=== PATIENT | female | born 1955 | race Caucasian/White ===

== ENCOUNTER 2019-10-02 06:00 | Outpatient (RCR) | payer MEDICARE, SELFPAY | END 2019-11-01 00:01 | LOC: WST 06:00 | PROVIDERS: Family Provider Registered Nurse; Visit Provider Internal Medicine Hematology & Oncology | DX: R13.13 Dysphagia, pharyngeal phase (principal) | CPT/HCPCS: 92526 ==

== ENCOUNTER 2019-10-17 06:00 | Outpatient (RCR) | payer MEDICARE, SELFPAY | END 2019-11-01 00:01 | LOC: ONCMED 06:00 | PROVIDERS: Family Provider Registered Nurse; PCP Registered Nurse; Visit Provider Internal Medicine Hematology & Oncology | DX: C13.9 Malignant neoplasm of hypopharynx, unspecified (principal); C77.0 Secondary and unspecified malignant neoplasm of lymph nodes of head, face and neck; F17.210 Nicotine dependence, cigarettes, uncomplicated; F10.20 Alcohol dependence, uncomplicated; G89.3 Neoplasm related pain (acute) (chronic); Z85.828 Personal history of other malignant neoplasm of skin; Z92.21 Personal history of antineoplastic chemotherapy; Z92.3 Personal history of irradiation | CPT/HCPCS: 36591; 85025; 99213; J1642 ==

== ENCOUNTER 2019-11-02 06:00 | Outpatient (RCR) | payer MEDICARE, SELFPAY | END 2019-12-02 23:59 | disposition home or self-care (01) | LOC: WST 06:00 | PROVIDERS: Family Provider Registered Nurse; PCP Registered Nurse; Visit Provider Internal Medicine Hematology & Oncology | DX: R13.13 Dysphagia, pharyngeal phase (principal) | CPT/HCPCS: 92526 ==

== ENCOUNTER → 2019-11-09 12:17 | Outpatient (BNVA) | payer MEDICARE, SELFPAY | PROVIDERS: Family Provider Registered Nurse; PCP Registered Nurse; Visit Provider Anesthesiology | DX: M54.5 Low back pain (principal); M25.552 Pain in left hip; G89.29 Other chronic pain; C13.9 Malignant neoplasm of hypopharynx, unspecified; F17.210 Nicotine dependence, cigarettes, uncomplicated; Z79.891 Long term (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 analgesic | CPT/HCPCS: 99204 ==

== ENCOUNTER 2019-11-17 10:41 | Outpatient (CLI) | payer MEDICARE, SELFPAY | END 2019-11-17 10:42 | disposition home or self-care (01) | LOC: ONCMED 10:46 | PROVIDERS: Family Provider Registered Nurse; PCP Registered Nurse; Visit Provider Internal Medicine Hematology & Oncology | DX: Z45.2 Encounter for adjustment and management of vascular access device (principal) | CPT/HCPCS: 96523 ==

== ENCOUNTER 2019-12-03 06:00 | Outpatient (RCR) | payer MEDICARE, SELFPAY | END 2019-12-31 23:59 | disposition home or self-care (01) | LOC: WST 06:00 | PROVIDERS: Family Provider Registered Nurse; PCP Registered Nurse; Visit Provider Internal Medicine Hematology & Oncology | DX: R13.13 Dysphagia, pharyngeal phase (principal) | CPT/HCPCS: 92526 ==

== ENCOUNTER → 2019-12-08 12:49 | Outpatient (BNVA) | payer MEDICARE, SELFPAY | PROVIDERS: Family Provider Registered Nurse; PCP Registered Nurse; Visit Provider Anesthesiology | DX: G89.29 Other chronic pain (principal); R07.0 Pain in throat; R07.89 Other chest pain; F17.210 Nicotine dependence, cigarettes, uncomplicated; Z79.891 Long term (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 analgesic | CPT/HCPCS: 99214 ==

== ENCOUNTER → 2019-12-16 12:45 | Outpatient (BNVA) | payer MEDICARE, SELFPAY | PROVIDERS: Family Provider Registered Nurse; PCP Registered Nurse; Visit Provider Registered Nurse | DX: J01.41 Acute recurrent pansinusitis (principal); R05 Cough | CPT/HCPCS: 87804 ==

== ENCOUNTER 2019-12-19 10:50 | Outpatient (CLI) | payer MEDICARE, SELFPAY | END 2019-12-19 10:51 | disposition home or self-care (01) | LOC: ONCMED 10:52 | PROVIDERS: Family Provider Registered Nurse; PCP Registered Nurse; Visit Provider Internal Medicine Hematology & Oncology | DX: Z45.2 Encounter for adjustment and management of vascular access device (principal) | CPT/HCPCS: 96523 ==

== ENCOUNTER 2020-01-04 21:21 | Inpatient (IN) | payer MEDICARE, SELFPAY ==
[2020-01-04 21:34] VITALS: BP 140/66; PULSE 88; RESP 17; O2SAT 95
[2020-01-04 21:43] VITALS: BMI 13.6
[2020-01-04 22:00] VITALS: BP 116/59; PULSE 78; RESP 19; O2SAT 98
[2020-01-04 22:25] VITALS: BP 116/59; PULSE 78; RESP 19; TEMP 37.4; O2SAT 98
[2020-01-04 23:00] VITALS: BP 119/61; PULSE 84; RESP 20; O2SAT 93
--- NOTE | 2020-01-04 23:55 | P.HP_ITS ---
Providers/Chief Complaint Admitting Physician: Thomas Wilson MD Primary Care Provider: JIMMIE Chavez Chief Complaint: Flu A pos, hypotension History of Present Illness Claudia Perez is a 64 year old female who has history of carcinoma of hypopharynx finished all her chemotherapy sessions, was transferred to our facility for chief concern of hypotension with influenza A positive. Patient is stating that her symptoms started 4 to 5 days ago when she was exposed to children who had flulike symptoms, she started having myalgias, aches, subjective fevers, she felt really tired, she started having nonproductive cough which has recently converted to productive cough, she is bringing very sputum, she feels very tired and dehydrated, she is feeding herself through PEG tube, she only fed once today. At the other facility diagnostic work-up showed White count 2.5 Hemoglobin 14.1 Platelets 82 Lymphocyte absolute 0.22 Neutrophil absolute 1.9 Influenza A antigen positive BNP 563 Sodium 137 Potassium 3.9 Chloride 98 CO2 26 Calcium 9.4 BUN 31 Creatinine 0.7 AST 36 ALT 28 Troponin baseline 9 Chest x-ray did not show any acute remarkable findings it showed left-sided port infusion catheter with tip in SVC. Lactic acid 0.8 2 blood cultures were obtained EKG showed sinus rhythm without ischemic changes She was afebrile, systolic blood pressure was 108, she was hypoxic to 89 to 90% on room air and did well on 2 L nasal cannula, subsequently her blood pressure started going down, systolic blood pressure was 90 at that time decision was made to transfer to our ICU. She has received Tamiflu, DuoNeb treatment Evaluation on arrival to our ICU Systolic blood pressure 113, normal saline fluid running at the bedside, patient feels very dehydrated, not complaining of any chest pain, shortness of breath, nausea, vomiting, diarrhea, dysuria, she was not in any respiratory distress Review of Systems Const: Reports: fever, chills, body aches, fatigue and malaise Eyes: Denies: change in vision ENMT: Denies: throat pain Card: Denies: chest pain or palpitations Resp: Reports: shortness of breath and productive cough GI: Denies: abdominal pain, nausea or vomiting : Denies: flank pain or difficulty urinating Musc: Reports: muscle cramps Skin/Breast: Denies: rash Neuro: Denies: headache Psych: Denies: anxiety Endo: Reports: excessive urination Apolinar/Lymph: Denies: easy bruising All/Imm: Denies: hives Medications/Allergies Allergies Allergy/AdvReac Type Severity Reaction Status Date / Time No Known Allergies Allergy Verified 12/26/19 11:00 PFSH Acute PFSH: Medical History (Updated 01/05/20 @ 00:32 by Zeinab Fuentes MD) Carcinoma of hypopharynx COPD (chronic obstructive pulmonary disease) Hyperlipidemia Hyperthyroidism Hypothyroidism Port-A-Cath in place (~05/2019) Surgical History (Updated 01/05/20 @ 00:32 by Zeinab Fuentes MD) History of tonsillectomy History of tonsillectomy and adenoidectomy S/P percutaneous endoscopic gastrostomy (PEG) tube placement Status post open reduction and internal fixation (ORIF) of fracture left humerus Family History Mother CAD (coronary artery disease) Sister CAD (coronary artery disease) Stroke Denies family history of Anesthesia complication Bleeding disorder Social History Smoking and tobacco status: current every day smoker cigarettes Packs smoked per day: 1 Quit status (tobacco): has tried quititng Number of times tried to quit tobacco: 3 Second hand smoke exposure: Yes Smoking risk assessment/counseling performed?: Yes Alcohol intake: never Adopted: No Caregiver/support person: Yes Lives independently: No (disabled ) Household members: family Housing: House Marital status: Single Number of children: 3 Number of grandchildren: 7 Highest education level completed: High School Graduate service: No Current occupational status: disabled Current occupational exposures/hazards: No Pets and animals: Yes History of recent travel: No Sexually active: No Current gender identity: Female Micaela/Oriental Orthodox: Adventism Special micaela needs: No Agree to transfusion: No Financial difficulty paying for basics: Decline to Answer Vitals/I&O/Wt Last Vital Signs Temp 99.3 F 01/04/20 22:25 Pulse 78 01/04/20 22:25 Resp 19 H 01/04/20 22:25 BP 116/59 01/04/20 22:25 Pulse Ox 98 01/04/20 22:25 Weight last 48 hrs Weight 38.51 kg Physical Exam Narrative: EXAM NARRATIVE: Frail elderly female, dehydrated appearance Saturating well on 2 L nasal cannula Systolic blood pressure 113 No active restaurant distress, on lung auscultation no adventitious sounds were appreciated, good bilateral adequate breath sounds Abdomen soft, nontender, PEG tube site nonsensitive, no active drainage, Alert oriented x3 GCS 15 nonfocal exam S1, S2, no active signs of JVD or heart failure She looks dehydrated with decreased skin turgor, sunken eyes Malnourished appearance Appropriate mood and affect A&P Assessment and plan (1) Influenza: Status: Acute Code(s): J11.1 - Influenza due to unidentified influenza virus with other respiratory manifestations Additional A&P Information Constitutional symptoms secondary to influenza A Closely monitor for development of post viral pneumonia considering history of cancer and immunocompromise state, currently she is leukopenic with thrombocytopenia No need of antibiotics, continue Tamiflu DuoNeb treatments for as needed usage Droplet precautions Hypotension: Currently doing well with full resuscitation, Closely monitor for repeat of sepsis and septic shock COPD: No acute exacerbation Anxiety/depression: Continue BuSpar 5 mg tablet Hypothyroidism: Continue levothyroxine 75 mcg Cancer of hypopharynx: She is currently smoking half a pack a day, last chemo radiotherapy session was in June 2019, as per the patient PET scan did not show any recurrence of cancer, Patient is motivated to quit smoking Malnourishment: PEG tube was placed to help her gain weight Patient is full code DVT prophylaxis would avoid Lovenox because of thrombocytopenia, will use SCDs for now Attestations Medical Necessity Statement*: Currently needs ICU for hypotension and influenza A positive status with underlying cancer Time Spent in Patient Care: 35 Critical Care Time: Critical Care Time (min): 35 Coding Level of Care Code Acute Production Tester for Karley Rogers Diagnoses Influenza J11.1
[2020-01-05] VITALS (26 sets, daily range): BP systolic 81–127; BP diastolic 38–64; PULSE 63–91; RESP 13–26; TEMP 36.8–38.2; O2SAT 89–100
[2020-01-05] MEDS: LORazepam 1 mg Tablet 0.5 MG PO (00:52)
[2020-01-05] MEDS: sodium chloride 0.9% 1,000 ML 30 ML IV ×2 (00:53→16:04)
[2020-01-05] MEDS: HYDROcodone-APAP 7.5-325 mg/15 mL UDC PO ×3 (02:05→21:37)
[2020-01-05 04:21] LABS: Hematocrit 34.7 % (37.0-47.0); Hemoglobin 11.6 g/dL (11.5-15.3); Lymphocytes # 0.3 10^3/uL (0.8-4.8); Lymphocytes % 10.6 %; Mean Corpuscular HGB Conc 33.4 g/dL (30.0-36.0); Mean Corpuscular Hemoglobin 33.3 pg (28.0-34.0); Mean Corpuscular Volume 99.7 fL (81-99); Mean Platelet Volume 11.2 fL (7.4-10.4); Monocytes # 0.3 10^3/uL (0.2-0.9); Monocytes % 13.1 %; Neutrophils # 1.9 10^3/uL (1.8-7.7); Neutrophils % 75.9 %; Nucleated Red Blood Cells % 0 %; Platelet Count 74 10^3/cmm (130-400); Red Blood Count 3.48 10^6/uL (4.1-5.3); White Blood Count 2.5 10^3/uL (4.0-10.0)
[2020-01-05 04:45] LABS: Anion Gap 13.1 (5-19); Blood Urea Nitrogen 19 mg/dL (8-23); Calcium 9.2 mg/dL (8.5-10.5); Carbon Dioxide 25 mmol/L (22-29); Chloride 103 mmol/L (98-107); Glucose 103 mg/dL (65-115); Osmolality Calculated 281 mOsm/kg (285-295); Potassium 4.1 mmol/L (3.5-5.1); Sodium 137 mmol/L (136-145)
[2020-01-05] MEDS: acetaminophen 325 mg Tablet 650 MG PO ×2 (05:45→19:25)
--- NOTE | 2020-01-05 07:50 | CT_ITS ---
WS: [id number] CT CHEST WITHOUT INTRAVENOUS CONTRAST HISTORY: Secondary bacterial pneumonia. TECHNIQUE: Contiguous 5 mm axial imaging performed on the thorax. Coronal and sagittal reformats are submitted. All CT scans at [facility] use at least one of these dose optimization techniq ues: automated exposure control; mA and/or kV adjustment per patient size (includes targeted exams wh ere dose is matched to clinical indication); or iterative reconstruction. CONTRAST: Visipaque 320; 95 mL IV. DLP: 326.03 mGy.cm COMPARISON: None available. Lungs and central airway: Lungs are hyperinflated with changes of emphysema. Partial atelectasis resu lting in thickening along the fissures. There is partial atelectasis at the lingula and the RIGHT mid dle lobe. Mild bilateral lower lobe bronchial wall thickening, greater on the LEFT. There is mild bro nchiectasis. Partial atelectasis at the LEFT lung base. Pleura: Normal. No pleural effusion. Heart and pericardium: Normal size heart. Mild pericardial thickening anteriorly. Mediastinum and dianna: No mediastinum or hilar adenopathy. Vessels: Mild atherosclerosis aorta. Patient has a Port-A-Cath entering the LEFT subclavian vein with tip in the distal SVC. Pulmonary artery size is normal. Chest wall and lower neck: No soft tissue masses. Upper abdomen: There is a PEG tube present. Osseous structures: Increase in thoracic kyphosis. No osteoblastic or osteolytic bone disease. CT/CT chest wo con [id number] IMPRESSION: 1. Severe emphysema. 2. No pneumonia. 3. Pleural thickening secondary to atelectasis along the fissures adjacent to the RIGHT middle and lingula. 4. Bilateral lower lobe bronchial wall thickening and mild atelectasis.
[2020-01-05 09:42] LABS: Procalcitonin 0.08 ng/mL (0-0.5)
[2020-01-05 09:52] LABS: C Reactive Protein 33.8 mg/L (0.0-4.9)
[2020-01-05] MEDS: oseltamivir phosphate 75 mg Capsule PO ×2 (10:05→18:05)
[2020-01-05] MEDS: BuSPIRONE 5 mg Tablet PO (10:13)
[2020-01-05 11:03] LABS: LAB Peripheral Smear Sent for Review
[2020-01-05] MEDS: piperacillin-tazobactam 3.375 GM in sodium chloride 0.9% (plus) 50 ML IV ×2 (13:32→21:37)
[2020-01-05] MEDS: vancomycin 500 MG in sodium chloride 0.9% (plus) 100 ML 200 MG IV (16:46)
--- NOTE | 2020-01-05 17:19 | P.PN_ITS ---
Subjective Subjective: Interval history: Patient states that the rest of her family has been sick, her grandchildren have tested positive for influenza A, however she did not get prophylactically treated, she is feeling a little bit better, no chest pain, but continues to have a cough, no shortness of breath, unfortunately continues to smoke with history of cancer Vitals/I&O/Wt Last Vital Signs Temp 99.8 F H 01/05/20 10:00 Pulse 70 01/05/20 11:00 Resp 21 H 01/05/20 11:00 BP 82/43 01/05/20 11:00 Pulse Ox 97 01/05/20 11:00 01/05/20 01/05/20 01/05/20 06:59 14:59 22:59 Intake Total 220 / 220 455.5 / 675.5 Output Total 75 / 75 0 / 0 Balance -75 / -75 220 / 220 455.5 / 675.5 Weight last 48 hrs Weight 38.51 kg Physical Exam Narrative: EXAM NARRATIVE: G-tube in place, with slight skin breakdown Const: COMMON NORMALS: no apparent distress and oriented x3 HENMT: COMMON NORMALS: normocephalic HEAD & SCALP: normocephalic Neck/C-Spine: COMMON NORMALS: no JVD Resp: COMMON NORMALS: normal respiratory effort, no retractions, no use of accessory muscles and clear to auscultation bilaterally AUSCULTATION: clear to auscultation bilaterally Cardio: COMMON NORMALS: no JVD, regular rate, regular rhythm, S1 normal heart sound and S2 normal heart sound RATE: regular rate RHYTHM: regular rhythm HEART SOUNDS: S1 normal and S2 normal GI: COMMON NORMALS: normal to inspection, nondistended, normoactive bowel sounds, soft to palpation, non-tender, no hepatosplenomegaly, no masses and no bruits PALPATION: Yes soft and Yes no hepatosplenomegaly Extremity: COMMON NORMALS: normal capillary refill, no clubbing, cyanosis or edema, no calf tenderness and no pedal edema Neuro: COMMON NORMALS: oriented x3 Psych: COMMON NORMALS: mental status grossly normal Data : 01/05/20 03:45 01/05/20 03:45 Micro: Microbiology 01/05/20 11:45 Bacterial Antigens - Final Urine,Voided 01/05/20 11:45 Legionella Urinary Antigen - Final Urine Catheterized 01/05/20 10:43 Blood Culture - Preliminary Blood SPECIMEN COLLECTED 01/05/20 10:31 Blood Culture - Preliminary Blood SPECIMEN COLLECTED A&P Assessment and plan (1) Influenza: Status: Acute Code(s): J11.1 - Influenza due to unidentified influenza virus with other respiratory manifestations Additional A&P Information Constitutional symptoms secondary to influenza A As patient continues to have fevers and hypotensive episodes responding well to fluid boluses, will start on broad-spectrum antibiotics vancomycin and Zosyn, as she has a history of immunocompromise state given her cancer of hypopharynx status post chemoradiation CT chest continue Tamiflu DuoNeb treatments for as needed usage Droplet precautions Hypotension: Currently doing well with full resuscitation, SV delta 15, responding well to fluids, I believe the patient's blood pressure likely is on the lower end, given her BMI of 13 Closely monitor for repeat of sepsis and septic shock COPD: No acute exacerbation Anxiety/depression: Continue BuSpar 5 mg tablet Hypothyroidism: Continue levothyroxine 75 mcg Cancer of hypopharynx: She is currently smoking half a pack a day, last chemo radiotherapy session was in June 2019, as per the patient PET scan did not show any recurrence of cancer, Patient is motivated to quit smoking Malnourishment: PEG tube was placed to help her gain weight, will start Jevity here, consult dietary Patient is full code DVT prophylaxis would avoid Lovenox because of thrombocytopenia, will use SCDs for now Attestations Medical Necessity Statement*: Requires hospitalization due to influenza A Coding Level of Care Code Acute Supervisor Fur Floor Worker for Karley Rogers Diagnoses Influenza J11.1
[2020-01-05 21:50] LABS: Glucose Point of Care 93 mg/dL (70-110)
[2020-01-06] VITALS (22 sets, daily range): BP systolic 84–108; BP diastolic 42–57; PULSE 64–78; RESP 12–34; TEMP 36.7–37.8; O2SAT 92–99
[2020-01-06] MEDS: LORazepam 1 mg Tablet 0.5 MG PO (00:34)
[2020-01-06] MEDS: sodium chloride 0.9% 1,000 ML 100 ML IV ×2 (02:29→22:04)
[2020-01-06 05:10] LABS: Eosinophils % 0.5 %; Hematocrit 36.1 % (37.0-47.0); Hemoglobin 12.2 g/dL (11.5-15.3); Lymphocytes # 0.4 10^3/uL (0.8-4.8); Lymphocytes % 20.9 %; Mean Corpuscular HGB Conc 33.8 g/dL (30.0-36.0); Mean Corpuscular Hemoglobin 35.4 pg (28.0-34.0); Mean Corpuscular Volume 104.6 fL (81-99); Mean Platelet Volume 11.1 fL (7.4-10.4); Monocytes # 0.3 10^3/uL (0.2-0.9); Monocytes % 12.1 %; Neutrophils # 1.4 10^3/uL (1.8-7.7); Neutrophils % 66.5 %; Nucleated Red Blood Cells % 0 %; Platelet Count 68 10^3/cmm (130-400); Red Blood Count 3.45 10^6/uL (4.1-5.3); Red Cell Distribution Width 13.1 % (12.1-15.1); White Blood Count 2.1 10^3/uL (4.0-10.0)
[2020-01-06] MEDS: piperacillin-tazobactam 3.375 GM in sodium chloride 0.9% (plus) 50 ML IV ×3 (05:18→21:35)
[2020-01-06 05:26] LABS: Alanine Aminotransferase 19 U/L (0-33); Albumin Level 3.1 g/dL (3.5-5.2); Alkaline Phosphatase 40 IU/L (35-105); Anion Gap 12.1 (5-19); Aspartate Amino Transferase 34 U/L (0-32); Blood Urea Nitrogen 13 mg/dL (8-23); Calcium 8.7 mg/dL (8.5-10.5); Carbon Dioxide 24 mmol/L (22-29); Chloride 105 mmol/L (98-107); Globulin 2.4 g/dL (1.3-4.6); Glucose 100 mg/dL (65-115); Magnesium 1.8 mg/dL (1.7-2.3); Phosphorus 3.1 mg/dL (2.5-4.5); Potassium 4.1 mmol/L (3.5-5.1); Sodium 137 mmol/L (136-145); Total Bilirubin 0.2 mg/dL (0.15-1.2); Total Protein 5.5 g/dL (6.6-8.7)
[2020-01-06 05:39] LABS: Procalcitonin 0.06 ng/mL (0-0.5)
[2020-01-06] MEDS: HYDROcodone-APAP 7.5-325 mg/15 mL UDC PO ×2 (06:00→21:34)
[2020-01-06] MEDS: acetaminophen 325 mg Tablet 650 MG PO ×2 (06:12→15:02)
--- NOTE | 2020-01-06 07:00 | XR_ITS ---
WS: [id number] XR chest 1V portable [id number] REASON FOR EXAM: sob FINDINGS: A Mediport is seen extending from the left side. There is marked hyperaeration both lung myers and the markings appear to be increased suggesting inf lammatory changes. The heart is small A small hiatal hernia paraesophageal was evident. XR/XR chest 1V portable [id number] IMPRESSION: Chronic obstructive pulmonary disease with bronchitis changes. A Mediport in good position extends from the left. A paraesophageal hiatal hernia.
[2020-01-06] MEDS: BuSPIRONE 5 mg Tablet PO (09:50)
[2020-01-06] MEDS: vancomycin 500 MG in sodium chloride 0.9% (plus) 100 ML 200 MG IV (09:50)
[2020-01-06] MEDS: levothyroxine 150 mcg Tablet 75 MCG PO (09:50)
[2020-01-06] MEDS: oseltamivir phosphate 75 mg Capsule PO ×2 (09:51→18:40)
--- NOTE | 2020-01-06 10:13 | PC.NUTR ---
NUTR TF RECOMMENDATIONS: Pulmocare with goal rate of 40 ml/hr providing 1440 kcal (76%), 60 g PRO (158%), and 754 ml fluid (40%)(%NEEDS). Suggest starting TF at 20 ml/hr on continuous feed and increase by 10 ml Q6H as tolerated until goal rate is met. Suggest H2O flushes of 150 ml Q4H to approach fluid needs or per physician. Bolus feedin cans DAILY total with 1 cup H2O flush 3 times daily.
--- NOTE | 2020-01-06 15:32 | P.PN_ITS ---
Subjective Subjective: Interval history: Patient has been febrile at 6 AM, but states that she is feeling much better, no shortness of breath, no wheezing, has a mild cough, her oxygen requirements have increased to 5 L, but overall states that she is doing much better, no lightheaded, no dizziness, no nausea, no vomiting, is tolerating tube feeds well has no complaints Vitals/I&O/Wt Last Vital Signs Temp 98.3 F 01/06/20 08:00 Pulse 64 01/06/20 12:00 Resp 15 01/06/20 12:00 BP 89/48 01/06/20 12:00 Pulse Ox 97 01/06/20 12:00 01/06/20 01/06/20 01/06/20 06:59 14:59 22:59 Intake Total 362.5 / 1188.0 50 / 50 Output Total 125 / 225 200 / 200 Balance 237.5 / 963.0 -150 / -150 Weight last 48 hrs Weight 38.51 kg Physical Exam Const: COMMON NORMALS: no apparent distress and oriented x3 HENMT: COMMON NORMALS: normocephalic HEAD & SCALP: normocephalic Neck/C-Spine: COMMON NORMALS: no JVD Resp: COMMON NORMALS: normal respiratory effort, no retractions, no use of accessory muscles and clear to auscultation bilaterally AUSCULTATION: clear to auscultation bilaterally Cardio: COMMON NORMALS: no JVD, regular rate, regular rhythm, S1 normal heart sound and S2 normal heart sound RATE: regular rate RHYTHM: regular rhythm HEART SOUNDS: S1 normal and S2 normal GI: COMMON NORMALS: normal to inspection, nondistended, normoactive bowel sounds, soft to palpation, non-tender, no hepatosplenomegaly, no masses and no bruits PALPATION: Yes soft and Yes no hepatosplenomegaly Extremity: COMMON NORMALS: normal capillary refill, no clubbing, cyanosis or edema, no calf tenderness and no pedal edema Neuro: COMMON NORMALS: oriented x3 Psych: COMMON NORMALS: mental status grossly normal Data : 01/06/20 04:20 01/06/20 04:20 Micro: Microbiology 01/05/20 10:43 Blood Culture - Preliminary Blood NEGATIVE TO DATE 01/05/20 10:31 Blood Culture - Preliminary Blood NEGATIVE TO DATE 01/05/20 11:45 Bacterial Antigens - Final Urine,Voided 01/05/20 11:45 Legionella Urinary Antigen - Final Urine Catheterized A&P Assessment and plan (1) Influenza: Status: Acute Code(s): J11.1 - Influenza due to unidentified influenza virus with other respiratory manifestations Additional A&P Information Constitutional symptoms secondary to influenza A As patient continues to have fevers and hypotensive episodes responding well to fluid boluses, will start on broad-spectrum antibiotics vancomycin and Zosyn, as she has a history of immunocompromise state given her cancer of hypopharynx status post chemoradiation CT chest has been unremarkable continue Tamiflu DuoNeb treatments for as needed usage Droplet precautions patient is okay with elective intubation if required Hypotension: Currently doing well with full resuscitation, SV delta 15, responding well to fluids, I believe the patient's blood pressure likely is on the lower end, given her BMI of 13 Closely monitor for repeat of sepsis and septic shock, fluid bolus of LR 500 as needed COPD: No acute exacerbation Anxiety/depression: Continue BuSpar 5 mg tablet Hypothyroidism: Continue levothyroxine 75 mcg Cancer of hypopharynx: She is currently smoking half a pack a day, last chemo radiotherapy session was in June 2019, as per the patient PET scan did not show any recurrence of cancer, Patient is motivated to quit smoking Malnourishment: PEG tube was placed to help her gain weight, will start Jevity here, consult dietary Patient is full code DVT prophylaxis would avoid Lovenox because of thrombocytopenia, will use SCDs for now Attestations Medical Necessity Statement*: Patient requires additional hospitalization due to influenza A, and sepsis Coding Level of Care Code Acute [employer] Developer for Karley Rogers Diagnoses Influenza J11.1
[2020-01-07] VITALS (18 sets, daily range): BP systolic 89–128; BP diastolic 43–71; PULSE 60–74; RESP 13–22; TEMP 36.6–37.2; O2SAT 92–98
[2020-01-07 01:47] LABS: Vancomycin Trough 4.6 ug/mL (10-15)
[2020-01-07] MEDS: acetaminophen 325 mg Tablet 650 MG PO (01:49)
--- NOTE | 2020-01-07 02:25 | PC.PHAR ---
Vancomycin trough level is 4.6. Vancomycin dosage is increased from 500mg IVPB every 18 hours to 1000mg IVPB every 24 hours with another trough level to be obtained before the fourth 1gm dose.
[2020-01-07] MEDS: vancomycin 1,000 MG in sodium chloride 0.9% 250 ML 250 MG IV (02:46)
[2020-01-07] MEDS: HYDROmorphone 1 mg/mL INJ 1 mL IVP (03:37)
[2020-01-07 04:00] LABS: Eosinophils % 1.9 %; Hematocrit 31.8 % (37.0-47.0); Hemoglobin 10.6 g/dL (11.5-15.3); Lymphocytes # 0.4 10^3/uL (0.8-4.8); Lymphocytes % 27.2 %; Mean Corpuscular HGB Conc 33.3 g/dL (30.0-36.0); Mean Corpuscular Volume 99.1 fL (81-99); Monocytes # 0.2 10^3/uL (0.2-0.9); Monocytes % 14.6 %; Neutrophils # 0.9 10^3/uL (1.8-7.7); Neutrophils % 56.3 %; Nucleated Red Blood Cells % 0 %; Platelet Count 59 10^3/cmm (130-400); Red Blood Count 3.21 10^6/uL (4.1-5.3); White Blood Count 1.6 10^3/uL (4.0-10.0)
[2020-01-07 04:16] LABS: Alanine Aminotransferase 15 U/L (0-33); Albumin Level 2.6 g/dL (3.5-5.2); Alkaline Phosphatase 36 IU/L (35-105); Anion Gap 11.7 (5-19); Aspartate Amino Transferase 26 U/L (0-32); Blood Urea Nitrogen 9 mg/dL (8-23); Calcium 8.4 mg/dL (8.5-10.5); Carbon Dioxide 24 mmol/L (22-29); Chloride 103 mmol/L (98-107); Globulin 2.3 g/dL (1.3-4.6); Glomerular Filtration Rate 123.4 mL/min (90-130); Glucose 95 mg/dL (65-115); Magnesium 1.7 mg/dL (1.7-2.3); Potassium 3.7 mmol/L (3.5-5.1); Sodium 135 mmol/L (136-145); Total Bilirubin 0.2 mg/dL (0.15-1.2); Total Protein 4.9 g/dL (6.6-8.7)
[2020-01-07 04:30] LABS: Procalcitonin 0.05 ng/mL (0-0.5)
[2020-01-07] MEDS: piperacillin-tazobactam 3.375 GM in sodium chloride 0.9% (plus) 50 ML IV (05:59)
--- NOTE | 2020-01-07 08:20 | CTR_ITS ---
PROCEDURE INFORMATION: Exam: CT Angiography Chest With Contrast Exam date and time: 01/07/2020 8:25 AM Age: 64 years old Clinical indication: Shortness of breath; Prior surgery; Surgery date: 1-6 months; Surgery type: Port; Additional info: R/O pe TECHNIQUE: Imaging protocol: Computed tomographic angiography of the chest with intravenous contrast. 3D rendering: MIP and/or 3D reconstructed images were created by the technologist. Total DLP: 387.34 mGy-cm Radiation optimization: All CT scans at this facility use at least one of these dose optimization techniques: automated exposure control; mA and/or kV adjustment per patient size (includes targeted exams where dose is matched to clinical indication); or iterative reconstruction. Contrast material: OMNI 350; Contrast volume: 75 ml; Contrast route: RT AC; COMPARISON: CT chest wo con [id number] 01/05/2020 12:57 PM FINDINGS: Pulmonary arteries: No pulmonary embolus or aortic dissection. Aorta: Unremarkable. No aortic aneurysm. No aortic dissection. Lungs: Stable severe centrilobular emphysema. Interval appearance of mild right upper lobe pneumonia since the previous exam. Partial re-expansion of the previously collapsed right middle lobe. Interval atelectasis and airspace disease in the medial aspect left lower lobe, posterior aspect right lower lobe and inferior segment lingula consistent with pneumonia and or atelectasis. Pleural space: Right apical pleural and/or parenchymal scarring. Heart: Severe calcified coronary artery disease. Stable mild pericardial fluid and/or thickening. Stomach and bowel: Probable stable PEG tube. Lymph nodes: Unremarkable. No enlarged lymph nodes. Bones/joints: Unremarkable. No acute fracture. Soft tissues: Unremarkable. CT/CT angio chest PE protcl [id number] IMPRESSION: 1. Stable severe centrilobular emphysema. 2. Interval appearance of mild right upper lobe pneumonia since the previous exam. 3. Partial re-expansion of the previously collapsed right middle lobe. 4. Interval atelectasis and airspace disease in the medial aspect left lower lobe, posterior aspect right lower lobe and inferior segment lingula consistent with pneumonia and or atelectasis. 5. No pulmonary embolus or aortic dissection. Radiation Dose CTDIVOL = (mGy): DLP = 387.34 (mGy-cm)
[2020-01-07] MEDS: iohexol 350 mg/mL 100 mL Btl IV (08:55)
[2020-01-07] MEDS: levothyroxine 150 mcg Tablet 75 MCG PO (09:23)
[2020-01-07] MEDS: BuSPIRONE 5 mg Tablet PO (09:24)
[2020-01-07] MEDS: oseltamivir phosphate 75 mg Capsule PO ×2 (09:24→18:09)
--- NOTE | 2020-01-07 16:11 | PM.PN ---
Subjective Subjective: Interval history: Patient states that she is doing well this morning, no fevers, no chills, no nausea, no vomiting, was able to ambulate to the bathroom without significant assistance or symptomatology, is still on 5 L oxygen Vitals/I&O/Wt Last Vital Signs Temp 99 F 01/07/20 10:00 Pulse 66 01/07/20 14:00 Resp 17 01/07/20 14:00 BP 110/53 01/07/20 14:00 Pulse Ox 96 01/07/20 14:00 01/07/20 01/07/20 01/07/20 06:59 14:59 22:59 Intake Total 50 / 1950 348 / 348 Output Total 200 / 900 600 / 600 200 / 800 Balance -150 / 1050 -600 / -600 148 / -452 Physical Exam Const: COMMON NORMALS: no apparent distress and oriented x3 HENMT: COMMON NORMALS: normocephalic HEAD & SCALP: normocephalic Neck/C-Spine: COMMON NORMALS: no JVD Resp: COMMON NORMALS: normal respiratory effort, no retractions, no use of accessory muscles and clear to auscultation bilaterally AUSCULTATION: clear to auscultation bilaterally Cardio: COMMON NORMALS: no JVD, regular rate, regular rhythm, S1 normal heart sound and S2 normal heart sound RATE: regular rate RHYTHM: regular rhythm HEART SOUNDS: S1 normal and S2 normal GI: COMMON NORMALS: normal to inspection, nondistended, normoactive bowel sounds, soft to palpation, non-tender, no hepatosplenomegaly, no masses and no bruits PALPATION: Yes soft and Yes no hepatosplenomegaly Extremity: COMMON NORMALS: normal capillary refill, no clubbing, cyanosis or edema, no calf tenderness and no pedal edema Neuro: COMMON NORMALS: oriented x3 Psych: COMMON NORMALS: mental status grossly normal Data : 01/07/20 03:18 01/07/20 03:18 Micro: Microbiology 01/05/20 10:43 Blood Culture - Preliminary Blood NEGATIVE TO DATE 01/05/20 10:31 Blood Culture - Preliminary Blood NEGATIVE TO DATE A&P Assessment and plan (1) Influenza: Status: Acute Code(s): J11.1 - Influenza due to unidentified influenza virus with other respiratory manifestations Additional A&P Information Respiratory failure secondary to influenza A and right upper, middle, lower lobe pneumonia Initial CT of the chest on admission did not show any significant radiologic evidence of pneumonia, but she was given broad-spectrum antibiotics vancomycin and Zosyn for over 48 hours, however she continued to have a high oxygen requirements, remained afebrile, Patient continued to have high flow oxygen requirements, and as she has not been on Lovenox due to concerns of thrombocytopenia, CT angiogram of the chest was ordered to rule out pulmonary embolism, no pulmonary embolism, however CT angiogram of the chest did show interval appearance of mild right upper lobe pneumonia since the previous exam.Partial re-expansion of the previously collapsed right middle lobe. Interval atelectasis and airspace disease in the medial aspect left lower lobe, posterior aspect right lower lobe and inferior segment lingula consistent with pneumonia and or atelectasis. As all cultures have been unremarkable, will de-escalate antibiotics to Levaquin Continue Tamiflu, will consider prolonged treatment given patient's immunocompromised state DuoNeb treatments for as needed usage Droplet precautions Patient will likely require 2 to 3 L oxygen on discharge, requires oxygen walk on discharge patient is okay with elective intubation if required Likely discharge in the next 24 hours Given collapse of the right middle lobe, but reexpansion, will require a follow-up with Dr. Chao as outpatient for repeat imaging and consideration of bronchoscopy to rule out underlying malignancy Patient is trending towards absolute neutropenia, consider prolonged prophylactic treatment with Levaquin and Tamiflu Hypotension: Currently doing well with full resuscitation, SV delta 15, responding well to fluids, I believe the patient's blood pressure likely is on the lower end, given her BMI of 13 Closely monitor for repeat of sepsis and septic shock, fluid bolus of LR 500 as needed COPD: No acute exacerbation, no steroids required Anxiety/depression: Continue BuSpar 5 mg tablet Hypothyroidism: Continue levothyroxine 75 mcg Cancer of hypopharynx: She is currently smoking half a pack a day, last chemo radiotherapy session was in June 2019, as per the patient PET scan did not show any recurrence of cancer, Patient is motivated to quit smoking Malnourishment: PEG tube was placed to help her gain weight, getting continuous tube feeds to [facility] here, consult dietary, has a BMI of 13. On discharge nutrition recommends bolus feedings, 4 cans daily total with 1 cup of water flush 3 times daily Patient is full code DVT prophylaxis would avoid Lovenox because of thrombocytopenia, will use SCDs for now Attestations Medical Necessity Statement*: Patient requires continued hospitalization due to respiratory failure secondary to influenza A and right-sided pneumonia Coding Level of Care Code Acute Supervisor [employer] for Karley Rogers Diagnoses Influenza J11.1
--- NOTE | 2020-01-07 16:36 | DCPLANNER ---
Pg 2 of IM updated and reviewed with pt. No questions, copy provided.
[2020-01-07] MEDS: levofloxacin-dextrose 5 % 750 MG/150 ML PREMIX 150 MG IV (18:08)
[2020-01-07] MEDS: HYDROcodone-APAP 7.5-325 mg/15 mL UDC PO (18:35)
--- NOTE | 2020-01-07 19:15 | PC.NURSE ---
Received report from off going shift. RN reports that patient has not received any tube feeding since arriving to our floor because her tube is clogged and she has been unable to free the clog. RN states that she tired to push the patient's pain medication in patient's PEG tube about 1830 and it did not flush instead it blew back out all over the RN and the patient. Patient did not get her pain medication.
--- NOTE | 2020-01-07 19:50 | PC.NURSE ---
Attempted to flush patient's PEG tube at this time with sterile water and pulsating motion without any success. Patient's PEG tube does not really want to take any fluids. Patient's PEG tube will not allow any aspiration either. Placed approximately 10 mls of Coke soda in patient's tube at this time. Will wait and see if it will help any.
--- NOTE | 2020-01-07 20:00 | PC.NURSE ---
Continuing to use try and flush patient's PEG tube. Pulsating motion again used to try and push the Coke up the tube. The is about and 1 inch area of hardened feeding in the center of the tube. Patient is upset and states, I think it is because I have been getting continuous feeding instead of my boluses. I am not going to take anymore of that tonight if we get it flushed.
--- NOTE | 2020-01-07 21:30 | PC.NURSE ---
Finally able to get patient's PEG tube to flush using about 100 mls total of sterile water and 10 mls of Coke soda. Patient is refusing to start her tube feeding back up tonight.
--- NOTE | 2020-01-07 21:45 | PC.NURSE ---
Cyrus HICKS attempted to give patient her pain medication in her PEG tube at 183. The medication could not be flushed as the tube was clogged. Cyrus HICKS and the patient both state that she did not receive the medication. After I was able to get the PEG tube unclogged I gave the patient a dose of Hydrocodone-APAP 7.5/325mg at 2154. Cyrus did not waste her dosage in the [place] so it looks like I did not give my dosage but it was given at 2154.
[2020-01-07] MEDS: LORazepam 0.5 mg Tablet PO (21:55)
[2020-01-08] VITALS (7 sets, daily range): BP systolic 115–137; BP diastolic 61–74; PULSE 61–78; RESP 16–18; TEMP 36.8–37.1; O2SAT 87–96
[2020-01-08 06:16] LABS: Eosinophils % 1.2 %; Hematocrit 34.8 % (37.0-47.0); Hemoglobin 11.8 g/dL (11.5-15.3); Lymphocytes # 0.4 10^3/uL (0.8-4.8); Lymphocytes % 23.7 %; Mean Corpuscular HGB Conc 33.9 g/dL (30.0-36.0); Mean Corpuscular Hemoglobin 33.4 pg (28.0-34.0); Mean Corpuscular Volume 98.6 fL (81-99); Mean Platelet Volume 10.8 fL (7.4-10.4); Monocytes # 0.3 10^3/uL (0.2-0.9); Monocytes % 15.6 %; Neutrophils % 59.5 %; Nucleated Red Blood Cells % 0 %; Platelet Count 57 10^3/cmm (130-400); Red Blood Count 3.53 10^6/uL (4.1-5.3); Red Cell Distribution Width 12.6 % (12.1-15.1); White Blood Count 1.7 10^3/uL (4.0-10.0)
[2020-01-08 06:40] LABS: Alanine Aminotransferase 14 U/L (0-33); Albumin Level 2.9 g/dL (3.5-5.2); Alkaline Phosphatase 37 IU/L (35-105); Anion Gap 12.5 (5-19); Aspartate Amino Transferase 25 U/L (0-32); Blood Urea Nitrogen 7 mg/dL (8-23); Carbon Dioxide 24 mmol/L (22-29); Chloride 100 mmol/L (98-107); Globulin 2.6 g/dL (1.3-4.6); Glomerular Filtration Rate 159.7 mL/min (90-130); Glucose 86 mg/dL (65-115); Magnesium 1.6 mg/dL (1.7-2.3); Phosphorus 3.1 mg/dL (2.5-4.5); Potassium 3.5 mmol/L (3.5-5.1); Sodium 133 mmol/L (136-145); Total Bilirubin 0.3 mg/dL (0.15-1.2); Total Protein 5.5 g/dL (6.6-8.7)
[2020-01-08 06:55] LABS: Procalcitonin 0.06 ng/mL (0-0.5)
[2020-01-08] MEDS: HYDROcodone-APAP 7.5-325 mg/15 mL UDC PO (09:23)
[2020-01-08] MEDS: levothyroxine 150 mcg Tablet 75 MCG PO (09:24)
[2020-01-08] MEDS: oseltamivir phosphate 75 mg Capsule PO ×2 (09:24→17:13)
[2020-01-08] MEDS: BuSPIRONE 5 mg Tablet PO (09:25)
[2020-01-08] MEDS: acetaminophen 650 mg/20.3 mL UDC PO (13:31)
--- NOTE | 2020-01-08 14:04 | PM.DCS ---
Discharge Providers Date of Admission: 01/04/20 23:54 Date of Discharge: January 08, 2020 Attending Provider at Admission: Thomas Wilson MD Attending Provider at Discharge: Sunil Zaidi MD Primary Care Provider: JIMMIE Chavez Diagnoses at Discharge Discharge Diagnosis (1) Influenza: Status: Acute Problem details: Finish up course of Tamiflu at home. Secondary to immunocompromise state will give 7 more days Reason for Visit Reason for Visit: Reason For Visit: Flu A pos, hypotension Hospital Course Hospital Course: Claudia is a 64-year-old white female who presented to the hospital for low blood pressure and flulike symptoms. She was found to have influenza A, and concern for pneumonia existed as well. She was placed in the hospital on Tamiflu, and secondary to her immunocompromise state antibiotics were eventually added. She required oxygen. Throughout her hospital course she had gradual improvement and she requested to go home on January 07. At that time she was able to ambulate around the room, and was requiring only 2 L of oxygen. Home oxygen evaluation will be done prior to discharge. A repeat chest x-ray will be arranged in 2 weeks for follow-up of pneumonia. If abnormalities still exist consider referral to pulmonary. Physical Exam Narrative: EXAM NARRATIVE: General exam is no apparent distress Cardiovascular regular rate and rhythm without murmur Lungs clear but with diminished breath sounds bilaterally Abdomen is soft with positive bowel sounds Extremities no cyanosis clubbing or edema Discharge Data Data Completed and Pending: Completed Studies During Hospitalization Category Date Time Status CT angio chest PE protcl [id number] Stat Cat Scan 01/07/20 08:[address] chest wo con 7 1250 Stat Cat Scan 01/05/20 07:50 Completed XR chest 1V tori ble [id number] Routine Exams 01/06/20 07:00 Completed Pending at discharge Category Date Time Status Blood Culture Sta t Lab 01/05/20 10:43 Results Respiratory Viral Panel PCR Stat Lab 01/05/20 12:00 Received Sputum Culture an d Gram Stain Stat Lab 01/05/20 09:24 Uncollected Vancomycin Trough Timed Lab 01/10/20 01:30 Ordered Labs from last 24 hours 01/08/20 01/08/20 01/08/20 04:54 04:54 04:54 WBC 1.7 L RBC 3.53 L Hgb 11.8 Hct 34.8 L MCV 98.6 MCH 33.4 MCHC 33.9 RDW 12.6 Plt Count 57 L MPV 10.8 H Neut % (Auto) 59.5 Lymph % (Auto) 23.7 [place] % (Auto) 15.6 Eos % (Auto) 1.2 Baso % (Auto) 0.0 Neut # (Auto) 1.0 L Lymph # (Auto) 0.4 L [place] # (Auto) 0.3 Eos # (Auto) 0.0 Baso # (Auto) 0.0 Nucleated RBC % (a uto) 0 Nucleated RBCs # 0.0 Sodium 133 L Potassium 3.5 Chloride 100 Carbon Dioxide 24 Anion Gap 12.5 BUN 7 L Creatinine 0.4 L GFR Calculation 159.7 H Glucose 86 Calcium 9.0 Phosphorus 3.1 Magnesium 1.6 L Total Bilirubin 0.3 AST 25 ALT 14 Alkaline Phosphata se 37 Total Protein 5.5 L Albumin 2.9 L Globulin 2.6 Procalcitonin 0.06 Vitals: Last Vital Signs Temp 98.7 F 01/08/20 11:43 Pulse 61 01/08/20 11:43 Resp 18 01/08/20 11:43 BP 115/61 01/08/20 11:43 Pulse Ox 96 01/08/20 11:43 Discharge Plan Discharge Patient Disposition: Home, Self-Care Condition: Stable Prescriptions: New levofloxacin [Levaquin] 750 mg tablet 750 mg PO DAILY 7 Days Qty: 7 RF: 0 Continued ondansetron HCl [Zofran] 4 mg tablet 4 mg PO Q8H PRN (Reason: Nausea) RF: 0 hydrocodone-acetaminophen 7.5-325 mg/15 mL solution 15 ml PO BID PRN (Reason: pain) 30 Days Qty: 900 RF: 0 levothyroxine 75 mcg capsule 75 mcg PO DAILY Qty: 90 RF: 0 mexiletine 250 mg capsule 250 mg PO BID Qty: 60 RF: 0 buspirone 5 mg tablet 5 mg PO BID Qty: 60 RF: 0 lorazepam 0.5 mg PO BEDTIME RF: 0 oseltamivir [Tamiflu] 75 mg capsule 75 mg PO BID 5 Days Qty: 10 RF: 0 Discharge Orders: Discharge Order (Routine); Ordered 01/08/20 Ordered By: Sunil Zaidi Referrals: Prosper Cox FNP [Primary Care Provider] - 4-7 days (CBC on follow-up Recommend repeat chest x-ray PA and lateral in 2 weeks. If no resolution of pneumonia consider referral to pulmonary.) Discharge Diet: Usual diet Discharge Activity: Resume usual activity Activity Restrictions/Additional Instructions: Home oxygen evaluation prior to discharge. Take all medicine as prescribed Keep regular follow-up with oncology You may use your albuterol at home 4 times a day until you feel that you are doing well, then as needed Make sure she has 5 days of Tamiflu available for use at home as listed on her home medicine reconciliation. 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
[2020-01-08] MEDS: levofloxacin-dextrose 5 % 750 MG/150 ML PREMIX 150 MG IV (15:32)
--- NOTE | 2020-01-08 17:50 | PC.NURSE ---
DC to home. discharge instructions given to pt and daughter, IV dc'd cath intact bleeding controlled with 2x2 and coban.to main entrance via wheelchair to personal vehicle, with zero difficulties.
[2020-01-09 01:31] LABS: Adenovirus Not Detected (Not Detected); Human Metapneumovirus Not Detected (Not Detected); Human Parainflu Virus 1 Not Detected (Not Detected); Human Parainflu Virus 2 Not Detected (Not Detected); Human Parainflu Virus 3 Not Detected (Not Detected); Human Rsv A Not Detected (Not Detected); Influenza A Detected (Not Detected); Influenza B Not Detected (Not Detected); Rhinovirus/Enterovirus Not Detected (Not Detected)
== END 2020-01-08 17:50 | disposition home or self-care (01) | DRG 194 ==
LOC: ICU 01-05 09:41 → MEDSURG 01-07 15:20
PROVIDERS: Internal Medicine; Admitting Provider Family Medicine; Family Provider Registered Nurse; PCP Registered Nurse; Visit Provider Internal Medicine
DX: J10.00 Influenza due to other identified influenza virus with unspecified type of pneumonia (principal); E46 Unspecified protein-calorie malnutrition; Z68.1 Body mass index [BMI] 19.9 or less, adult; F17.210 Nicotine dependence, cigarettes, uncomplicated; I95.9 Hypotension, unspecified; F41.9 Anxiety disorder, unspecified; F32.9 Major depressive disorder, single episode, unspecified; E03.9 Hypothyroidism, unspecified; J44.9 Chronic obstructive pulmonary disease, unspecified; Z85.818 Personal history of malignant neoplasm of other sites of lip, oral cavity, and pharynx; Z79.890 Hormone replacement therapy; Z79.82 Long term (current) use of aspirin; Z79.51 Long term (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 of inhaled steroids
CPT/HCPCS: 12345; 36415; 36416; 71045; 71250; 71275; 80048; 80053; 80202; 82962; 83735; 84100; 84145; 85025; 86140; 86403; 87040; 87449; 96375; G0378; G0379; J1170; J1956; J2543; J3370; J7030; J7050; Q9967

== ENCOUNTER 2020-01-23 09:42 | Outpatient (CLI) | payer MEDICARE, SELFPAY ==
[2020-01-20 14:17] LABS: Basophils % 0.6 %; Eosinophils % 0.6 %; Hematocrit 42.7 % (37.0-47.0); Hemoglobin 14.3 g/dL (11.5-15.3); Lymphocytes # 0.7 10^3/uL (0.8-4.8); Lymphocytes % 14.8 %; Mean Corpuscular HGB Conc 33.5 g/dL (30.0-36.0); Mean Corpuscular Hemoglobin 34.6 pg (28.0-34.0); Mean Corpuscular Volume 103.4 fL (81-99); Mean Platelet Volume 10.6 fL (7.4-10.4); Monocytes # 0.7 10^3/uL (0.2-0.9); Monocytes % 13.6 %; Neutrophils # 3.5 10^3/uL (1.8-7.7); Neutrophils % 70.2 %; Nucleated Red Blood Cells % 0 %; Platelet Count 207 10^3/cmm (130-400); Red Blood Count 4.13 10^6/uL (4.1-5.3); Red Cell Distribution Width 13.1 % (12.1-15.1)
[2020-01-20 14:30] LABS: Alanine Aminotransferase 8 U/L (0-33); Alkaline Phosphatase 54 IU/L (35-105); Anion Gap 12.2 (5-19); Aspartate Amino Transferase 19 U/L (0-32); Blood Urea Nitrogen 25 mg/dL (8-23); Calcium 9.9 mg/dL (8.5-10.5); Carbon Dioxide 35 mmol/L (22-29); Chloride 97 mmol/L (98-107); Globulin 2.9 g/dL (1.3-4.6); Glucose 73 mg/dL (65-115); Osmolality Calculated 285 mOsm/kg (285-295); Potassium 4.2 mmol/L (3.5-5.1); Sodium 140 mmol/L (136-145); Total Bilirubin 0.4 mg/dL (0.15-1.2); Total Protein 6.9 g/dL (6.6-8.7)
--- NOTE | 2020-01-24 16:45 | ONC FU_ITS ---
Dr. Luna follow up note Patient: Claudia Perez Unit #: [id number]: [id number] Dicatated By: Sara Luna M.D.Date of Visit:Jan 23, 2020 Onc Med Follow-up/Prog Note History of Present Illness: Ms. Perez is a 64-year-old female with history of progressive painful swallowing and left earache for the last several months. She has a 88-[id number] history of smoking. In October 2018, she presented to her PCP with a sore throat, left ear pain and noted a mass in her left submandibular area. She was referred to ENT (Dr. Cornejo and [place], [place]) and underwent a flexible laryngoscopy and it revealed a large mass involving the base of the tongue, the vallecula and left half of epiglottis.and probable T3 lesion of the hypopharynx on left side. No biopsy was taken from this hypopharyngeal mass but FNA of left submandibular lymph node was done on 02/16/2019,(mistakenly labeled as left thyroid nodule, as per discussion with pathologist Dr. Yo Guerrero ) which showed metastatic squamous cell carcinoma. CT PET scan done on 04/23/2019 showed 4.1 x 2.2 cm left hypopharyngeal mass with SUV 14.1; left IIa nodes measuring 1.2 cm with SUV of 4.2 and left level IV node measuring 1.4 cm with SUV of 9.1 consistent with ipsilateral metastatic disease. No evidence of distant metastases. Ms. Perez uses dentures with long-standing e.g. 50+ years history of smoking, still smoking about half a pack a day. She is a current every day drinker 6 drinks/for day 7 days per week. Medical History: Emphysema; hypothyroidism Surgical History: repair of left arm fracture and tonsillectomy Mrs. Perez was offered definitive concurrent chemoradiation. Her chemotherapy plan consist of cisplatin days 1, 22 and 43. She began her first treatment of cisplatin on 05/09/2019. complaining of left ear pain, requiring more pain medicine. But no fever or chills, also complaining of sore throat and painful swallowing, Magic mouthwash is not helping her much. Patient was scheduled for day 43 chemotherapy last week but because of poor performance status and chemoradiation related side effects it was not given and she completed combined chemoradiation on 06/29/2019 complaining of persistent ear pain or discomfort for that she was seen by Dr Adame and modified barium swallow was done for dysphagia on 09/02/2019 which showed increase in the laryngeal penetration with a greater number of swallows, now being treated by speech therapy. follow-up CT scan ordered by Dr. Adame , Done on 09/15/2019 showed no definite recurrent mass within the larynx. There is a 4 mm area of increase signal in the posterior left larynx at the level of hyoid bone , as per patient, in November 2019, she underwent biopsy of this shadow and it came back negative. Came for follow-up, denies any specific complaints, no fever or chills, no nausea or vomiting, no left ear pain, no sore throat, no dysphagia, her swallowing is improving with speech therapy patient said she quit smoking 3 weeks ago. Overall feeling well with no evidence of disease as confirmed by ENT recently. Medications: Ativan 1 Tablet (of 0.5 mg) Oral daily PRN, Flonase 1 (50 mcg/act) Suspension Nasal daily PRN, HYDROcodone-Acetaminophen 15 mL (of 7.5-325 mg/15mL) Solution Oral q 6 hours PRN, Levo-T 1 Tablet (of 75 mcg) Oral daily, Mexiletine HCl 1 Capsule (of 250 mg) Oral daily, Ondansetron HCl 1 - 2 Tablet (of 4 mg) Oral t.i.d. PRN, Prochlorperazine Maleate 1 Tablet (of 10 mg) Oral q 4 hours PRN Allergies: No Known Allergies. Review of Systems: Constitutional - Her energy level is fair. Appetite is fair and weight is stable. No fever, chills, hot flashes, or night sweats, ENMT - No sinus congestion/drainage. No mouth sores. Pt reports continued hoarseness and sore throat. Positive for difficulty swallowing, Hematologic/Lymphatic - No abnormal bruising or bleeding, Respiratory - Positive for shortness of breath. Pt is on portable oxygen. Positive for cough. No pleuritic pain or hemoptysis, Cardiovascular - No angina pain. No palpitations, Gastrointestinal - No nausea, no vomiting. No heartburn or acid reflux. She has some constipation, but states it is resolved with stool softeners. No blood in the stool or black stools, Genitourinary (F) - No dysuria or hematuria. No urinary frequency. No urgency or incontinence, Musculoskeletal - No joint or bone pain, Neurologic - No headache or dizziness. No numbness/paresthesias or other focal neurologic symptoms, Psychiatric - No anxiety or depression. No insomnia. Vital Signs: Performed on Jan 23, 2020 10:15 Height - 66.00 in Weight - 84.0 lbs (HIGH) BSA - 1.38 sq.m BMI - 13.56 (LOW) Temperature - 97.4 F (LOW) Pulse - 59 /min (LOW) Respiration - 22 /min BP - 114/65 mm(hg) O2 Sat - 97 % Pain - 0 Performance Status: 0 - Fully active, able to carry on all predisease activities without restrictions. (ECOG) Physical Examination: ENMT - No oral exudates, ulcers, masses, thrush or mucositis. Oropharynx clear. Tongue normal, Respiratory - Lungs are clear to auscultation without rhonchi or wheezing, Cardiovascular - Regular rate and rhythm of heart, Abdomen - Non-tender, non-distended, Good bowel sounds. No guarding or rebound tenderness. No pulsatile masses, Extremities - no edema. Lab/Imaging: Test performed on Oct 17, 2019 09:38 WBC 4.2 10 3/uL RBC 4.26 10 6/uL HGB 14.8 g/dL HCT 42.7 % MCV 100.2 fl MCH 34.7 pg MCHC 34.7 g/dl RDW 12.5 % Platelet Count 138 10 3/cmm MPV 10.6 fl Neutrophils 2.8 10 3/uL Lymphocytes 0.9 10 3/uL Monocytes 0.4 10 3/uL Eosinophils 0.1 10 3/uL Basophils 0.0 10 3/uL Neutrophil % 67.1 % Lymphocyte % 21.4 % Monocyte % 9.1 % Eosinophil % 1.7 % Basophils % 0.5 % CBC Slide Review SLIDE REVIEW PERFORM SLIDE REVIEW AGREES WITH AUTOMATED RESULTS Test performed on Aug 01, 2019 09:55 Sodium 138 mmol/L Potassium 4.4 mmol/L Chloride 98 mmol/L CO2 26 mmol/L Anion Gap 18.4 BUN 27 mg/dL Creatinine 0.8 mg/dL Cr Clearance (Est) 40.1200 mL/min eGFR 71.8 mL/min Glucose 93 mg/dl Calcium 9.5 mg/dL Protein, Total 6.6 g/dL Albumin 4.9 g/dL Globulin 1.7 gm/dL Bilirubin, Total 0.3 mg/dL ALT (SGPT) 11 U/L AST (SGOT) 15 U/L Alkaline Phosphatase 47 U/L Impression: 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 status post FNA left submandibular node done on 02/16/2019 Flex laryngoscopy done on 02/16/2019 showed in the supraglottic region, a large mass that was involving base of tongue, the vallecula, and left half of epiglottis, probably a T3 lesion of left hypopharynx Odynophagia, left ear pain, due to above CT PET scan done on April 23 showed 4.1 x 3.2 cm left hypopharyngeal mass with SUV of 14.1 and left IIa nodes measuring 1.2 cm with SUV of 4.2 and left level IV node measuring 1.4 cm with SUV of 9.1 consistent with ipsilateral metastatic disease, no distant metastases cT3, N1 Mx c Stage III 50+ years history of smoking, still active, smokes about 1/2 to 1 pack a day. Current drinker 6 drinks/day 7 days/week. Basal cell carcinoma, nodular type involving left lateral shoulder status post curettage and electrodesiccation done on 02/02/2019, final pathology report showed deep and lateral margins were involved. Clinically, patient is doing well with persistent left ear/neck pain due to left hypopharyngeal squamous cell carcinoma. Combined chemoradiation therapy with high-dose cisplatin was recommended All the side effect possible benefits associated with high-dose chemotherapy with cisplatin 100 mg/m??? day 1, day 22 and day 43 and chemotherapy staff. Neulasta was ordered to prevent chemotherapy-induced neutropenia. She began Her first cycle on 05/09/2019. She has tolerated it relatively well overall. Plan: Discussed with patient regarding her labs white blood count 5 hemoglobin 14.3 crit 42.7 platelets 207,000 CMP within normal limits Clinically, patient doing well with no signs symptoms suggestive of recurrence of disease, patient is following Dr. Adame, ENT and radiation oncology on a regular basis, in that case we will see her on as-needed basis in the meantime she will continue with monthly port maintenance. Signed By: Sara Luna M.D. <<Signature on File>>
== END 2020-01-23 09:43 | disposition home or self-care (01) ==
LOC: ONCMED 09:42
PROVIDERS: Family Provider Registered Nurse; PCP Registered Nurse; Visit Provider Internal Medicine Hematology & Oncology
DX: C13.9 Malignant neoplasm of hypopharynx, unspecified (principal); C77.0 Secondary and unspecified malignant neoplasm of lymph nodes of head, face and neck; C79.89 Secondary malignant neoplasm of other specified sites
CPT/HCPCS: 36415; 80053; 85025; 96523; G0463

== ENCOUNTER → 2020-01-31 09:41 | Outpatient (BNVA) | payer MEDICARE, SELFPAY | PROVIDERS: Family Provider Registered Nurse; PCP Registered Nurse; Visit Provider Anesthesiology | DX: Z76.89 Persons encountering health services in other specified circumstances (principal) ==

== ENCOUNTER 2020-02-24 11:11 | Outpatient (CLI) | payer MEDICARE, SELFPAY | END 2020-02-24 11:12 | disposition home or self-care (01) | LOC: ONCMED 11:12 | PROVIDERS: Family Provider Registered Nurse; PCP Registered Nurse; Visit Provider Internal Medicine Hematology & Oncology | DX: Z45.2 Encounter for adjustment and management of vascular access device (principal); C13.9 Malignant neoplasm of hypopharynx, unspecified; C77.0 Secondary and unspecified malignant neoplasm of lymph nodes of head, face and neck; C79.89 Secondary malignant neoplasm of other specified sites; C44.619 Basal cell carcinoma of skin of left upper limb, including shoulder; R13.13 Dysphagia, pharyngeal phase | CPT/HCPCS: 96523 ==

== ENCOUNTER 2020-04-04 14:01 | Outpatient (CLI) | payer MEDICARE, SELFPAY | END 2020-04-04 14:02 | disposition home or self-care (01) | PROVIDERS: PCP Registered Nurse; Visit Provider Internal Medicine Hematology & Oncology | DX: Z45.2 Encounter for adjustment and management of vascular access device (principal); C13.9 Malignant neoplasm of hypopharynx, unspecified | CPT/HCPCS: 96523 ==

== ENCOUNTER → 2020-04-19 13:48 | Outpatient (BNVA) | payer MEDICARE, SELFPAY | PROVIDERS: PCP Registered Nurse; Visit Provider Anesthesiology | DX: G89.29 Other chronic pain (principal); R07.0 Pain in throat; C15.4 Malignant neoplasm of middle third of esophagus; C13.9 Malignant neoplasm of hypopharynx, unspecified; F17.210 Nicotine dependence, cigarettes, uncomplicated; Z79.891 Long term (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 analgesic; Z71.6 Tobacco abuse counseling | CPT/HCPCS: 99214 ==

== ENCOUNTER 2020-05-03 15:00 | Outpatient (CLI) | payer MEDICARE, SELFPAY | END 2020-05-03 15:01 | disposition home or self-care (01) | LOC: ONCMED 15:03 | PROVIDERS: PCP Registered Nurse; Visit Provider Internal Medicine Hematology & Oncology | DX: Z45.2 Encounter for adjustment and management of vascular access device (principal); C13.9 Malignant neoplasm of hypopharynx, unspecified; C77.0 Secondary and unspecified malignant neoplasm of lymph nodes of head, face and neck; C44.619 Basal cell carcinoma of skin of left upper limb, including shoulder; J43.8 Other emphysema; E03.9 Hypothyroidism, unspecified | CPT/HCPCS: 96523 ==

== ENCOUNTER 2020-05-18 06:00 | Outpatient (RCR) | payer MEDICARE, SELFPAY | END 2020-06-01 23:59 | disposition home or self-care (01) | LOC: WST 06:00 | PROVIDERS: PCP Registered Nurse; Referring Provider Internal Medicine Hematology & Oncology; Visit Provider Internal Medicine Hematology & Oncology | DX: R13.10 Dysphagia, unspecified (principal) | CPT/HCPCS: 92526; 92610 ==

== ENCOUNTER 2020-06-02 06:00 | Outpatient (RCR) | payer MEDICARE, SELFPAY | END 2020-07-02 23:59 | disposition home or self-care (01) | LOC: WST 06:00 | PROVIDERS: PCP Registered Nurse; Referring Provider Internal Medicine Hematology & Oncology; Visit Provider Internal Medicine Hematology & Oncology | DX: R13.13 Dysphagia, pharyngeal phase (principal) | CPT/HCPCS: 92526 ==

== ENCOUNTER 2020-06-04 14:40 | Outpatient (CLI) | payer MEDICARE, SELFPAY | END 2020-06-04 14:41 | disposition home or self-care (01) | LOC: ONCMED 14:43 | PROVIDERS: PCP Registered Nurse; Visit Provider Internal Medicine Hematology & Oncology | DX: Z45.2 Encounter for adjustment and management of vascular access device (principal) | CPT/HCPCS: 96523 ==

== ENCOUNTER → 2020-06-19 10:26 | Outpatient (BNVA) | payer MEDICARE, SELFPAY | PROVIDERS: PCP Registered Nurse; Visit Provider Registered Nurse | DX: E03.9 Hypothyroidism, unspecified (principal) | CPT/HCPCS: 84443 ==

== ENCOUNTER → 2020-06-20 09:45 | Outpatient (BNVA) | payer MEDICARE, SELFPAY | PROVIDERS: PCP Registered Nurse; Visit Provider Anesthesiology | DX: G89.29 Other chronic pain (principal); R07.0 Pain in throat; C15.4 Malignant neoplasm of middle third of esophagus; C13.9 Malignant neoplasm of hypopharynx, unspecified; F17.210 Nicotine dependence, cigarettes, uncomplicated; Z79.891 Long term (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 analgesic | CPT/HCPCS: 99213; 99214 ==

== ENCOUNTER 2020-07-03 06:00 | Outpatient (RCR) | payer MEDICARE, SELFPAY | END 2020-08-01 23:59 | disposition home or self-care (01) | LOC: WST 06:00 | PROVIDERS: PCP Registered Nurse; Referring Provider Internal Medicine Hematology & Oncology; Visit Provider Internal Medicine Hematology & Oncology | DX: R13.13 Dysphagia, pharyngeal phase (principal) | CPT/HCPCS: 92507; 92526 ==

== ENCOUNTER → 2020-07-05 11:04 | Outpatient (BNVA) | payer MEDICARE, SELFPAY | PROVIDERS: PCP Registered Nurse; Visit Provider Registered Nurse | DX: E03.9 Hypothyroidism, unspecified (principal); F41.9 Anxiety disorder, unspecified | CPT/HCPCS: 84443 ==

== ENCOUNTER 2020-07-12 10:53 | Outpatient (CLI) | payer MEDICARE, SELFPAY | END 2020-07-12 10:54 | disposition home or self-care (01) | LOC: ONCMED 10:55 | PROVIDERS: PCP Registered Nurse; Visit Provider Internal Medicine Hematology & Oncology | DX: Z45.2 Encounter for adjustment and management of vascular access device (principal) | CPT/HCPCS: 96523 ==

== ENCOUNTER 2020-08-02 06:00 | Outpatient (RCR) | payer MEDICARE, SELFPAY | END 2020-09-01 23:59 | disposition home or self-care (01) | LOC: WST 06:00 | PROVIDERS: PCP Registered Nurse; Referring Provider Internal Medicine Hematology & Oncology; Visit Provider Registered Nurse | DX: R13.13 Dysphagia, pharyngeal phase (principal); C14.8 Malignant neoplasm of overlapping sites of lip, oral cavity and pharynx | CPT/HCPCS: 92526 ==

== ENCOUNTER 2020-08-17 05:55 | Outpatient (CLI) | payer MEDICARE, SELFPAY | END 2020-08-17 05:56 | disposition home or self-care (01) | LOC: ONCMED 05:55 | PROVIDERS: PCP Registered Nurse; Visit Provider Internal Medicine Hematology & Oncology | DX: G89.29 Other chronic pain (principal); C15.4 Malignant neoplasm of middle third of esophagus; M54.5 Low back pain; F17.210 Nicotine dependence, cigarettes, uncomplicated; Z79.891 Long term (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 analgesic | CPT/HCPCS: 96523; 99214 ==

== ENCOUNTER → 2020-08-27 13:53 | Outpatient (BNVA) | payer MEDICARE, SELFPAY | PROVIDERS: PCP Registered Nurse; Visit Provider Registered Nurse | DX: F41.9 Anxiety disorder, unspecified (principal); J02.9 Acute pharyngitis, unspecified; Z23 Encounter for immunization | CPT/HCPCS: 87880 ==

== ENCOUNTER 2020-09-02 06:00 | Outpatient (RCR) | payer MEDICARE, SELFPAY | END 2020-10-01 23:59 | disposition home or self-care (01) | LOC: WST 06:00 | PROVIDERS: PCP Registered Nurse; Referring Provider Internal Medicine Hematology & Oncology; Visit Provider Registered Nurse | DX: R13.13 Dysphagia, pharyngeal phase (principal) | CPT/HCPCS: 92526 ==

== ENCOUNTER 2020-09-03 11:26 | Outpatient (CLI) | payer MEDICARE, SELFPAY ==
--- NOTE | 2020-09-03 11:32 | FL_ITS ---
WS: [id number] MODIFIED BARIUM SWALLOW TECHNIQUE: Modified barium swallow with speech therapy using multiple consistencies. FLUOROSCOPY TIME: 1.6 minutes. CLINICAL INFORMATION: Other dysphagia COMPARISON: None. FINDINGS: Multiple consistencies utilized. Normal oropharyngeal phase. Small amount of penetration with thin li quids. No flaquita aspiration. FL/FL barium swallow modifd [id number] IMPRESSION: Small amount of penetration with thin liquids. No flaquita aspiration.
== END 2020-09-03 11:27 | disposition home or self-care (01) ==
LOC: RAD 11:30
PROVIDERS: PCP Registered Nurse; Visit Provider Registered Nurse
DX: R13.10 Dysphagia, unspecified (principal)
CPT/HCPCS: 74230; 92611

== ENCOUNTER 2020-09-05 10:10 | Day surgery (SDC) | payer MEDICARE, SELFPAY ==
[2020-09-05 10:21] VITALS: BP 131/72; PULSE 71; RESP 18; TEMP 36.7; O2SAT 95
[2020-09-05 11:05] VITALS: BP 127/61; PULSE 65; RESP 18; TEMP 36.4; O2SAT 96
--- NOTE | 2020-09-05 12:23 | PM.ACPR ---
Procedure/Consent Time out: Time Out Performed: Yes Consent: Consent for Procedure: Consent obtained from patient Procedure Narrative: Preoperative diagnosis: Poorly functioning gastrostomy tube Postoperative diagnosis: Same Procedure: Exchange of 20 [place] gastrostomy tube to 20 [place] 3.5 cm long Jose Maria button Anesthesia: None Surgeon: Philippe Description of the procedure. After consent was obtained the existing gastrostomy tube was removed intact by applying traction. A 3.5 cm long 20 [place] Jose Maria button was introduced and balloon inflated with 7 cc of saline without difficulty. Drain sponges placed. Patient tolerated procedure well Acute Procedures Epistaxis Control: Time out performed: Yes
== END 2020-09-05 11:07 ==
LOC: OPS 10:15
PROVIDERS: PCP Registered Nurse; Visit Provider Surgery
DX: Z01.818 Encounter for other preprocedural examination (principal)
CPT/HCPCS: 12345; 43760; 43762

== ENCOUNTER 2020-09-17 06:21 | Outpatient (CLI) | payer MEDICARE, SELFPAY | END 2020-09-17 06:22 | disposition home or self-care (01) | LOC: ONCMED 06:21 | PROVIDERS: PCP Registered Nurse; Visit Provider Internal Medicine Hematology & Oncology | DX: Z45.2 Encounter for adjustment and management of vascular access device (principal) | CPT/HCPCS: 96523 ==

== ENCOUNTER 2020-10-11 06:18 | Outpatient (CLI) | payer MEDICARE, SELFPAY | END 2020-10-11 06:19 | disposition home or self-care (01) | LOC: ONCMED 06:19 | PROVIDERS: PCP Registered Nurse; Visit Provider Internal Medicine Hematology & Oncology | DX: Z45.2 Encounter for adjustment and management of vascular access device (principal) | CPT/HCPCS: 96523 ==

== ENCOUNTER → 2020-10-17 09:21 | Outpatient (BNVA) | payer MEDICARE, SELFPAY | PROVIDERS: PCP Registered Nurse; Visit Provider Anesthesiology | DX: G89.29 Other chronic pain (principal); C15.4 Malignant neoplasm of middle third of esophagus; C13.9 Malignant neoplasm of hypopharynx, unspecified; F17.210 Nicotine dependence, cigarettes, uncomplicated; Z79.891 Long term (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 analgesic | CPT/HCPCS: 99213; 99214 ==

== ENCOUNTER 2020-11-27 10:48 | Outpatient (CLI) | payer MEDICARE, SELFPAY | END 2020-11-27 10:49 | disposition home or self-care (01) | LOC: ONCMED 10:51 | PROVIDERS: PCP Registered Nurse; Visit Provider Internal Medicine Hematology & Oncology | DX: Z45.2 Encounter for adjustment and management of vascular access device (principal) | CPT/HCPCS: 96523 ==

== ENCOUNTER → 2020-12-14 09:57 | Outpatient (BNVA) | payer MEDICARE, SELFPAY | PROVIDERS: PCP Registered Nurse; Visit Provider Anesthesiology | DX: G89.29 Other chronic pain (principal); C15.4 Malignant neoplasm of middle third of esophagus; F17.210 Nicotine dependence, cigarettes, uncomplicated; Z79.891 Long term (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 analgesic | CPT/HCPCS: 99213 ==

== ENCOUNTER 2021-01-04 08:49 | Outpatient (CLI) | payer MEDICARE, SELFPAY ==
--- NOTE | 2021-01-04 09:30 | US_ITS ---
WS: [id number] ULTRASOUND SOFT TISSUES LEFT neck HISTORY: R59.0 - Localized enlarged lymph nodes COMPARISON: None available. TECHNIQUE: 2-D and color Doppler imaging is submitted. Palpable area along the LEFT neck corresponds to a prominent vein. There is no adenopathy. The soft t issues and muscles along the LEFT neck are otherwise negative. US/US soft tissue head neck [id number] IMPRESSION: Palpable nodule in the LEFT neck corresponds to a prominent superficial vein.
== END 2021-01-04 08:50 | disposition home or self-care (01) ==
PROVIDERS: PCP Registered Nurse; Visit Provider Registered Nurse
DX: R59.0 Localized enlarged lymph nodes (principal)
CPT/HCPCS: 76536

== ENCOUNTER 2021-01-04 08:56 | Outpatient (CLI) | payer MEDICARE, SELFPAY ==
--- NOTE | 2021-01-04 10:15 | USCV_ITS ---
Claudia Perez Age: 65 Gender: F : 1955 Exam Date: 01/04/2021 09:20 Ordering Phys: Zeinab Mcdonald MD ([email or web address]) Technologist: Sebastian Malave Exam Location: [facility] – [place] Indication: SUPRAVENTRICULAR TACHYCARDIA BP: 118 / 62 HR: 73 Rhythm: Sinus Technical Quality: FAIR MEASUREMENTS (Male / Female) Normal Values 2D ECHO LV Diastolic Diameter PLAX 3.3 cm 4.2 - 5.9 / 3.9 - 5.3 cm LV Systolic Diameter PLAX 2.1 cm IVS Diastolic Thickness 0.7 cm 0.6 - 1.0 / 0.6 - 0.9 cm IVS Systolic Thickness 1.0 cm LVPW Diastolic Thickness 1.0 cm 0.6 - 1.0 / 0.6 - 0.9 cm LVPW Systolic Thickness 0.9 cm LVOT Diameter 2.0 cm LV Ejection Fraction 2D Teich 67.8 % LV Ejection Fraction MOD 2C 80.6 % LV Ejection Fraction 2C AL 80.3 % LA Diameter 3.8 cm LA Width 2.7 cm LA Height 3.1 cm RA Width 1.8 cm RA Height 3.4 cm Aorta at Sinotubular Diameter 1.9 cm M-MODE Aortic Annulus Diameter 2.6 cm LA Ao Ratio MM 1.5 DOPPLER AV Peak Velocity 124.0 cm/s LVOT Peak Velocity 104.0 cm/s AV Area Cont Eq vti 2.7 cm squared AV Area Cont Eq pk 2.7 cm squared MV Area PHT 5.0 cm squared Mitral E to A Ratio 0.9 MV E' Velocity 37.5 cm/s Mitral E to MV E' Ratio 6.3 Mitral E to LV E' Lateral Ratio 5.9 Mitral E to LV E' Septal Ratio 6.8 TR Peak Velocity 258.8 cm/s TR Peak Gradient 26.8 mmHg TV Peak E Velocity 89.0 cm/s Right Atrial Pressure 3.0 mmHg Pulmonary Artery Systolic Pressu 29.8 mmHg PV Peak Velocity 108.0 cm/s FINDINGS Left Ventricle Normal left ventricular cavity size. Normal left ventricular systolic function. No regional wall motion abnormalities. Left ventricular ejection fraction is estimated at 67 %. Grade I/IV diastolic dysfunction (abnormal relaxation filling pattern), normal to mildly elevated filling pressures. Right Ventricle The right ventricle is normal in size and function. Right Atrium The right atrium is normal in size. Left Atrium The left atrium is normal in size. Mitral Valve Structurally normal mitral valve without significant stenosis or prolapse. There is no mitral regurgitation. Aortic Valve Structurally normal aortic valve without significant sclerosis or stenosis. There is no aortic regurgitation. Tricuspid Valve Structurally normal tricuspid valve without significant stenosis or regurgitation. Pulmonary artery systolic pressure is normal. Pulmonic Valve Structurally normal pulmonic valve without significant stenosis. There is no pulmonic regurgitation. Pericardium Normal pericardium without effusion. Aorta Normal ascending aorta dimension. CONCLUSIONS 1-Normal left ventricular cavity size. Normal left ventricular systolic function. No regional wall motion abnormalities. Left ventricular ejection fraction is estimated at 67 %. Grade I/IV diastolic dysfunction (abnormal relaxation filling pattern), normal to mildly elevated filling pressures. 2-There is no pericardial effusion. 3-No significant valve abnormalities. 4-Pulmonary artery systolic pressure is within normal limits. 5-Right atrial pressure is around 5 mm of mercury. 6-There are no prior echocardiogram studies to compare. Zeinab Mcdonald MD (Electronically Signed) Final Date: 09 January 2021 17:52 S
== END 2021-01-04 08:57 | disposition home or self-care (01) ==
LOC: RAD 08:59
PROVIDERS: PCP Registered Nurse; Visit Provider Internal Medicine Cardiovascular Disease
DX: I47.1 Supraventricular tachycardia (principal)
CPT/HCPCS: 93306

== ENCOUNTER 2021-01-04 09:50 | Outpatient (CLI) | payer MEDICARE, SELFPAY | END 2021-01-04 09:51 | disposition home or self-care (01) | PROVIDERS: PCP Registered Nurse; Visit Provider Internal Medicine Hematology & Oncology | DX: Z45.2 Encounter for adjustment and management of vascular access device (principal) | CPT/HCPCS: 96523 ==

== ENCOUNTER 2021-02-06 10:55 | Outpatient (CLI) | payer MEDICARE, SELFPAY | END 2021-02-06 10:56 | disposition home or self-care (01) | LOC: ONCMED 10:59 | PROVIDERS: PCP Registered Nurse; Visit Provider Internal Medicine Hematology & Oncology | DX: Z45.2 Encounter for adjustment and management of vascular access device (principal) | CPT/HCPCS: 96523 ==

== ENCOUNTER 2021-02-06 11:45 | Outpatient (CLI) | payer MEDICARE, SELFPAY ==
--- NOTE | 2021-02-06 11:51 | CT_ITS ---
WS: [id number] LDCT LUNG CANCER SCREENING TECHNIQUE: Noncontrast CT of the chest with coronal and sagittal reformatted images. CLINICAL INFORMATION: NICOTINE DEPENDENCE, CIGARETTES COMPARISON: CTA January 07, 2020 DLP: 60.92 mGy.cm DIvol: 1.[address] scans at [facility] use at least one of these dose optimization techniques: automat ed exposure control; mA and/or kV adjustment per patient size (includes targeted exams where dose is matched to clinical indication); or iterative reconstruction. FINDINGS: Advanced chronic emphysematous changes. No acute pulmonary infiltrates. No focal pneumonia or pleural fluid. Subsegmental atelectasis in the lung bases. No suspicious pulmonary parenchymal opacities. No mediastinal or hilar lymphadenopathy. Adrenal glands are normal. Mild thoracic kyphosis. Chronic ant erior wedging in the upper thoracic spine. CT/CT lung screening [id number] IMPRESSION: LUNG-RADS: 2-Benign Appearance or Behavior FOLLOW UP: 12 Month: Continue annual screening with LDCT
== END 2021-02-06 11:46 ==
LOC: CT 11:49
PROVIDERS: PCP Registered Nurse; Visit Provider Internal Medicine Pulmonary Disease
DX: G89.29 Other chronic pain (principal); C15.4 Malignant neoplasm of middle third of esophagus; R07.89 Other chest pain; F17.210 Nicotine dependence, cigarettes, uncomplicated; Z79.891 Long term (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 analgesic; Z71.6 Tobacco abuse counseling
CPT/HCPCS: 71271; 99213; 99214

== ENCOUNTER 2021-03-15 10:14 | Outpatient (CLI) | payer MEDICARE, SELFPAY ==
--- NOTE | 2021-03-15 10:26 | FL_ITS ---
WS: [id number] Barium swallow and esophagram, 03/15/2021 Clinical Data: MALIGNANT NEOPLASM OF HYPOPHARYNX, UNSPECIFIED Comparison: None. Fluoroscopy time: 0.8 minutes. Findings: The patient swallowed the thin barium, and it flowed through the hypopharynx without hesitation. The hypopharynx was markedly narrow compared to normal width. No specific site of narrowing was seen but it was diffuse throughout the hypopharynx. No penetration or aspiration occurred. The barium entered the esophagus and there was poor motility throughout. No hiatal hernia, stricture, polyp, mass, erosi on or ulcer was noted. No reflux was present. FL/FL barium swallow [id number] Impression: 1. Narrow hypopharynx from recent therapy without aspiration or penetration. 2. Poor esophageal motility without hiatal hernia or reflux.
== END 2021-03-15 10:15 | disposition home or self-care (01) ==
LOC: RADWPI 10:19
PROVIDERS: PCP Registered Nurse; Visit Provider Specialist
DX: C13.9 Malignant neoplasm of hypopharynx, unspecified (principal)
CPT/HCPCS: 74220

== ENCOUNTER 2021-03-28 13:10 | Outpatient (CLI) | payer MEDICARE, SELFPAY | END 2021-03-28 13:11 | disposition home or self-care (01) | LOC: ONCMED 13:14 | PROVIDERS: PCP Registered Nurse; Visit Provider Internal Medicine Hematology & Oncology | DX: Z45.2 Encounter for adjustment and management of vascular access device (principal) | CPT/HCPCS: 96523 ==

== ENCOUNTER → 2021-04-03 10:44 | Outpatient (BNVA) | payer MEDICARE, SELFPAY | PROVIDERS: PCP Registered Nurse; Visit Provider Nurse Practitioner | DX: C15.4 Malignant neoplasm of middle third of esophagus (principal); M54.2 Cervicalgia; R07.89 Other chest pain; F17.210 Nicotine dependence, cigarettes, uncomplicated; Z79.891 Long term (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 analgesic; Z71.6 Tobacco abuse counseling | CPT/HCPCS: 99214 ==

== ENCOUNTER 2021-04-19 06:00 | Outpatient (RCR) | payer MEDICARE, SELFPAY | END 2021-05-01 23:59 | disposition home or self-care (01) | LOC: SST 06:00 | PROVIDERS: PCP Registered Nurse; Referring Provider Specialist; Visit Provider Specialist | DX: R13.10 Dysphagia, unspecified (principal) | CPT/HCPCS: 92610 ==

== ENCOUNTER 2021-05-02 10:23 | Outpatient (CLI) | payer MEDICARE, SELFPAY | END 2021-05-02 10:24 | disposition home or self-care (01) | PROVIDERS: PCP Registered Nurse; Visit Provider Internal Medicine Hematology & Oncology | DX: Z45.2 Encounter for adjustment and management of vascular access device (principal) | CPT/HCPCS: 96523 ==

== ENCOUNTER → 2021-05-28 11:31 | Outpatient (BNVA) | payer MEDICARE, SELFPAY | PROVIDERS: PCP Registered Nurse; Visit Provider Registered Nurse | DX: E03.9 Hypothyroidism, unspecified (principal) | CPT/HCPCS: 84443 ==

== ENCOUNTER → 2021-05-29 14:21 | Outpatient (BNVA) | payer MEDICARE, SELFPAY | PROVIDERS: PCP Registered Nurse; Visit Provider Anesthesiology | DX: G89.29 Other chronic pain (principal); C13.9 Malignant neoplasm of hypopharynx, unspecified; C15.4 Malignant neoplasm of middle third of esophagus; F17.210 Nicotine dependence, cigarettes, uncomplicated; Z79.891 Long term (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 analgesic | CPT/HCPCS: 99213 ==

== ENCOUNTER 2021-06-21 10:43 | Outpatient (CLI) | payer MEDICARE, SELFPAY | END 2021-06-21 10:44 | disposition home or self-care (01) | LOC: ONCMED 10:46 | PROVIDERS: PCP Registered Nurse; Visit Provider Nurse Practitioner | DX: Z45.2 Encounter for adjustment and management of vascular access device (principal) | CPT/HCPCS: 96523 ==

== ENCOUNTER → 2021-07-18 10:14 | Outpatient (BNVA) | payer MEDICARE, SELFPAY | PROVIDERS: PCP Registered Nurse; Visit Provider Registered Nurse | DX: E03.9 Hypothyroidism, unspecified (principal); F41.9 Anxiety disorder, unspecified; J41.0 Simple chronic bronchitis | CPT/HCPCS: 84443 ==

== ENCOUNTER → 2021-07-26 08:47 | Outpatient (BNVA) | payer MEDICARE, SELFPAY | PROVIDERS: PCP Registered Nurse; Visit Provider Anesthesiology | DX: G89.29 Other chronic pain (principal); C13.9 Malignant neoplasm of hypopharynx, unspecified; M54.2 Cervicalgia; F17.210 Nicotine dependence, cigarettes, uncomplicated; Z79.891 Long term (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 analgesic | CPT/HCPCS: 99213 ==

== ENCOUNTER 2021-07-26 09:42 | Outpatient (CLI) | payer MEDICARE, SELFPAY | END 2021-07-26 09:43 | disposition home or self-care (01) | LOC: ONCMED 09:46 | PROVIDERS: PCP Registered Nurse; Visit Provider Internal Medicine Hematology & Oncology | DX: Z45.2 Encounter for adjustment and management of vascular access device (principal) | CPT/HCPCS: 96523 ==

== ENCOUNTER 2021-07-29 14:15 | Emergency (ER) | payer MEDICARE, SELFPAY ==
[2021-07-29 15:20] VITALS: BP 114/74; PULSE 79; RESP 18; TEMP 36.3; O2SAT 96; BMI 17.7
--- NOTE | 2021-07-29 17:04 | W.ED.GENADLT ---
HPI - General Adult General: Chief complaint: General Medical Stated complaint: Jose Maria Button Post Op Complications Time Seen by Provider: 07/29/21 17:03 History of Present Illness: HPI narrative: Patient comes in for concerns of dislodgment of G-tube. On exam patient appears well. Patient appears no acute distress. Respirations are even lungs are clear to auscultation. Patient has had a Jose Maria button for several years now due to carcinoma of the hypopharynx. Patient appears chronically ill but nontoxic at this time. Review of Systems General: Reports: 10 or more systems reviewed and unremarkable except in HPI and below GI: Reports: other (G-tube displacement) [facility] ED PFSH: Medical History Carcinoma of hypopharynx COPD (chronic obstructive pulmonary disease) Encounter for long-term opiate analgesic use Hyperlipidemia Hyperthyroidism Hypothyroidism Opioid contract exists Port-A-Cath in place (~05/2019) SVT (supraventricular tachycardia) Surgical History History of tonsillectomy History of tonsillectomy and adenoidectomy S/P percutaneous endoscopic gastrostomy (PEG) tube placement Status post open reduction and internal fixation (ORIF) of fracture left humerus Family History Mother CAD (coronary artery disease) Sister CAD (coronary artery disease) Stroke Denies family history of Anesthesia complication Bleeding disorder Social History (Updated 07/26/21 @ 09:11 by Lana Manuel LPN) Smoking and tobacco status: current every day smoker cigarettes Packs smoked per day: 0.5 Years cigarettes smoked: 50 [ Other cigarette details: [id number] ] Quit status (tobacco): considering quitting Smoking risk assessment/counseling performed?: Yes Alcohol intake: never Adopted: No Caregiver/support person: Yes Lives independently: No (disabled ) Household members: family Housing: House Marital status: Single Number of children: 3 Number of grandchildren: 7 Highest education level completed: High School Graduate service: No Current occupational status: disabled Current occupational exposures/hazards: No Pets and animals: Yes History of recent travel: No Sexually active: No Current gender identity: Female Micaela/Cheondoism: Restorationism Special micaela needs: No Agree to transfusion: No Financial difficulty paying for basics: Decline to Answer Physical Exam Const: COMMON NORMALS: no acute distress and patient oriented x3 GENERAL APPEARANCE: cooperative HENMT: COMMON NORMALS: normocephalic and Normal external nose present HEAD & SCALP: normal to inspection and normocephalic NOSE: Normal external nose present MOUTH: Normal oral and palatal mucosa present Eye: GENERAL EYE: appearance normal, both eyes and all related structures Neck/C-Spine: COMMON NORMALS: full ROM Lymph: LYMPHATIC: no lymphadenopathy noted Chest: COMMONS NORMALS: normal inspection of the chest Resp: COMMON NORMALS: normal respiratory effort EFFORT & INSPECTION: Yes able to speak in complete sentences Cardio: COMMON NORMALS: regular rate and regular rhythm RATE: regular rate RHYTHM: regular rhythm GI: COMMON NORMALS: Soft to palpation and non-tender AUSCULTATION: Yes normoactive bowel sounds PALPATION: Yes Soft to palpation OTHER: G-tube site is intact. There is some mild erythema to the skin tissue. No signs of induration or infection. Back/Pelvis: COMMON NORMALS: thoracic and lumbar spine normal to inspection Extremity: COMMON NORMALS: normal to inspection Neuro: COMMON NORMALS: patient oriented x3 and moves all extremities Psych: COMMON NORMALS: mental status grossly normal and cooperative Skin: COMMON NORMALS: no rashes or lesions noted GENERAL SKIN EXAM: no rashes or lesions noted Procedures Feeding Tube Replacement Type of Tube: gastrostomy Insertion Site Prior to Procedure: clean, erythematous and GI fluid leaking Tube Used for Reinsertion: patient's own Balloon size (mL): 10 Verification of Placement: auscultation and KUB Tube Secured by: tape/dressing Patient Tolerated Procedure: well Additional Comments: Jose Maria tube was replaced, patient tolerated well, site had some mild erythema from leaking gastric content, no complications otherwise was noted. Course Vital Signs: Vital signs: Vital Signs Temperature 97.4 F L 07/29/21 15:20 Pulse Rate 79 07/29/21 15:20 Respiratory Rate 18 07/29/21 15:20 Blood Pressure 114/74 07/29/21 15:20 Pulse Oximetry 96 07/29/21 15:20 MDM - General Adult MDM Narrative: Medical decision making narrative: Patient comes in for evaluation of displacement of Jose Maria tube. On exam abdomen soft nontender. There is no sign of induration or significant inflammation around the site. Patient does have some leakage into the fold with gastric content causing some erythema. Tube was reinserted after inspection of bulb. Patient tolerated procedure well. Tube placement was confirmed with auscultation, aspiration, and imaging. Patient knows to follow-up with primary care or specialist as needed. Discharge Plan Discharge Patient Disposition: Home Clinical Impression: Gastrostomy tube dysfunction Condition: Stable Prescriptions: No Action hydrocodone-acetaminophen 7.5-325 mg/15 mL solution 15 ml PO QID PRN (Reason: pain) 30 Days Qty: 1800 RF: 0 hydrocodone-acetaminophen 7.5-325 mg/15 mL solution 15 ml PO QID PRN (Reason: pain) 30 Days Qty: 1800 RF: 0 clonazepam 0.5 mg tablet,disintegrating 0.5 mg PO DAILY Qty: 30 RF: 2 buspirone 10 mg tablet See Rx Instructions .ROUTE .COMPLEX Qty: 60 RF: 0 cyclobenzaprine 5 mg tablet See Rx Instructions .ROUTE .COMPLEX Qty: 45 RF: 1 loratadine [Children's Claritin] 5 mg/5 mL solution 10 mg PO DAILY PRN (Reason: allergy symptoms) 30 Days Qty: 300 RF: 0 (DME) bolus feed extension set with cath tip Secur-Clau straight connector and clamp See Rx Instructions .Route .MEDSUPPLY Qty: 12 RF: 3 (DME) 6mL leur slip syringe See Rx Instructions .Route .MEDSUPPLY Qty: 12 RF: 3 mexiletine 250 mg capsule 250 mg PO .twice a day Qty: 180 RF: 3 ondansetron 4 mg tablet,disintegrating See Rx Instructions .ROUTE .COMPLEX Qty: 60 RF: 0 Anoro Ellipta 62.5-25 mcg/actuation blister with device 1 inh inhalation DAILY Qty: 60 RF: 3 albuterol sulfate 90 mcg/actuation HFA aerosol inhaler See Rx Instructions .ROUTE .COMPLEX Qty: 25.5 RF: 3 sucralfate 100 mg/mL suspension See Rx Instructions .ROUTE .COMPLEX Qty: 420 RF: 0 levothyroxine 75 mcg capsule 75 mcg PO DAILY Qty: 90 RF: 0 Discharge Orders: Discharge ED (Routine); Ordered 07/29/21 Ordered By: Nando Gannon Referrals: Prosper Cox FNP [Primary Care Provider] - Discharge Diet: Usual diet Discharge Activity: Increase activity as tolerated Patient Instructions: Opioid Safety Activity Restrictions/Additional Instructions: Continue with routine care. Follow-up with surgeon as needed. Return to ER for new concerns. Monitor for fever. Coding Level of Care Code ED Fire Equipment Repairer Inspector for Karley Fwcarlton Exam Comprehensive
--- NOTE | 2021-07-29 17:27 | XRR_ITS ---
PROCEDURE INFORMATION: Exam: XR Abdomen Exam date and time: 07/29/2021 5:27 PM Age: 66 years old Clinical indication: Device placement; Gi device; Other: G tube placement; Prior surgery; Patient HX: Tube came out, PT reinserted, checking placement; Additional info: G-tube placement TECHNIQUE: Imaging protocol: XR of the abdomen. Views: Frontal supine view of the abdomen. 1 View. Total images: 1 COMPARISON: CT lung screening [id number] 02/06/2021 12:13 PM FINDINGS: Tubes, catheters and devices: A gastrostomy tube is not radiographically visible. Gastrointestinal tract: Nonobstructive bowel pattern. No visible adynamic or reactive ileus. Heavy fecal residue consistent with constipation. Bones/joints: Mild scoliosis. XR/XR abdomen 1V* [id number] IMPRESSION: A gastrostomy tube is not radiographically visible.
[2021-07-29 18:21] VITALS: PULSE 78; RESP 16; O2SAT 95
== END 2021-07-29 18:23 | disposition home or self-care (01) ==
PROVIDERS: Emergency Provider Nurse Practitioner Family; PCP Registered Nurse
DX: K94.20 Gastrostomy complication, unspecified (principal); J44.9 Chronic obstructive pulmonary disease, unspecified; E78.5 Hyperlipidemia, unspecified; F17.210 Nicotine dependence, cigarettes, uncomplicated
CPT/HCPCS: 43762; 74018; 99282

== ENCOUNTER → 2021-08-09 11:54 | Outpatient (BNVA) | payer MEDICARE, SELFPAY | PROVIDERS: PCP Registered Nurse; Visit Provider Nurse Practitioner Family | DX: Z20.822 Contact with and (suspected) exposure to COVID-19 (principal) | CPT/HCPCS: 87635 ==

== ENCOUNTER → 2021-09-25 09:36 | Outpatient (BNVA) | payer MEDICARE, SELFPAY | PROVIDERS: PCP Registered Nurse; Visit Provider Anesthesiology | DX: G89.29 Other chronic pain (principal); C13.9 Malignant neoplasm of hypopharynx, unspecified; M54.2 Cervicalgia; F17.210 Nicotine dependence, cigarettes, uncomplicated; Z79.891 Long term (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 analgesic | CPT/HCPCS: 99213 ==

== ENCOUNTER 2021-09-25 10:25 | Outpatient (CLI) | payer MEDICARE, SELFPAY | END 2021-09-25 10:26 | disposition home or self-care (01) | LOC: ONCMED 10:28 | PROVIDERS: PCP Registered Nurse; Visit Provider Internal Medicine Hematology & Oncology | DX: Z45.2 Encounter for adjustment and management of vascular access device (principal) | CPT/HCPCS: 96523 ==

== ENCOUNTER 2021-10-21 13:28 | Outpatient (CLI) | payer MEDICARE, SELFPAY ==
--- NOTE | 2021-10-21 13:45 | MR_ITS ---
WS: [id number] MRI CERVICAL SPINE NONCONTRAST TECHNIQUE: Sagittal T1, T2 and STIR imaging. Axial T2, gradient, and fiesta imaging. CLINICAL INFORMATION: M54.2 - Cervicalgia COMPARISON: None. FINDINGS: Mild cervical curve. No high-grade central canal stenosis. Cord signal is normal. Degenerative endpla te changes C3-4. C2-C3: Normal C3-C4: Mild disc osteophyte complex with endplate ridging. Mild facet arthropathy. Mild left and no s ignificant right foraminal narrowing. Mild facet arthropathy. C4-C5: Minimal disc bulging. Moderate facet arthropathy. Spinal canal and foramen are patent. C5-C6: Disc osteophyte complex with endplate ridging. Slight effacement of ventral thecal sac. Modera te facet arthropathy. Mild left foraminal narrowing. C6-C7: Shallow right pericentral protrusion with slight effacement of ventral thecal sac. Spinal jarocho l and foramen are patent. C7-T1: Normal. Edema in the right articulating C2-3 facets with a small amount of peripheral articular edema compati ble with synovitis. MR/MR cervical spin wo con* [id number] IMPRESSION: 1. Mild cervical curve. No high-grade central canal narrowing. Cord signal is normal. 2. Small right shallow pericentral protrusion C6-C7 with slight contact of the cervical cord. 3. Moderate facet arthropathy C2-3 and C3-C4. Small amount of edema in the art iculating right C2-3 facets consistent with synovitis. 4. Mild left C3-4 and left C6-7 bony foraminal narrowing.
== END 2021-10-21 13:29 | disposition home or self-care (01) ==
LOC: RADSHAW 13:32
PROVIDERS: PCP Registered Nurse; Visit Provider Registered Nurse
DX: R20.0 Anesthesia of skin (principal); R20.2 Paresthesia of skin; M47.812 Spondylosis without myelopathy or radiculopathy, cervical region; M50.223 Other cervical disc displacement at C6-C7 level
CPT/HCPCS: 72141

== ENCOUNTER → 2021-10-22 10:20 | Outpatient (BNVA) | payer MEDICARE, SELFPAY | PROVIDERS: PCP Registered Nurse; Visit Provider Registered Nurse | DX: E03.9 Hypothyroidism, unspecified (principal) | CPT/HCPCS: 84443 ==

== ENCOUNTER → 2021-11-21 08:44 | Outpatient (BNVA) | payer MEDICARE, SELFPAY | PROVIDERS: PCP Registered Nurse; Referring Provider Registered Nurse; Visit Provider Orthopaedic Surgery | DX: G89.29 Other chronic pain (principal); C13.9 Malignant neoplasm of hypopharynx, unspecified; F17.200 Nicotine dependence, unspecified, uncomplicated; Z79.891 Long term (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 analgesic | CPT/HCPCS: 72050; 99214 ==

== ENCOUNTER 2021-11-21 10:35 | Outpatient (CLI) | payer MEDICARE, SELFPAY | END 2021-11-21 10:36 | disposition home or self-care (01) | PROVIDERS: PCP Registered Nurse; Visit Provider Internal Medicine Hematology & Oncology | DX: Z45.2 Encounter for adjustment and management of vascular access device (principal); G89.29 Other chronic pain; C13.9 Malignant neoplasm of hypopharynx, unspecified; F17.200 Nicotine dependence, unspecified, uncomplicated; Z79.891 Long term (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 analgesic | CPT/HCPCS: 72050; 96523; 99214 ==

== ENCOUNTER 2021-12-17 06:00 | Outpatient (RCR) | payer MEDICARE, SELFPAY | END 2021-12-30 23:59 | disposition home or self-care (01) | LOC: SPT 06:00 | PROVIDERS: PCP Registered Nurse; Referring Provider Orthopaedic Surgery; Visit Provider Orthopaedic Surgery | DX: M54.2 Cervicalgia (principal) | CPT/HCPCS: 97161 ==

== ENCOUNTER 2022-01-08 09:44 | Day surgery (SDC) | payer MEDICARE, SELFPAY ==
[2021-12-27 14:35] VITALS: BMI 15.7
[2022-01-08 09:57] VITALS: BP 135/98; PULSE 73; RESP 18; TEMP 36.1; O2SAT 95
--- NOTE | 2022-01-08 12:04 | PM.ACPR ---
Procedure/Consent Time out: Time Out Performed: Yes Consent: Consent for Procedure: Consent obtained from patient Procedure Narrative: Preoperative diagnosis: Nonfunctioning Jose Maria button Postop diagnosis: Same Procedure: Exchange of 20 [place] 3.5 cm Jose Maria button Surgeon: Philippe Anesthesia: Local Description of the procedure: The patient's Jose Maria button was broken and could no longer be used. The balloon on the Jose Maria button was deflated and removed without difficulty and a 20 [place] 3.5 cm Jose Maria button was introduced and balloon inflated with 3 cc of saline. Sterile dressings were applied. Patient tolerated the procedure well. Acute Procedures Epistaxis Control: Time out performed: Yes
== END 2022-01-08 10:38 | disposition home or self-care (01) ==
LOC: GILAB 09:45
PROVIDERS: PCP Registered Nurse; Visit Provider Surgery
PROC: 0DP64UZ Removal of Feeding Device from Stomach, Percutaneous Endoscopic Approach (ICD-10-PCS; CPT 43762; principal; 2022-01-08 11:30)
DX: C13.9 Malignant neoplasm of hypopharynx, unspecified (principal); K94.23 Gastrostomy malfunction
CPT/HCPCS: 43762

== ENCOUNTER 2022-01-08 10:56 | Outpatient (CLI) | payer MEDICARE, SELFPAY | END 2022-01-08 10:57 | disposition home or self-care (01) | PROVIDERS: PCP Registered Nurse; Visit Provider Internal Medicine Hematology & Oncology | DX: Z45.2 Encounter for adjustment and management of vascular access device (principal) | CPT/HCPCS: 96523 ==

== ENCOUNTER 2022-02-27 16:34 | Outpatient (CLI) | payer MEDICARE, SELFPAY | END 2022-02-27 16:35 | disposition home or self-care (01) | LOC: ONCMED 16:37 | PROVIDERS: PCP Registered Nurse; Visit Provider Internal Medicine Hematology & Oncology | DX: Z45.2 Encounter for adjustment and management of vascular access device (principal) | CPT/HCPCS: 96523 ==

== ENCOUNTER 2022-04-21 10:37 | Oncology outpatient (recurring) (ONCR) | payer MEDICARE, SELFPAY ==
[2022-04-21 11:04] VITALS: BP 121/66; PULSE 69; RESP 18; TEMP 36.2; O2SAT 93
== END 2022-05-01 23:59 | disposition home or self-care (01) ==
LOC: ONCMED 10:38
PROVIDERS: PCP Registered Nurse; Visit Provider Internal Medicine Hematology & Oncology
DX: Z45.2 Encounter for adjustment and management of vascular access device (principal)
CPT/HCPCS: 96523

== ENCOUNTER 2022-07-28 11:22 | Emergency (ER) | payer MEDICARE, MEDICAID, SELFPAY ==
[2022-07-28 11:28] VITALS: BP 126/71; PULSE 65; RESP 18; TEMP 36.7; O2SAT 96; BMI 16.0
--- NOTE | 2022-07-28 13:14 | XR_ITS ---
WS: [id number] Exam: XR abdomen 1V* [id number] Date/Time of Exam: 07/28/2022 2:34 PM Reason For Exam: PEG TUBE CLOGGED, Comparison 07/29/2021. Preliminary recreation program specialist film of the abdomen shows a large amount retained stool in the colon. A PEG tube is in place. Injection of radiographic contrast through the PEG tube shows obstruction in the distal 12 mm of the tube. No contrast extended into the stomach. XR/XR abdomen 1V* [id number] IMPRESSION: 1. Complete obstruction of the distal 12 mm of the PEG tube. No contrast could be instilled into the stomach. 2. Constipation. No acute abdominal process noted otherwise.
--- NOTE | 2022-07-28 14:43 | ED_ITS ---
HPI - General Adult General: Chief complaint: General Medical Stated complaint: Stomach port clogged Time Seen by Provider: 07/28/22 14:31 Source: patient Mode of arrival: ambulatory History of Present Illness: 67-year-old female presents to the emergency room for dysfunction of her PEG tube. She has a PEG tube in place for extended period of time she estimates well over a year she not able to get anything to infuse through it at this point. She not had any other problems and otherwise recently been ill. No vomiting no diarrhea no blood from around the tube no irritation at the stoma of the tube Onset (ago): hour(s) Relieving factors: none Exacerbating factors: none Associated symptoms: Reports headache(s); Deny chest pain, cough, dyspnea, fevers/chills, malaise, nausea, rash, short of breath, vomiting or weakness Treatments prior to arrival: none Review of Systems Const: Denies: fever(s), chills, fatigue or malaise ENMT: Denies: throat pain, ear or mastoid pain, nasal discharge or nasal congestion Card: Denies: chest pain Resp: Denies: dyspnea, productive cough or non-productive cough GI: Denies: abdominal pain, nausea or vomiting : Denies: flank pain, difficulty voiding, dysuria, urinary frequency or urinary urgency Skin/Breast: Denies: rash or pruritus Neuro: Reports: headache(s) PFS ED PFSH: Medical History Carcinoma of hypopharynx COPD (chronic obstructive pulmonary disease) Encounter for long-term opiate analgesic use Hyperlipidemia Hyperthyroidism Hypothyroidism Opioid contract exists Port-A-Cath in place (~05/2019) SVT (supraventricular tachycardia) Surgical History History of tonsillectomy History of tonsillectomy and adenoidectomy S/P percutaneous endoscopic gastrostomy (PEG) tube placement Status post open reduction and internal fixation (ORIF) of fracture left humerus Family History Mother CAD (coronary artery disease) Sister CAD (coronary artery disease) Stroke Denies family history of Anesthesia complication Bleeding disorder Social History (Reviewed 07/28/22 @ 14:46 by ARETHA Sage Smoking and tobacco status: current every day smoker cigarettes Packs smoked per day: 0.5 Years cigarettes smoked: 50 [ Other cigarette details: [id number]] Quit status (tobacco): considering quitting Smoking risk assessment/counseling performed?: Yes Alcohol intake: never Adopted: No Caregiver/support person: Yes Lives independently: No (disabled ) Household members: family Housing: House Marital status: Single Number of children: 3 Number of grandchildren: 7 Highest education level completed: High School Graduate service: No Current occupational status: disabled Current occupational exposures/hazards: No Pets and animals: Yes History of recent travel: No Sexually active: No Current gender identity: Female Micaela/Jehovah'S Witness: Restorationist Special micaela needs: No Agree to transfusion: No Financial difficulty paying for basics: Decline to Answer Physical Exam Const: COMMON NORMALS: no acute distress GENERAL APPEARANCE: cooperative and comfortable ORIENTATION/CONSCIOUSNESS: Yes awake, Yes oriented to person, Yes oriented to place and Yes oriented to time HENMT: COMMON NORMALS: normocephalic and atraumatic HEAD & SCALP: normocephalic and atraumatic Resp: COMMON NORMALS: normal respiratory effort, No retractions, No use of accessory muscles and clear to auscultation bilaterally AUSCULTATION: clear to auscultation bilaterally Cardio: COMMON NORMALS: regular rate, regular rhythm and No murmurs present (Cardio) RATE: regular rate RHYTHM: regular rhythm GI: COMMON NORMALS: Soft to palpation and No hepatosplenomegaly present AUSCULTATION: Yes normoactive bowel sounds PALPATION: Yes Soft to palpation, No Tenderness to palpation present (GI), No Guarding due to palpation present (GI) and Yes No hepatosplenomegaly present Extremity: COMMON NORMALS: normal to inspection, capillary refill normal, no clubbing, cyanosis or edema, no calf tenderness and no pedal edema Neuro: SENSORIUM/ORIENTATION: Yes oriented to person, Yes oriented to place and Yes oriented to time Skin: COMMON NORMALS: no rashes or lesions noted GENERAL SKIN EXAM: no rashes or lesions noted Procedures Feeding Tube Replacement Type of Tube: gastrostomy Insertion Site Prior to Procedure: clean Tube Used for Reinsertion: other Verification of Placement: auscultation and gastrografin injection Tube Secured by: attachment device Patient Tolerated Procedure: well Additional Comments: PEG tube present on arrival removed without difficulty new tube inserted bulb inflated is secure. Gastrografin injected KUB done confirms placement Course Vital Signs: Vital signs: Vital Signs Temperature 98.0 F 07/28/22 11:28 Pulse Rate 74 07/28/22 16:42 Respiratory Rate 18 07/28/22 11:28 Blood Pressure 141/74 07/28/22 16:42 Pulse Oximetry 98 07/28/22 16:42 Oxygen Delivery Me thod 07/28/22 11:28 MDM - General Adult Medical Decision Making PEG tube replaced difficulty and confirmed by injection and Gastrografin. Patient tolerated well no complications discharged home routine cares Medical Records I reviewed the patient's medical records. Lab Data I reviewed the patient's lab results. Radiology Impressions Abdomen X-Ray 07/28/22 16:03 IMPRESSION: 1. A new PEG tube has been placed in the stomach. Contrast injection through the tube confirms that the PEG tube is in the satisfactory position in the body the stomach. Contrast spills freely into the stomach. No extravasation. Discharge Plan Discharge Patient Disposition: Home Clinical Impression: Malfunction of percutaneous endoscopic gastrostomy (PEG) tube Condition: Stable Prescriptions: No Action (DME) bolus feed extension set with cath tip Secur-Clau straight connector and clamp See Rx Instructions .Route .MEDSUPPLY Qty: 12 3RF Rx Instructions: As directed (DME) 6mL leur slip syringe See Rx Instructions .Route .MEDSUPPLY Qty: 12 3RF Rx Instructions: As directed Mucinex 1,200 mg tablet extended release 12hr 1,200 mg PO Q12H MDD 2 tabs 30 Days Qty: 60 0RF amoxicillin 400 mg/5 mL suspension for reconstitution 1,000 mg PO BID clonazepam 0.5 mg tablet,disintegrating 0.5 mg PO DAILY Qty: 30 2RF hydrocodone-acetaminophen 7.5-325 mg/15 mL solution 15 ml PO QID PRN (Reason: pain) 30 Days Qty: 1800 0RF Rx Instructions: subsequent Rx by this provider 900ml followed by 450ml if still requesting. levothyroxine 75 mcg tablet 75 mcg PO DAILY Qty: 90 3RF mexiletine 250 mg capsule 250 mg PO BID Qty: 60 0RF Rx Instructions: Must have follow-up for further refills ondansetron 4 mg tablet,disintegrating 4 mg PO QID PRN (Reason: Nausea) Qty: 60 0RF Rx Instructions: DISSOLVE 1 TABLET ON THE TONGUE EVERY 8 HOURS NEEDED FOR NAUSEA OR VOMITING trazodone 100 mg tablet See Rx Instructions .ROUTE .COMPLEX Qty: 90 1RF Dose Instruction: TAKE 1/2 TO 1 TABLET BY MOUTH DAILY Rx Instructions: TAKE 1/2 TO 1 TABLET BY MOUTH DAILY Anoro Ellipta 62.5-25 mcg/actuation blister with device 1 inh inhalation DAILY Qty: 60 0RF escitalopram oxalate 10 mg tablet See Rx Instructions .ROUTE .COMPLEX Qty: 90 0RF Dose Instruction: TAKE 1 TABLET(10 MG) BY MOUTH DAILY Rx Instructions: TAKE 1 TABLET(10 MG) BY MOUTH DAILY albuterol sulfate 90 mcg/actuation HFA aerosol inhaler 1 inh inhalation QID PRN (Reason: Shortness Of Breath) Rx Instructions: INHALE 1 PUFF BY MOUTH FOUR TIMES DAILY NEEDED FOR SHORTNESS OF BREATH OR WHEEZING Discharge Orders: Discharge ED (Routine); Ordered 07/28/22 Ordered By: Dre Villegas Referrals: Prosper Cox FNP [Primary Care Provider] - Patient Instructions: Opioid Safety, Pain Management Activity Restrictions/Additional Instructions: Continue same medicines and feeding regimens. Coding Level of Care Code ED Ruby On Rails Engineer for Chg Fwd Exam Detailed
[2022-07-28] MEDS: diatrizoate meglumine 120 mL Sol PO (15:07)
[2022-07-28 15:15] VITALS: BP 142/62
--- NOTE | 2022-07-28 16:03 | XR_ITS ---
WS: [id number] Exam: XR abdomen 1V* [id number] Date/Time of Exam: 07/28/2022 4:04 PM Reason For Exam: PEG TUBE PLACEMENT VERIFICATION W/ GASTRO Injection of radiographic contrast into a new PEG tube shows the tube in satisfactory position in the body the stomach. There was no extravasation of contrast outside the confines of the GI tract. Again noted is constipation. XR/XR abdomen 1V* [id number] IMPRESSION: 1. A new PEG tube has been placed in the stomach. Contrast injection through th e tube confirms that the PEG tube is in the satisfactory position in the body t he stomach. Contrast spills freely into the stomach. No extravasation.
[2022-07-28] MEDS: diatrizoate meglumine 30 mL Sol PO (16:06)
[2022-07-28 16:29] VITALS: BP 145/78
[2022-07-28 16:42] VITALS: BP 141/74; PULSE 74; O2SAT 98
--- NOTE | 2022-07-28 16:44 | PC.NURSE ---
PEG tube was used house sup was to charge for it
== END 2022-07-28 16:45 | disposition home or self-care (01) ==
PROVIDERS: Emergency Provider Family Medicine; PCP Registered Nurse
DX: K94.23 Gastrostomy malfunction (principal); E78.5 Hyperlipidemia, unspecified; E03.9 Hypothyroidism, unspecified; J44.9 Chronic obstructive pulmonary disease, unspecified; F17.210 Nicotine dependence, cigarettes, uncomplicated
CPT/HCPCS: 43762; 74018; 99284; Q9963

== ENCOUNTER → 2022-10-09 10:21 | Outpatient (BNVA) | payer MEDICARE, MEDICAID, SELFPAY | PROVIDERS: PCP Registered Nurse; Visit Provider Registered Nurse | DX: E05.90 Thyrotoxicosis, unspecified without thyrotoxic crisis or storm (principal); R63.6 Underweight; Z23 Encounter for immunization | CPT/HCPCS: 84443; 85025 ==

== ENCOUNTER 2022-10-16 11:29 | Oncology outpatient (recurring) (ONCR) | payer MEDICARE, MEDICAID, SELFPAY | END 2022-11-01 23:59 | disposition home or self-care (01) | PROVIDERS: PCP Registered Nurse; Visit Provider Internal Medicine Hematology & Oncology | DX: Z45.2 Encounter for adjustment and management of vascular access device (principal); Z95.828 Presence of other vascular implants and grafts | CPT/HCPCS: 96523 ==

== ENCOUNTER 2022-12-18 11:26 | Oncology outpatient (recurring) (ONCR) | payer MEDICARE, MEDICAID, SELFPAY | END 2022-12-30 23:59 | disposition home or self-care (01) | LOC: ONCMED 11:26 | PROVIDERS: PCP Registered Nurse; Visit Provider Internal Medicine Hematology & Oncology | DX: Z45.2 Encounter for adjustment and management of vascular access device (principal); Z95.828 Presence of other vascular implants and grafts | CPT/HCPCS: 96523 ==

== ENCOUNTER → 2022-12-19 09:03 | Outpatient (BNVA) | payer MEDICARE, MEDICAID, SELFPAY | PROVIDERS: PCP Registered Nurse; Visit Provider Internal Medicine Cardiovascular Disease | DX: I47.1 Supraventricular tachycardia (principal); F17.210 Nicotine dependence, cigarettes, uncomplicated; C13.9 Malignant neoplasm of hypopharynx, unspecified | CPT/HCPCS: 93005; 99213; Q3014 ==

== ENCOUNTER → 2023-03-09 10:00 | Outpatient (BNVA) | payer MEDICARE, MEDICAID, SELFPAY | PROVIDERS: PCP Registered Nurse; Visit Provider Registered Nurse | DX: Z00.00 Encounter for general adult medical examination without abnormal findings (principal); E78.5 Hyperlipidemia, unspecified; E03.9 Hypothyroidism, unspecified; E55.9 Vitamin D deficiency, unspecified; I10 Essential (primary) hypertension; M81.0 Age-related osteoporosis without current pathological fracture; F17.210 Nicotine dependence, cigarettes, uncomplicated; Z68.1 Body mass index [BMI] 19.9 or less, adult; Z12.31 Encounter for screening mammogram for malignant neoplasm of breast | CPT/HCPCS: 80053; 80061; 82306; 84443; 85025 ==

== ENCOUNTER 2023-03-23 13:11 | Oncology outpatient (recurring) (ONCR) | payer MEDICARE, MEDICAID, SELFPAY ==
[2023-03-23 13:38] VITALS: BP 137/62; PULSE 77; RESP 18; TEMP 36.5; O2SAT 96
== END 2023-04-01 23:59 | disposition home or self-care (01) ==
PROVIDERS: PCP Registered Nurse; Visit Provider Internal Medicine Hematology & Oncology
DX: Z45.2 Encounter for adjustment and management of vascular access device (principal)
CPT/HCPCS: 96523; J1642

== ENCOUNTER 2023-05-21 10:03 | Outpatient (CLI) | payer MEDICARE, MEDICAID, SELFPAY ==
--- NOTE | 2023-05-21 10:11 | CT_ITS ---
WS: [id number] LDCT LUNG CANCER SCREENING HISTORY: NICOTINE Dependence, cigarettes TECHNIQUE: Axial imaging performed from the apices to 1 cm below the costophrenic angles. Coronal and sagittal reformats are submitted with axial MIP series. All CT scans at [facility] use at least one of these dose optimization techniques: automated exposure control; mA and/or kV adjustment per patient size (includes targeted exams where dose is matched to clinical indication); or iterativ e reconstruction. DLP: 52.27 mGy.cm DIvol: Mean CTDIvol: 0.70 (mGy) COMPARISON: 02/06/2021 Diagnostic quality: Satisfactory Lungs: Mild chronic emphysema. There are a few small pleural tags in the upper lung myers. No mass o r pulmonary nodule. No endobronchial lesions. Heart: Normal size heart with no pericardial effusion.. Other findings: Atherosclerosis aorta. LEFT subclavian Mediport. No adenopathy. Small hiatal hernia. Increase in thoracic kyphosis. CT/CT lung screening [id number] IMPRESSION: LUNG-RADS: 2-Benign Appearance or Behavior FOLLOW UP: 12 Month: Continue annual screening with LDCT OTHER FINDINGS (S MODIFIER): None.
--- NOTE | 2023-05-21 10:11 | XR_ITS ---
WS: [id number] SCREENING DEXA SCAN [employer] CLINICAL INFORMATION: AGE RELATED OSTEOPOROSIS COMPARISON: None. FINDINGS: The L1-L4 bone mineral density measures 0.742 g/cm2. This corresponds to a T score score of -3.7 and Z score of -1.3. Left femoral neck bone mineral density measures 0.561 g/cm2. This corresponds to a T score of -3.5 an d Z score of -1.6. Right femoral neck bone mineral density measures 0.578 g/cm2. This corresponds to a T score -3.4of an d Z score of -1.5. Mean femoral neck bone mineral density measures 0.570 g/cm2. This corresponds to a T score of -3.5 an d Z score of -1.5. XR/XR DEXA axial skeleton* [id number] IMPRESSION: Osteoporosis lumbar spine. Osteoporosis femoral necks. Patient's FRAX calculated 10 year probability for major osteoporotic fracture i s 36.5 % and osteoporotic hip fracture is 23.4%.
--- NOTE | 2023-05-21 11:00 | MM_ITS ---
WS: [id number] SCREENING DIGITAL BREAST TOMOSYNTHESIS MAMMOGRAM WITH CAD HISTORY: Z12.31 - Encounter for screening mammogram for malignant ... COMPARISON: 08/23/2009 Bilateral CC and MLO with tomosynthesis and synthetic mammography submitted. Computer aided detection analyzed. Breast composition: The breasts are heterogeneously dense, which may obscure small masses. Focal asym metry is new since 2008 in the lateral LEFT breast near 3:00. The remaining breasts are stable. No ad ditional mass or nodule. MM/[place] [id number] IMPRESSION: BI-RADS: 0-Incomplete: Need additional imaging evaluation FOLLOW UP: Need Additional Imaging LEFT breast: Spot compression views (CC and MLO). True ML. Ultrasound to follow if abnormality persists.
== END 2023-05-21 10:04 | disposition home or self-care (01) ==
PROVIDERS: PCP Registered Nurse; Visit Provider Registered Nurse
DX: Z12.31 Encounter for screening mammogram for malignant neoplasm of breast (principal); Z12.2 Encounter for screening for malignant neoplasm of respiratory organs; Z13.820 Encounter for screening for osteoporosis; F17.210 Nicotine dependence, cigarettes, uncomplicated; M81.0 Age-related osteoporosis without current pathological fracture
CPT/HCPCS: 71271; 77063; 77067; 77080

== ENCOUNTER 2023-06-16 12:12 | Oncology outpatient (recurring) (ONCR) | payer MEDICARE, MEDICAID, SELFPAY ==
--- OUTSIDE RECORDS SUMMARY | 2023-06-16 12:15 | XMS_ITS | Patient Health Record ---
Author Name Unknown Organization [facility] Address [address] [place], [place] [id number] Care Team Providers Care Residence Life Director Name Role Phone Prosper Harris Primary Care Provider Gavino Gordon MD, Maurice Unavailable [phone] India Wlaker Unavailable [phone] ALLERGIES No Known Allergies RESULTS Component Value Reference Range Notes Urine tox screen / MS if ind icated Reviewed date:12/22/2022 02:04:27 PM Interpretation: Performing Lab: Notes/Report: Urine tox screen / MS if ind icated Reviewed date:08/05/2022 02:42:05 PM Interpretation: Performing Lab: Notes/Report: benzodiazepines amphetamines REASON FOR REFERRAL No Information MEDICATIONS Medication SIG (Take, Route, Frequency, Duration) Notes Start Date End Date Status Narcan 4 mg/0.1 mL as directed intranasally once 10/16/2022 Active traZODone 100 mg 1 tab(s) orally once a day Active escitalopram 10 mg 1 tab(s) orally once a day for 30 day(s) Active levothyroxine 75 mcg (0.075 mg) 1 tab(s) orally once a day for 30 day(s) Active acetaminophen-hydrocodo ne 325 mg-7.5 mg/15 mL 15 ml per tube Q4H prn pain (max 60 ml per day; hold within 4H of planned sleep) for 30 day(s) Do not fill prior to 07/16/23. ICD-10: G89.29 06/16/2023 Active acetaminophen-hydrocodo ne 325 mg-7.5 mg/15 mL 15 ml per tube Q4H prn pain (max 60 ml per day; hold within 4H of planned sleep) for 30 day(s) Do not fill prior to 08/15/23. ICD-10: G89.29 06/16/2023 Active acetaminophen-hydrocodo ne 325 mg-7.5 mg/15 mL 15 ml per tube Q4H prn pain (max 60 ml per day; hold within 4H of planned sleep) for 30 day(s) Approval given for fill on 06/16/23. ICD-10: G89.29 06/16/2023 Active clonazePAM 0.5 mg 1 tab(s) orally once a day Active cyclobenzaprine 10 mg 1 tab(s) orally 3 times a day Active Anoro Ellipta 62.5 mcg-25 mcg/inh 1 puff(s) inhaled once a day for 30 day(s) Active cetirizine 1 mg/mL 2.5 mL orally once a day Active SOCIAL HISTORY Tobacco Use: Social History Observation Description Date Details (start date - stop date) Current Smoker NA - NA Sex Assigned At : Social History Observation Description Sex Assigned At Unknown alcohol Question Answer Notes Did you have a drink containing alcohol in the p ast year? No Points 0 Interpretation Negative Tobacco use: Question Answer Notes : current smoker Are you interested in quitting? Not ready to juan t How many cigarettes a day do you smoke? 6-10 How often do you smoke cigarettes? every day How soon after you wake up do you smoke your fir st cigarette? within 5 min When did you start smoking? 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 (973616735) Problem Other sleep disorders (G47.8) Active confirmed Sleep disorder (84559088) Problem Other chronic pain (G89.29) Active confirmed Chronic pain (62795707) Problem Spondylolisthe sis, cervical region (M43.12) Active confirmed Acquired spondylolisthesis (230075240) Problem Cervical disc disorder with radiculopathy, unspecified cervical region (M50.10) Active confirmed Cervical radiculopathy (04160913) Problem Cervicalgia (M54.2) Active confirmed Cervicalgia (87061933) Problem Pain in throat (R07.0) Active confirmed Pain in throat (694555923) Problem Other exterminator (current) drug therapy (Z79.899) Active confirmed Long-term curre nt use of drug therapy (553914230) Encounters Encounter Location Date Provider Diagnosis [facility], [facility] [address] [place] [id number] 08/04/2022 India Mora Cervicalgia M54.2 ; Cervical disc disorder with radiculopathy, unspecified cervical region M50.10 ; Spondylolisthesis, cervical region M43.12 and Other exterminator (current) drug therapy Z79.899 [facility], [address] [id number] 09/18/2022 Maurice Gordon Cervicalgia M54.2 ; Cervical disc disorder with radiculopathy, unspecified cervical region M50.10 ; Spondylolisthesis, cervical region M43.12 ; Other sleep disorders G47.8 and prison (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 analgesic Z79.891 [facility], [address] [id number] 10/16/2022 Maurice Gordon Cervicalgia M54.2 ; Cervical disc disorder with radiculopathy, unspecified cervical region M50.10 ; Spondylolisthesis, cervical region M43.12 ; Other sleep disorders G47.8 and 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 Z79.891 [facility], [address] [id number] 12/18/2022 Maurice Gordon Cervicalgia M54.2 ; Cervical disc disorder with radiculopathy, unspecified cervical region M50.10 ; Spondylolisthesis, cervical region M43.12 ; Other sleep disorders G47.8 and 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 Z79.891 [facility], [address] [id number] 01/06/2023 Maurice Gordon [facility], [address] [id number] 03/12/2023 Maurice Gordon Cervicalgia M54.2 ; Cervical disc disorder with radiculopathy, unspecified cervical region M50.10 ; Spondylolisthesis, cervical region M43.12 ; Other sleep disorders G47.8 and prison (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 analgesic Z79.891 [facility], [facility] [address] [place], [place] [id number] 04/06/2023 Maurice Gordon [facility], [facility] [address] [place], [place] [id number] 05/25/2023 Maurice Gordon [facility], [facility] [address] [place], [place] [id number] 06/16/2023 India Mora Cervicalgia M54.2 ; Other chronic pain G89.29 and 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 Gordon 09/18/2022 Cervical disc disorder with radiculopathy, unspecified cervical region (ICD-10 - M50.10) C7-T1 DAVID in 2008 with history of efficacy appreciated that has since waned 09/18/2022 Cervicalgia (ICD-10 - M54.2) Do not anticipate offering patient any fluoroscope - guided minimally invasive interventional spine treatment for cervical spine via this facility (a prior scope of practice change by this provider). Would be happy to refer patient to an interventional spine treatment provider of patient's choice as needed / desired by patient. Oral opioid medication use with history of benefit. Plan to continue medication management. Patient desires to resume muscle relaxant (Flexeril), however, patient has stated that the pharmacy / insurer will not allow this due to laws (likely insurer regulation in regards to concomitant opioid / benzodiazepine / relaxant medications). Have recommended cognitive behavioral therapy with possible mindfulness and meditation training. Patient stated that she will discuss this with her psychiatrist. Recommended patient discussion with psychiatrist regarding taper off of clonazepam, as well, and possible replacement with non-benzodiazepine Rx or psychotherapy 10/16/2022 Cervical disc disorder with radiculopathy, unspecified cervical region (ICD-10 - M50.10) C7-T1 DAVID in 2008 with history of efficacy appreciated that has since waned 10/16/2022 Cervicalgia (ICD-10 - M54.2) Do not anticipate offering patient any additional fluoroscope - guided minimally invasive interventional spine treatment for cervical spine via this facility (prior scope of practice change by this provider). Would be happy to refer patient to an interventional spine treatment provider of patient's choice as needed / desired by patient. Patient has reported desire to resume muscle relaxant (Flexeril), however, patient has stated that the pharmacy / insurer will not allow this due to laws (likely insurer regulation in regards to concomitant opioid / benzodiazepine / relaxant medications). Have recommended cognitive behavioral therapy with possible mindfulness and meditation training. Patient stated that she will discuss this with her psychiatrist. Recommended patient discussion with psychiatrist regarding taper off of clonazepam, as well, and possible replacement with non-benzodiazepine Rx or psychotherapy. Oral opioid medication use with history of benefit. Plan to continue medication management 12/18/2022 Cervical disc disorder with radiculopathy, unspecified cervical region (ICD-10 - M50.10) C7-T1 DAVID in 2008 with history of efficacy appreciated that has since waned 12/18/2022 Cervicalgia (ICD-10 - M54.2) Chronic axial cervical spine pain. Cancer diagnosis and sequela have been appreciated. Prior conservative treatment by patient as noted, below. Prior minimally invasive interventional spine treatment as noted, below (history of good benefit following remote RONALD). Do not anticipate offering patient any additional fluoroscope - guided minimally invasive interventional spine treatment for cervical spine via this facility / provider (prior scope of practice change by this provider). Would be happy to refer patient to an interventional spine treatment provider of patient's choice as needed / desired by patient. Patient deferred on additional interventional treatment. Patient has reported desire to resume muscle relaxant (Flexeril), however, patient has stated that the pharmacy / insurer will not allow this due to laws (likely insurer regulation in regards to concomitant opioid / benzodiazepine / relaxant medications). Have recommended cognitive behavioral therapy with possible mindfulness and meditation training. Patient stated that she will discuss this with her psychiatrist. Recommended patient discussion with psychiatrist regarding taper off of clonazepam, as well, and possible replacement with non-benzodiazepine Rx or psychotherapy (concomitant opioid and benzodiazepine use). Oral opioid medication use with history of benefit. Plan to continue medication management 03/12/2023 Cervical disc disorder with radiculopathy, unspecified cervical region (ICD-10 - M50.10) C7-T1 DAVID in 2008 with history of efficacy appreciated that has since waned 03/12/2023 Cervicalgia (ICD-10 - M54.2) Chronic axial cervical spine pain. Cancer diagnosis and sequela have been appreciated. Prior conservative treatment by patient as noted, below. Prior minimally invasive interventional spine treatment as noted, below (history of good benefit following remote RONALD). Do not anticipate offering patient any additional fluoroscope - guided minimally invasive interventional spine treatment for cervical spine via this facility / provider (prior scope of practice change by this provider). Would be happy to refer patient to an interventional spine treatment provider of patient's choice as needed / desired by patient. Patient deferred on additional interventional treatment. Patient has reported desire to resume muscle relaxant (Flexeril), however, patient has stated that the pharmacy / insurer will not allow this due to laws (likely insurer regulation in regards to concomitant opioid / benzodiazepine / relaxant medications). Have recommended cognitive behavioral therapy with possible mindfulness and meditation training. Patient stated that she will discuss this with her psychiatrist. Recommended patient discussion with psychiatrist regarding taper off of clonazepam, as well, and possible replacement with non-benzodiazepine Rx or psychotherapy (concomitant opioid and benzodiazepine use). Oral opioid medication use with history of benefit. 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 Plan to continue oral opioid medication management 06/16/2023 Cervicalgia (ICD-10 - M54.2) Chronic axial cervical spine pain 06/16/2023 prison (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 analgesic (ICD-10 - Z79.891) Plan urine toxicology screen today to monitor compliance regarding use of prescribed hydrocodone and for the presence of any unprescribed or illicit drugs 12/18/2022 Spondylolisthesis, cervical region (ICD-10 - M43.12) 3 mm C3-C4 retrolisthesis noted on 11/21/21 x-ray report with no spinal instability during flexion or extension confirmed 10/16/2022 Spondylolisthesis, cervical region (ICD-10 - M43.12) 3 mm C3-C4 retrolisthesis noted on 11/21/21 x-ray report with no spinal instability during flexion or extension confirmed 09/18/2022 Spondylolisthesis, cervical region (ICD-10 - M43.12) 3 mm C3-C4 retrolisthesis noted on 11/21/21 x-ray report with no spinal instability during flexion or extension confirmed 08/04/2022 Spondylolisthesis, cervical region (ICD-10 - M43.12) 3 mm C3-C4 retrolisthesis noted on 11/21/21 x-ray report with no spinal instability during flexion or extension confirmed 03/12/2023 Spondylolisthesis, cervical region (ICD-10 - M43.12) 3 mm C3-C4 retrolisthesis noted on 11/21/21 x-ray report with no spinal instability during flexion or extension confirmed 09/18/2022 Other sleep disorders (ICD-10 - G47.8) Patient has described her sleep as poor with complaints of frequent awakenings, non-refreshing sleep, snoring, restlessness during sleep, morning headaches, and difficulty in sleeping. Patient has not had a sleep study. Have recommended a sleep study. Offer of an order for such a study was declined / deferred by patient: patient has verbalized understanding to notify this facility if the study is desired. Plan to restrict opioid usage in relation to sleep: patient has verbalized understanding to hold short-acting opioids within four hours of planned sleep. Patient has been counseled on the risks of sleep apnea (if present), with or without opioid and / or other sedative usage, and the patient verbalized understanding and acceptance of the increased risk (sleep apnea, respiratory depression, ) with opioid and / or sedative substance usage. Patient has been counseled that synergistic risk occurs with concomitant opioid (such as hydrocodone) and sedative (such as clonazepam) usage (see CDC recommendations, below). Patient has been counseled to hold opioid and / or sedative substances prior to planned sleep or dangerous activities and patient verbalized understanding that noncompliance would be at patient's increased risk 08/04/2022 Other penitentiary (current) drug therapy (ICD-10 - Z79.899) Patient was given a copy of the Treatment Agreement, signed by patient on 08/04/22. Urine Tox screen today; random screens per protocol. Opioid Risk Tool score 2 - low risk 10/16/2022 Other sleep disorders (ICD-10 - G47.8) Patient has described her sleep as poor with complaints of frequent awakenings, non-refreshing sleep, snoring, restlessness during sleep, morning headaches, and difficulty in sleeping. Patient has not had a sleep study. Have recommended a sleep study. Prior offer of an order for such a study was declined / deferred by patient: patient has verbalized understanding to notify this facility if the study is desired. Plan to restrict opioid usage in relation to sleep: patient has verbalized understanding to hold short-acting opioids within four hours of planned sleep. Patient has been counseled on the risks of sleep apnea (if present), with or without opioid and / or other sedative usage, and the patient verbalized understanding and acceptance of the increased risk (sleep apnea, respiratory depression, ) with opioid and / or sedative substance usage. Patient has been counseled that synergistic risk occurs with concomitant opioid (such as hydrocodone) and sedative (such as clonazepam) usage (see CDC recommendations, below). Patient has been counseled to hold opioid and / or sedative substances prior to planned sleep or dangerous activities and patient verbalized understanding that noncompliance would be at patient's increased risk 12/18/2022 Other sleep disorders (ICD-10 - G47.8) Patient has described her sleep as poor with complaints of frequent awakenings, non-refreshing sleep, snoring, restlessness during sleep, morning headaches, and difficulty in sleeping. Patient has not had a sleep study. Have recommended a sleep study. Prior offer of an order for such a study was declined / deferred by patient: patient has verbalized understanding to notify this facility if the study is desired. Plan to restrict opioid usage in relation to sleep: patient has verbalized understanding to hold short-acting opioids within four hours of planned sleep. Patient has been counseled on the risks of sleep apnea (if present), with or without opioid and / or other sedative usage, and the patient verbalized understanding and acceptance of the increased risk (sleep apnea, respiratory depression, ) with opioid and / or sedative substance usage. Patient has been counseled that synergistic risk occurs with concomitant opioid (such as hydrocodone) and sedative (such as clonazepam) usage (see CDC recommendations, below). Patient has been counseled to hold opioid and / or sedative substances prior to planned sleep or dangerous activities and patient verbalized understanding that noncompliance would be at patient's increased risk 03/12/2023 Other sleep disorders (ICD-10 - G47.8) Patient has described her sleep as poor with complaints of frequent awakenings, non-refreshing sleep, snoring, restlessness during sleep, morning headaches, and difficulty in sleeping. Patient has not had a sleep study. Have recommended a sleep study. Prior offer of an order for such a study was declined / deferred by patient: patient has verbalized understanding to notify this facility if the study is desired. Plan to restrict opioid usage in relation to sleep: patient has verbalized understanding to hold short-acting opioids within four hours of planned sleep. Patient has been counseled on the risks of sleep apnea (if present), with or without opioid and / or other sedative usage, and the patient verbalized understanding and acceptance of the increased risk (sleep apnea, respiratory depression, ) with opioid and / or sedative substance usage. Patient has been counseled that synergistic risk occurs with concomitant opioid (such as hydrocodone) and sedative (such as clonazepam) usage (see CDC recommendations, below). 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 This places the patient in the [facility] low risk category for total daily opioid usage (not to be confused with the separate potential significant risk in regards to possible sleep apnea, above). Patient has received the Opioid Analgesic [facility] Patient Counseling Guide. Patient has had opportunity to read the Guide and ask questions pertaining to the Guide. Patient has received information regarding CDC recommendations related to concomitant opioid and sedative usage. Recommended patient taper off of clonazepam. Patient has been advised on 09/18/22 that due to the Federal Government concerns and actions, any suspected patient misuse, abuse, or diversion of controlled substances (i.e. opioids/narcotics/sinai n killers) WILL result in dissolution of treatment from this clinic. Patients adhering to the concepts contained within the patient's Treatment Agreement will be protected from such termination of care. Patient was given a copy of the Treatment Agreement, signed by patient on 08/04/22. Patient signed an opioid consent form on 09/18/22. Patient has accepted a prescription for Narcan nasal spray. Opioid Risk Tool score 2 - low risk 12/18/2022 prison (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 analgesic (ICD-10 - Z79.891) Patient has a total daily MED of 30. This places the patient in the [facility]' low risk category for total daily opioid usage (not to be confused with the separate potential significant risk in regards to possible sleep apnea, above). Patient has received the Opioid Analgesic [facility] Patient Counseling Guide. Patient has had opportunity to read the Guide and ask questions pertaining to the Guide. Patient has received information regarding CDC recommendations related to concomitant opioid and sedative usage. Recommended patient taper off of clonazepam. Patient has been advised on 09/18/22 that due to the [employer] concerns and actions, any suspected patient misuse, abuse, or diversion of controlled substances (i.e. opioids/narcotics/sinai n killers) WILL result in dissolution of treatment from this clinic. Patients adhering to the concepts contained within the patient's Treatment Agreement will be protected from such termination of care. Patient was given a copy of the Treatment Agreement, signed by patient on 08/04/22. Patient signed an opioid consent form on 09/18/22. Patient has accepted a prescription for Narcan nasal spray. Opioid Risk Tool score 2 - low risk. Urine Tox screen today; random screens per protocol 10/16/2022 prison (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 analgesic (ICD-10 - Z79.891) Patient has a total daily MED of 30. This places the patient in the [facility]' low risk category for total daily opioid usage (not to be confused with the separate potential significant risk in regards to possible sleep apnea, above). Patient has received the Opioid Analgesic [facility] Patient Counseling Guide. Patient has had opportunity to read the Guide and ask questions pertaining to the Guide. Patient has received information regarding CDC recommendations related to concomitant opioid and sedative usage. Recommended patient taper off of clonazepam. Patient has been advised on 09/18/22 that due to the [employer] concerns and actions, any suspected patient misuse, abuse, or diversion of controlled substances (i.e. opioids/narcotics/sinai n killers) WILL result in dissolution of treatment from this clinic. Patients adhering to the concepts contained within the patient's Treatment Agreement will be protected from such termination of care. Patient was given a copy of the Treatment Agreement, signed by patient on 08/04/22. Patient signed an opioid consent form on 09/18/22. Patient has accepted a prescription for Narcan nasal spray. 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 Patient has had opportunity to read the Guide and ask questions pertaining to the Guide. Patient has received information regarding [facility] recommendations related to concomitant opioid and sedative usage. Recommended patient taper off of clonazepam. Patient has been advised on 09/18/22 that due to the [facility] Government concerns and actions, any suspected patient misuse, abuse, or diversion of controlled substances (i.e. opioids/narcotics/siani n killers) WILL result in dissolution of treatment from this clinic. Patients adhering to the concepts contained within the patient's Treatment Agreement will be protected from such termination of care. Patient was given a copy of the Treatment Agreement, signed by patient on 08/04/22. Patient signed an opioid consent form on 09/18/22. Opioid Risk Tool score 2 - low risk 08/04/2022 Other Patient confirms that all of her medications and meals are via feeding tube. Continue above medication as currently prescribed via another provider. Case reviewed with Dr. Gordon. Treatment plan approved 09/18/2022 Other Patient has con firmed that all of her medications and meals are via feeding tube 10/16/2022 Other Patient has confirmed that all of her medications and meals are via feeding tube. Patient confirms that she had significant neck pain many years prior to being diagnosed with cancer 12/18/2022 Other Patient has con firmed that all of her medications and meals are via feeding tube. Patient has also confirmed that she had significant neck pain many years prior to being diagnosed with cancer 03/12/2023 Other Patient has con firmed that all of her medications and meals are via feeding tube. Patient has also confirmed that she had significant neck pain many years prior to being diagnosed with cancer 06/16/2023 Other PLAN OF TREATMENT Pending Test Test Name Order Date Urine tox screen / MS if indicated 06/16 Next Appt Details Provider Name:Maurice Anderson son, 09/09/2023 11:10:00 AM, [address] [facility], [place], [place], [id number], Insurance Providers Payer Name Payer Address Payer Phone Subscriber Number Group Number Insured Name Patient Relationship to Insured Coverage Start Date Coverage End Date S Medicare Part B Claims Department [address] [address] [place] [address] [id number] [employer] Self - patient is the insured [place] [address] [place] [address] [id number] Claudia Perez Self - patient is the insured MEDICAL (GENERAL) HISTORY Medical History History ICD Code Chronic pain Neck pain Cervical intervertebral disc disease Bilateral upper extremity radiculopathy Thoracic pain Hypothyroidism Emphysema / COPD Hypercholesterolemia Osteoporosis Hyperlipidemia Supraventricular tachycardia 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 Paez, 2018 Cataract surgeries, bilateral, performed at [facility] by Dr. España, 07/2022, 08/2022 Hospitalization History Reason Date(Month/Year) Gall bladder infection Collapsed lung, 2018 Flu, 2019 [facility]
[2023-06-16 12:18] VITALS: BP 130/67; PULSE 78; RESP 18; TEMP 36.4; O2SAT 93
== END 2023-07-02 23:59 | disposition home or self-care (01) ==
LOC: ONCMED 12:13
PROVIDERS: PCP Registered Nurse; Visit Provider Internal Medicine Hematology & Oncology
DX: Z45.2 Encounter for adjustment and management of vascular access device (principal)
CPT/HCPCS: 96523; J1642

== ENCOUNTER 2023-06-19 11:12 | Outpatient (CLI) | payer MEDICARE, MEDICAID, SELFPAY ==
--- NOTE | 2023-06-19 11:17 | MM_ITS ---
WS: [id number] Left breast diagnostic 3D tomosynthesis digital mammogram, 06/19/2023 Clinical Data: ABNORMAL MAMMO Comparison: 05/21/2023, 08/23/2009. Findings: The compression views of the upper outer quadrant of the left breast in the CC and MLO all projection s were performed. There is a left mediolateral view performed. The left breast shows heterogeneous de nsity. There is probable asymmetric tissue in the upper outer quadrant of the left breast. There are no spiculated masses nor clustered calcifications. Impression: 1. Probable asymmetric tissue in upper outer quadrant left breast. 2. Left breast ultrasound. MM/[place] [id number] BIRADS: 2-Benign FOLLOW UP: 1 Year Follow-up The CAD price checker was used.
--- NOTE | 2023-06-19 11:17 | US_ITS ---
WS: [id number] Left breast ultrasound, 06/19/2023 Clinical Data: ABNORMAL MAMMO Comparison: Mammogram, 06/19/2023 Findings: Imaging of the left breast in the upper outer quadrant reveals only normal breast tissue. There were no cysts or masses. Impression: 1. Normal left breast ultrasound. 2. Recommend annual screening mammograms. US/US breast LT limited* [id number] BIRADS: 2-Benign FOLLOW UP: 1 Year Follow-up
== END 2023-06-19 11:13 | disposition home or self-care (01) ==
PROVIDERS: PCP Registered Nurse; Visit Provider Registered Nurse
DX: R92.8 Other abnormal and inconclusive findings on diagnostic imaging of breast (principal)
CPT/HCPCS: 76642; 77061; G0279

== ENCOUNTER → 2023-07-13 11:29 | Outpatient (BNVA) | payer MEDICARE, MEDICAID, SELFPAY | PROVIDERS: PCP Registered Nurse; Visit Provider Registered Nurse | DX: F41.9 Anxiety disorder, unspecified (principal); J02.9 Acute pharyngitis, unspecified; R03.0 Elevated blood-pressure reading, without diagnosis of hypertension; F51.02 Adjustment insomnia | CPT/HCPCS: 85025 ==

== ENCOUNTER 2023-10-02 10:14 | Oncology outpatient (recurring) (ONCR) | payer MEDICARE, MEDICAID, SELFPAY ==
[2023-10-02 10:45] VITALS: BP 153/73; PULSE 74; RESP 18; TEMP 36.9; O2SAT 95
[2023-10-02 10:46] VITALS: BP 153/73; PULSE 78; RESP 18; TEMP 36.9; O2SAT 95
== END 2023-11-01 23:59 | disposition home or self-care (01) ==
LOC: ONCMED 10:14
PROVIDERS: PCP Registered Nurse; Visit Provider Internal Medicine Hematology & Oncology
DX: Z45.2 Encounter for adjustment and management of vascular access device (principal)
CPT/HCPCS: 96523; J1642

== ENCOUNTER → 2023-11-03 09:39 | Outpatient (BNVA) | payer MEDICARE, MEDICAID, SELFPAY | PROVIDERS: PCP Registered Nurse; Visit Provider Surgery | DX: Z93.1 Gastrostomy status (principal); R10.9 Unspecified abdominal pain | CPT/HCPCS: 43762; 99214 ==

== ENCOUNTER 2023-11-19 11:06 | Oncology outpatient (recurring) (ONCR) | payer MEDICARE, MEDICAID, SELFPAY ==
[2023-11-19 11:15] VITALS: BP 122/70; PULSE 73; RESP 16; TEMP 36.9; O2SAT 90
== END 2023-12-02 23:59 | disposition home or self-care (01) ==
PROVIDERS: PCP Registered Nurse; Visit Provider Internal Medicine Hematology & Oncology
DX: Z45.2 Encounter for adjustment and management of vascular access device (principal); Z53.9 Procedure and treatment not carried out, unspecified reason
CPT/HCPCS: 96523; J1642

== ENCOUNTER 2023-12-01 10:38 | Outpatient (CLI) | payer MEDICARE, MEDICAID, SELFPAY ==
--- NOTE | 2023-12-01 11:15 | US_ITS ---
WS: [id number] RIGHT UPPER QUADRANT ULTRASOUND HISTORY: abdominal pain COMPARISON: 12/27/2008 Liver: 14.8 cm in length. Normal size liver and echogenicity. No bile duct dilatation or mass. Portal Vein: Normal hepatopetal flow with monophasic waveform. Gallbladder: Gallbladder is slightly elongated. There is at least 1 stone within the gallbladder towa rds the gallbladder neck. This stone measures 1.1 x 0.6 x 1.2 cm. No gallbladder wall thickening or p ericholecystic fluid. CBD: 0.3 cm Pancreas: Normal size and echogenicity. Right kidney: 9.5 cm in length. Normal size and echogenicity. No hydronephrosis or mass. Aorta and IVC: Unremarkable abdominal aorta and IVC. No ascites. IMPRESSION: Cholelithiasis without evidence for acute cholecystitis.
== END 2023-12-01 10:39 | disposition home or self-care (01) ==
PROVIDERS: PCP Registered Nurse; Visit Provider Surgery
DX: K80.20 Calculus of gallbladder without cholecystitis without obstruction (principal); R10.9 Unspecified abdominal pain
CPT/HCPCS: 76705

== ENCOUNTER 2023-12-05 10:20 | Inpatient (IN) | payer MEDICARE, MEDICAID, SELFPAY ==
[2023-12-05] VITALS (13 sets, daily range): BP systolic 101–166; BP diastolic 56–86; PULSE 72–97; RESP 16–20; TEMP 36.7–37; O2SAT 84–95; BMI 16.7
--- NOTE | 2023-12-05 10:33 | ECG_ITS ---
[facility] Test Date: 2023-12-05 Pat Name: Claudia Perez Department: Room: Gender: Female Business Unit Leader: : 1955 Requested By: Romeo Eldridge Order Number: [id number] Black MD: Lionel Williamson M.D. Measurements Intervals [place] Rate: 82 P: 69 [place]: 149 QRS: 24 QRSD: 88 T: 67 QT: 361 QTc: 422 Interpretive Statements SINUS RHYTHM WITH OCCASIONAL SUPRAVENTRICULAR PREMATURE COMPLEXES POSSIBLE RIGHT VENTRICULAR CONDUCTION DELAY [RSR (QR) IN V1/V2] MODERATE ST DEPRESSION [0.05+ mV ST DEPRESSION] Compared to ECG 10/13/2019 11:34:08 ST (T wave) deviation now present Electronically Signed On 12-05-2023 23:11:19 MODEL TECHNICIAN by Lionel Williamson M.D. [id number]
--- NOTE | 2023-12-05 10:59 | CTR_ITS ---
PROCEDURE INFORMATION: Exam: CT Abdomen And Pelvis With Contrast Exam date and time: 12/05/2023 12:11 PM Age: 68 years old Clinical indication: Abdominal pain; Generalized; Prior surgery; Surgery date: 6+ months; Surgery type: Peg tube port TECHNIQUE: Imaging protocol: Computed tomography of the abdomen and pelvis with contrast. Radiation optimization: All CT scans at this facility use at least one of these dose optimization techniques: automated exposure control; mA and/or kV adjustment per patient size (includes targeted exams where dose is matched to clinical indication); or iterative reconstruction. Contrast material: OMNI 350; Contrast volume: 100 ml; Contrast route: INTRAVENOUS (IV); COMPARISON: CR XR abdomen 1V* [id number] 07/28/2022 3:54 PM RADIATION DOSE METRICS: Total DLP (mGy-cm): 316.31 FINDINGS: Lungs: Emphysema. Mild dependent atelectasis. Partially visualized enhancing medial triangular right lower lobe opacity compatible with atelectasis. Mediastinal space: Distal esophageal thickening. Liver: Normal without focal lesions. Gallbladder and bile ducts: Cholelithiasis. No CT findings of cholecystitis. No biliary ductal dilatation. Pancreas: Normal without ductal dilatation. Spleen: Normal. Adrenal glands: Normal. No mass. Kidneys and ureters: Normal. No hydronephrosis. Stomach and bowel: Percutaneous gastrostomy tube in place. No obstruction. No mucosal thickening. Moderate colonic stool burden. Appendix: No evidence of appendicitis. Intraperitoneal space: Minimal free pelvic fluid, nonspecific. No free air or focal well organized fluid collection. Vasculature: Moderate systemic atherosclerosis without abdominal aortic aneurysm. Lymph nodes: No enlarged lymph nodes. Urinary bladder: Urinary bladder is unremarkable. Reproductive: Prominent periuterine vasculature and left gonadal vein. Bones/joints: No acute fracture. Mild degenerative changes along the spine. Soft tissues: Unremarkable. CT/CT abdomen pelvis w con* [id number] IMPRESSION: 1. Distal esophageal thickening may represent esophagitis. 2. Moderate colonic stool burden without obstruction. 3. Prominent periuterine vasculature and left gonadal vein may be seen in the setting of pelvic congestion syndrome. 4. Additional chronic and incidental findings as above.
--- NOTE | 2023-12-05 10:59 | XRR_ITS ---
PROCEDURE INFORMATION: Exam: XR Chest Exam date and time: 12/05/2023 11:32 AM Age: 68 years old Clinical indication: Patient HX: Cough; Wheezing; HX throat CA; Smoker TECHNIQUE: Imaging protocol: Radiologic exam of the chest. Views: 2 views. COMPARISON: CT lung screening [id number] 05/21/2023 10:21 AM FINDINGS: Tubes, catheters and devices: Left chest port terminates near the superior cavoatrial junction. Lungs: Pulmonary hyperinflation with mild chronic appearing reticulation. Mild left lower lung linear atelectasis versus scarring. No consolidation. Pleural spaces: No substantial pleural effusion or pneumothorax. Heart/Mediastinum: Unremarkable. No cardiomegaly. Vasculature: Aortic atherosclerotic calcification. Bones/joints: Mild degenerative changes along the spine. XR/XR chest 2V* [id number] IMPRESSION: COPD without acute findings.
--- NOTE | 2023-12-05 11:05 | W.ED.ABDPA2 ---
HPI - Abdominal Pain General: Chief Complaint: Abdominal Pain Stated Complaint: sob, back pain Time Seen by Provider: 12/05/23 10:50 History of Present Illness: 68-year-old female presents to the emergency department chief complaint of progressive shortness of breath and difficulty breathing as well as abdominal pain has been getting worse over the last 3 to 4 days patient has a history of COPD nominally does not require oxygen presents with her daughter she does endorse also having generalized abdominal pain not reporting any diarrhea or vomiting or bloody stools patient does not endorse any prior abdominal surgeries patient presented to the ER with increased shortness of breath and wheezing patient does not recall any recent sick or ill contacts patient does report she does continue to continue smoking patient presents to the ER for further assessment and management. She does endorse having midsternal chest pressure due to her shortness of breath and cough. Associated Symptoms: Reports nausea; Denies chills, fever(s) and vomiting Review of Systems General: Reports: 10 or more systems reviewed and unremarkable except in HPI and below Const: Denies: fever(s), chills, fatigue or malaise Eyes: Denies: change in vision or blurry vision Card: Denies: chest pain or palpitations Resp: Reports: dyspnea, wheezing and change in phlegm color GI: Reports: abdominal pain and nausea; Denies: vomiting : Denies: flank pain Musc: Denies: extremity pain or extremity swelling Skin/Breast: Denies: rash or pruritus Neuro: Denies: headache(s) Psych: Denies: anxiety or depression Apolinar/Lymph: Denies: easy bleeding All/Imm: Denies: urticaria, throat swelling or facial swelling [facility] ED PFSH: Medical History Cigarette smoker SVT (supraventricular tachycardia) Encounter for long-term opiate analgesic use Opioid contract exists Hypothyroidism COPD (chronic obstructive pulmonary disease) Carcinoma of hypopharynx Hyperthyroidism Hyperlipidemia Port-A-Cath in place (~05/2019) Surgical History History of tonsillectomy Status post open reduction and internal fixation (ORIF) of fracture left humerus S/P percutaneous endoscopic gastrostomy (PEG) tube placement History of tonsillectomy and adenoidectomy Family History Mother CAD (coronary artery disease) Sister CAD (coronary artery disease) Stroke Denies family history of Anesthesia complication Bleeding disorder Social History Smoking and tobacco/nicotine status: current every day tobacco/nicotine user cigarettes Packs smoked per day: 0.5 Years cigarettes smoked: 50 [ Other cigarette details: [id number]] Quit status (tobacco/nicotine): considering quitting Alcohol intake: never Substance/Drug Use: never Adopted: No Caregiver/support person: Yes Lives independently: No (disabled ) Household members: family Housing: House Marital status: Single Number of children: 3 Number of grandchildren: 7 Highest education level completed: High School Graduate service: No Current occupational status: disabled Current occupational exposures/hazards: No Pets and animals: Yes Sexually active: No Do you think of yourself as: Straight/Heterosexual Current gender identity: Female Micaela/Confucianism: Judaism Special micaela needs: No Agree to transfusion: No Physical Exam Const: COMMON NORMALS: patient oriented x3 and healthy appearing; apparent distress (Patient appears in moderate distress due to difficulty breathing) HENMT: COMMON NORMALS: normocephalic and atraumatic HEAD & SCALP: normocephalic and atraumatic Eye: COMMON NORMALS: Equal, round and reactive pupils present and EOMs intact bilaterally PUPIL: Yes Equal, round and reactive pupils present OTHER: Pursestring breathing patient exam patient is on supplemental oxygen to maintain saturations in the low 90s. Neck/C-Spine: COMMON NORMALS: full ROM, supple and no JVD Lymph: LYMPHATIC: no lymphadenopathy noted Chest: COMMONS NORMALS: normal inspection of the chest and normal palpation of entire chest wall Resp: COMMON NORMALS: normal respiratory effort and No retractions; negative for No use of accessory muscles and negative for clear to auscultation bilaterally (Moderate wheezing appreciated bilaterally no obvious stridor or crackles or) EFFORT & INSPECTION: Yes able to speak in complete sentences and Yes symmetric chest movement AUSCULTATION: not clear to auscultation bilaterally (Moderate wheezing appreciated bilaterally no obvious stridor or crackles or) Cardio: COMMON NORMALS: no JVD, regular rate and regular rhythm RATE: regular rate RHYTHM: regular rhythm GI: COMMON NORMALS: Normal to inspection, nondistended, normoactive bowel sounds present, Soft to palpation and non-tender INSPECTION: Yes normal to inspection PALPATION: Yes Soft to palpation : COMMON NORMALS: Yes no CVA tenderness BLADDER/KIDNEY EXAM: Yes no CVA tenderness Back/Pelvis: COMMON NORMALS: no CVA tenderness Extremity: COMMON NORMALS: normal to inspection and full ROM Neuro: COMMON NORMALS: patient oriented x3, CN's II-XII intact bilaterally, moves all extremities and no focal motor deficits Psych: COMMON NORMALS: mental status grossly normal, Normal thought process present, cooperative and normal affect THOUGHT PROCESS: Normal thought process present Skin: COMMON NORMALS: no rashes or lesions noted GENERAL SKIN EXAM: no rashes or lesions noted Course Vital Signs: Vital signs: Vital Signs Temperature 98.0 F 12/05/23 10:39 Pulse Rate 95 12/05/23 15:24 Respiratory Rate 16 12/05/23 15:24 Blood Pressure 135/65 12/05/23 15:24 Pulse Oximetry 94 12/05/23 15:24 Oxygen Delivery Me thod Nasal Cannula 12/05/23 15:24 Oxygen Flow Rate 4 12/05/23 15:24 MDM - Abdominal Pain Medical Decision Making Due to patient's symptoms and condition cardiopulmonary workup will be obtained this patient is a as well as abdominal pain workup will continue to follow patient will have CAT scan of the abdomen pelvis with IV contrast EKG appears unremarkable at this time. Revealing nonspecific ST segment alterations V1 V2 with no reciprocal changes. Patient will be treated as a COPD exacerbation with steroids and nebs. Patient is positive for RSV type B patient oxygenation required 4 L nasal cannula maintain saturations in the low 90s the patient's abdominal CT did not reveal any obvious acute findings except for slow colonic stasis as well as possible pelvic venous congestion. Patient will need to be admitted for her hypoxia patient was already provided steroids and nebs with minimal improvement of her oxygenation issue discussed patient's case with Dr. Fuentes is granted acceptance to medical telemetry patient remained in stable condition at this time. Lab Data 12/05/23 11:11 12/05/23 11:11 Labs/Radiology: Radiology Impressions Abdomen/Pelvis CT 12/05/23 10:59 IMPRESSION: 1. Distal esophageal thickening may represent esophagitis. 2. Moderate colonic stool burden without obstruction. 3. Prominent periuterine vasculature and left gonadal vein may be seen in the setting of pelvic congestion syndrome. 4. Additional chronic and incidental findings as above. Chest X-Ray 12/05/23 10:59 IMPRESSION: COPD without acute findings. Laboratory Results WBC 9.01 10^3/uL (3.29-11.43) 12/05/23 11:11 RBC 4.20 10^6/uL (3.85-5.65) 12/05/23 11:11 Hgb 14.80 g/dL (11.27-16.99) 12/05/23 11:11 Hct 40.7 % (36-47) 12/05/23 11:11 MCV 96.9 fl (85-98) 12/05/23 11:11 MCH 35.2 pg (27-33) H 12/05/23 11:11 MCHC 36.4 g/dL (30-55) 12/05/23 11:11 RDW 13.0 % (12.1-15.1) 12/05/23 11:11 Plt Count 128 10^3/cmm (157-399) L 12/05/23 11:11 MPV 9.5 fL (7.4-10.4) 12/05/23 11:11 Neut % (Auto) 90.2 % 12/05/23 11:11 Lymph % (Auto) 2.2 % 12/05/23 11:11 Wilkinson % (Auto) 7.0 % 12/05/23 11:11 Eos % (Auto) 0.0 % 12/05/23 11:11 Baso % (Auto) 0.3 % 12/05/23 11:11 Neut # (Auto) 8.12 10^3/uL (1.8-7.7) H 12/05/23 11:11 Lymph # (Auto) 0.2 10^3/uL (0.8-4.8) L 12/05/23 11:11 Wilkinson # (Auto) 0.6 10^3/uL (0.2-0.9) 12/05/23 11:11 Eos # (Auto) 0.0 10^3/uL (0.0-0.8) 12/05/23 11:11 Baso # (Auto) 0.0 10^3/uL (0.0-0.1) 12/05/23 11:11 Nucleated RBC % (auto) 0 % 12/05/23 11:11 Nucleated RBCs # 0.0 /100WBC 12/05/23 11:11 Specimen Type Arterial 12/05/23 11:03 Sample Site Brachial, left 12/05/23 11:03 ABG pH 7.44 (7.35-7.45) 12/05/23 11:03 ABG pCO2 43.8 mmHg (35-45) 12/05/23 11:03 ABG pO2 59.2 mmHg (80.0-100.0) L 12/05/23 11:03 ABG PO2/FiO2 Ratio 0 12/05/23 11:03 ABG HCO3 29.3 mmol/L (22-26) H 12/05/23 11:03 ABG Base Excess 4.4 mmol/L (-2.0-2.0) H 12/05/23 11:03 Davy Test N/a 12/05/23 11:03 Hematocrit 45.8 % (37-47) 12/05/23 11:03 Hgb O2 Saturation 89.3 % (95-100) L 12/05/23 11:03 Carboxyhemoglobin 4.2 %THgb (0.4-20.1) 12/05/23 11:03 Methemoglobin 0.5 % (0.4-1.5) 12/05/23 11:03 Total Hemoglobin 14.9 g/dL (12-16) 12/05/23 11:03 O2 Delivery Device Nc 12/05/23 11:03 O2 Liters/Min 2.0 % 12/05/23 11:03 FiO2 28.0 % 12/05/23 11:03 Cherry Dipper ID Gd 12/05/23 11:03 Sodium 122 mmol/L (136-145) L 12/05/23 11:11 Potassium 5.0 mmol/L (3.5-5.1) 12/05/23 11:11 Chloride 86 mmol/L (98-107) L 12/05/23 11:11 Carbon Dioxide 25 mmol/L (22-29) 12/05/23 11:11 Anion Gap 16.0 (5-19) 12/05/23 11:11 BUN 15 mg/dL (8-23) 12/05/23 11:11 Creatinine 0.4 mg/dL (0.5-0.9) L 12/05/23 11:11 GFR Calculation 157.8 mL/min (90-130) H 12/05/23 11:11 Glucose 98 mg/dL (65-115) 12/05/23 11:11 Calculated Osmolality 255 mOsm/kg (285-295) L 12/05/23 11:11 Calcium 8.6 mg/dL (8.5-10.5) 12/05/23 11:11 Total Bilirubin 0.2 mg/dL (0.15-1.2) 12/05/23 11:11 AST 19 U/L (0-32) 12/05/23 11:11 ALT 11 U/L (0-33) 12/05/23 11:11 Alkaline Phosphatase 65 U/L (35-105) 12/05/23 11:11 Troponin T Baseline 13 ng/L (0-10) H 12/05/23 11:11 Troponin T 120 Minute 12.13 ng/L (0-10) H 12/05/23 13:04 Delta Troponin T -0.87 ABS# (0-10) L 12/05/23 13:04 C-Reactive Protein 102.0 mg/L (0.0-4.9) H 12/05/23 11:11 NT-Pro-B Natriuret Pep 1052 pg/mL (0-125) H 12/05/23 11:11 Total Protein 5.7 g/dL (6.6-8.7) L 12/05/23 11:11 Albumin 3.6 g/dL (3.5-5.2) 12/05/23 11:11 Globulin 2.1 g/dL (1.3-4.6) 12/05/23 11:11 Urine Color Yellow (Yellow) 12/05/23 12:11 Urine Appearance Clear (CLEAR) 12/05/23 12:11 Urine pH 6.5 (5-7) 12/05/23 12:11 Ur Specific Shiner 1.010 (1.005-1.030) 12/05/23 12:11 Urine Protein Neg (Negative) 12/05/23 12:11 Urine Glucose (UA) Norm (Normal) 12/05/23 12:11 Urine Ketones Negative (Negative) 12/05/23 12:11 Urine Blood Neg (Negative) 12/05/23 12:11 Urine Nitrate Negative (Negative) 12/05/23 12:11 Urine Bilirubin Neg (Negative) 12/05/23 12:11 Urine Urobilinogen Norm mg/dL (Negative) 12/05/23 12:11 Ur Leukocyte Esterase Trace (Negative) H 12/05/23 12:11 Urine RBC 0-4 /hpf (0-2) H 12/05/23 12:11 Urine WBC 0-4 /hpf (0-5) H 12/05/23 12:11 Ur Squamous Epith Cells 10-15 /hpf (0-5) H 12/05/23 12:11 Amorphous Sediment Not Reportable 12/05/23 12:11 Urine Bacteria 1+ /hpf (NONE) H 12/05/23 12:11 Adenovirus (PCR) Not detected (NOT DETECT) 12/05/23 11:22 C. pneumoniae DNA (PCR) Not detected (NOT DETECT) 12/05/23 11:22 Coronavirus 229E (PCR) Not detected (NOT DETECT) 12/05/23 11:22 Human Metapneumovir PCR Not detected (NOT DETECT) 12/05/23 11:22 Influenza A (H1) PCR Not detected (NOT DETECT) 12/05/23 11:22 Influ A (H1/09) PCR Not detected (NOT DETECT) 12/05/23 11:22 Influenza A (H3) PCR Not detected (NOT DETECT) 12/05/23 11:22 Influenza Type A (PCR) Not detected (NOT DETECT) 12/05/23 11:22 Influenza Type B (PCR) Not detected (NOT DETECT) 12/05/23 11:22 M. pneumoniae (PCR) Not detected (NOT DETECT) 12/05/23 11:22 Parainfluenza 1 (PCR) Not detected (NOT DETECT) 12/05/23 11:22 Parainfluenza 2 (PCR) Not detected (NOT DETECT) 12/05/23 11:22 Parainfluenza 3 (PCR) Not detected (NOT DETECT) 12/05/23 11:22 Parainfluenza 4 (PCR) Not detected (NOT DETECT) 12/05/23 11:22 RSV Type A (PCR) Not detected (NOT DETECT) 12/05/23 11:22 RSV Type B (PCR) Detected (NOT DETECT) A 12/05/23 11:22 Entero/Rhino (PCR) Not detected (NOT DETECT) 12/05/23 11:22 SARS-CoV-2 (PCR) Not detected (NOT DETECT) 12/05/23 11:22 All radiology interpretation(s) finalized by discharge Discharge Plan Discharge Patient Disposition: Admitted As Inpatient Clinical Impression: Acute bronchitis due to respiratory syncytial virus, Acute exacerbation of chronic obstructive pulmonary disease, Acute hypoxemic respiratory failure Condition: Stable Coding Level of Care Code ED Livestock Broker for Karley Rogers
[2023-12-05] MEDS: ipratropium-albuterol 3 mL Neb INHALATION ×2 (11:17→20:50)
[2023-12-05 11:20] LABS: ABG PCO2 43.8 mmHg (35-45); ABG PH Result 7.44 (7.35-7.45); Arterial Blood Gas Hematocrit 45.8 % (37-47); Base Excess ABG 4.4 mmol/L (-2.0-2.0); Blood Gas Operator Identificat GD; Blood Gas Sample Site Brachial, left; Blood Gas Sample Type Arterial; Carboxyhemoglobin 4.2 %THgb (0.4-20.1); HCO3 ABG 29.3 mmol/L (22-26); HGB O2 Sat 89.3 % (95-100); Methemoglobin 0.5 % (0.4-1.5); Oxygen Device NC; PO2 ABG 59.2 mmHg (80.0-100.0); PO2 FiO2 Ratio Arterial Blood 0; Total Hemoglobin 14.9 g/dL (12-16)
[2023-12-05 11:20] LABS: Basophils % 0.3 %; Hematocrit 40.7 % (36-47); Lymphocytes # 0.2 10^3/uL (0.8-4.8); Lymphocytes % 2.2 %; Mean Corpuscular HGB Conc 36.4 g/dL (30-55); Mean Corpuscular Hemoglobin 35.2 pg (27-33); Mean Corpuscular Volume 96.9 fl (85-98); Mean Platelet Volume 9.5 fL (7.4-10.4); Monocytes # 0.6 10^3/uL (0.2-0.9); Neutrophils # 8.12 10^3/uL (1.8-7.7); Neutrophils % 90.2 %; Nucleated Red Blood Cells % 0 %; Platelet Count 128 10^3/cmm (157-399); White Blood Count 9.01 10^3/uL (3.29-11.43)
[2023-12-05 11:42] LABS: Troponin(5th) Baseline 13 ng/L (0-10)
[2023-12-05] MEDS: methylPREDNISolone sod succ 125 mg/2 mL INJ IVP (11:45)
[2023-12-05] MEDS: sodium chloride 0.9% 500 ML IV (11:46)
[2023-12-05 11:47] LABS: Alanine Aminotransferase 11 U/L (0-33); Albumin Level 3.6 g/dL (3.5-5.2); Alkaline Phosphatase 65 U/L (35-105); Aspartate Amino Transferase 19 U/L (0-32); Blood Urea Nitrogen 15 mg/dL (8-23); Calcium 8.6 mg/dL (8.5-10.5); Carbon Dioxide 25 mmol/L (22-29); Chloride 86 mmol/L (98-107); Globulin 2.1 g/dL (1.3-4.6); Glomerular Filtration Rate 157.8 mL/min (90-130); Glucose 98 mg/dL (65-115); NT Pro B Type Natriuretic Pept 1052 pg/mL (0-125); Osmolality Calculated 255 mOsm/kg (285-295); Sodium 122 mmol/L (136-145); Total Bilirubin 0.2 mg/dL (0.15-1.2); Total Protein 5.7 g/dL (6.6-8.7)
[2023-12-05] MEDS: ondansetron 2 mg/ML SDV 2 mL 4 MG IVP ×2 (11:59→22:03)
[2023-12-05] MEDS: iohexol 350 mg/mL 500 mL Btl (per mL) IV (12:16)
[2023-12-05 12:27] LABS: Add Urine Culture? No; Add Urine Microscopic? YES; Bacteria Urine 1+ /hpf; Bilirubin Urine Neg (Negative); Blood Urine Neg (Negative); Glucose Urine UA Norm (Normal); Ketones Urine Negative (Negative); Leukocyte Esterase Urine Trace (Negative); Nitrate Urine Negative (Negative); Protein Urine Neg (Negative); RBC Urine 0-4 /hpf (0-2); Urine Appearance Clear (CLEAR); Urine Color Yellow (Yellow); Urobilinogen Urine Norm (Negative); WBC Urine 0-4 /hpf (0-5); pH Urine 6.5 (5-7)
--- NOTE | 2023-12-05 12:47 | ECG_ITS ---
[facility] Test Date: 2023-12-05 Pat Name: Claudia Perez Department: Room: Gender: Female Supervisor Car Installations: : 1955 Requested By: Romeo Eldridge Order Number: [id number] Sofia MD: Lionel Williamson M.D. Measurements Intervals [place] Rate: 84 P: 75 [place]: 148 QRS: 31 QRSD: 88 T: 74 QT: 375 QTc: 444 Interpretive Statements SINUS RHYTHM POSSIBLE RIGHT VENTRICULAR CONDUCTION DELAY [RSR (QR) IN V1/V2] MODERATE ST DEPRESSION [0.05+ mV ST DEPRESSION] Compared to ECG 10/13/2019 11:34:08 ST (T wave) deviation now present Electronically Signed On 12-05-2023 23:22:50 [employer] by Lionel Williamson M.D. [id number]
[2023-12-05 13:11] LABS: Adenovirus Not Detected (NOT DETECT); Chlamydia Pneumoniae Not Detected (NOT DETECT); Coronavirus 229E,HKU1,NL63,OC4 Not Detected (NOT DETECT); Human Metapneumovirus Not Detected (NOT DETECT); Human Rhinovirus/Enterovirus Not Detected (NOT DETECT); Influenza A Not Detected (NOT DETECT); Influenza A H1 Not Detected (NOT DETECT); Influenza A H1-2009 Not Detected (NOT DETECT); Influenza A H3 Not Detected (NOT DETECT); Influenza B Not Detected (NOT DETECT); Mycoplasma Pneumoniae Not Detected (NOT DETECT); Parainfluenza Virus Type 1 Not Detected (NOT DETECT); Parainfluenza Virus Type 2 Not Detected (NOT DETECT); Parainfluenza Virus Type 3 Not Detected (NOT DETECT); Parainfluenza Virus Type 4 Not Detected (NOT DETECT); Respiratory Syncytial Virus A Not Detected (NOT DETECT); SARS-COV-2 Not Detected (NOT DETECT)
[2023-12-05 13:16] LABS: Respiratory Syncytial Virus B Detected (NOT DETECT)
[2023-12-05 13:28] LABS: Troponin 5 2HR 12.13 ng/L (0-10)
[2023-12-05 13:30] LABS: Troponin 5 2HR Delta -0.87 ABS# (0-10)
[2023-12-05] MEDS: ketorolac 30 mg/mL INJ IVP (13:41)
--- NOTE | 2023-12-05 16:04 | P.HP_ITS ---
Providers/Chief Complaint 2 Primary Care Provider: JIMMIE Chavez Chief Complaint: sob, back pain History of Present Illness Claudia Perez is a 68 year old female with past medical history of With past medical history of carcinoma of hypopharynx, COPD, hyperlipidemia, hypothyroidism, chronic opioid user, SVT, recent nausea that started improving presented to the hospital today with complaint of progressive shortness of breath that has been worsening over the last 3 to 4 days. She said she went to [facility] however after running all the testing that they could they told her that she could go home. She is on room air at home but requiring 4 L nasal cannula at this time. She is comfortable on the oxygen. She also complains of epigastric pain and says she is very nauseated. He is also been struggling with some constipation. Patient is a current smoker. She also complained of abdominal pain today which is mainly epigastric pain. Denies vomiting, bloody stools, prior abdominal surgeries. She does have a PEG tube in place which was recently changed by Dr. Roblero at the beginning of this month. She is also had a gallbladder ultrasound done which did show cholelithiasis without evidence of acute cholecystitis. CT abdomen pelvis done in ER today showed diffuse esophageal thickening which may represent esophagitis. Moderate colonic stool burden without obstruction seen. Prominent periuterine vasculature and left gonadal vein may be seen in the setting of pelvic congestion syndrome. Epigastric pain is not reproducible to palpation at this time. He says its mostly associated with her nausea. No known history of heart disease. ER course: Blood pressure 135/65, respirate 16, pulse 94 saturating 4L nasal cannula. Influenza negative. RSV type B positive. No actual acute findings on CT abdomen pelvis other than what stated above. Troponins drawn. EKG did show nonspecific ST changes. He did get a GI cocktail which made her feel slightly better. Sodium on admission 122. Lab is being repleted right now. Delta troponin at 2-hour -0.87. CRP 102, BNP 1000. Urinalysis obtained however not a clean sample. 10-15 squamous cells seen. Medications/Allergies Home Medications Medication Instructions Recorded Confirmed Last Taken Type bolus feed extension set with #12 ea 02/07/21 12/05/23 01/07/22 Rx cath tip Sec[employer]au straight connector and clamp 6mL leur slip syringe #12 ea 04/06/2212/05/23 01/07/22 Rx albuterol sulfate 90 mcg/actuation 1 inh inhalation QID PRN Shortness 12/27/21 12/05/23 01/07/22 History aerosol inhaler Of Breath mexiletine 250 mg capsule 250 mg PO BID #180 caps 02/02/23 12/05/23 12/05/23 Rx clonazepam 0.5 mg tablet 0.5 mg PO DAILY 30 days #30 tabs 07/14/23 12/05/23 12/05/23 Rx Ensure #12 ea 10/15/23 12/05/23 Unknown Rx albuterol sulfate 2.5 mg/3 mL 2.5 mg (3 mL) inhalation Q8H #90 mL 11/04/23 12/05/23 12/05/23 Rx (0.083 %) solution for nebulization ondansetron 4 mg disintegrating 4 mg PO DAILY PRN nausea and 11/04/23 12/05/23 Unknown Rx tablet vomiting 30 days #30 tabs oxycodone 5 mg/5 mL oral solution 5 mg PO QID PRN Pain 11/24/23 12/05/23 12/05/23 History lisinopril 10 mg tablet 10 mg PO DAILY 30 days #30 tabs 11/30/23 12/05/23 12/05/23 Rx cyclobenzaprine 5 mg tablet 5 mg PO BID PRN Pain 12/05/23 12/05/23 Unknown History escitalopram oxalate 20 mg tablet 20 mg PO DAILY 12/05/23 12/05/23 12/05/23 History guaifenesin 100 mg/5 mL oral liquid 400 mg PO Q4H PRN Cough 12/05/23 12/05/23 12/04/23 History ibuprofen 100 mg/5 mL oral 200 mg PO Q6H PRN Pain 12/05/23 12/05/23 12/05/23 History suspension levothyroxine 75 mcg tablet 75 mcg PO DAILY 12/05/23 12/05/23 12/05/23 History naloxone 4 mg/actuation nasal spray 1 spray intranasal Q3M PRN Opioid 12/05/23 12/05/23 Unknown History Overdose prednisone 20 mg tablet 20 mg PO DAILY 12/05/23 12/05/23 12/05/23 History trazodone 100 mg tablet 100 mg PO BEDTIME 12/05/23 12/05/23 12/04/23 History Allergies Allergy/AdvReac Type Severity Reaction Status Date / Time No Known Allergies Allergy Verified 12/05/23 10:45 PFSH Acute 2 PFSH: Medical History Cigarette smoker SVT (supraventricular tachycardia) Encounter for long-term opiate analgesic use Opioid contract exists Hypothyroidism COPD (chronic obstructive pulmonary disease) Carcinoma of hypopharynx Hyperthyroidism Hyperlipidemia Port-A-Cath in place (~05/2019) Surgical History History of tonsillectomy Status post open reduction and internal fixation (ORIF) of fracture left humerus S/P percutaneous endoscopic gastrostomy (PEG) tube placement History of tonsillectomy and adenoidectomy Family History Mother CAD (coronary artery disease) Sister CAD (coronary artery disease) Stroke Denies family history of Anesthesia complication Bleeding disorder Social History Smoking and tobacco/nicotine status: current every day tobacco/nicotine user cigarettes Packs smoked per day: 0.5 Years cigarettes smoked: 50 [ Other cigarette details: [id number]] Quit status (tobacco/nicotine): considering quitting Alcohol intake: never Substance/Drug Use: never Adopted: No Caregiver/support person: Yes Lives independently: No (disabled ) Household members: family Housing: House Marital status: Single Number of children: 3 Number of grandchildren: 7 Highest education level completed: High School Graduate service: No Current occupational status: disabled Current occupational exposures/hazards: No Pets and animals: Yes Sexually active: No Do you think of yourself as: Straight/Heterosexual Current gender identity: Female Micaela/Anabaptism: Moravian Special micaela needs: No Agree to transfusion: No Vitals/I&O/Wt Last Vital Signs Temp 98.0 F 12/05/23 10:39 Pulse 95 12/05/23 15:24 Resp 16 12/05/23 15:24 BP 135/65 12/05/23 15:24 Pulse Ox 94 12/05/23 15:24 O2 Del Method Nasal Cannula 12/05/23 15:24 O2 Flow Rate 4 12/05/23 15:24 Weight last 48 hrs Weight 47.174 kg Physical Exam 2 Narrative: General exam is no apparent distress on 4 L nasal cannula at this time. Cardiovascular regular rate and rhythm without murmur Lungs clear but with diminished breath sounds bilaterally, Abdomen is soft with positive bowel sounds, PEG in place. Extremities no cyanosis clubbing or edema Data 12/05/23 11:11 12/05/23 11:11 A&P Assessment and plan (1) Anxiety: (2) Depression with anxiety: (3) Opioid contract exists: (4) Essential hypertension: (5) SVT (supraventricular tachycardia): (6) Hypothyroidism: Qualifiers: Hypothyroidism type: acquired Qualified Code(s): E03.9 - Hypothyroidism, unspecified (7) GERD (gastroesophageal reflux disease): Qualifiers: Esophagitis presence: without esophagitis Qualified Code(s): K21.9 - Gastro-esophageal reflux disease without esophagitis (8) Feeding by G-tube: (9) Nausea: (10) Chronic nausea: (11) Abdominal pain: (12) COPD (chronic obstructive pulmonary disease): Qualifiers: COPD type: chronic bronchitis Chronic bronchitis type: unspecified Qualified Code(s): J42 - Unspecified chronic bronchitis (13) Acute bronchitis due to respiratory syncytial virus: (14) Acute exacerbation of chronic obstructive pulmonary disease: (15) Acute hypoxemic respiratory failure: (16) Cigarette smoker: Plan #COPD exacerbation #New oxygen dependency #Hyponatremia sodium 122 #RSV type B+ #Nausea, epigastric pain most likely secondary to esophagitis #Esophagitis #Rule out H. pylori #Hypothyroidism #Hypertension #History of SVT #Chronic opioid user ? RSV positive ? Continue DuoNeb every 6 hours scheduled ? Solu-Medrol 40 every 8 hours ? Continue azithromycin 500 daily for anti-inflammatory effect ? Check H. pylori stool antigen. Hold off on PPI. ? Placed on Reglan 3 times daily. Hold Zofran. ? Start MiraLAX via PEG daily ? May use lactulose if above is unsuccessful ? Will consult general surgery. Patient may need EGD diagnostic purposes ? Continue home mexiletine, levothyroxine, lisinopril, oxycodone, cyclobenzaprine, clonazepam ? Wean oxygen as able ? Await 6-hour troponin ? Check D-dimer ? Recheck BMP to confirm hyponatremia sodium 122. If that is a true value we will treat accordingly ? Check urine osmolality, serum osmolality, urine sodium ? Check echo. Rule out wall motion abnormality. ? EKG reviewed. Nonspecific ST changes. QTc not elevated. Full code DVT prophylaxis: SCDs, platelets are low therefore I would avoid pharmacological at this point. Attestations 2 Medical Necessity Statement*: Will cross greater than 2 midnight stay for COPD exacerbation, new oxygen dependency, worsening nausea. Diagnoses Anxiety F41.9 Depression with anxiety F41.8 Opioid contract exists Z79.891 Essential hypertension I10 SVT (supraventricular tachycardia) I47.1 Acquired hypothyroidism E03.9 Hypothyroidism type: acquired Gastroesophageal reflux disease without esophagitis K21.9 Esophagitis presence: without esophagitis Feeding by G-tube Z93.1 Nausea R11.0 Chronic nausea R11.0 Abdominal pain R10.9 Chronic bronchitis, unspecified chronic bronchitis type J42 COPD type: chronic bronchitis Chronic bronchitis type: unspecified Acute bronchitis due to respiratory syncytial virus J20.5 Acute exacerbation of chronic obstructive pulmonary disease J44.1 Acute hypoxemic respiratory failure J96.01 Cigarette smoker F17.210
--- NOTE | 2023-12-05 16:04 | USCV_ITS ---
Claudia Perez Age: 68 Gender: F : 1955 Exam Date: 12/05/2023 16:46 Ordering Phys: Raysa Oh MD Technologist: Alexx Harrell Exam Location: [facility] Indication: chest pain BP: 130 / 56 HR: 76 Rhythm: Sinus Technical Quality: Adequate MEASUREMENTS (Male / Female) Normal Values 2D ECHO LVOT Diameter 2.1 cm LV Ejection Fraction MOD 2C 78.8 % LV Ejection Fraction 2C AL 78.6 % LA Diameter 3.4 cm LA Width 3.1 cm LA Height 4.4 cm RA Width 2.7 cm RA Height 4.3 cm Aorta at Sinotubular Diameter 2.3 cm IVC Diameter 1.1 cm M-MODE Aortic Annulus Diameter 2.7 cm LA Ao Ratio MM 1.1 MV E Point Septal Separation 0.4 cm DOPPLER AV Peak Velocity 146.0 cm/s LVOT Peak Velocity 132.0 cm/s AV Area Cont Eq vti 3.7 cm squared AV Area Cont Eq pk 3.0 cm squared MV Peak Velocity 116.0 cm/s MV Area PHT 5.0 cm squared Mitral E to A Ratio 0.9 MV E' Velocity 43.5 cm/s Mitral E to MV E' Ratio 7.0 Mitral E to LV E' Lateral Ratio 8.1 Mitral E to LV E' Septal Ratio 6.3 TR Peak Velocity 256.7 cm/s TR Peak Gradient 26.4 mmHg TR Mean Velocity 188.7 cm/s TR Mean Gradient 17.7 mmHg TR Velocity Time Integral 54.9 cm Right Atrial Pressure 3.0 mmHg Pulmonary Artery Systolic Pressu 29.4 mmHg PV Peak Velocity 118.0 cm/s RV Acceleration Time 0.1 s RV Ejection Time 0.3 s RV AcT/ET 0.6 FINDINGS Left Ventricle Left ventricle is normal in size. LV systolic function is normal with EF of 60 to 65%. No regional wall motion abnormalities are seen. Right Ventricle Normal in size and function Right Atrium Normal in size Left Atrium Normal in size Mitral Valve Structurally normal mitral valve. Mild mitral regurgitation. Aortic Valve Structurally normal aortic valve. No significant stenosis or regurgitation. Tricuspid Valve Mild tricuspid regurgitation. Insufficient TR jet to evaluate RVSP. Pulmonic Valve Not well visualized Pericardium Normal Aorta Normal in size IVC Appears to be normal CONCLUSIONS LV systolic function is normal with EF of 60-65% Mild mitral regurgitation Mild tricuspid regurgitation Compared to prior echocardiogram from 2020, no significant changes are seen Lionel Williamson MD (Electronically Signed) Final Date: 06 December 2023 10:49 S
[2023-12-05 16:15] LABS: D Dimer 0.97 ug/mLFEU (0-0.59)
[2023-12-05] MEDS: sodium chloride 0.9% 1,000 ML 75 ML IV (16:25)
[2023-12-05 16:36] LABS: Procalcitonin 0.06 ng/mL (0-0.5); Thyroid Stimulating Hormone 4.31 uIU/mL (0.27-4.20)
[2023-12-05 16:44] LABS: Urine Random Sodium 18 mmol/L
[2023-12-05] MEDS: metoclopramide 5 mg/mL SDV 2 mL IVP (16:45)
[2023-12-05 16:47] LABS: Anion Gap 15.8 (5-19); Blood Urea Nitrogen 14 mg/dL (8-23); Calcium 8.6 mg/dL (8.5-10.5); Carbon Dioxide 25 mmol/L (22-29); Chloride 85 mmol/L (98-107); Glomerular Filtration Rate 157.8 mL/min (90-130); Glucose 100 mg/dL (65-115); Osmolality Calculated 253 mOsm/kg (285-295); Potassium 4.8 mmol/L (3.5-5.1); Sodium 121 mmol/L (136-145)
[2023-12-05] MEDS: fluconazole premix 200 MG/100 ML PREMIX 100 MG IV (17:30)
--- NOTE | 2023-12-05 18:14 | PC.NURSE ---
Medication Delay: Miralax delayed d/t not having correct supplies, pt did not bring home supplies. This nurse contacted [employer] for supplies.
[2023-12-05] MEDS: polyethylene glycol 3350 Pkt 17 gm PEG-TUBE (18:44)
[2023-12-05 19:13] LABS: Anion Gap 13.9 (5-19); Blood Urea Nitrogen 11 mg/dL (8-23); Calcium 9.1 mg/dL (8.5-10.5); Carbon Dioxide 28 mmol/L (22-29); Chloride 90 mmol/L (98-107); Glucose 138 mg/dL (65-115); Osmolality Calculated 266 mOsm/kg (285-295); Potassium 4.9 mmol/L (3.5-5.1); Sodium 127 mmol/L (136-145)
[2023-12-05] MEDS: methylPREDNISolone sod succ 40 mg/mL INJ IVP (19:18)
[2023-12-05 19:19] LABS: Procalcitonin 0.07 ng/mL (0-0.5)
--- OUTSIDE RECORDS SUMMARY | 2023-12-05 20:33 | XMS_ITS | Patient Health Record ---
Author Name Unknown Organization [facility] Address [address] [place], [place] [id number] Care Team Providers Care Principal Technical Architect Name Role Phone Prosper Harris Primary Care Provider Gavino Gordon MD, Maurice Unavailable [phone] India Walker Unavailable [phone] ALLERGIES No Known Allergies RESULTS Component Value Reference Range Notes Urine tox screen / MS if ind icated Reviewed date:12/22/2022 02:04:27 PM Interpretation: Performing Lab: Notes/Report: Urine tox screen / MS if ind icated Reviewed date:11/19/2023 12:02:41 PM Interpretation:Consistent Performing Lab: Notes/Report: Consistent Urine tox screen / MS if ind icated Reviewed date:06/16/2023 01:05:44 PM Interpretation:Consistent Performing Lab: Notes/Report: Consistent REASON FOR REFERRAL No Information MEDICATIONS Medication SIG (Take, Route, Frequency, Duration) Notes Start Date End Date Status oxyCODONE 5 mg/5 mL 5 ml orally Q4H prn pain (max 25 ml per day; hold within 4H of planned sleep) for 28 days ICD-10: G89.29 11/19/2023 Active cyclobenzaprine 10 mg 1 tab(s) orally 3 times a day Active oxyCODONE 5 mg/5 mL 5 ml orally Q4H prn pain (max 25 ml per day; hold within 4H of planned sleep) for 28 days Do not fill prior to 12/17/23. ICD-10: G89.29 11/19/2023 Active escitalopram 10 mg 1 tab(s) orally once a day for 30 day(s) Active levothyroxine 75 mcg (0.075 mg) 1 tab(s) orally once a day for 30 day(s) Active lisinopril 10 mg 1 tab(s) orally once a day for 30 day(s) Active Narcan 4 mg/0.1 mL as directed intranasally once 10/16/2022 Active OxyCODONE Hydrochloride 5 mg/5 mL 5 ml per tube Q4H prn pain (max 20 ml per day; hold within 4H of planned sleep) for 14 days 11/05/2023 Active traZODone 100 mg 1 tab(s) orally once a day Active Anoro Ellipta 62.5 mcg-25 mcg/inh 1 puff(s) inhaled once a day for 30 day(s) Active cetirizine 1 mg/mL 2.5 mL orally once a day Active clonazePAM 0.5 mg 1 tab(s) orally once a day Active SOCIAL HISTORY [...] W/U Status Risk SNOMED Code Notes Problem 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 (Z79.891) Active confirmed High risk drug monitoring status (087344905) Problem Malignant neoplasm of hypopharynx, 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) Active confirmed Malignant tumor of hypopharynx (966187978) Problem Other sleep disorders (G47.8) Active confirmed Sleep disorder (60219032) Problem Other chronic pain (G89.29) Active confirmed Chronic pain (67317801) Problem Spondylolisthe sis, cervical region (M43.12) Active confirmed Acquired spondylolisthesis (219938637) Problem Cervical disc disorder with radiculopathy, unspecified cervical region (M50.10) Active confirmed Cervical radiculopathy (93090151) Problem Cervicalgia (M54.2) Active confirmed Cervicalgia (24697545) Problem Pain in throat (R07.0) Active confirmed Pain in throat (597844108) Problem Other chcf (current) drug therapy (Z79.899) Active confirmed Long-term curre nt use of drug therapy (663842185) VITAL SIGNS Temperature 97.6 degrees Fahrenheit 11/19/2023 Oximetry 85 % 11/19/2023 Blood pressure diastolic 72 mm Hg 03/12/2023 Height 65 in 11/19/2023 Blood pressure systolic 148 mm Hg 03/12/2023 Weight 107.2 lbs 11/19/2023 BMI 17.84 kg/m2 11/19/2023 Encounters Encounter Location Date Provider Diagnosis [facility], [place] [address] [address] [place], [place] [id number] 12/18/2022 Maurice Gordon Cervicalgia M54.2 ; Cervical disc disorder with radiculopathy, unspecified cervical region M50.10 ; Spondylolisthesis, cervical region M43.12 ; Other sleep disorders G47.8 and 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 Z79.891 [facility], [address] [id number] 01/06/2023 Maurice Gordon [facility], [address] [id number] 03/12/2023 Maurice Gordon Cervicalgia M54.2 ; Cervical disc disorder with radiculopathy, unspecified cervical region M50.10 ; Spondylolisthesis, cervical region M43.12 ; Other sleep disorders G47.8 and retirement (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 analgesic Z79.891 [facility], [facility] [address] [place], [place] [id number] 04/06/2023 Maurice Gordon [facility], [address] [id number] 05/25/2023 Maurice Gordon [facility], [address] [id number] 06/16/2023 India Blancas Cervicalgia M54.2 ; Other chronic pain G89.29 and 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 Z79.891 [facility], [facility] [address] [place] [id number] 06/16/2023 [facility], [facility] [address] [place], [place] [id number] 07/22/2023 Maurice [facility], [facility] [address] [place], [place] [id number] 08/19/2023 Maurice [facility], [facility] [address] [place], [place] [id number] 09/09/2023 India Mora Cervicalgia M54.2 and Other chronic pain G89.29 [facility], [facility] [address] [place], [place] [id number] 10/19/2023 [facility], [facility] [address] [place], [place] [id number] 11/05/2023 India Mora Cervicalgia M54.2 ; Other chronic pain G89.29 and Other sleep disorders G47.8 [facility], [facility] [address] [place], [place] [id number] 11/19/2023 India Mora Cervicalgia M54.2 ; Other chronic pain G89.29 ; Other sleep disorders G47.8 and retirement (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 analgesic Z79.891 ASSESSMENTS Encounter Date Diagnosis Assessment Notes Treatment Notes Treatment Clinical Notes 12/18/2022 Cervical disc disorder with radiculopathy, unspecified [...] her pain 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 Plan to continue oral opioid medication management 06/16/2023 Cervicalgia (ICD-10 - M54.2) Chronic axial cervical spine pain 09/09/2023 Cervicalgia (ICD-10 - M54.2) Chronic axial cervical spine pain. 11/05/2023 Cervicalgia (ICD-10 - M54.2) Chronic axial cervical spine pain. 11/19/2023 Cervicalgia (ICD-10 - M54.2) Chronic axial cervical spine pain. 03/12/2023 Spondylolisthesis, cervical region (ICD-10 - M43.12) 3 mm C3-C4 retrolisthesis noted on 11/21/21 x-ray report with no spinal instability during flexion or extension confirmed 11/19/2023 Other sleep disorders (ICD-10 - G47.8) Patient with history of a sleep disorder to include snoring. Patient previously declined on an offer of a sleep study. Plan to continue to restrict opioid use in relation to sleep for safety concerns. 11/19/2023 Other chronic pain (ICD-10 - G89.29) Patient reports some issues with change from liquid hydrocodone to oxycodone. She states that each dose does not last long enough to make it to the time of the next dose. Plan to continue oral opioid medication management with quantity titration. 11/05/2023 Other sleep disorders (ICD-10 - G47.8) Patient with history of a sleep disorder to include snoring. Patient previously declined on an offer of a sleep study. Plan to continue to restrict opioid use in relation to sleep for safety concerns. 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 Plan to continue oral opioid medication management. 09/09/2023 Other chronic pain (ICD-10 - G89.29) Patient reports that taking her pain medication allows her to do more stuff around her house. Plan to continue oral opioid medication management. 06/16/2023 retirement (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 analgesic (ICD-10 - Z79.891) Plan urine toxicology screen today to monitor compliance regarding use of prescribed hydrocodone and for the presence of any unprescribed or illicit drugs 12/18/2022 Spondylolisthesis, cervical region (ICD-10 - M43.12) 3 mm C3-C4 retrolisthesis noted on 11/21/21 x-ray report with no spinal instability during flexion or extension confirmed 12/18/2022 Other sleep disorders (ICD-10 - G47.8) [...] noncompliance would be at patient's increased risk 11/19/2023 retirement (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 analgesic (ICD-10 - Z79.891) 2022 opioid (OUD) risk tool score = 2. This places the patient in the low risk category. Plan urine toxicology screen today to monitor for presence of any unprescribed or illicit controlled substance(s), as well as prescribed oxycodone. 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 (ICD-10 - [...] advised on 09/18/22 that due to the [employer] concerns and actions, any suspected patient [...] Tool score 2 - low risk 12/18/2022 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 (ICD-10 - [...] advised on 09/18/22 that due to the [employer] concerns and actions, any suspected patient [...] Tox screen today; random screens per protocol 12/18/2022 Other Patient has con firmed that [...] to being diagnosed with cancer 06/16/2023 Other 09/09/2023 Other 11/05/2023 Other 11/19/2023 Other PLAN OF TREATMENT Next Appt Details Provider Name:Maurice Anderson son, 01/14/2024 10:50:00 AM, [address] [place], [place], [id number], Insurance Providers Payer Name Payer Address Payer Phone Subscriber Number Group Number Insured Name Patient Relationship to Insured Coverage Start Date Coverage End Date [facility] Medicare Part B Claims Department [address] [address] [place] [address] [id number] Claudia Perez Self - patient is the insured [place] [employer] [address] [place] [id number] Claudia Perez Self - patient is the insured MEDICAL (GENERAL) HISTORY Medical History History ICD Code Chronic pain Neck pain Cervical spondylosis, disc disease and s pondylolisthesis Bilateral upper extremity radiculopathy Thoracic pain Hypothyroidism Emphysema / COPD Hypercholesterolemia Osteoporosis Hyperlipidemia Supraventricular tachycardia Carcinoma of hypopharynx (treated with c hemotherapy and radiation 2018) Patient has stated that the cancer is in remission (follow up PET scan negative as per prior patient report) Antianxiety medication use Psychiatric care as per prior patient re port COVID - 19 (09/2023) Sleep disorder, snoring Surgical History Surgery Date(Month/Year) Tonsillectomy, 1965 Repair of shoulder fracture, right, 2006 Placement of port and feeding tube, perf ormed at [facility] by Dr. Paez, 2019 Cataract surgeries, bilateral, performed at [facility] by Dr. España, 07/2022, 08/2022 Hospitalization History Reason Date(Month/Year) Gall bladder infection Collapsed lung, 2018 Flu, 2019 Neck pain, treated at [facility] [place] [place], 2020
[2023-12-05] MEDS: sodium chloride 0.9% 1,000 ML 60 ML IV (21:02)
[2023-12-05] MEDS: azithromycin 500 MG in sodium chloride 0.9% 250 ML 250 MG IV (21:02)
[2023-12-05] MEDS: morphine 4 mg/mL SDV 1 mL 2 MG IVP (22:02)
[2023-12-06] VITALS (13 sets, daily range): BP systolic 117–168; BP diastolic 68–85; PULSE 80–103; RESP 16–20; TEMP 36.7–36.9; O2SAT 90–94; BMI 17.6
[2023-12-06] MEDS: metoclopramide 5 mg/mL SDV 2 mL IVP ×4 (00:32→23:40)
[2023-12-06] MEDS: trazodone 100 mg Tablet PO ×2 (00:36→21:58)
[2023-12-06] MEDS: methylPREDNISolone sod succ 40 mg/mL INJ IVP ×3 (03:32→18:33)
[2023-12-06] MEDS: levothyroxine 75 mcg Tablet PO (05:00)
[2023-12-06] MEDS: morphine 4 mg/mL SDV 1 mL 2 MG IVP ×4 (05:50→20:25)
--- NOTE | 2023-12-06 06:32 | P.CONIM_ITS ---
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 Moderate colonic stool burden without obstruction seen. Labs showed Na level 122. pt on bolus TF at home . Review of Systems 2 Narrative: other ROS negative Medications/Allergies Home Medications Medication Instructions Recorded Confirmed Last Taken Type bolus feed extension set with #12 ea 02/07/21 12/05/23 01/07/22 Rx cath tip Secur-[employer]au straight connector and clamp 6mL leur slip syringe #12 ea 02/07/21 12/05/23 01/07/22 Rx albuterol sulfate 90 mcg/actuation 1 inh inhalation QID PRN Shortness 12/27/21 12/05/23 01/07/22 History aerosol inhaler Of Breath mexiletine 250 mg capsule 250 mg PO BID #180 caps 02/02/23 12/05/23 12/05/23 Rx clonazepam 0.5 mg tablet 0.5 mg PO DAILY 30 days #30 tabs 07/14/23 12/05/23 12/05/23 Rx Ensure #12 ea 10/15/23 12/05/23 Unknown Rx albuterol sulfate 2.5 mg/3 mL 2.5 mg (3 mL) inhalation Q8H #90 mL 11/04/23 12/05/23 12/05/23 Rx (0.083 %) solution for nebulization ondansetron 4 mg disintegrating 4 mg PO DAILY PRN nausea and 11/04/23 12/05/23 Unknown Rx tablet vomiting 30 days #30 tabs oxycodone 5 mg/5 mL oral solution 5 mg PO QID PRN Pain 11/24/23 12/05/23 12/05/23 History lisinopril 10 mg tablet 10 mg PO DAILY 30 days #30 tabs 11/30/23 12/05/23 12/05/23 Rx cyclobenzaprine 5 mg tablet 5 mg PO BID PRN Pain 12/05/23 12/05/23 Unknown History escitalopram oxalate 20 mg tablet 20 mg PO DAILY 12/05/23 12/05/23 12/05/23 History guaifenesin 100 mg/5 mL oral liquid 400 mg PO Q4H PRN Cough 12/05/23 12/05/23 12/04/23 History ibuprofen 100 mg/5 mL oral 200 mg PO Q6H PRN Pain 12/05/23 12/05/23 12/05/23 History suspension levothyroxine 75 mcg tablet 75 mcg PO DAILY 12/05/23 12/05/23 12/05/23 History naloxone 4 mg/actuation nasal spray 1 spray intranasal Q3M PRN Opioid 12/05/23 12/05/23 Unknown History Overdose prednisone 20 mg tablet 20 mg PO DAILY 12/05/23 12/05/23 12/05/23 History trazodone 100 mg tablet 100 mg PO BEDTIME 12/05/23 12/05/23 12/04/23 History Allergies Allergy/AdvReac Type Severity Reaction Status Date / Time No Known Allergies Allergy Verified 12/05/23 10:45 Current Medications Generic Name Dose Route Start Last Admin Trade Name Freq PRN Reason Stop Dose Admin Fluconazole 200 mg in 100 mls @ 100 mls/hr 12/05/23 16:45 12/05/23 19:12 Diflucan Premix IV Infused Q24H KIARA Infusion Methylprednisolone Sodium Succinate 40 mg 12/05/23 19:00 12/05/23 19:18 Methylprednisolone Sod Succ 40 Mg/Ml Inj IVP 40 mg Q8H KIARA Administration Metoclopramide HCl 5 mg 12/05/23 16:15 12/05/23 16:45 Metoclopramide 5 Mg/Ml Sdv 2 Ml IVP 5 mg Q8H KIARA Administration Polyethylene Glycol 17 gm 12/05/23 16:30 12/05/23 18:44 Polyethylene Glycol 3350 Pkt 17 Gm PEG-TUBE 17 gm DAILY KIARA Administration PFSH Acute 2 PFSH: Medical History Cigarette smoker SVT (supraventricular tachycardia) Encounter for long-term opiate analgesic use Opioid contract exists Hypothyroidism COPD (chronic obstructive pulmonary disease) Carcinoma of hypopharynx Hyperthyroidism Hyperlipidemia Port-A-Cath in place (~05/2019) Surgical History History of tonsillectomy Status post open reduction and internal fixation (ORIF) of fracture left humerus S/P percutaneous endoscopic gastrostomy (PEG) tube placement History of tonsillectomy and adenoidectomy Family History Mother CAD (coronary artery disease) Sister CAD (coronary artery disease) Stroke Denies family history of Anesthesia complication Bleeding disorder Social History Smoking and tobacco/nicotine status: current every day tobacco/nicotine user cigarettes Packs smoked per day: 0.5 Years cigarettes smoked: 50 [ Other cigarette details: [id number]] Quit status (tobacco/nicotine): considering quitting Alcohol intake: never Substance/Drug Use: never Adopted: No Caregiver/support person: Yes Lives independently: No (disabled ) Household members: family Housing: House Marital status: Single Number of children: 3 Number of grandchildren: 7 Highest education level completed: High School Graduate service: No Current occupational status: disabled Current occupational exposures/hazards: No Pets and animals: Yes Sexually active: No Do you think of yourself as: Straight/Heterosexual Current gender identity: Female Micaela/Islam: Sikhism Special micaela needs: No Agree to transfusion: No Vitals/I&O/Wt Last Vital Signs Temp 98.0 F 12/05/23 10:39 Pulse 82 12/05/23 17:37 Resp 17 12/05/23 17:37 BP 130/56 12/05/23 16:15 Pulse Ox 88 L 12/05/23 17:37 O2 Del Method Nasal Cannula 12/05/23 17:37 O2 Flow Rate 4 12/05/23 17:37 12/05/23 12/05/23 12/05/23 06:59 14:59 22:59 Intake Total 100 / 100 Balance 100 / 100 Weight last 48 hrs Weight 47.174 kg Physical Exam 2 Narrative: awake, alert no distress No edema Data 12/05/23 11:11 12/06/23 07:16 Micro: Microbiology 12/05/23 16:22 Legionella Urinary Antigen - Final Urine,Clean Catch A&P Assessment and plan (1) Hyponatremia: Plan 1. Hyponatremia: Likely hypovolemic, agree with IV fluid resuscitation-normal saline at 75 cc an hour, , will stop IV fluids by the end of the day and continue tube feeds along with fluid restriction -Noted urine sodium being low, urine osmolality pending 2. COPD exacerbation 3. Hypopharynx carcinoma, chronic G G-tube feeds Consult Attestations 2 Medical Necessity Statement: per ziyad Coding Level of Care Code Acute Code for g Fwd Diagnoses Hyponatremia E87.1
[2023-12-06] MEDS: ipratropium-albuterol 3 mL Neb INHALATION ×3 (07:36→14:59)
[2023-12-06 08:18] LABS: Anion Gap 15.9 (5-19); Blood Urea Nitrogen 14 mg/dL (8-23); Calcium 9.1 mg/dL (8.5-10.5); Carbon Dioxide 25 mmol/L (22-29); Chloride 94 mmol/L (98-107); Glomerular Filtration Rate 157.8 mL/min (90-130); Glucose 142 mg/dL (65-115); Osmolality Calculated 273 mOsm/kg (285-295); Potassium 4.9 mmol/L (3.5-5.1); Sodium 130 mmol/L (136-145)
[2023-12-06] MEDS: lisinopril 10 mg Tablet PO (09:07)
[2023-12-06] MEDS: escitalopram 10 mg Tablet 20 MG PO (09:07)
[2023-12-06] MEDS: polyethylene glycol 3350 Pkt 17 gm PEG-TUBE (09:08)
[2023-12-06] MEDS: CLONazepam 0.5 mg Tablet PO (09:08)
[2023-12-06] MEDS: sodium chloride 0.9% 1,000 ML 60 ML IV (12:05)
--- NOTE | 2023-12-06 12:59 | P.PN_ITS ---
Subjective 2 Subjective: Seen this morning. Patient says she feels a little bit better. Sodium 130 at this time, potassium 4.9. She says her breathing has eased up a little bit. Epigastric pain also better. She believes the medicine we gave her helped her. Vitals/I&O/Wt Last Vital Signs Temp 98.0 F 12/06/23 10:28 Pulse 90 12/06/23 11:45 Resp 18 12/06/23 11:40 BP 131/68 12/06/23 10:28 Pulse Ox 90 12/06/23 11:40 O2 Del Method Nasal Cannula 12/06/23 11:40 O2 Flow Rate 4 12/06/23 11:40 FiO2 21 12/05/23 20:40 12/05/23 12/06/23 12/06/23 22:59 06:59 14:59 Intake Total 100 / 100 250 / 350 694 / 694 Balance 100 / 100 250 / 350 694 / 694 Weight last 48 hrs Weight 49.442 kg Weight 47.174 kg Weight 47.174 kg Physical Exam 2 Narrative: General exam is no apparent distress on 4 L nasal cannula at this time. Cardiovascular regular rate and rhythm without murmur Lungs clear but with diminished breath sounds bilaterally, Abdomen is soft with positive bowel sounds, PEG in place. Extremities no cyanosis clubbing or edema Data 12/05/23 11:11 12/06/23 07:16 Micro: Microbiology 12/05/23 16:22 Legionella Urinary Antigen - Final Urine,Clean Catch A&P Assessment and plan (1) Anxiety: (2) Depression with anxiety: (3) Opioid contract exists: (4) Essential hypertension: (5) SVT (supraventricular tachycardia): (6) Hypothyroidism: Qualifiers: Hypothyroidism type: acquired Qualified Code(s): E03.9 - Hypothyroidism, unspecified (7) GERD (gastroesophageal reflux disease): Qualifiers: Esophagitis presence: without esophagitis Qualified Code(s): K21.9 - Gastro-esophageal reflux disease without esophagitis (8) Feeding by G-tube: (9) Nausea: (10) Chronic nausea: (11) Abdominal pain: (12) COPD (chronic obstructive pulmonary disease): Qualifiers: COPD type: chronic bronchitis Chronic bronchitis type: unspecified Qualified Code(s): J42 - Unspecified chronic bronchitis (13) Acute bronchitis due to respiratory syncytial virus: (14) Acute exacerbation of chronic obstructive pulmonary disease: (15) Acute hypoxemic respiratory failure: (16) Cigarette smoker: Plan #COPD exacerbation #New oxygen dependency # Hypovolemic hyponatremia sodium 122 #RSV type B+ #Nausea, epigastric pain most likely secondary to esophagitis #Esophagitis #Rule out H. pylori #Hypothyroidism #Hypertension #History of SVT #Chronic opioid user ? RSV positive ? Continue DuoNeb every 6 hours scheduled ? Solu-Medrol 40 every 8 hours ? Continue azithromycin 500 daily for anti-inflammatory effect ? Check H. pylori stool antigen. Hold off on PPI. ? Placed on Reglan 3 times daily. Hold Zofran. ? Start MiraLAX via PEG daily ? May use lactulose if above is unsuccessful ? Discussed with general surgery over the phone. We will do fluconazole IV for now. Possibly Kathia esophagitis?. If no improvement after completion of course may consider EGD as an outpatient. Patient is completely PEG dependent therefore do not believe we will be able to give her swish and swallow nystatin at this time due to history of throat cancer. ? Continue home mexiletine, levothyroxine, lisinopril, oxycodone, cyclobenzaprine, clonazepam ? Wean oxygen as able ? Await 6-hour troponin ? Check D-dimer?0.97. After age adjustment this is not elevated. Low suspicion for PE at this time. ? Continue to check BMP every 4 hours. Sodium 130 at this time. Continue on IV fluids 75 cc/h. ? Check urine osmolality, serum osmolality, urine sodium 18. Continue fluid restriction. ? Check echo. Rule out wall motion abnormality. EF 6065% mild mitral regurgitation. No significant changes from previous echo. ? EKG reviewed. Nonspecific ST changes. QTc not elevated. Full code DVT prophylaxis: SCDs, Attestations 2 Medical Necessity Statement*: Will cross greater than 2 midnight stay for COPD exacerbation, new oxygen dependency, worsening nausea. Diagnoses Anxiety F41.9 Depression with anxiety F41.8 Opioid contract exists Z79.891 Essential hypertension I10 SVT (supraventricular tachycardia) I47.1 Acquired hypothyroidism E03.9 Hypothyroidism type: acquired Gastroesophageal reflux disease without esophagitis K21.9 Esophagitis presence: without esophagitis Feeding by G-tube Z93.1 Nausea R11.0 Chronic nausea R11.0 Abdominal pain R10.9 Chronic bronchitis, unspecified chronic bronchitis type J42 COPD type: chronic bronchitis Chronic bronchitis type: unspecified Acute bronchitis due to respiratory syncytial virus J20.5 Acute exacerbation of chronic obstructive pulmonary disease J44.1 Acute hypoxemic respiratory failure J96.01 Cigarette smoker F17.210
--- NOTE | 2023-12-06 13:56 | PC.NURSE ---
Notified Dr. Oh of patients medication Mexiletine 250 mg. Patient states the medication is taken once per day. Bottle states twice daily. Dr. Oh gave verbal orders to change to Mexiletine 250 mg PO Daily at 1800
--- NOTE | 2023-12-06 15:28 | PC.NURSE ---
Patient refused to have vehicle monitor technician on.
[2023-12-06] MEDS: cyclobenzaprine 10 mg Tablet 5 MG PO (15:31)
[2023-12-06] MEDS: fluconazole premix 200 MG/100 ML PREMIX 100 MG IV (16:32)
[2023-12-06] MEDS: azithromycin 500 MG in sodium chloride 0.9% 250 ML 250 MG IV (18:32)
--- NOTE | 2023-12-06 19:06 | PC.NURSE ---
Fluids were to be discontinued at the end of this shift per Dr. Martinez and Dr. Oh due to sodium of 130. Fluids were discontinued and nightclub manager nurse told
[2023-12-07] VITALS (18 sets, daily range): BP systolic 107–150; BP diastolic 69–83; PULSE 79–102; RESP 16–20; TEMP 36.6–36.9; O2SAT 83–95; BMI 16.9
[2023-12-07] MEDS: morphine 4 mg/mL SDV 1 mL 2 MG IVP ×6 (01:01→22:18)
[2023-12-07 01:29] LABS: Anion Gap 13.9 (5-19); Blood Urea Nitrogen 18 mg/dL (8-23); Calcium 9.1 mg/dL (8.5-10.5); Carbon Dioxide 29 mmol/L (22-29); Chloride 94 mmol/L (98-107); Glomerular Filtration Rate 157.8 mL/min (90-130); Glucose 119 mg/dL (65-115); Osmolality Calculated 277 mOsm/kg (285-295); Potassium 4.9 mmol/L (3.5-5.1); Sodium 132 mmol/L (136-145)
[2023-12-07 03:04] LABS: Basophils % 0.2 %; Hematocrit 40.6 % (36-47); Lymphocytes # 0.2 10^3/uL (0.8-4.8); Lymphocytes % 1.9 %; Mean Corpuscular HGB Conc 34.2 g/dL (30-55); Mean Corpuscular Hemoglobin 34.4 pg (27-33); Mean Corpuscular Volume 100.5 fl (85-98); Mean Platelet Volume 9.4 fL (7.4-10.4); Monocytes # 0.5 10^3/uL (0.2-0.9); Monocytes % 5.1 %; Neutrophils # 9.37 10^3/uL (1.8-7.7); Neutrophils % 92.3 %; Nucleated Red Blood Cells % 0 %; Platelet Count 150 10^3/cmm (157-399); Red Blood Count 4.04 10^6/uL (3.85-5.65); Red Cell Distribution Width 12.9 % (12.1-15.1); White Blood Count 10.15 10^3/uL (3.29-11.43)
[2023-12-07] MEDS: methylPREDNISolone sod succ 40 mg/mL INJ IVP ×2 (03:23→12:12)
[2023-12-07 03:25] LABS: Alanine Aminotransferase 14 U/L (0-33); Albumin Level 3.2 g/dL (3.5-5.2); Alkaline Phosphatase 56 U/L (35-105); Anion Gap 12.9 (5-19); Aspartate Amino Transferase 22 U/L (0-32); Blood Urea Nitrogen 18 mg/dL (8-23); Calcium 8.8 mg/dL (8.5-10.5); Carbon Dioxide 29 mmol/L (22-29); Chloride 94 mmol/L (98-107); Globulin 2.5 g/dL (1.3-4.6); Glomerular Filtration Rate 219.9 mL/min (90-130); Glucose 129 mg/dL (65-115); Magnesium 2.2 mg/dL (1.7-2.3); Osmolality Calculated 276 mOsm/kg (285-295); Potassium 4.9 mmol/L (3.5-5.1); Sodium 131 mmol/L (136-145); Total Bilirubin 0.2 mg/dL (0.15-1.2); Total Protein 5.7 g/dL (6.6-8.7)
[2023-12-07] MEDS: levothyroxine 75 mcg Tablet PO (05:37)
[2023-12-07 06:23] LABS: Anion Gap 14.8 (5-19); Blood Urea Nitrogen 16 mg/dL (8-23); Calcium 9.4 mg/dL (8.5-10.5); Carbon Dioxide 28 mmol/L (22-29); Chloride 89 mmol/L (98-107); Glomerular Filtration Rate 157.8 mL/min (90-130); Glucose 135 mg/dL (65-115); Osmolality Calculated 267 mOsm/kg (285-295); Potassium 4.8 mmol/L (3.5-5.1); Sodium 127 mmol/L (136-145)
[2023-12-07] MEDS: ipratropium-albuterol 3 mL Neb INHALATION ×4 (07:38→20:52)
[2023-12-07] MEDS: polyethylene glycol 3350 Pkt 17 gm PEG-TUBE (08:34)
[2023-12-07] MEDS: escitalopram 10 mg Tablet 20 MG PO (08:34)
[2023-12-07] MEDS: lisinopril 10 mg Tablet PO (08:34)
[2023-12-07] MEDS: metoclopramide 5 mg/mL SDV 2 mL IVP ×2 (08:35→17:19)
[2023-12-07] MEDS: cyclobenzaprine 10 mg Tablet 5 MG PO ×2 (08:43→17:20)
--- NOTE | 2023-12-07 09:43 | PC.CHAP ---
Pastoral Care Encounter/Spiritual Assessment Type of Contact [] Declined demolition crane operator visit [] Patient/Family/Request visit [] Outpatient visit [] Follow-up visit [] Physician referral [] Code/Alert [] Routine visit [] Staff referral [] Actively dying [] Patient sleeping [] Family support [] [] Out of room [] Palliative care [] [] Receiving care in room [] Pre-surgical visit [] Trauma [] Long length of stay [] ICU visit [x] Other:Contact precautions. No visit. Relational/Emotional Strength [] Patient feels connected with others/family/visitors/staff [] Distress [] Loneliness/isolation [] Abandonment Spirituality of Patient [] Person of Micaela [] Attends Christian of their Micaela [] Believes in Prayer [] Reads Bible or Pentecostalism materials [] There are Spiritual issues to be addressed Cnc Mill Set Up Operator Interventions [] Prayer [] Active listening [] Non-anxious presence [] Spiritual/emotional support [] Crisis/trauma care [] Spiritual counseling [] Bereavement support [] Provided bereavement packet [] Provided Bible/devotional materials [] Provided toy/stuffed animal, coloring book to patient or family member [] Provided Communion [] Anointing/Halfway [] Salvation [] Completed spiritual assessment [] Other: Impact on Illness or Injury [] Angry [] Fearful [] Anxious [] Often cries [] Exhaustion [] Unable to work [] Unable to attend mosque [] Unable to walk/stand [] Unable to read [] Unable to drive [] Unable to eat/drink [] Unable to sleep [] Unable to be with family [] Patient intubated [] Other: Summary Time spent with patient
--- NOTE | 2023-12-07 10:24 | P.PN_ITS ---
Subjective 2 Subjective: denies any new complaints Medications: Reviewed: Yes Vitals/I&O/Wt Last Vital Signs Temp 98.1 F 12/07/23 08:00 Pulse 88 12/07/23 08:00 Resp 16 12/07/23 08:00 BP 131/78 12/07/23 08:00 Pulse Ox 91 12/07/23 08:00 O2 Del Method Nasal Cannula 12/07/23 08:00 O2 Flow Rate 4 12/07/23 07:40 FiO2 21 12/05/23 20:40 12/06/23 12/07/23 12/07/23 22:59 06:59 14:59 Intake Total 1434 / 3026 Balance 1434 / 3026 Weight last 48 hrs Weight 47.718 kg Weight 49.442 kg Weight 47.174 kg Weight 47.174 kg Physical Exam 2 Narrative: awake, alert no distress No edema Data 12/07/23 02:51 12/07/23 05:50 Micro: Microbiology 12/05/23 17:33 Gram Stain - Final Sputum - Expectorated Sputum A&P Assessment and plan (1) Hyponatremia: Plan 1. Hyponatremia: Likely hypovolemic ,poor solute intake ( baseline Na 128-135 range ) -s/p IVFs , on fluid restriction 1500ml/day - ordered IV albumin -Noted urine sodium being low, urine osmolality pending - pt only gets bolus Tube feeds currently , will ask transistor tester to see , and give continious TF recommendations 2. COPD exacerbation 3. Hypopharynx carcinoma, chronic G G-tube feeds Attestations 2 Medical Necessity Statement*: per ziyad Coding Level of Care Code Acute Code for Chg Fwd Diagnoses Hyponatremia E87.1
--- NOTE | 2023-12-07 12:06 | PC.SOCIAL ---
Pg 2 IMM. Explained to pt Pg 2 IMM. no questions voiced. Provided pt a copy. Initialed, dated, & timed a copy & placed in chart.
[2023-12-07] MEDS: albumin 25 G/100 ML BAG 60 G IV ×2 (12:12→18:19)
[2023-12-07 12:46] LABS: Anion Gap 15.6 (5-19); Blood Urea Nitrogen 17 mg/dL (8-23); Calcium 9.3 mg/dL (8.5-10.5); Carbon Dioxide 28 mmol/L (22-29); Chloride 89 mmol/L (98-107); Glomerular Filtration Rate 157.8 mL/min (90-130); Glucose 123 mg/dL (65-115); Osmolality Calculated 269 mOsm/kg (285-295); Potassium 4.6 mmol/L (3.5-5.1); Sodium 128 mmol/L (136-145)
[2023-12-07] MEDS: ondansetron 2 mg/ML SDV 2 mL 4 MG IVP (14:02)
[2023-12-07] MEDS: CLONazepam 0.5 mg Tablet PO (15:52)
--- NOTE | 2023-12-07 16:11 | P.PN_ITS ---
Subjective 2 Subjective: No new complaints today. Patient wishes to know when she can be discharged home. Currently on 3 L/min supplemental O2. Sputum culture today showing Pseudomonas aeruginosa. Medications: Reviewed: Yes Vitals/I&O/Wt Last Vital Signs Temp 98.1 F 12/07/23 12:00 Pulse 90 12/07/23 15:27 Resp 18 12/07/23 15:23 BP 107/69 12/07/23 12:00 Pulse Ox 93 12/07/23 15:23 O2 Del Method Nasal Cannula 12/07/23 15:23 O2 Flow Rate 3 12/07/23 15:23 FiO2 21 12/05/23 20:40 12/07/23 12/07/23 12/07/23 06:59 14:59 22:59 Intake Total 630 / 630 100 / 730 Balance 630 / 630 100 / 730 Weight last 48 hrs Weight 47.718 kg Weight 49.442 kg Weight 47.174 kg Physical Exam 2 Narrative: General: No acute distress, AO x3, chronically ill-appearing HEENT: PERRLA, pupils bilaterally equal and reactive, pallors not present Chest: Normal vesicular breath sounds, no added sounds, equal good air entry bilaterally CVS: S1-S2 regular, no murmurs, no tachycardia, no gallops, no rubs Abdomen: Soft, nontender, no organomegaly, bowel sounds present Neuro: No focal deficits, no facial deformity, AO x3, power 5/5 in all limbs Data 12/07/23 02:51 12/07/23 12:19 Micro: Microbiology 12/05/23 17:33 Gram Stain - Final Sputum - Expectorated Sputum Sputum Culture - Preliminary Presumptive p. aeruginosa A&P Assessment and plan (1) Anxiety: (2) Depression with anxiety: (3) Opioid contract exists: (4) Essential hypertension: (5) SVT (supraventricular tachycardia): (6) Hypothyroidism: Qualifiers: Hypothyroidism type: acquired Qualified Code(s): E03.9 - Hypothyroidism, unspecified (7) GERD (gastroesophageal reflux disease): Qualifiers: Esophagitis presence: without esophagitis Qualified Code(s): K21.9 - Gastro-esophageal reflux disease without esophagitis (8) Feeding by G-tube: (9) Nausea: (10) Chronic nausea: (11) Abdominal pain: (12) COPD (chronic obstructive pulmonary disease): Qualifiers: COPD type: chronic bronchitis Chronic bronchitis type: unspecified Qualified Code(s): J42 - Unspecified chronic bronchitis (13) Acute bronchitis due to respiratory syncytial virus: (14) Acute exacerbation of chronic obstructive pulmonary disease: (15) Acute hypoxemic respiratory failure: (16) Cigarette smoker: Plan #COPD exacerbation #New oxygen dependency # Hypovolemic hyponatremia sodium 122 #RSV type B+ #Nausea, epigastric pain most likely secondary to esophagitis #Esophagitis #Rule out H. pylori #Hypothyroidism #Hypertension #History of SVT #Chronic opioid user ? RSV positive ? Continue DuoNeb every 6 hours scheduled ? Solu-Medrol 40 every 8 hours ? Continue azithromycin 500 daily for anti-inflammatory effect ? Check H. pylori stool antigen. Hold off on PPI. ? Placed on Reglan 3 times daily. Hold Zofran. ? Start MiraLAX via PEG daily ? May use lactulose if above is unsuccessful ? Discussed with general surgery over the phone. We will do fluconazole IV for now. Possibly Kathia esophagitis?. If no improvement after completion of course may consider EGD as an outpatient. Patient is completely PEG dependent therefore do not believe we will be able to give her swish and swallow nystatin at this time due to history of throat cancer. ? Continue home mexiletine, levothyroxine, lisinopril, oxycodone, cyclobenzaprine, clonazepam ? Wean oxygen as able ? Await 6-hour troponin ? Check D-dimer?0.97. After age adjustment this is not elevated. Low suspicion for PE at this time. ? Continue to check BMP every 4 hours. Sodium 130 at this time. Continue on IV fluids 75 cc/h. ? Check urine osmolality, serum osmolality, urine sodium 18. Continue fluid restriction. ? Check echo. Rule out wall motion abnormality. EF 6065% mild mitral regurgitation. No significant changes from previous echo. ? EKG reviewed. Nonspecific ST changes. QTc not elevated. Full code DVT prophylaxis: SCDs Plan for today December 07, 2023: Continue urea tablets for hyponatremia. Check CMP with a.m. labs. Discontinue azithromycin. Change antibiotic to cefepime to empirically cover for Pseudomonas aeruginosa identified on sputum cultures. Continue supplemental O2, check home O2 eval. Discontinue methylprednisolone 40 mg IV every 8 hours and changed to prednisone 40 mg p.o. daily. Changing IV to p.o. in anticipation of patient being able to return home in the next 24 to 48 hours. Add budesonide inhalation. Attestations 2 Medical Necessity Statement*: Change IV steroids to enteric steroids, change antibiotic from azithromycin to cefepime. Await susceptibility of sputum culture. Monitor for any worsening with these changes. Coding Level of Care Code Acute Code for Chg Fwd Moderate MDM includes number and complexity of problems actively addressed during encounter, amount and/or complexity of data reviewed/ordered and described risk of complication, morbidity or mortality of management as documented Diagnoses Anxiety F41.9 Depression with anxiety F41.8 Opioid contract exists Z79.891 Essential hypertension I10 SVT (supraventricular tachycardia) I47.1 Acquired hypothyroidism E03.9 Hypothyroidism type: acquired Gastroesophageal reflux disease without esophagitis K21.9 Esophagitis presence: without esophagitis Feeding by G-tube Z93.1 Nausea R11.0 Chronic nausea R11.0 Abdominal pain R10.9 Chronic bronchitis, unspecified chronic bronchitis type J42 COPD type: chronic bronchitis Chronic bronchitis type: unspecified Acute bronchitis due to respiratory syncytial virus J20.5 Acute exacerbation of chronic obstructive pulmonary disease J44.1 Acute hypoxemic respiratory failure J96.01 Cigarette smoker F17.210
[2023-12-07] MEDS: cefepime 2,000 MG in sodium chloride 0.9% (plus) 50 ML 100 MG IV (17:19)
[2023-12-07] MEDS: guaiFENesin 100 mg/5 mL UDC 10 mL 400 MG PO (17:20)
[2023-12-07] MEDS: acetaminophen 325 mg Tablet 650 MG PO (17:20)
[2023-12-07] MEDS: budesonide 0.5 mg/2 mL Neb INHALATION (20:52)
[2023-12-07] MEDS: trazodone 100 mg Tablet PO (22:21)
[2023-12-08] VITALS (9 sets, daily range): BP systolic 134–168; BP diastolic 70–95; PULSE 79–93; RESP 16–22; TEMP 36.6–36.7; O2SAT 87–95
[2023-12-08] MEDS: metoclopramide 5 mg/mL SDV 2 mL IVP ×2 (01:13→08:46)
[2023-12-08] MEDS: albumin 25 G/100 ML BAG 60 G IV ×2 (02:31→10:07)
[2023-12-08] MEDS: cefepime 2,000 MG in sodium chloride 0.9% (plus) 50 ML 100 MG IV (04:22)
[2023-12-08] MEDS: morphine 4 mg/mL SDV 1 mL 2 MG IVP ×2 (04:25→09:23)
[2023-12-08] MEDS: levothyroxine 75 mcg Tablet PO (05:37)
[2023-12-08 06:41] LABS: Alanine Aminotransferase 13 U/L (0-33); Albumin Level 4.4 g/dL (3.5-5.2); Alkaline Phosphatase 44 U/L (35-105); Anion Gap 13.6 (5-19); Aspartate Amino Transferase 18 U/L (0-32); Blood Urea Nitrogen 23 mg/dL (8-23); Calcium 9.7 mg/dL (8.5-10.5); Carbon Dioxide 29 mmol/L (22-29); Chloride 92 mmol/L (98-107); Globulin 2.1 g/dL (1.3-4.6); Glomerular Filtration Rate 157.8 mL/min (90-130); Glucose 96 mg/dL (65-115); Osmolality Calculated 274 mOsm/kg (285-295); Potassium 4.6 mmol/L (3.5-5.1); Sodium 130 mmol/L (136-145); Total Bilirubin 0.4 mg/dL (0.15-1.2); Total Protein 6.5 g/dL (6.6-8.7)
[2023-12-08] MEDS: ipratropium-albuterol 3 mL Neb INHALATION ×2 (07:48→11:44)
[2023-12-08] MEDS: budesonide 0.5 mg/2 mL Neb INHALATION (07:48)
[2023-12-08] MEDS: polyethylene glycol 3350 Pkt 17 gm PEG-TUBE (08:45)
[2023-12-08] MEDS: urea 15 gm Powder 10 GM PO (08:45)
[2023-12-08] MEDS: escitalopram 10 mg Tablet 20 MG PO (08:47)
[2023-12-08] MEDS: predniSONE 20 mg Tablet 40 MG PEG-TUBE (08:47)
[2023-12-08] MEDS: lisinopril 10 mg Tablet PO (08:47)
[2023-12-08] MEDS: cyclobenzaprine 10 mg Tablet 5 MG PO (08:52)
[2023-12-08] MEDS: guaiFENesin-dextromethorphan UDC 10 mL PO (10:07)
--- NOTE | 2023-12-08 10:46 | P.DS_ITS ---
Discharge Providers Date of Admission: 12/05/23 15:49 Date of Discharge: December 08, 2023 Attending Provider at Admission: Zeinab Fuentes MD Attending Provider at Discharge: Roula Scott MD Primary Care Provider: JIMMIE Chavez Diagnoses at Discharge Discharge Diagnosis (1) Anxiety: Status: Acute (2) Depression with anxiety: Status: Acute (3) Opioid contract exists: Status: Acute (4) Essential hypertension: Status: Acute (5) SVT (supraventricular tachycardia): Status: Acute (6) Hypothyroidism: Status: Acute Qualifiers: Hypothyroidism type: acquired Qualified Code(s): E03.9 - Hypothyroidism, unspecified (7) GERD (gastroesophageal reflux disease): Status: Acute Qualifiers: Esophagitis presence: without esophagitis Qualified Code(s): K21.9 - Gastro-esophageal reflux disease without esophagitis (8) Feeding by G-tube: Status: Acute (9) Nausea: Status: Acute (10) Chronic nausea: Status: Acute (11) Abdominal pain: Status: Acute (12) COPD (chronic obstructive pulmonary disease): Status: Chronic Qualifiers: COPD type: chronic bronchitis Chronic bronchitis type: unspecified Qualified Code(s): J42 - Unspecified chronic bronchitis (13) Acute bronchitis due to respiratory syncytial virus: Status: Acute (14) Acute exacerbation of chronic obstructive pulmonary disease: Status: Acute (15) Acute hypoxemic respiratory failure: Status: Acute (16) Cigarette smoker: Status: Acute (17) RSV bronchitis: Status: Acute Reason for Visit Reason for Visit: sob, back pain Hospital Course Hospital Course Claudia Perez is a 68 year old female with past medical history of With past medical history of carcinoma of hypopharynx, COPD not typically on home oxygen, hyperlipidemia, hypothyroidism, chronic opioid user, SVT who presented to the hospital with chief complaints of shortness of breath which had been worsening 3 to 4 days prior to admission. She is typically on room air but was now requiring 4 L/min supplemental oxygen to maintain O2 sat more than 92%. She tested positive for respiratory syncytial virus and had evidence of acute on chronic COPD exacerbation, likely triggered by acute viral illness. She was admitted to the hospital in view of needing IV steroids, antibiotics and supportive care for RSV. She received Solu-Medrol 40 mg IV every 8 hours which has been transitioned to prednisone taper at the time of discharge. Additionally ordered for nebuliza tion with DuoNeb and budesonide scheduled. She had hyponatremia likely related to dehydration, she received IV fluid and urea tablets which improved her sodium to 130 at the time of discharge. She complains of easy satiety and nausea since recent change in her PEG tube, abdominal exam overall benign. Recommended to follow-up with general surgery as outpatient in the next 1 to 2 weeks once she has recovered from RSV. PPIs have been resumed since she will be on high-dose steroids. Chest x-ray did not show any consolidation. She received an empiric course of azithromycin, which was changed to cefepime on December 07, 2023 once sputum culture showed Pseudomonas aeruginosa. Susceptibility is pending at the time of discharge, she is being empirically discharged with levofloxacin, we will follow the pending susceptibilities and change antibiotic if needed. Physical Exam Narrative: General: No acute distress, AO x3 HEENT: PERRLA, pupils bilaterally equal and reactive, pallors not present Chest: Scattered wheezing to auscultation B/L CVS: S1-S2 regular, no murmurs, no tachycardia, no gallops, no rubs Abdomen: Soft, nontender, no organomegaly, bowel sounds present Neuro: No focal deficits, no facial deformity, AO x3, power 5/5 in all limbs Discharge Data Studies Completed and Pending Completed Studies During Hospitalization Category Date Time Status CT abdomen pelvis w con* [id number] Stat Cat Scan 12/05/23 10:59 Completed XR chest 2V* [id number] Stat Exams 12/05/23 10:59 Completed CV. echo complete* [id number] Stat Ultrasound 12/05/23 16:04 Completed Pending at discharge Category Date Time Status Helicobacter Pylori AG Stool Routine Lab 12/05/23 18:45 Uncollected Osmolality Serum Stat Lab 12/05/23 Received Osmolality Urine Stat Lab 12/05/23 16:22 Received Sputum Culture and Gram Stain Stat Lab 12/05/23 17:33 Results Radiology Impressions Abdomen/Pelvis CT 12/05/23 10:59 IMPRESSION: 1. Distal esophageal thickening may represent esophagitis. 2. Moderate colonic stool burden without obstruction. 3. Prominent periuterine vasculature and left gonadal vein may be seen in the setting of pelvic congestion syndrome. 4. Additional chronic and incidental findings as above. Chest X-Ray 12/05/23 10:59 IMPRESSION: COPD without acute findings. Laboratory Results WBC 10.15 10^3/uL (3.29-11.43) 12/07/23 02:51 RBC 4.04 10^6/uL (3.85-5.65) 12/07/23 02:51 Hgb 13.90 g/dL (11.27-16.99) 12/07/23 02:51 Hct 40.6 % (36-47) 12/07/23 02:51 MCV 100.5 fl (85-98) H 12/07/23 02:51 MCH 34.4 pg (27-33) H 12/07/23 02:51 MCHC 34.2 g/dL (30-55) 12/07/23 02:51 RDW 12.9 % (12.1-15.1) 12/07/23 02:51 Plt Count 150 10^3/cmm (157-399) L 12/07/23 02:51 MPV 9.4 fL (7.4-10.4) 12/07/23 02:51 Neut % (Auto) 92.3 % 12/07/23 02:51 Lymph % (Auto) 1.9 % 12/07/23 02:51 [place] % (Auto) 5.1 % 12/07/23 02:51 Eos % (Auto) 0.0 % 12/07/23 02:51 Baso % (Auto) 0.2 % 12/07/23 02:51 Neut # (Auto) 9.37 10^3/uL (1.8-7.7) H 12/07/23 02:51 Lymph # (Auto) 0.2 10^3/uL (0.8-4.8) L 12/07/23 02:51 [place] # (Auto) 0.5 10^3/uL (0.2-0.9) 12/07/23 02:51 Eos # (Auto) 0.0 10^3/uL (0.0-0.8) 12/07/23 02:51 Baso # (Auto) 0.0 10^3/uL (0.0-0.1) 12/07/23 02:51 Nucleated RBC % (auto) 0 % 12/07/23 02:51 Nucleated RBCs # 0.0 /100WBC 12/07/23 02:51 D-Dimer 0.97 ug/mLFEU (0-0.59) H 12/05/23 11:11 Specimen Type Arterial 12/05/23 11:03 Sample Site Brachial, left 12/05/23 11:03 ABG pH 7.44 (7.35-7.45) 12/05/23 11:03 ABG pCO2 43.8 mmHg (35-45) 12/05/23 11:03 ABG pO2 59.2 mmHg (80.0-100.0) L 12/05/23 11:03 ABG PO2/FiO2 Ratio 0 12/05/23 11:03 ABG HCO3 29.3 mmol/L (22-26) H 12/05/23 11:03 ABG Base Excess 4.4 mmol/L (-2.0-2.0) H 12/05/23 11:03 Davy Test N/a 12/05/23 11:03 Hematocrit 45.8 % (37-47) 12/05/23 11:03 Hgb O2 Saturation 89.3 % (95-100) L 12/05/23 11:03 Carboxyhemoglobin 4.2 %THgb (0.4-20.1) 12/05/23 11:03 Methemoglobin 0.5 % (0.4-1.5) 12/05/23 11:03 Total Hemoglobin 14.9 g/dL (12-16) 12/05/23 11:03 O2 Delivery Device Nc 12/05/23 11:03 O2 Liters/Min 2.0 % 12/05/23 11:03 FiO2 28.0 % 12/05/23 11:03 Cask Maker ID Gd 12/05/23 11:03 Sodium 130 mmol/L (136-145) L 12/08/23 06:01 Potassium 4.6 mmol/L (3.5-5.1) 12/08/23 06:01 Chloride 92 mmol/L (98-107) L 12/08/23 06:01 Carbon Dioxide 29 mmol/L (22-29) 12/08/23 06:01 Anion Gap 13.6 (5-19) 12/08/23 06:01 BUN 23 mg/dL (8-23) 12/08/23 06:01 Creatinine 0.4 mg/dL (0.5-0.9) L 12/08/23 06:01 GFR Calculation 157.8 mL/min (90-130) H 12/08/23 06:01 Glucose 96 mg/dL (65-115) 12/08/23 06:01 Calculated Osmolality 274 mOsm/kg (285-295) L 12/08/23 06:01 Calcium 9.7 mg/dL (8.5-10.5) 12/08/23 06:01 Magnesium 2.2 mg/dL (1.7-2.3) 12/07/23 02:51 Total Bilirubin 0.4 mg/dL (0.15-1.2) 12/08/23 06:01 AST 18 U/L (0-32) 12/08/23 06:01 ALT 13 U/L (0-33) 12/08/23 06:01 Alkaline Phosphatase 44 U/L (35-105) 12/08/23 06:01 Troponin T Baseline 13 ng/L (0-10) H 12/05/23 11:11 Troponin T 120 Minute 12.13 ng/L (0-10) H 12/05/23 13:04 Delta Troponin T -0.87 ABS# (0-10) L 12/05/23 13:04 C-Reactive Protein 102.0 mg/L (0.0-4.9) H 12/05/23 11:11 NT-Pro-B Natriuret Pep 1052 pg/mL (0-125) H 12/05/23 11:11 Total Protein 6.5 g/dL (6.6-8.7) L 12/08/23 06:01 Albumin 4.4 g/dL (3.5-5.2) 12/08/23 06:01 Globulin 2.1 g/dL (1.3-4.6) 12/08/23 06:01 Procalcitonin 0.07 ng/mL (0-0.5) 12/05/23 18:47 TSH 4.31 uIU/mL (0.27-4.20) H 12/05/23 13:04 Urine Color Yellow (Yellow) 12/05/23 12:11 Urine Appearance Clear (CLEAR) 12/05/23 12:11 Urine pH 6.5 (5-7) 12/05/23 12:11 Ur Specific [place] 1.010 (1.005-1.030) 12/05/23 12:11 Urine Protein Neg (Negative) 12/05/23 12:11 Urine Glucose (UA) Norm (Normal) 12/05/23 12:11 Urine Ketones Negative (Negative) 12/05/23 12:11 Urine Blood Neg (Negative) 12/05/23 12:11 Urine Nitrate Negative (Negative) 12/05/23 12:11 Urine Bilirubin Neg (Negative) 12/05/23 12:11 Urine Urobilinogen Norm mg/dL (Negative) 12/05/23 12:11 Ur Leukocyte Esterase Trace (Negative) H 12/05/23 12:11 Urine RBC 0-4 /hpf (0-2) H 12/05/23 12:11 Urine WBC 0-4 /hpf (0-5) H 12/05/23 12:11 Ur Squamous Epith Cells 10-15 /hpf (0-5) H 12/05/23 12:11 Amorphous Sediment Not Reportable 12/05/23 12:11 Urine Bacteria 1+ /hpf (NONE) H 12/05/23 12:11 Ur Random Sodium 18 mmol/L 12/05/23 16:22 Adenovirus (PCR) Not detected (NOT DETECT) 12/05/23 11:22 C. pneumoniae DNA (PCR) Not detected (NOT DETECT) 12/05/23 11:22 Coronavirus 229E (PCR) Not detected (NOT DETECT) 12/05/23 11:22 Human Metapneumovir PCR Not detected (NOT DETECT) 12/05/23 11:22 Influenza A (H1) PCR Not detected (NOT DETECT) 12/05/23 11:22 Influ A (H1/09) PCR Not detected (NOT DETECT) 12/05/23 11:22 Influenza A (H3) PCR Not detected (NOT DETECT) 12/05/23 11:22 Influenza Type A (PCR) Not detected (NOT DETECT) 12/05/23 11:22 Influenza Type B (PCR) Not detected (NOT DETECT) 12/05/23 11:22 M. pneumoniae (PCR) Not detected (NOT DETECT) 12/05/23 11:22 Parainfluenza 1 (PCR) Not detected (NOT DETECT) 12/05/23 11:22 Parainfluenza 2 (PCR) Not detected (NOT DETECT) 12/05/23 11:22 Parainfluenza 3 (PCR) Not detected (NOT DETECT) 12/05/23 11:22 Parainfluenza 4 (PCR) Not detected (NOT DETECT) 12/05/23 11:22 RSV Type A (PCR) Not detected (NOT DETECT) 12/05/23 11:22 RSV Type B (PCR) Detected (NOT DETECT) A 12/05/23 11:22 Entero/Rhino (PCR) Not detected (NOT DETECT) 12/05/23 11:22 SARS-CoV-2 (PCR) Not detected (NOT DETECT) 12/05/23 11:22 Vitals Last Vital Signs Temp 97.9 F 12/08/23 08:00 Pulse 90 12/08/23 08:00 Resp 16 12/08/23 09:23 BP 134/80 12/08/23 08:00 Pulse Ox 87 L 12/08/23 10:43 O2 Del Method Nasal Cannula 12/08/23 08:00 O2 Flow Rate 5 12/08/23 10:43 FiO2 21 12/05/23 20:40 Discharge Plan Discharge Patient Disposition: Home Condition: Stable Prescriptions: New ipratropium-albuterol 0.5 mg-3 mg(2.5 mg base)/3 mL Solution For Nebulization 3 ml inhalation QID.RESPIRATORY 10 Days Qty: 40 0RF budesonide 0.5 mg/2 mL Suspension For Nebulization 0.5 mg inhalation BID.RESPIRATORY 10 Days Qty: 40 0RF Protonix [address] for susp in packet 40 mg G-tube DAILY 28 Days Qty: 30 0RF levofloxacin 250 mg/10 mL solution 750 mg feeding tube DAILY 5 Days Qty: 100 0RF Prednisone Intensol 5 mg/mL concentrate 20 mg feeding tube BID 5 Days Qty: 40 0RF Continued ondansetron 4 mg tablet,disintegrating 4 mg PO DAILY PRN (Reason: nausea and vomiting) 30 Days Qty: 30 0RF clonazepam 0.5 mg tablet 0.5 mg PO DAILY 30 Days Qty: 30 5RF oxycodone 5 mg/5 mL solution 5 mg PO QID PRN (Reason: Pain) mexiletine 250 mg capsule 250 mg PO BID Qty: 180 3RF lisinopril 10 mg tablet 10 mg PO DAILY 30 Days Qty: 30 0RF albuterol sulfate 90 mcg/actuation HFA aerosol inhaler 1 inh inhalation QID PRN (Reason: Shortness Of Breath) ibuprofen 100 mg/5 mL Suspension 200 mg PO Q6H PRN (Reason: Pain) levothyroxine 75 mcg tablet 75 mcg PO DAILY trazodone 100 mg tablet 100 mg PO BEDTIME escitalopram oxalate 20 mg tablet 20 mg PO DAILY cyclobenzaprine 5 mg tablet 5 mg PO BID PRN (Reason: Pain) Robitussin 100 mg/5 mL Liquid 400 mg PO Q4H PRN (Reason: Cough) naloxone 4 mg/actuation spray,non-aerosol 1 spray INTRANASAL Q3M PRN (Reason: Opioid Overdose) Held albuterol sulfate 2.5 mg /3 mL (0.083 %) solution for nebulization 2.5 mg INHALATION Q8H Qty: 90 0RF Hold Instructions: Resume on 12/15/23. hold while taking duoneb and budesonide Discontinued prednisone 20 mg tablet 20 mg PO DAILY No Action (DME) bolus feed extension set with cath tip [employer] straight connector and clamp See Rx Instructions .Route .MEDSUPPLY Qty: 12 3RF Rx Instructions: As directed (DME) 6mL leur slip syringe See Rx Instructions .Route .MEDSUPPLY Qty: 12 3RF Rx Instructions: As directed (DME) Ensure See Rx Instructions .Route .MEDSUPPLY Qty: 12 11RF Rx Instructions: 1 pack=24 which last 6 days. Will need 4 pkg per month. Discharge Orders: Discharge Order (Routine); Ordered 12/08/23 Ordered By: Roula Scott Referrals: Prosper Cox FNP [Primary Care Provider] - 1 week George Roblero DO [Physician] - 2 weeks (esophagitis ) Discharge Diet: Usual diet Discharge Activity: Resume usual activity Patient Instructions: Opioid Safety Discharge Attestations Time Spent in Discharge Care*: greater than 30 min Quality Metrics Clinical Quality Measures [ No reported AMI, CVA or VTE this stay] Coding Level of Care Code Acute Code for Chg Fwd Diagnoses Anxiety F41.9 Depression with anxiety F41.8 Opioid contract exists Z79.891 Essential hypertension I10 SVT (supraventricular tachycardia) I47.1 Acquired hypothyroidism E03.9 Hypothyroidism type: acquired Gastroesophageal reflux disease without esophagitis K21.9 Esophagitis presence: without esophagitis Feeding by G-tube Z93.1 Nausea R11.0 Chronic nausea R11.0 Abdominal pain R10.9 Chronic bronchitis, unspecified chronic bronchitis type J42 COPD type: chronic bronchitis Chronic bronchitis type: unspecified Acute bronchitis due to respiratory syncytial virus J20.5 Acute exacerbation of chronic obstructive pulmonary disease J44.1 Acute hypoxemic respiratory failure J96.01 Cigarette smoker F17.210 RSV bronchitis J20.5
[2023-12-08 15:25] LABS: Osmolality Serum 246 mOsm/kg (278-305)
[2023-12-08 15:59] LABS: Osmolality Urine 340 mOsm/kg (50-1200)
== END 2023-12-08 13:13 | disposition home or self-care (01) | DRG 190 ==
LOC: ER 15:58 → ER IP 19:28 → MEDSURG 20:31
PROVIDERS: Hospitalist; Internal Medicine; Admitting Provider Internal Medicine; Emergency Provider Emergency Medicine; PCP Registered Nurse; Visit Provider Student in an Organized Health Care Education/Training Program
DX: J44.1 Chronic obstructive pulmonary disease with (acute) exacerbation (principal); J96.01 Acute respiratory failure with hypoxia; E87.1 Hypo-osmolality and hyponatremia; I47.10 Supraventricular tachycardia, unspecified; E86.0 Dehydration; R11.0 Nausea; Z93.1 Gastrostomy status; R68.81 Early satiety; B96.5 Pseudomonas (aeruginosa) (mallei) (pseudomallei) as the cause of diseases classified elsewhere; F17.210 Nicotine dependence, cigarettes, uncomplicated; J20.5 Acute bronchitis due to respiratory syncytial virus; I10 Essential (primary) hypertension; E03.9 Hypothyroidism, unspecified; Z79.891 Long term (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 analgesic; F41.8 Other specified anxiety disorders; K59.00 Constipation, unspecified; Z85.818 Personal history of malignant neoplasm of other sites of lip, oral cavity, and pharynx; K21.00 Gastro-esophageal reflux disease with esophagitis, without bleeding
CPT/HCPCS: 36415; 36600; 71046; 74177; 80048; 80053; 81001; 82805; 83735; 83880; 83930; 83935; 84145; 84300; 84443; 84484; 85025; 85378; 86140; 87070; 87077; 87186; 87205; 87449; 87486; 87581; 87633; 93005; 93306; 94640; 94664; 94760; 96361; 96374; 96375; 99285; J0456; J0692; J1450; J1885; J2270; J2405; J2765; J2920; J2930; J7030; J7040; J7050; J7512; J7626; P9046; Q3014; Q9967

== ENCOUNTER → 2023-12-15 14:13 | Outpatient (BNVA) | payer MEDICARE, MEDICAID, SELFPAY | PROVIDERS: PCP Registered Nurse; Visit Provider Registered Nurse | DX: Z09 Encounter for follow-up examination after completed treatment for conditions other than malignant neoplasm (principal); E87.1 Hypo-osmolality and hyponatremia | CPT/HCPCS: 80053 ==

== ENCOUNTER → 2023-12-23 14:00 | Outpatient (BNVA) | payer MEDICARE, MEDICAID, SELFPAY | PROVIDERS: PCP Registered Nurse; Visit Provider Family Medicine | DX: E87.1 Hypo-osmolality and hyponatremia (principal); J42 Unspecified chronic bronchitis; Z11.52 Encounter for screening for COVID-19 | CPT/HCPCS: 80053; 85025; 87400; 87420; 87426 ==

== ENCOUNTER → 2023-12-28 09:43 | Outpatient (BNVA) | payer MEDICARE, MEDICAID, SELFPAY | PROVIDERS: PCP Registered Nurse; Visit Provider Surgery | DX: Z93.1 Gastrostomy status (principal); Z86.010 Personal history of colon polyps; K92.1 Melena; K21.00 Gastro-esophageal reflux disease with esophagitis, without bleeding; K80.20 Calculus of gallbladder without cholecystitis without obstruction | CPT/HCPCS: 99214 ==

== ENCOUNTER 2024-02-16 11:23 | Oncology outpatient (recurring) (ONCR) | payer MEDICARE, MEDICAID, SELFPAY | END 2024-03-01 23:59 | disposition home or self-care (01) | LOC: ONCMED 11:23 | PROVIDERS: PCP Registered Nurse; Visit Provider Internal Medicine Hematology & Oncology | DX: I47.10 Supraventricular tachycardia, unspecified (principal); Z95.828 Presence of other vascular implants and grafts; J42 Unspecified chronic bronchitis; I10 Essential (primary) hypertension; F41.9 Anxiety disorder, unspecified; F17.210 Nicotine dependence, cigarettes, uncomplicated | CPT/HCPCS: 99214; J1642 ==

== ENCOUNTER → 2024-04-14 12:03 | Outpatient (BNVA) | payer MEDICARE, MEDICAID, SELFPAY | PROVIDERS: PCP Registered Nurse; Visit Provider Registered Nurse | DX: E87.1 Hypo-osmolality and hyponatremia (principal); E03.9 Hypothyroidism, unspecified; F13.20 Sedative, hypnotic or anxiolytic dependence, uncomplicated; R11.0 Nausea; Z79.899 Other long term (current) drug therapy | CPT/HCPCS: 80048; 80307; 81000; 84443 ==

== ENCOUNTER 2024-06-14 23:11 | Inpatient (IN) | payer MEDICARE, MEDICAID, SELFPAY ==
--- OUTSIDE RECORDS SUMMARY | 2024-06-14 23:24 | XMS_ITS ---
Author Name Unknown Organization [facility] Address [address] [place], [place] [id number] Care Team Providers Care Vice President Business & Corporate Development Name Role Phone Prosper Harris Primary Care Provider Unav yanet Gordon MD, Maurice Unavailable [phone] India Walker Unavailable [phone] ALLERGIES No Known Allergies REASON FOR VISIT Patient states she is here today because it is time for meds {neck pain} MEDICATIONS Medication SIG (Take, Route, Frequency, Duration) Notes Start Date End Date Status famotidine 40 mg 1 tab(s) orally once a day (at bedtime) Active metoclopramide 10 mg 1 tab(s) orally 4 times a day (before meals and at bedtime) for 30 day(s) Active Narcan 4 mg/0.1 mL as directed intranasally once 10/16/2022 Active levothyroxine 75 mcg (0.075 mg) 1 tab(s) orally once a day for 30 day(s) Active lisinopril 10 mg 1 tab(s) orally once a day for 30 day(s) Active cyclobenzaprine 10 mg 1 tab(s) orally 3 times a day Active escitalopram 10 mg 1 tab(s) orally once a day for 30 day(s) Active cetirizine 1 mg/mL 2.5 mL orally once a day Active clonazePAM 0.5 mg 1 tab(s) orally once a day Active Anoro Ellipta 62.5 mcg-25 mcg/inh 1 puff(s) inhaled once a day for 30 day(s) Active oxyCODONE 5 mg/5 mL 5 ml orally Q4H prn pain (max 25 ml per day; hold within 4H of planned sleep) for 28 days ICD-10: G89.29 03/10/2024 Active oxyCODONE 5 mg/5 mL 5 ml orally Q4H prn pain (max 25 ml per day; hold within 4H of planned sleep) for 28 days Do not fill prior to 04/07/24. ICD-10: G89.29 03/10/2024 Active traZODone 100 mg 1 tab(s) orally [...] min When did you start smoking? 1972 VITAL SIGNS Height 65 in 03/10/2024 Weight 105 lbs 03/10/2024 BMI 17.47 kg/m2 03/10/2024 Blood pressure systolic 172 mm Hg 03/10/20 Blood pressure diastolic 86 mm Hg 024 Temperature 97.6 degrees Fahrenheit 03/10/20 24 Oximetry 94 % 03/10/2024 Encounters Encounter Location Date Provider Diagnosis [facility], [address] [id number] 03/10/2024 India Mora Cervicalgia M54.2 ; Other chronic pain G89.29 and Other sleep disorders G47.8 ASSESSMENTS Encounter Date Diagnosis Assessment Notes Treatment Notes Treatment Clinical Notes 03/10/2024 Cervicalgia (ICD-10 - M54.2) Chronic axial cervical spine pain. 03/10/2024 Other chronic pain (ICD-10 - G89.29) Patient reports that taking her pain medication allows her to complete light housework. Plan to continue oral opioid medication management. 03/10/2024 Other sleep disorders (ICD-10 - G47.8) Patient with history of a sleep disorder to include snoring. Patient previously declined on an offer of a sleep study. Plan to continue to restrict opioid use in relation to sleep for safety concerns. 03/10/2024 Other PLAN OF TREATMENT Medication Medication Name Sig Start Date Stop Date Notes oxyCODONE 5 mg/5 mL 5 ml orally Q4H prn pain (max 25 ml per day; hold within 4H of planned sleep) for 28 days 03/10/2024 ICD-10: G89.29 oxyCODONE 5 mg/5 mL 5 ml orally Q4H prn pain (max 25 ml per day; hold within 4H of planned sleep) for 28 days 03/10/2024 Do not fill prior to 04/07/24. ICD-10: G89.29 Treatment Notes Assessment Notes Cervicalgia Chronic axial cervic al spine pain. Other chronic pain Patient reports that taking her pain medication allows her to complete light housework. Plan to continue oral opioid medication management. Other sleep disorders Patient with histo ry of a sleep disorder to include snoring. Patient previously declined on an offer of a sleep study. Plan to continue to restrict opioid use in relation to sleep for safety concerns. Next Appt Details Follow Up: 2 month Rx visit. , Reason: Provider Name:Maurice Anderson son, 06/30/2024 10:20:00 AM, [address], [place], [place], [phone], History and Physical Notes * HPI (History of Present Illness) Category Sub-Category Detail Notes Cervical Spine injury: numbness and tingling in the entire righ t hand including all fingers pain radiating pain in the left posterio r neck. This pain is described as intermittent aching. This pain extends into the left shoulder. The neck pain is aggravated by head movement, riding in a car, rainy weather, and weather changes. This pain is somewhat alleviated with use of heat and with rest weakness previous surgery: headache(s): Medications oxycodone/acetaminophen solution 5 mg/5 mL, 5 ml, orally, Q4H prn pain (max 25 ml per day; hold within 4H of planned sleep), 28 days, 700 Milliliter, Refills 0. Notes: Prescriptions given (2) on 01/14/24. Patient reports good benefit, as evidenced by improved ability to do laundry, sweep the floors and help take care of grandchildren, with quantity 20 ml and 0 prescription(s) remaining. Last fill date 02/11/24 Interventional Interlaminar cervica l epidural steroid injection: on 10/03/09 with good benefit Previous Therapy Previous therapy: heat therapy with some benefit; home exercises / stretching therapy with some benefit; topical agent therapy with some benefit; physical therapy with history of no benefit (2020); prior medication management / opioid therapy by Dr. Ojeda via [facility] pain clinic with history of benefit Medication history: [place] 7.5/325; Flexe ril 10 mg; Flexeril 5 mg; diazepam 2 mg Previous Imaging/Studies MRI of the C-spine on 10/21/21 and 07/03/09; of the neck, face and orbit on 09/15/19 CT of the neck on 08/10 X-rays of the C-spine on Physical Examination Category Sub-Category Detail Notes ENT Hearing: grossly intact Chest Shape and expansion: normal expa nsion, equal bilaterally, respirations even and unlabored; oxygen at 2 liters per minute via nasal canula Neurological Psychiatric: alert and conver abhilash Musculoskeletal Gait: coordinated and smooth Outcome Assessment: Findings:: Negative, care pl an not required Dermatology Skin inspection: pink, warm, dry , and intact General General appearence: well groomed , well nourished Build: underweight Head: normocephalic Eyes Conjunctiva: without injectio n
--- OUTSIDE RECORDS SUMMARY | 2024-06-14 23:24 | XMS_ITS | Patient Health Record ---
Author Name Unknown Organization [facility] [employer] Address [address] [place], [place] [id number] Care Team Providers Care Small Arms Repairer Name Role Phone Prosper Harris Primary Care Provider Gavino Gordon MD, Maurice Unavailable [phone] India Walker Unavailable [phone] ALLERGIES No Known Allergies RESULTS Component Value [...] planned sleep) for 28 days ICD-10: G89.29 (due to holiday on 05/05/24) 05/04/2024 Active Narcan 4 mg/0.1 mL as directed intranasally once 10/16/2022 Active metoclopramide 10 mg 1 tab(s) orally 4 times a day (before meals and at bedtime) for 30 day(s) Active traZODone 100 mg 1 tab(s) orally once a day Active oxyCODONE 5 mg/5 mL 5 ml orally Q4H prn pain (max 25 ml per day; hold within 4H of planned sleep) for 28 days Do not fill prior to 06/02/24. ICD-10: G89.29 05/04/2024 Active famotidine 40 mg 1 tab(s) orally once a day (at bedtime) Active escitalopram 10 mg 1 tab(s) orally once a day for 30 day(s) Active lisinopril 10 mg 1 tab(s) orally once a day for 30 day(s) Active levothyroxine 75 mcg (0.075 mg) 1 tab(s) orally once a day for 30 day(s) Active cetirizine 1 mg/mL 2.5 mL orally once a day Active Anoro Ellipta 62.5 mcg-25 mcg/inh 1 puff(s) inhaled once a day for 30 day(s) Active cyclobenzaprine 10 mg 1 tab(s) orally 3 times a day Active clonazePAM 0.5 mg 1 [...] W/U Status Risk SNOMED Code Notes Problem jail (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 analgesic (Z79.891) Active confirmed High risk drug monitoring status (165031894) Problem Malignant neoplasm of hypopharynx, 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) Active confirmed Malignant tumor of hypopharynx (170237441) Problem Other sleep disorders (G47.8) Active confirmed Sleep disorder (41204061) Problem Other chronic pain (G89.29) Active confirmed Chronic pain (43102635) Problem Spondylolisthe sis, cervical region (M43.12) Active confirmed Acquired spondylolisthesis (714642537) Problem Cervical disc disorder with radiculopathy, unspecified cervical region (M50.10) Active confirmed Cervical radiculopathy (10859798) Problem Cervicalgia (M54.2) Active confirmed Cervicalgia (60369406) Problem Pain in throat (R07.0) Active confirmed Pain in throat (537347879) Problem Other assisted (current) drug therapy (Z79.899) Active confirmed Long-term curre nt use of drug therapy (632534539) VITAL SIGNS Temperature 98.2 degrees Fahrenheit 05/04/2024 Blood pressure diastolic 86 mm Hg 03/10/2024 Oximetry 84 % 05/04/2024 Height 65 in 05/04/2024 Blood pressure systolic 172 mm Hg 03/10/2024 Weight 105 lbs 03/10/2024 BMI 17.47 kg/m2 03/10/2024 Encounters Encounter Location Date Provider Diagnosis [facility] [address] [place], [place] [id number] 06/16/2023 India Mora Cervicalgia M54.2 ; Other chronic pain G89.29 and 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 Z79.891 [facility] [address] [place], [place] [id number] 06/16/2023 Maurice Gordon [facility] [address] [place], [place] [id number] 07/22/2023 [facility] [address] [place], [place] [id number] 08/19/2023 [facility], [facility] [address] [place], [place] [id number] 09/09/2023 India Mora Cervicalgia M54.2 and Other chronic pain G89.29 [facility] [address] [place], [place] [id number] 10/19/2023 Maurice Gordon [facility] [address] [place], [place] [id number] 11/05/2023 India Mora Cervicalgia M54.2 ; Other chronic pain G89.29 and Other sleep disorders G47.8 [facility] [address] [place], [place] [id number] 11/19/2023 India Mora Cervicalgia M54.2 ; Other chronic pain G89.29 ; Other sleep disorders G47.8 and jail (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 analgesic Z79.891 [facility] [address] [place], [place] [id number] 01/14/2024 India Mora Cervicalgia M54.2 ; Other chronic pain G89.29 and Other sleep disorders G47.8 [facility] [address] [place], [place] [id number] 03/10/2024 India Mora Cervicalgia M54.2 ; Other chronic pain G89.29 and Other sleep disorders G47.8 [facility], [facility] [address] [place], [place] [id number] 05/04/2024 India Mora Cervicalgia M54.2 ; Other chronic pain G89.29 and Other sleep disorders G47.8 [facility] [address] [place], [place] [id number] 05/12/2024 Maurice Gordon ASSESSMENTS Encounter Date Diagnosis Assessment Notes Treatment Notes Treatment Clinical Notes 06/16/2023 Other chronic pain (ICD-10 - G89.29) 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 Plan to continue oral opioid medication management 06/16/2023 Cervicalgia (ICD-10 - M54.2) Chronic axial cervical spine pain 09/09/2023 Cervicalgia (ICD-10 - M54.2) Chronic axial cervical spine pain. 11/05/2023 Cervicalgia (ICD-10 - M54.2) Chronic axial cervical spine pain. 11/19/2023 Cervicalgia (ICD-10 - M54.2) Chronic axial cervical spine pain. 01/14/2024 Cervicalgia (ICD-10 - M54.2) Chronic axial cervical spine pain. 03/10/2024 Cervicalgia (ICD-10 - M54.2) Chronic axial cervical spine pain. 05/04/2024 Cervicalgia (ICD-10 - M54.2) Chronic axial cervical spine pain. 05/04/2024 Other sleep disorders (ICD-10 - G47.8) Patient with history of a sleep disorder. Have recommended a sleep study and possible treatment, however, patient declined the study. Plan to continue to restrict opioid use in relation to sleep for safety concerns. 05/04/2024 Other chronic pain (ICD-10 - G89.29) Patient [...] to sleep for safety concerns. 03/10/2024 Other chronic pain (ICD-10 - G89.29) Patient reports that taking her pain medication allows her to complete light housework. Plan to continue oral opioid medication management. 01/14/2024 Other sleep disorders (ICD-10 - G47.8) Patient with history of a sleep disorder to include snoring. Patient previously declined on an offer of a sleep study. Plan to continue to restrict opioid use in relation to sleep for safety concerns. 01/14/2024 Other chronic pain (ICD-10 - G89.29) Patient reports that taking her pain medication allows her to rest more easily. Plan to continue oral opioid medication management. 11/19/2023 Other sleep disorders (ICD-10 - G47.8) [...] to continue oral opioid medication management. 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 This places the patient in the low risk category. Plan urine toxicology screen today to monitor for presence of any unprescribed or illicit controlled substance(s), as well as prescribed oxycodone. 06/16/2023 Other 09/09/2023 Other 11/05/2023 Other 11/19/2023 Other 01/14/2024 Other Patient reports she is scheduled for upper endoscopy and colonoscopy on 02/03/24. 03/10/2024 Other 05/04/2024 Other PLAN OF TREATMENT Next Appt Details Provider Name:Maurice Anderson son, 06/30/2024 10:20:00 AM, [address] [place], [place], [id number], Insurance Providers Payer Name Payer Address Payer Phone Subscriber Number Group Number Insured Name Patient Relationship to Insured Coverage Start Date Coverage End Date [facility] Medicare Part B Claims Department [address] [address] [place] [address] [id number] [place] - patient is the insured [place] [address] [place] [id number] Chris Claudia Self - patient is the insured MEDICAL [...] prior patient re port COVID - 19 (09/2023 AND 01/2024) Sleep disorder, snoring Surgical History Surgery Date(Month/Year) Tonsillectomy, 1965 Repair of shoulder fracture, right, 2006 Placement of port and feeding tube, perf ormed at [facility] by Dr. Paez, 2019 Cataract surgeries, bilateral, performed at [facility] by Dr. España, 07/2022, 08/2022 Hospitalization History Reason Date(Month/Year) Gall bladder infection Collapsed lung, 2018 Flu, 2019 Neck pain, treated at [facility] in [facility] [place], [place], 2020 RSV - low oxygen, treated at [facility], 4
--- OUTSIDE RECORDS SUMMARY | 2024-06-14 23:24 | XMS_ITS ---
Author Name Unknown Organization [facility] [employer] Address [address] [place], [place] [id number] Care Team Providers Care County Court Judge Name Role Phone Prosper Harris Primary Care Provider Unav ailable Heidi NOVAK, Maurice Unavailable [phone] India Walker Unavailable [phone] ALLERGIES No Known Allergies REASON FOR VISIT Patient states she is here today for refills {neck pain} MEDICATIONS Medication SIG (Take, Route, [...] tab(s) orally 3 times a day Active cetirizine 1 mg/mL 2.5 mL orally once a day Active Anoro Ellipta 62.5 mcg-25 mcg/inh 1 puff(s) inhaled once a day for 30 day(s) Active clonazePAM 0.5 mg 1 tab(s) orally [...] smoking? 1972 VITAL SIGNS Height 65 in 05/04/2024 Temperature 98.2 degrees Fahrenheit 05/04/20 24 Oximetry 84 % 05/04/2024 Encounters Encounter Location Date Provider Diagnosis [facility] [id number] [place], [place] [id number] 05/04/2024 India Mora Cervicalgia M54.2 ; Other chronic pain G89.29 and Other sleep disorders G47.8 ASSESSMENTS Encounter Date Diagnosis Assessment Notes Treatment Notes Treatment Clinical Notes 05/04/2024 Cervicalgia (ICD-10 - M54.2) Chronic axial cervical spine pain. 05/04/2024 Other chronic pain (ICD-10 - G89.29) Patient reports that taking her pain medication allows her to complete light housework. Plan to continue oral opioid medication management. 05/04/2024 Other sleep disorders (ICD-10 - G47.8) Patient with history of a sleep disorder. Have recommended a sleep study and possible treatment, however, patient declined the study. Plan to continue to restrict opioid use in relation to sleep for safety concerns. 05/04/2024 Other PLAN OF TREATMENT Medication Medication Name Sig Start Date Stop Date Notes oxyCODONE 5 mg/5 mL 5 ml orally Q4H prn pain (max 25 ml per day; hold within 4H of planned sleep) for 28 days 05/04/2024 ICD-10: G89.29 (due to holiday on 05/05/24) oxyCODONE 5 mg/5 mL 5 ml orally Q4H prn pain (max 25 ml per day; hold within 4H of planned sleep) for 28 days 05/04/2024 Do not fill prior to 06/02/24. ICD-10: G89.29 Treatment Notes Assessment Notes Cervicalgia Chronic axial cervic al spine pain. Other chronic pain Patient reports that taking her pain medication allows her to complete light housework. Plan to continue oral opioid medication management. Other sleep disorders Patient with histo ry of a sleep disorder. Have recommended a sleep study and possible treatment, however, patient declined the study. Plan to continue to restrict opioid use in relation to sleep for safety concerns. Next Appt Details Follow Up: 2 month Rx visit. , Reason: Provider Name:Maurice Anderson son, 06/30/2024 10:20:00 AM, [address] [facility] [place], [place], [id number], History and Physical Notes * HPI (History of Present Illness) Category Sub-Category Detail Notes Cervical Spine injury: numbness and tingling in the entire righ t hand including all fingers pain in the left posterio r neck. This pain is described as intermittent aching. This pain extends into the left shoulder and LUE. The neck pain is aggravated by all head movement and by reaching overhead. This pain is somewhat alleviated with rest weakness previous surgery: headache(s): Medications oxycodone/acetaminophen 5 mg/5 m L, 5 ml, orally, Q4H prn pain (max 25 ml per day; hold within 4H of planned sleep), 28 days, 700 Milliliter, Refills 0. Notes: Prescriptions given (2) on 03/10/24. Patient reports good benefit, as evidenced by improved ability to fold clothes and straighten house, with quantity 25 ml and 0 prescription(s) remaining. Last fill date 04/07/24 Interventional Interlaminar cervica l epidural steroid injection: on 10/03/09 with good benefit Previous Therapy Previous therapy: heat therapy with some benefit; home exercises / stretching therapy with some benefit; topical agent therapy with some benefit; physical therapy with history of no benefit (2020); prior medication management / opioid therapy by Dr. Ojeda via [facility] pain clinic with history of benefit Medication history: [place] 7.5/325; Flexe ril 10 mg; Flexeril 5 mg; diazepam 2 mg Previous Imaging/Studies MRI of the C-spine on 10/21/21 and 07/03/09; of the neck, face and orbit on 09/15/19 CT of the neck on 08/10 X-rays of the C-spine on Physical Examination Category Sub-Category Detail Notes ENT Oral cavity: mask in place Hearing: grossly intact Chest Shape and expansion: normal expa nsion, equal bilaterally, respirations even and unlabored; oxygen at 2 liters per minute via nasal canula Neurological Psychiatric: alert and conver abhilash Musculoskeletal Gait: presents in priv ate vehicle Outcome Assessment: Findings:: Negative, care pl an not required Dermatology Skin inspection: pink, warm, dry , and intact General General appearence: well groomed , well nourished Head: normocephalic Eyes Conjunctiva: without injectio n
--- OUTSIDE RECORDS SUMMARY | 2024-06-14 23:24 | XMS_ITS ---
Author Name Unknown Organization [facility] Address [address] [place], [place] [phone] Care Team Providers Care Trimmer And Reinforcer Name Role Phone Prosper Harris Primary Care Provider Unav ailable Heidi NOVAK, Maurice Carmen [phone] REASON FOR VISIT Rx question Encounters Encounter Location Date Provider Diagnosis [facility] [address] [facility] [place], [place] [phone] 05/12/2024 Maurice Gordon PLAN OF TREATMENT Next Appt Details Provider Name:Maurice Anderson son, 06/30/2024 10:20:00 AM, [address] [place], [place], [id number],
[2024-06-14 23:25] VITALS: BP 105/52; PULSE 85; RESP 22; O2SAT 90
[2024-06-14 23:26] VITALS: BP 118/47; PULSE 103; PULSE 86; RESP 20; TEMP 36.9; O2SAT 90
--- NOTE | 2024-06-14 23:26 | XRR_ITS ---
PROCEDURE INFORMATION: Exam: XR Chest Exam date and time: 06/15/2024 1:13 AM Age: 69 years old Clinical indication: Shortness of breath and other: Pneumonia, sepsis; Prior surgery; Surgery date: 6+ months; Surgery type: Port placement; Patient HX: HX of throat cancer; Additional info: Evaluate pneumonia/sepsis TECHNIQUE: Imaging protocol: Radiologic exam of the chest. Views: 1 view. COMPARISON: CR XR chest 2V* [id number] 12/05/2023 11:32 AM FINDINGS: Tubes, catheters and devices: Left-sided Port-A-Cath. Lungs: Irregular opacities in the left lung base. Pleural spaces: Unremarkable. No pleural effusion. No pneumothorax. Heart/Mediastinum: Unremarkable. No cardiomegaly. Bones/joints: Unremarkable. XR/XR chest 1V portable [id number] IMPRESSION: Irregular opacities in the left lung base.
[2024-06-14 23:30] VITALS: BP 118/47; PULSE 83; RESP 20; O2SAT 90
[2024-06-14 23:32] VITALS: BMI 18.4
--- NOTE | 2024-06-14 23:33 | ECG_ITS ---
[facility] Test Date: 2024-06-14 Pat Name: Claudia Perez Department: Room: [facility] Gender: Female Top Icer: : 1955 Requested By: Scooter Brody Order Number: [id number] Sofia MD: Lionel Williamson M.D. Measurements Intervals [place] Rate: 90 P: 61 [place]: 151 QRS: 66 QRSD: 95 T: 64 QT: 356 QTc: 437 Interpretive Statements SINUS RHYTHM WITH FREQUENT SUPRAVENTRICULAR PREMATURE COMPLEXES Compared to ECG 12/05/2023 12:47:38 ST (T wave) deviation no longer present Electronically Signed On 06-15-2024 11:23:49 CDT by Lionel Williamson M.D. [email or web address]
--- NOTE | 2024-06-14 23:33 | P.HP_ITS ---
Providers/Chief Complaint 2 Admitting Physician: Scooter Foss MD Primary Care Provider: JIMMIE Chavez Chief Complaint: Afib, RVR, Sepsis Pneumonia History of Present Illness Claudia Perez is a 69 year old female with a past medical history significant for hyperlipidemia, hypothyroidism, throat cancer, COPD, and supraventricular tachycardia who transferred from [facility] after presenting with severe weakness. Patient states she was in her usual state of health until about 3 days ago when she developed severe weakness. She states today she had trouble even standing due to lack of strength in her legs. She endorses associated shortness of breath and acute on chronic cough. She describes her cough is productive and last few days has been more productive with copious sputum production. She notes that she wears oxygen at baseline, 4 L. She has a history of throat cancer for which she completed treatment approximately 4 years ago. She does not take anything by mouth and is dependent on Jose Maria tube for intake. She endorses associated chills. Denies fevers, nausea, emesis or chest pain. Exertion worsens symptoms. Denies other alleviating or aggravating factors. Denies recent exposure to sick contacts. Upon presentation to the outside hospital, she was found to be hypotensive. She was found to have newly diagnosed atrial fibrillation with rapid ventricular rate. Patient denies prior known history of atrial fibrillation. Labs revealed: CBC 16.8>12.8/37.5<261 133/4.8/92/27/21/0.98<121 Magnesium 2.2 AST 18 ALT 15 alkaline phosphatase 87 total bili 0.4 albumin 3.6 protein 7.4 Lactic acid 4.7 (ULN 2.0) ESR 57 proBNP 4385 (ULN 125) Initial troponin 22 with 2-hour repeat 17 producing a delta of -5 Urinalysis with negative blood, negative ketones, negative nitrites, negative leukocyte Estrace, 0-2 WBCs, negative bacteria CT chest revealed patchy multifocal L space disease concerning for an infectious inflammatory process, mildly enlarged mediastinal and hilar lymph nodes, moderate pulmonary emphysema, and small bilateral pleural effusions. She was treated with IV fluid bolus, Zosyn, vancomycin dexamethasone, and Levophed. Shock reportedly resolved and she was transition to a Cardizem drip. [place] [facility], she is found to be on low-dose Cardizem drip at 2.5. She is converted to normal sinus rhythm. Review of Systems 2 Narrative: A complete review of systems was obtained and is negative except as stated in HPI. Medications/Allergies Home Medications Medication Instructions Recorded Confirmed Last Taken Type bolus feed extension set with #12 ea 02/07/21 04/14/24 01/07/22 Rx cath tip Secur-Clau straight connector and clamp 6mL leur slip syringe #12 ea 02/07/21 04/14/24 01/07/22 Rx albuterol sulfate 90 mcg/actuation 1 inh inhalation QID PRN Shortness 12/27/21 06/15/24 06/14/24 22:00 History aerosol inhaler Of Breath Ensure #12 ea 10/15/23 04/14/24 Unknown Rx oxycodone 5 mg/5 mL oral solution 5 mg PO QID PRN Pain 11/24/23 06/15/24 06/14/24 10:30 History ibuprofen 100 mg/5 mL oral 200 mg PO Q6H PRN Pain 12/05/23 06/15/24 12/05/23 History suspension naloxone 4 mg/actuation nasal spray 1 spray intranasal Q3M PRN Opioid 12/05/23 06/15/24 Unknown History Overdose lisinopril 10 mg tablet 10 mg PO DAILY PRN hypertensive 02/17/24 06/15/24 Unknown Rx emergency #30 tabs budesonide 160 mcg-glycopyr 9 2 inh inhalation BID #10.7 grams 02/24/24 06/15/24 06/14/24 22:00 Rx mcg-formot 4.8 mcg/actuation HFA inhaler (Breztri Aerosphere) albuterol sulfate 2.5 mg/3 mL 2.5 mg (3 mL) inhalation Q8H #90 mL 06/07/24 06/15/24 06/14/24 02:00 Rx (0.083 %) solution for nebulization metoclopramide HCl 10 mg tablet 10 mg feeding tube BID 06/14/24 06/15/24 06/14/24 10:30 History (Reglan) clonazepam 0.5 mg tablet 0.5 mg feeding tube DAILY 06/15/24 06/15/24 06/14/24 16:00 History cyclobenzaprine 5 mg tablet 5 mg feeding tube BID 06/15/24 06/15/2406/14/24 10:30 History escitalopram oxalate 20 mg tablet 10 mg feeding tube DAILY 06/15/24 06/15/24 06/14/24 10:30 History famotidine 40 mg/5 mL (8 mg/mL) 5 ml feeding tube BEDTIME 06/15/24 06/15/24 06/14/24 10:30 History oral suspension levothyroxine 88 mcg tablet 88 mcg feeding tube DAILY 06/15/24 06/15/24 06/14/24 10:30 History mexiletine 250 mg capsule 250 mg feeding tube DAILY 06/15/24 06/15/24 06/14/24 10:30 History trazodone 100 mg tablet 100 mg feeding tube BEDTIME 06/15/24 06/15/24 06/14/24 21:00 History Allergies Allergy/AdvReac Type Severity Reaction Status Date / Time No Known Allergies Allergy Verified 04/14/24 11:29 PFSH Acute 2 PFSH: Medical History Cigarette smoker SVT (supraventricular tachycardia) Encounter for long-term opiate analgesic use Opioid contract exists Hypothyroidism COPD (chronic obstructive pulmonary disease) Carcinoma of hypopharynx Hyperthyroidism Hyperlipidemia Port-A-Cath in place (~05/2019) Surgical History History of tonsillectomy Status post open reduction and internal fixation (ORIF) of fracture left humerus S/P percutaneous endoscopic gastrostomy (PEG) tube placement History of tonsillectomy and adenoidectomy Family History Mother CAD (coronary artery disease) Sister CAD (coronary artery disease) Stroke Denies family history of Anesthesia complication Bleeding disorder Social History Smoking and tobacco/nicotine status: current every day tobacco/nicotine user cigarettes Packs smoked per day: 0.5 Years cigarettes smoked: 50 [ Other cigarette details: [id number]] Quit status (tobacco/nicotine): considering quitting Alcohol intake: never Substance/Drug Use: never Adopted: No Caregiver/support person: Yes Lives independently: No (disabled ) Household members: family Housing: House Marital status: Single Number of children: 3 Number of grandchildren: 7 Highest education level completed: High School Graduate service: No Current occupational status: disabled Current occupational exposures/hazards: No Pets and animals: Yes Sexually active: No Do you think of yourself as: Straight/Heterosexual Current gender identity: Female Micaela/Jew: Jehovah'S Witness Special micaela needs: No Agree to transfusion: No Physical Exam 2 Narrative: General: Patient is awake. Appears slightly cachectic. Appears fatigued but pleasant. Head: Normocephalic. Atraumatic. EOM intact. Dry mucous membranes. Neck: No JVD. Cardiovascular: RRR. No gallops. No murmurs. No peripheral edema. Lungs: Breath sounds are slightly diminished bilateral bases. Very faint rhonchi present. No wheezing appreciated. No crackles. On 5 L nasal cannula support. Skin: No jaundice. No rashes. Abdomen: Normal bowel sounds, abdomen soft and nontender. Jose Maria button. Genito Urinary: Genital exam not performed since complaints not related. Rectal: Rectal exam not performed since no symptoms indicated blood loss. Extremities: No cyanosis or clubbing. Musculoskeletal: No swollen or erythematous joints. Neurological: Moves all 4 extremities. No myoclonus. Data 06/14/24 23:44 06/14/24 23:44 A&P Assessment and plan (1) Sepsis: Source: Commune acquired pneumonia SIRS: Tachycardia, leukocytosis Obtain blood cultures Check procalcitonin Status post vancomycin and Zosyn outside hospital Obtain MRSA screening Status post IV fluids at outside hospital Recheck lactate Continue broad-spectrum antibiotics with cefepime (2) Community acquired pneumonia: Obtain bacterial antigens Sputum culture (3) Atrial fibrillation, new onset: Newly diagnosed atrial fibrillation with rapid ventricular rate Patient is converted to normal sinus rhythm She remains high risk to reconversion to atrial fibrillation as it is likely being driven by respiratory disease Mexiletine is listed as home medication, unclear indication Start per tube Cardizem Continuous telemetry monitoring Magnesium normal at outside hospital Check TSH Obtain echocardiogram (4) Feeding by G-tube: Patient reports she takes her medications and feedings via Jose Maria tube due to history of throat cancer Will plan on continued use of this tube (5) Hypothyroidism: Check TSH due to new onset arrhythmia Continue home Synthroid Qualifiers: Hypothyroidism type: acquired Qualified Code(s): E03.9 - Hypothyroidism, unspecified (6) COPD (chronic obstructive pulmonary disease): COPD with chronic hypoxic respiratory failure is on 4 L oxygen baseline Patient currently requiring 5 L nasal cannula Patient received dexamethasone 10 mg IV at outside hospital She currently has no wheezing and denies audible wheezing prior to presentation She remains high risk for COPD exacerbation Pulmicort nebs Levo albuterol as needed due to A-fib Qualifiers: COPD type: chronic bronchitis Chronic bronchitis type: unspecified Qualified Code(s): J42 - Unspecified chronic bronchitis (7) Depression with anxiety: Continue home medications (8) GERD (gastroesophageal reflux disease): Continue famotidine Qualifiers: Esophagitis presence: without esophagitis Qualified Code(s): K21.9 - Gastro-esophageal reflux disease without esophagitis (9) Cigarette smoker: Patient reports continued smoking She would benefit from cessation Plan DVT prophylaxis: Lovenox CODE STATUS: Full code-discussed with patient Attestations 2 Medical Necessity Statement*: Patient transfers after presenting to outside hospital found to have sepsis initially with shock with responded to fluids, atrial fibrillation with left ventricular rate, and pneumonia with expected hospitalization to cross 2 midnights for treatment of underlying sepsis, cardiac workup, and supportive care. Coding Level of Care Code Acute Code for Chg Fwd Diagnoses Sepsis A41.9 Community acquired pneumonia J18.9 Atrial fibrillation, new onset I48.91 Feeding by G-tube Z93.1 Acquired hypothyroidism E03.9 Hypothyroidism type: acquired Chronic bronchitis, unspecified chronic bronchitis type J42 COPD type: chronic bronchitis Chronic bronchitis type: unspecified Depression with anxiety F41.8 Gastroesophageal reflux disease without esophagitis K21.9 Esophagitis presence: without esophagitis Cigarette smoker F17.210
[2024-06-14 23:48] VITALS: PULSE 93
[2024-06-15] VITALS (63 sets, daily range): BP systolic 77–157; BP diastolic 39–77; PULSE 75–116; RESP 14–26; TEMP 36.6–36.8; O2SAT 55–100
[2024-06-15 00:15] LABS: Lactic Sepsis W/Reflex 3.2 mmol/L (0.5-2.2)
[2024-06-15 00:26] LABS: Hematocrit 30.6 % (36-47); Mean Corpuscular HGB Conc 32.4 g/dL (30-55); Mean Corpuscular Hemoglobin 32.7 pg (27-33); Mean Platelet Volume 10.1 fL (7.4-10.4); Platelet Count 199 10^3/cmm (157-399); Red Blood Count 3.03 10^6/uL (3.85-5.65); Red Cell Distribution Width 13.1 % (12.1-15.1); White Blood Count 15.04 10^3/uL (3.29-11.43)
[2024-06-15 00:27] LABS: NT Pro B Type Natriuretic Pept 4218 pg/mL (0-125); Procalcitonin 5.08 ng/mL (0-0.5); Slide Review Slide Review Perform; Thyroid Stimulating Hormone 0.93 uIU/mL (0.27-4.20); Total Cells Counted 100 (0-100)
[2024-06-15 00:28] LABS: Band Neutrophils Absolute 3.6 10^3/cmm (0.0-1.2); Eosinophils 0 %; Lymphocytes 0 %; Monocytes Absolute 0.5 10^3/cmm (0.1-0.6)
[2024-06-15 00:29] LABS: Absolute Neutrophil 14.6 10^3/cmm (1.4-6.5); Platelet Estimate Normal (Normal); Segmented Neutrophils 73 %
[2024-06-15 00:29] LABS: Bilirubin Urine Negative (Negative); Blood Urine Negative (Negative); Glucose Urine UA Trace (Normal); Ketones Urine Negative (Negative); Leukocyte Esterase Urine Negative (Negative); Nitrate Urine Negative (Negative); Protein Urine Trace (Negative); Urine Appearance Clear (CLEAR); Urine Color Yellow (Yellow); pH Urine 6.5 (5-7)
[2024-06-15 00:31] LABS: Bacteria Urine None Seen /hpf; RBC Urine 0-2 /hpf (0-2); Squamous Epithelial Cell Urine 0-5 /hpf (0-5); WBC Urine 0-5 /hpf (0-5)
[2024-06-15 00:33] LABS: Specific Gravity, Urine 1.049 (1.005-1.030)
[2024-06-15 00:39] LABS: Alanine Aminotransferase 17 U/L (0-33); Alkaline Phosphatase 84 U/L (35-105); Anion Gap 15.7 (5-19); Aspartate Amino Transferase 19 U/L (0-32); Blood Urea Nitrogen 21 mg/dL (8-23); Calcium 8.4 mg/dL (8.5-10.5); Carbon Dioxide 25 mmol/L (22-29); Chloride 96 mmol/L (98-107); Creatinine Clr Calc Pharmacy 57.3634; Globulin 2.9 g/dL (1.3-4.6); Glucose 256 mg/dL (65-115); Osmolality Calculated 286 mOsm/kg (285-295); Phosphorus 3.3 mg/dL (2.5-4.5); Potassium 4.7 mmol/L (3.5-5.1); Sodium 132 mmol/L (136-145); Total Bilirubin 0.3 mg/dL (0.15-1.2); Total Protein 5.9 g/dL (6.6-8.7)
[2024-06-15] MEDS: sodium chloride 0.9% 500 ML IV (01:24)
[2024-06-15] MEDS: cefepime 2,000 MG in sodium chloride 0.9% (plus) 50 ML 100 MG IV ×3 (01:30→19:18)
[2024-06-15] MEDS: dilTIAZem 30 mg Tablet PEG-TUBE ×4 (01:31→18:28)
[2024-06-15 01:41] LABS: Reflex Lactate Order REFLEX LACTIC ORDERD
[2024-06-15] MEDS: trazodone 100 mg Tablet PEG-TUBE ×2 (02:33→21:55)
[2024-06-15] MEDS: morphine 4 mg/mL SDV 1 mL 2 MG IVP ×6 (02:38→22:02)
[2024-06-15] MEDS: levalbuterol 1.25 mg/3 mL Neb INHALATION ×5 (02:44→23:39)
[2024-06-15 03:16] LABS: Lactic Acid level (Lactate) 2.3 mmol/L (0.5-2.2)
[2024-06-15 05:50] LABS: Basophils # 0.1 10^3/uL (0.0-0.1); Basophils % 0.8 %; Eosinophils % 0.3 %; Hematocrit 29.7 % (36-47); Lymphocytes # 0.2 10^3/uL (0.8-4.8); Lymphocytes % 1.2 %; Mean Corpuscular HGB Conc 32.7 g/dL (30-55); Mean Corpuscular Hemoglobin 33.1 pg (27-33); Mean Corpuscular Volume 101.4 fl (85-98); Monocytes # 0.6 10^3/uL (0.2-0.9); Monocytes % 3.9 %; Neutrophils # 13.85 10^3/uL (1.8-7.7); Neutrophils % 93.3 %; Nucleated Red Blood Cells % 0 %; Platelet Count 200 10^3/cmm (157-399); Red Blood Count 2.93 10^6/uL (3.85-5.65); Red Cell Distribution Width 13.1 % (12.1-15.1); White Blood Count 14.84 10^3/uL (3.29-11.43)
[2024-06-15 06:13] LABS: Anion Gap 12.8 (5-19); Blood Urea Nitrogen 17 mg/dL (8-23); Calcium 8.7 mg/dL (8.5-10.5); Carbon Dioxide 26 mmol/L (22-29); Chloride 99 mmol/L (98-107); Creatinine Clr Calc Pharmacy 57.3634; Glucose 166 mg/dL (65-115); Osmolality Calculated 281 mOsm/kg (285-295); Potassium 4.8 mmol/L (3.5-5.1); Sodium 133 mmol/L (136-145)
[2024-06-15] MEDS: budesonide 0.5 mg/2 mL Neb INHALATION ×2 (07:17→19:31)
[2024-06-15 10:16] LABS: Adenovirus Not Detected (NOT DETECT); Chlamydia Pneumoniae Not Detected (NOT DETECT); Coronavirus 229E,HKU1,NL63,OC4 Not Detected (NOT DETECT); Human Metapneumovirus Not Detected (NOT DETECT); Human Rhinovirus/Enterovirus Not Detected (NOT DETECT); Influenza A Not Detected (NOT DETECT); Influenza A H1 Not Detected (NOT DETECT); Influenza A H1-2009 Not Detected (NOT DETECT); Influenza A H3 Not Detected (NOT DETECT); Influenza B Not Detected (NOT DETECT); Mycoplasma Pneumoniae Not Detected (NOT DETECT); Parainfluenza Virus Type 1 Not Detected (NOT DETECT); Parainfluenza Virus Type 2 Not Detected (NOT DETECT); Parainfluenza Virus Type 3 Not Detected (NOT DETECT); Parainfluenza Virus Type 4 Not Detected (NOT DETECT); Respiratory Syncytial Virus A Not Detected (NOT DETECT); Respiratory Syncytial Virus B Not Detected (NOT DETECT); SARS-COV-2 Not Detected (NOT DETECT)
[2024-06-15] MEDS: vancomycin 750 MG in sodium chloride 0.9% 250 ML 250 MG IV ×2 (10:32→21:10)
[2024-06-15] MEDS: CLONazepam 0.5 mg Tablet PEG-TUBE (10:34)
[2024-06-15] MEDS: cyclobenzaprine 10 mg Tablet 5 MG PEG-TUBE ×2 (10:35→18:28)
[2024-06-15] MEDS: escitalopram 10 mg Tablet PEG-TUBE (10:35)
[2024-06-15] MEDS: levothyroxine 88 mcg Tablet PEG-TUBE (10:35)
--- NOTE | 2024-06-15 11:08 | ECG_ITS ---
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 Measurements Intervals [place] Rate: 77 P: 73 [place]: 142 QRS: 53 QRSD: 90 T: 57 QT: 382 QTc: 433 Interpretive Statements SINUS RHYTHM Compared to ECG 06/14/2024 23:49:05 No significant changes Electronically Signed On 06-15-2024 13:19:56 CDT by Lionel Williamson M.D. [id number]
--- NOTE | 2024-06-15 11:13 | P.PN_ITS ---
Subjective 2 Subjective: Patient was seen this morning, she alert to person, to place, to time she follows all commands, denies any chest pain, no palpitations, no nausea, no vomiting no lightheadedness, no dizziness, she has a history of throat cancer, she tells me that she typically does not swallow, she does wet her oral mucosa with liquids, and does swish and spit, she typically gets her PEG tube feelings starting at noon uses 2 bottles of boost twice daily, denies currently any chest pain, no palpitations, no nausea, no vomiting, no abdominal pain, no calf pain, no hemoptysis Vitals/I&O/Wt Last Vital Signs Temp 98.0 F 06/15/24 08:00 Pulse 82 06/15/24 11:00 Resp 16 06/15/24 11:00 BP 108/65 06/15/24 11:00 Pulse Ox 94 06/15/24 11:00 O2 Del Method Nasal Cannula 06/15/24 07:18 O2 Flow Rate 5 06/15/24 08:00 06/14/24 06/15/24 06/15/24 22:59 06:59 14:59 Intake Total 610 / 610 Output Total 800 / 800 100 / 100 Balance -190 / -190 -100 / -100 Weight last 48 hrs Weight 51.71 kg Weight 51.891 kg Physical Exam 2 Const: COMMON NORMALS: no acute distress and patient oriented x3 Resp: COMMON NORMALS: normal respiratory effort, No retractions, No use of accessory muscles and clear to auscultation bilaterally AUSCULTATION: clear to auscultation bilaterally Cardio: COMMON NORMALS: regular rate, regular rhythm, S1 normal heart sound present and S2 normal heart sound present RATE: regular rate RHYTHM: r egular rhythm HEART SOUNDS: S1 normal heart sound present and S2 normal heart sound present GI: COMMON NORMALS: Normal to inspection, nondistended, normoactive bowel sounds present and non-tender OTHER: PEG tube in place Extremity: COMMON NORMALS: no clubbing, cyanosis or edema and no pedal edema Neuro: COMMON NORMALS: patient oriented x3 Psych: COMMON NORMALS: mental status grossly normal Data 06/15/24 05:35 06/15/24 05:35 Micro: Microbiology 06/14/24 23:46 Sputum Culture - Preliminary Sputum - Expectorated Sputum 06/15/24 00:03 Bacterial Antigens - Final Urine,Voided 06/14/24 23:47 Blood Culture - Preliminary Blood SPECIMEN COLLECTED 06/14/24 23:44 Blood Culture - Preliminary Blood SPECIMEN COLLECTED A&P Assessment and plan (1) Sepsis: Source: Community-acquired acquired pneumonia SIRS: Tachycardia, leukocytosis Obtain blood cultures, sputum cultures Status post vancomycin and Zosyn outside hospital Obtain MRSA screening Status post IV fluids at outside hospital Recheck lactate Continue broad-spectrum antibiotics with cefepime, vancomycin (2) Community acquired pneumonia: Obtain bacterial antigens Sputum culture His blood cultures (3) Atrial fibrillation, new onset: Newly diagnosed atrial fibrillation with rapid ventricular rate Patient is converted to normal sinus rhythm She remains high risk to reconversion to atrial fibrillation as it is likely being driven by respiratory disease Mexiletine is listed as home medication, unclear indication Start per tube Cardizem [id number] score is 3, given age, female, hypertension, start Eliquis for stroke prevention Continuous telemetry monitoring Magnesium normal at outside hospital Obtain echocardiogram Troponin series ordered (4) Feeding by G-tube: Patient reports she takes her medications and feedings via Jose Maria tube due to history of throat cancer Will plan on continued use of this tube (5) Hypothyroidism: Continue home Synthroid Qualifiers: Hypothyroidism type: acquired Qualified Code(s): E03.9 - Hypothyroidism, unspecified (6) COPD (chronic obstructive pulmonary disease): COPD with chronic hypoxic respiratory failure is on 4 L oxygen baseline Patient currently requiring 5 L nasal cannula Patient received dexamethasone 10 mg IV at outside hospital Pulmicort nebs Levo albuterol as needed due to A-fib Solu-Medrol 40 mg IV every 8 hours Qualifiers: COPD type: chronic bronchitis Chronic bronchitis type: unspecified Qualified Code(s): J42 - Unspecified chronic bronchitis (7) Depression with anxiety: Continue home medications (8) GERD (gastroesophageal reflux disease): Continue famotidine Qualifiers: Esophagitis presence: without esophagitis Qualified Code(s): K21.9 - Gastro-esophageal reflux disease without esophagitis (9) Cigarette smoker: Patient reports continued smoking She would benefit from cessation (10) Acute exacerbation of chronic obstructive pulmonary disease: Plan DVT prophylaxis: Eliquis CODE STATUS: Full code-discussed with patient Attestations 2 Medical Necessity Statement*: Patient requires hospitalization for sepsis secondary to community-acquired pneumonia, A-fib with RVR, sepsis, COPD Diagnoses Sepsis A41.9 Community acquired pneumonia J18.9 Atrial fibrillation, new onset I48.91 Feeding by G-tube Z93.1 Acquired hypothyroidism E03.9 Hypothyroidism type: acquired Chronic bronchitis, unspecified chronic bronchitis type J42 COPD type: chronic bronchitis Chronic bronchitis type: unspecified Depression with anxiety F41.8 Gastroesophageal reflux disease without esophagitis K21.9 Esophagitis presence: without esophagitis Cigarette smoker F17.210 Acute exacerbation of chronic obstructive pulmonary disease J44.1
[2024-06-15 11:48] LABS: Troponin(5th) Baseline 15 ng/L (0-10)
[2024-06-15 12:23] LABS: Ferritin 256 ng/mL (15-150); Iron 16 ug/dL (37-145); Total Iron Binding Capacity 177 mcg/dl; Unsaturated Iron Binding 161 ug/dL (112-347)
[2024-06-15 12:38] LABS: Folate Level 12.5 ng/mL (4.8-37.3)
[2024-06-15 12:39] LABS: Vitamin B12 1483 pg/mL (232-1245)
--- NOTE | 2024-06-15 12:48 | PC.NUTR ---
Upon discharge, home TF regimen will be as outlined by RD below: -Boost Plus 2.5 cans BID (total of 5 cans daily) -FWF of 100 ml q8 See most recent RD note for details and current inpatient tube feed regimen
--- NOTE | 2024-06-15 13:08 | ECG_ITS ---
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 Measurements Intervals [place] Rate: 82 P: 68 [place]: 160 QRS: 30 QRSD: 91 T: 30 QT: 368 QTc: 432 Interpretive Statements SINUS RHYTHM Compared to ECG 06/15/2024 11:33:13 No significant changes Electronically Signed On 06-15-2024 15:37:33 CDT by Lionel Williamson M.D. [id number]
[2024-06-15] MEDS: sucralfate 1 gm/10 mL Oral Liq UDC PEG-TUBE ×2 (13:49→23:11)
[2024-06-15] MEDS: methylPREDNISolone sod succ 40 mg/mL INJ IVP ×2 (13:49→23:12)
[2024-06-15] MEDS: pantoprazole 40 mg SDV IVP ×2 (13:50→23:12)
[2024-06-15 13:53] LABS: Troponin 5 2HR 14.94 ng/L (0-10); Troponin 5 2HR Delta -0.06 ABS# (0-10)
--- NOTE | 2024-06-15 17:08 | ECG_ITS ---
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 Measurements Intervals [place] Rate: 81 P: 54 [place]: 138 QRS: 21 QRSD: 81 T: 29 QT: 355 QTc: 414 Interpretive Statements SINUS RHYTHM Compared to ECG 06/15/2024 13:35:45 No significant changes Electronically Signed On 06-15-2024 16:18:31 CDT by Lionel Williamson M.D. [id number]
[2024-06-15 17:55] LABS: Troponin 5 6HR 15.67 ng/L (0-10); Troponin 5 6HR Delta 0.67 ng/L (0-12)
[2024-06-15] MEDS: ondansetron 2 mg/ML SDV 2 mL 4 MG IVP (20:08)
[2024-06-15] MEDS: sennosides 8.6 mg Tablet 17.2 MG PO (21:01)
[2024-06-15] MEDS: apixaban 5 mg Tablet PEG-TUBE (21:01)
--- NOTE | 2024-06-15 23:59 | USCV_ITS ---
Claudia Perez Age: 69 Gender: F : 1955 Exam Date: 06/15/2024 01:43 Ordering Phys: Scooter Foss MD Technologist: MONSE [place] [facility] [place]: Newly diagnosed atrial fibrillation, tobaccoism, COPD, HL, HTN, BP: 118 / 47 HR: 90 Rhythm: Sinus Technical Quality: Adequate MEASUREMENTS (Male / Female) Normal Values 2D ECHO LV Diastolic Diameter PLAX 3.9 cm 4.2 - 5.9 / 3.9 - 5.3 cm IVS Diastolic Thickness 1.1 cm 0.6 - 1.0 / 0.6 - 0.9 cm IVS Systolic Thickness 1.6 cm LVPW Diastolic Thickness 1.1 cm 0.6 - 1.0 / 0.6 - 0.9 cm LVPW Systolic Thickness 1.2 cm LVOT Diameter 1.6 cm LV Ejection Fraction 2D Teich 64.4 % LV Ejection Fraction MOD 4C 61.7 % LV Ejection Fraction MOD 2C 56.0 % LV Ejection Fraction 2C AL 56.5 % LA Diameter 4.2 cm LA Sys Volume AL 98.8 cm cubed LA Sys Volume Index AL 64.0 cm cubed/m squared Aorta at Sinotubular Diameter 1.8 cm IVC Diameter 1.8 cm M-MODE LA Ao Ratio MM 1.2 AV Cusp Separation MM 1.5 cm DOPPLER AV Peak Velocity 171.0 cm/s LVOT Peak Velocity 127.0 cm/s AV Area Cont Eq vti 1.4 cm squared AV Area Cont Eq pk 1.4 cm squared MV Peak Velocity 161.0 cm/s MV Area PHT 6.0 cm squared Mitral E to A Ratio 1.9 TV Peak Velocity 300.0 cm/s TR Peak Velocity 339.0 cm/s TR Peak Gradient 46.0 mmHg TV Peak E Velocity 50.0 cm/s Right Atrial Pressure 10.0 mmHg Pulmonary Artery Systolic Pressu 56.0 mmHg PV Peak Velocity 100.0 cm/s FINDINGS Left Ventricle Normal left ventricular size, systolic function and wall thickness, with no regional wall motion abnormalities. Estimated ejection fraction is 60%.Grade II/IV diastolic dysfunction, moderately elevated filling pressures. Right Ventricle The right ventricle is normal in size and function. Right Atrium The right atrium is normal in size. Left Atrium Moderately increased left atrial size. Mitral Valve Structurally normal mitral valve without significant stenosis or prolapse. There is moderate mitral regurgitation. Aortic Valve Structurally normal aortic valve without significant sclerosis or stenosis. There is no aortic regurgitation. Tricuspid Valve Structurally normal tricuspid valve without significant stenosis mild regurgitation. Pulmonary artery systolic pressure is normal. Pulmonic Valve Structurally normal pulmonic valve without significant stenosis. There is no pulmonic regurgitation. Pericardium Normal pericardium without effusion. Aorta Normal ascending aorta dimension. IVC The inferior vena cava appears normal. CONCLUSIONS Normal left ventricular size, systolic function and wall thickness, with no regional wall motion abnormalities. Estimated ejection fraction is 60%.Grade II/IV diastolic dysfunction, moderately elevated filling pressures. Moderately increased left atrial size. Structurally normal mitral valve without significant stenosis or prolapse. There is moderate mitral regurgitation. There is no pericardial effusion. Right atrial pressure is around 10 mm of mercury. Zeinab Mcdonald MD (Electronically Signed) Final Date: 15 June 2024 20:52 S
[2024-06-16] VITALS (39 sets, daily range): BP systolic 97–151; BP diastolic 49–87; PULSE 64–93; RESP 14–22; TEMP 36.6–36.8; O2SAT 86–96
[2024-06-16] MEDS: dilTIAZem 30 mg Tablet PEG-TUBE ×4 (01:18→18:02)
[2024-06-16] MEDS: morphine 4 mg/mL SDV 1 mL 2 MG IVP ×6 (03:53→22:10)
[2024-06-16 05:00] LABS: Basophils # 0.1 10^3/uL (0.0-0.1); Basophils % 0.5 %; Eosinophils % 0.3 %; Hematocrit 31.2 % (36-47); Lymphocytes # 0.2 10^3/uL (0.8-4.8); Lymphocytes % 1.3 %; Mean Corpuscular HGB Conc 31.7 g/dL (30-55); Mean Corpuscular Hemoglobin 33.6 pg (27-33); Mean Corpuscular Volume 105.8 fl (85-98); Mean Platelet Volume 11.2 fL (7.4-10.4); Monocytes # 0.5 10^3/uL (0.2-0.9); Monocytes % 3.9 %; Neutrophils # 12.25 10^3/uL (1.8-7.7); Neutrophils % 92.9 %; Nucleated Red Blood Cells % 0 %; Platelet Count 228 10^3/cmm (157-399); Red Blood Count 2.95 10^6/uL (3.85-5.65); Red Cell Distribution Width 12.9 % (12.1-15.1); White Blood Count 13.18 10^3/uL (3.29-11.43)
[2024-06-16 05:18] LABS: C Reactive Protein 172.6 mg/L (0.0-4.9)
[2024-06-16 05:28] LABS: NT Pro B Type Natriuretic Pept 7552 pg/mL (0-125); Procalcitonin 2.83 ng/mL (0-0.5)
[2024-06-16 05:39] LABS: Anion Gap 17.9 (5-19); Blood Urea Nitrogen 19 mg/dL (8-23); Calcium 8.9 mg/dL (8.5-10.5); Carbon Dioxide 25 mmol/L (22-29); Chloride 97 mmol/L (98-107); Creatinine Clr Calc Pharmacy 57.2896; Glucose 144 mg/dL (65-115); Osmolality Calculated 285 mOsm/kg (285-295); Potassium 4.9 mmol/L (3.5-5.1); Sodium 135 mmol/L (136-145)
[2024-06-16] MEDS: levalbuterol 1.25 mg/3 mL Neb INHALATION (07:34)
[2024-06-16] MEDS: budesonide 0.5 mg/2 mL Neb INHALATION ×2 (07:34→20:09)
[2024-06-16] MEDS: cefepime 2,000 MG in sodium chloride 0.9% (plus) 50 ML 100 MG IV ×2 (07:56→19:33)
[2024-06-16] MEDS: vancomycin 750 MG in sodium chloride 0.9% 250 ML 250 MG IV ×2 (08:39→20:34)
[2024-06-16] MEDS: levothyroxine 88 mcg Tablet PEG-TUBE (08:40)
[2024-06-16] MEDS: cyclobenzaprine 10 mg Tablet 5 MG PEG-TUBE ×2 (08:40→17:19)
[2024-06-16] MEDS: escitalopram 10 mg Tablet PEG-TUBE (08:40)
[2024-06-16] MEDS: apixaban 5 mg Tablet PEG-TUBE ×2 (08:42→22:10)
--- NOTE | 2024-06-16 08:55 | CT_ITS ---
WS: [id number] CTA OF THE CHEST WITH PULMONARY EMBOLISM PROTOCOL TECHNIQUE: High-resolution contrast enhanced CTA of the chest with coronal and sagittal reformatted i mages with pulmonary embolism protocol. MIP images are also reviewed. CLINICAL INFORMATION: hypoxemia COMPARISON: CTa 2019 DLP: 302.[address] scans at [facility] use at least one of these dose optimization techniques: automated e xposure control; mA and/or kV adjustment per patient size (includes targeted exams where dose is matc hed to clinical indication); or iterative reconstruction. FINDINGS: Chronic advanced emphysematous changes. Proximal main pulmonary arteries are normal. Normal segmental and subsegmental pulmonary arteries. No evidence of pulmonary embolus. Normal caliber thoracic aorta . Small bilateral pleural effusions. Compressive atelectasis RIGHT lower lobe. Partial collapse of th e LEFT lower lobe with consolidation. Recommend correlation for pneumonia. No axillary lymphadenopath y. Moderate thoracic kyphosis. Mild thoracic curve. Small esophageal hiatal hernia. CT/CT angio chest PE protcl [id number] IMPRESSION: 1. Proximal main pulmonary arteries are normal. No evidence of pulmonary embol us. 2. Normal caliber thoracic aorta. 3. Small bilateral pleural effusions with compressive atelectasis. Subtotal co nsolidation LEFT lower lobe. Recommend correlation for pneumonia.
[2024-06-16 09:27] LABS: Lactic Sepsis W/Reflex 2.1 mmol/L (0.5-2.2)
[2024-06-16 10:46] LABS: Reflex Lactate Order REFLEX LACTIC ORDERD
[2024-06-16] MEDS: iohexol 350 mg/mL 500 mL Btl (per mL) IV (10:51)
--- NOTE | 2024-06-16 10:52 | P.PN_ITS ---
Subjective 2 Subjective: Patient was seen this morning, she tells me that she feels a bit short of breath this morning, she is on 6 L, no fevers overnight, does have a cough, no nausea, no vomiting, no chest pain, Vitals/I&O/Wt Last Vital Signs Temp 97.8 F 06/16/24 07:00 Pulse 77 06/16/24 09:00 Resp 18 06/16/24 09:00 BP 110/58 06/16/24 09:00 Pulse Ox 90 06/16/24 09:00 O2 Del Method Nasal Cannula 06/16/24 09:00 O2 Flow Rate 6 06/16/24 09:00 06/15/24 06/16/24 06/16/24 22:59 06:59 14:59 Intake Total 1390 / 2590 40 / 2630 140 / 140 Output Total 450 / 550 500 / 1050 Balance 940 / 2040 -460 / 1580 140 / 140 Weight last 48 hrs Weight 51.392 kg Weight 51.392 kg Weight 51.71 kg Weight 51.891 kg Physical Exam 2 Const: COMMON NORMALS: no acute distress and patient oriented x3 Resp: COMMON NORMALS: normal respiratory effort, No retractions and No use of accessory muscles AUSCULTATION: crackles and wheezes Cardio: COMMON NORMALS: regular rate, regular rhythm, S1 normal heart sound present and S2 normal heart sound present RATE: regular rate RHYTHM: r egular rhythm HEART SOUNDS: S1 normal heart sound present and S2 normal heart sound present GI: COMMON NORMALS: Normal to inspection, nondistended, normoactive bowel sounds present and non-tender Extremity: COMMON NORMALS: no pedal edema Neuro: COMMON NORMALS: patient oriented x3 Psych: COMMON NORMALS: mental status grossly normal Data 06/16/24 04:19 06/16/24 04:19 Micro: Microbiology 06/14/24 23:47 Blood Culture - Preliminary Blood NEGATIVE TO DATE 06/14/24 23:44 Blood Culture - Preliminary Blood NEGATIVE TO DATE 06/14/24 23:46 Gram Stain - Final Sputum - Expectorated Sputum Sputum Culture - Preliminary 06/15/24 00:03 Bacterial Antigens - Final Urine,Voided A&P Assessment and plan (1) Sepsis: Source: Community-acquired acquired pneumonia SIRS: Tachycardia, leukocytosis Obtain blood cultures, sputum cultures Status post vancomycin and Zosyn outside hospital Obtain MRSA screening Status post IV fluids at outside hospital Recheck lactate Continue broad-spectrum antibiotics with cefepime, vancomycin (2) Community acquired pneumonia: Obtain bacterial antigens Sputum culture His blood cultures (3) Atrial fibrillation, new onset: Newly diagnosed atrial fibrillation with rapid ventricular rate Patient is converted to normal sinus rhythm She remains high risk to reconversion to atrial fibrillation as it is likely being driven by respiratory disease Mexiletine is listed as home medication, unclear indication Start per tube Cardize [id number] score is 3, given age, female, hypertension, start Eliquis for stroke prevention Continuous telemetry monitoring Magnesium normal at outside hospital echocardiogram CONCLUSIONS Normal left ventricular size, systolic function and wall thickness, with no regional wall motion abnormalities. Estimated ejection fraction is 60%.Grade II/IV diastolic dysfunction, moderately elevated filling pressures. Moderately increased left atrial size. Structurally normal mitral valve without significant stenosis or prolapse. There is moderate mitral regurgitation. There is no pericardial effusion. Right atrial pressure is around 10 mm of mercury. Troponin series ordered (4) Feeding by G-tube: Patient reports she takes her medications and feedings via [place] tube due to history of throat cancer Will plan on continued use of this tube (5) Hypothyroidism: Continue home Synthroid Qualifiers: Hypothyroidism type: acquired Qualified Code(s): E03.9 - Hypothyroidism, unspecified (6) COPD (chronic obstructive pulmonary disease): COPD with chronic hypoxic respiratory failure is on 6 L oxygen baseline Patient currently requiring 5 L nasal cannula Patient received dexamethasone 10 mg IV at outside hospital Pulmicort nebs Levo albuterol as needed due to A-fib Solu-Medrol 40 mg IV every 12 hours Qualifiers: COPD type: chronic bronchitis Chronic bronchitis type: unspecified Qualified Code(s): J42 - Unspecified chronic bronchitis (7) Depression with anxiety: Continue home medications (8) GERD (gastroesophageal reflux disease): Continue famotidine Qualifiers: Esophagitis presence: without esophagitis Qualified Code(s): K21.9 - Gastro-esophageal reflux disease without esophagitis (9) Cigarette smoker: Patient reports continued smoking She would benefit from cessation (10) Acute exacerbation of chronic obstructive pulmonary disease: (11) Acute hypoxic respiratory failure: - Acute hypoxic respiratory failure -Multifactorial -Pneumonia, CRP 172, Pro-Oliver 2.83 -Fluid overload -COPD -Plan -Currently on 6 L, resting comfortably -Will order CT angiogram the chest -BNP is over 7000, will consider doses of Lasix based on clinical progress -Continue vancomycin -Continue cefepime -Will add on azithromycin for atypical coverage -Continue DuoNeb -Continue Solu-Medrol -Monitor respiratory status closely Plan DVT prophylaxis: Eliquis CODE STATUS: Full code-discussed with patient Attestations 2 Medical Necessity Statement*: Patient requires hospitalization for acute hypoxic respiratory failure secondary to pneumonia, COPD, CHF, sepsis, A-fib Diagnoses Sepsis A41.9 Community acquired pneumonia J18.9 Atrial fibrillation, new onset I48.91 Feeding by G-tube Z93.1 Acquired hypothyroidism E03.9 Hypothyroidism type: acquired Chronic bronchitis, unspecified chronic bronchitis type J42 COPD type: chronic bronchitis Chronic bronchitis type: unspecified Depression with anxiety F41.8 Gastroesophageal reflux disease without esophagitis K21.9 Esophagitis presence: without esophagitis Cigarette smoker F17.210 Acute exacerbation of chronic obstructive pulmonary disease J44.1 Acute hypoxic respiratory failure J96.01
--- NOTE | 2024-06-16 11:36 | PC.PHAR ---
VANC TROUGH SCHEDULED FOR 06/16 @1930
[2024-06-16] MEDS: sucralfate 1 gm/10 mL Oral Liq UDC PEG-TUBE ×2 (12:05→23:53)
[2024-06-16] MEDS: pantoprazole 40 mg SDV IVP ×2 (12:06→23:53)
[2024-06-16] MEDS: azithromycin 500 MG in sodium chloride 0.9% 250 ML 250 MG IV (12:06)
[2024-06-16] MEDS: methylPREDNISolone sod succ 40 mg/mL INJ IVP ×2 (12:06→23:54)
[2024-06-16] MEDS: acetaminophen 325 mg Tablet 650 MG PO (12:09)
[2024-06-16 12:28] LABS: Lactic Acid level (Lactate) 1.8 mmol/L (0.5-2.2)
[2024-06-16 14:55] LABS: Methicillin-Resist S.aureu PCR NOT DETECTED (NOT DETECTED)
[2024-06-16] MEDS: CLONazepam 0.5 mg Tablet PEG-TUBE (17:19)
--- NOTE | 2024-06-16 17:49 | P.CONIM_ITS ---
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 Flex laryngoscopy done on 02/16/2019 showed in the supraglottic region, a large mass that was involving base of tongue, the vallecula, and left half of epiglottis, probably a T3 lesion of left hypopharynx. Patient was treated with chemoradiation with high-dose cisplatin . Pt Reported smoking 1-2 pack/day for 40 years, quit smoking after being diagnosed with throat cancer for about 1 year and started smoking back again in January 2020 and currently smoking 1PPD. Since her dx of throat ca she e has had a feeding tube in place. This is the only way she is able to take nutrition.She states that sometime she takes some sip of water. Pt states that due weight loss she recently her volume have been increased as well as her flushing volume. Pt claims that she was feeling weaker and was the reason of evaluation at the outside facility. Pt unfortunately continues to smoke 1 PPD. Pt claims that she was experiencing her baseline cough, some sputum production. Pt denies any fever , report chills episodes prior hospital arrival. Upon arrival she was on AF/RVR and work up relevant for increase of WBC 16.8 , lactic acid 4.7, ESR 57. Chest X ray mild opacity LL and basilar atelectasis -pleural effusion. Her AF was controled with cardizem. She was appropriately initiated and broad- spectrum antibiotics. She underwent chest Ct and pulmonary consult requested for potential needs of bronchoscopy. Per EMR She had prior hospitalization on 12/2023 for Acute on chronic respiratory failure secondary to RSV PNA. She has another hospitalization on 03/2024 due AMS with also + trop and SVT. Las Chest X ray report is form [facility] and reported as as clear and only chronic emphysematous findings. Review of Systems 2 General: Reports: 10 or more systems reviewed and unremarkable except in HPI and below Narrative: GENERAL:Denies fevers and chills. Reports weight loss and increase of enteral feeding vol . . EYES: Denies diplopia or blurred vision.Denies secretions. ENT:Denies earache, sore throat No runny nose. No epistaxis. Denies Snoring. NECK: Denies cervicalgia. No decrease of ROM. Denies lumps. CARDIOVASCULAR: Reports no episodes of CP. Denies LE Edema. Denies Palpitations. PND RESPIRATORY: + SOB, + daily cough + sputum production. Denies post-nasal drip GASTROINTESTINAL:No GERD. No nausea, vomits or diarrhea. No oral intake GENITOURINARY:No urinary incontinence. Denies Urinary Retention. Denies Hematuria MUSCULOSKELETAL: Reports +++ weakness. Reports no muscle pain. No recent Fx or injuries SKIN: Claims no rash, ulcerations or unusual skin lesion NEUROLOGIC:Denies headache, numbness or motor deficits. PSYCHIATRIC: Denies Depression, and anxiety. Patient denies suicidal ideation. Medications/Allergies Home Medications Medication Instructions Recorded Confirmed Last Taken Type bolus feed extension set with #12 ea 02/07/21 06/15/24 01/07/22 Rx cath tip Secur-Clau straight connector and clamp 6mL leur slip syringe #12 ea 02/07/21 06/15/24 01/07/22 Rx albuterol sulfate 90 mcg/actuation 1 inh inhalation QID PRN Shortness 12/27/21 06/15/24 06/14/24 22:00 History aerosol inhaler Of Breath Ensure #12 ea 10/15/23 06/15/24 Unknown Rx oxycodone 5 mg/5 mL oral solution 5 mg PO QID PRN Pain 11/24/23 06/15/24 06/14/24 10:30 History ibuprofen 100 mg/5 mL oral 200 mg PO Q6H PRN Pain 12/05/23 06/15/24 12/05/23 History suspension naloxone 4 mg/actuation nasal spray 1 spray intranasal Q3M PRN Opioid 12/05/23 06/15/24 Unknown History Overdose lisinopril 10 mg tablet 10 mg PO DAILY PRN hypertensive 02/17/24 06/15/24 Unknown Rx emergency #30 tabs budesonide 160 mcg-glycopyr 9 2 inh inhalation BID #10.7 grams 02/24/24 06/15/24 06/14/24 22:00 Rx mcg-formot 4.8 mcg/actuation HFA inhaler (Validic) albuterol sulfate 2.5 mg/3 mL 2.5 mg (3 mL) inhalation Q8H #90 mL 06/07/24 06/15/24 06/14/24 02:00 Rx (0.083 %) solution for nebulization metoclopramide HCl 10 mg tablet 10 mg feeding tube BID 06/14/24 06/15/24 06/14/24 10:30 History (Reglan) clonazepam 0.5 mg tablet 0.5 mg feeding tube DAILY 06/15/24 06/15/24 06/14/24 16:00 History cyclobenzaprine 5 mg tablet 5 mg feeding tube BID 06/15/24 06/15/24 06/14/24 10:30 History escitalopram oxalate 20 mg tablet 10 mg feeding tube DAILY 06/15/24 06/15/24 06/14/24 10:30 History famotidine 40 mg/5 mL (8 mg/mL) 5 ml feeding tube BEDTIME 06/15/24 06/15/24 06/14/24 10:30 History oral suspension levothyroxine 88 mcg tablet 88 mcg feeding tube DAILY 06/15/24 06/15/24 06/14/24 10:30 History mexiletine 250 mg capsule 250 mg feeding tube DAILY 06/15/24 06/15/24 06/14/24 10:30 History trazodone 100 mg tablet 100 mg feeding tube BEDTIME 06/15/24 06/15/24 06/14/24 21:00 History Allergies Allergy/AdvReac Type Severity Reaction Status Date / Time No Known Allergies Allergy Verified 04/14/24 11:29 Current Medications Generic Name Dose Route Start Last Admin Trade Name Freq PRN Reason Stop Dose Admin Acetaminophen 650 mg 06/14/24 23:26 06/16/24 12:09 Acetaminophen 325 Mg Tablet PO 650 mg Q6H PRN Administration Mild/Mod Pain Or Temp >/= 101 Apixaban 5 mg 06/15/24 21:00 06/16/24 08:42 Apixaban 5 Mg Tablet PEG-TUBE 5 mg BID@0900,2100 KIARA Administration Budesonide 0.5 mg 06/15/24 08:00 06/16/24 07:34 Budesonide 0.5 Mg/2 Ml Neb INHALATION 0.5 mg BID.RESPIRATORY KIARA Administration Clonazepam 0.5 mg 06/16/24 16:00 06/16/24 17:19 Clonazepam 0.5 Mg Tablet PEG-TUBE 0.5 mg 1600 KIARA Administration Cyclobenzaprine HCl 5 mg 06/15/24 09:00 06/16/24 17:19 Cyclobenzaprine 10 Mg Tablet PEG-TUBE 5 mg BID KIARA Administration Diltiazem HCl 30 mg 06/15/24 00:30 06/16/24 12:05 Diltiazem 30 Mg Tablet PEG-TUBE 30 mg Q6H KIARA Administration Escitalopram Oxalate 10 mg 06/15/24 09:00 06/16/24 08:40 Escitalopram 10 Mg Tablet PEG-TUBE 10 mg DAILY KIARA Administration Cefepime HCl 2,000 mg/ Sodium 50 mls @ 100 mls/hr 06/15/24 08:00 06/16/24 08:40 Chloride IV Infused Q12H KIARA Infusion Protocol Vancomycin HCl 750 mg/ Sodium 250 mls @ 250 mls/hr 06/15/24 08:30 06/16/24 10:00 Chloride IV Infused Q12H KIARA Infusion Azithromycin 500 mg/ Sodium 250 mls @ 250 mls/hr 06/16/24 09:00 06/16/24 13:20 Chloride IV Infused Q24H KIARA Infusion Protocol Levalbuterol HCl 1.25 mg 06/14/24 23:31 06/16/24 07:34 Levalbuterol 1.25 Mg/3 Ml Neb INHALATION 1.25 mg Q4H.RESPIRATORY PRN Administration SHORTNESS OF BREATH Levothyroxine Sodium 88 mcg 06/15/24 09:00 06/16/24 08:40 Levothyroxine 88 Mcg Tablet PEG-TUBE 88 mcg DAILY KIARA Administration Methylprednisolone Sodium Succinate 40 mg 06/15/24 11:30 06/16/24 12:06 Methylprednisolone Sod Succ 40 Mg/Ml Inj IVP 40 mg Q12H KIARA Administration Morphine Sulfate 2 mg 06/16/24 08:56 06/16/24 17:30 Morphine 4 Mg/Ml Sdv 1 Ml IVP 2 mg Q4H PRN Administration SEVERE PAIN Ondansetron HCl 4 mg 06/14/24 23:26 06/15/24 20:08 Ondansetron 2 Mg/Ml Sdv 2 Ml IVP 4 mg Q8H PRN Administration vomiting, or N/V if npo Pantoprazole Sodium 40 mg 06/15/24 12:00 06/16/24 12:06 Pantoprazole 40 Mg Sdv IVP 40 mg Q12H KIARA Administration Senna 17.2 mg 06/15/24 21:00 06/15/24 21:01 Sennosides 8.6 Mg Tablet PO 17.2 mg BEDTIME KIARA Administration Sucralfate 1 gm 06/15/24 12:00 06/16/24 12:05 Sucralfate 1 Gm/10 Ml Oral Liq Udc PEG-TUBE 1 gm Q12H KIARA Administration Trazodone HCl 100 mg 06/15/24 21:00 06/15/24 21:55 Trazodone 100 Mg Tablet PEG-TUBE 100 mg BEDTIME KIARA Administration PFSH Acute 2 PFSH: Medical History Cigarette smoker SVT (supraventricular tachycardia) Encounter for long-term opiate analgesic use Opioid contract exists Hypothyroidism COPD (chronic obstructive pulmonary disease) Carcinoma of hypopharynx Hyperthyroidism Hyperlipidemia Port-A-Cath in place (~05/2019) Surgical History History of tonsillectomy Status post open reduction and internal fixation (ORIF) of fracture left humerus S/P percutaneous endoscopic gastrostomy (PEG) tube placement History of tonsillectomy and adenoidectomy Family History Mother CAD (coronary artery disease) Sister CAD (coronary artery disease) Stroke Denies family history of Anesthesia complication Bleeding disorder Social History (Updated 06/16/24 @ 22:10 by Zoie Jean-Baptiste MD) Smoking and tobacco/nicotine status: current every day tobacco/nicotine user cigarettes Packs smoked per day: 1 Years cigarettes smoked: 50 [ Other cigarette details: 2 [id number] follow by 1PP for 20 yeas and currently 1 PPD ] Quit status (tobacco/nicotine): considering quitting Alcohol intake: never Substance/Drug Use: never Adopted: No Caregiver/support person: Yes Lives independently: No (disabled ) Household members: family Housing: House Marital status: Single Number of children: 3 Number of grandchildren: 7 Highest education level completed: High School Graduate service: No Current occupational status: disabled Current occupational exposures/hazards: No Pets and animals: Yes Sexually active: No Do you think of yourself as: Straight/Heterosexual Current gender identity: Female Micaela/Congregation: Denominational Special micaela needs: No Agree to transfusion: No Vitals/I&O/Wt Last Vital Signs Temp 98.3 F 06/16/24 12:00 Pulse 93 06/16/24 17:00 Resp 15 06/16/24 17:30 BP 123/59 06/16/24 17:00 Pulse Ox 91 06/16/24 17:30 O2 Del Method Nasal Cannula 06/16/24 17:00 O2 Flow Rate 6 06/16/24 17:00 06/16/24 06/16/24 06/16/24 06:59 14:59 22:59 Intake Total 40 / 2630 1515 / 1515 50 / 1565 Output Total 500 / 1050 225 / 225 Balance -460 / 1580 1290 / 1290 50 / 1340 Weight last 48 hrs Weight 113 lb 4.8 oz Weight 113 lb 4.8 oz Weight 114 lb Weight 114 lb 6.4 oz Physical Exam 2 Narrative: GENERAL APPEARANCE: elderly, underweight , No acute distress pt is on her phone . Cooperative. NEUROLOGIC: No focal findings. Normal mental status. Normal speech. AO x3. Gait was normal. HEENT: Normocephalic and atraumatic. PERRLA. No nasal external lesion noted. MOUTH: Oral mucosa moist No thrush. Mallampati score II. NECK: Supple. skin radiation changes No JVD. No adenopathy. Thyroid non-enlarged and non-tender PULMONARY: Left side Port. AP diameter increase + Kyphosis Distant BS with prolong expiratory phase, Decrease in bases and isolated ronchies L > R CARDIOVASCULAR: S1 and S2 seems regular and rhythmic. ABDOMEN: Benign, soft, nontender. PEG site intact (nurses were flushing PED) RENAL: No costovertebral angle tenderness. No mass. ENDOCRINE: No evidence of thyromegaly, acromegaly or Osmany features. SKIN: Good turgor, no rash, unusual bruising or prominent lesions. EXTREMITIES: No evidence of ulnar deviation as well as no significant distal joint deformity. Mild clubbing. No edema. Data 06/16/24 04:19 06/16/24 04:19 Micro: Microbiology 06/14/24 23:46 Gram Stain - Final Sputum - Expectorated Sputum Sputum Culture - Preliminary Strep pyogenes (grp a) 06/14/24 23:47 Blood Culture - Preliminary Blood NEGATIVE TO DATE 06/14/24 23:44 Blood Culture - Preliminary Blood NEGATIVE TO DATE CXR: My impression: CHEST X RAY 06/15/24 * Personally review and independent interpretation performed Left LL opacity atelectasis / pleural effusion and LLL infiltrates. Radiologist's impression: Chest X ray 06/14/24 Lungs: Irregular opacities in the left lung base. Pleural spaces: Unremarkable. No pleural effusion. No pneumothorax. Heart/Mediastinum: Unremarkable. No cardiomegaly. Bones/joints: Unremarkable. CT Chest: My impression: CHEST CT 06/16/24 LL infiltrate most likely PNA/ atelectasis Bilateral pleural effusion and GGO Radiologist's impression: 1. Proximal main pulmonary arteries are normal. No evidence of pulmonary embolus. 2. Normal caliber thoracic aorta. 3. Small bilateral pleural effusions with compressive atelectasis. Subtotal consolidation LEFT lower lobe. Recommend correlation for pneumonia. Other data: PFT 05/17/2024 FEV1/FVC: 61- FEV1: 44%(1.08 L)- FVC: 55%(L)- [id number]%: 27%- T%- RV: 134%- RV/T%- ERV: 70%- DLCOunc: 32%- DL/VA: 63% Test did NOT meet ATS criteria for bronchodilator response A&P Assessment and plan (1) Acute on chronic respiratory failure with hypoxemia: (2) Aspiration pneumonia: Qualifiers: Aspiration pneumonia type: due to regurgitated food Laterality: left L chiquita location: lower lobe of lung Qualified Code(s): J69.0 - Pneumonitis due to inhalation of food and vomit (3) Atelectasis of both lungs: (4) Bilateral pleural effusion: (5) COPD (chronic obstructive pulmonary disease): Qualifiers: COPD type: chronic bronchitis Chronic bronchitis type: unspecified Qualified Code(s): J42 - Unspecified chronic bronchitis (6) Tobacco dependence with current use: (7) Underweight: Plan 1. ACUTE ON CHRONIC RESPIRATORY FAILURE Most likely multifactorial in etiology with associated conditions including end- stage lung disease with COPD exacerbation secondary to bronco aspiration pneumonia, development of A-fib with RVR, congestive heart failure currently infiltrate in the left lower lobe with bilateral pleural effusion. At this time the patient oxygen requirement is 6 L. Patient is no respiratory distress. She was seen playing on her phone. At this time therapy should be guided related to the treatment of the pneumonia and aggressive respiratory toilet. No indication for emergent bronchoscopy procedure. If patient decline in oxygenation on opacification of the lung difficult for mucus mobilization we will consider bronchoscopy but at this time is not required as the process is not related to mucous plug disease related to consolidation. 2. ASPIRATION PNA Most likely. Left lower lobe. Patient is sleeping on the left side. Patient has a PEG and recently has been instructed to increase the volume of her enteral feeding as well as the volume of the flushing of the PEG post feeding. I present when the providing her feeding patient with regurgitation. Patient currently is on Zosyn and bank and azithromycin. Continue to de- escalate accordingly. Patient will be initiated with aggressive respiratory hygiene tools. We will initiate mucolytic therapy with hypertonic 3.5% as well as a chest percussion device. Patient would benefit of Acapella flutter valve. Patient currently is afebrile saturation is stable continue to wean oxygen for saturation 88-94. No indication for bronchoscopy/this is more of consolidation rather than mucous plug. If patient demonstrates declining oxygenation or decline consolidation of the left lower lobe attempt bronchoscopy. 3. ATELECTASIS 4. BILATERAL PLEURAL EFFUSION Patient with evidence of bilateral pleural effusion this could be related to underlying diastolic heart failure. Atelectasis related pleural effusion as well as the pneumonia in the left lower lobe. Patient will benefit of aggressive respiratory hygiene with flutter valve chest percussion device and mucolytic therapy. 5. COPD Base in patient history, physical examination and PFT data is consistent with VERY SEVERE COPD/ STAGE IV / E mMRC Grade 4 by The Global Initiative for Chronic Obstructive Lung Disease (GOLD) recommendations. Patient will continue with combination therapy of MIGEL/ICS / consider adding Ipratropium Patient is being counseling regarding detrimental effect of persistent tobacco consumption primary or as a second hand exposure. Counseled that COPD is a disease state characterized by airflow limitation that is not fully reversible. Counseled that disease is usually progressive and is associated with an abnormal inflammatory response of the lungs to noxious particles or gases, primarily caused by cigarette smoking. Counseled that therapy with currently available medications can reduce or abolish symptoms, increase exercise capacity, reduce the number and severity of exacerbations, and improve health status. At present no drug treatment has been shown to modify the rate of decline of lung function. 6. TOBACCO DEPENDENCE WITH CURRENT USE Counseling regarding benefits of smoking cessation strategies was provided for more than 14 min. Counseled that at this time smoking- cessation represents the single most important step that patient can take to enhance the length and quality of live. Counseled patient regarding alternatives of behavior interventions, pharmacotherapy including NRT and non- nicotine therapy such, and combinations of both. Patient declined intervention. 7. UNDERWEIGHT Multifactorial. Patient with enteral feeding. In addition most patients with COPD have an increased metabolic demand and unbalanced protein synthesis and protein breakdown, particularly in the emphysema type as this patient. The increased metabolic demand may be caused by the increased work of breathing combined with medications, systemic inflammation, tissue hypoxia, or a combination of these. Low body weight, which is a strong predictor of mortality in COPD, can be reversed in part by nutritional supplementation. Due to her respiratory status patient has contraindication of larger volumes enteral feeding. I decreased her enteral feeding tube to allow the PEG tube/with only 100 cc of water. Once respiratory status stable may consider to slowly increase the volume. Patient has prior evaluation by [facility]. Patient was recommended not to have p.o. intake however she is still intermittently take some sips of fluid. Patient has been counseled regarding a consequence of bronco aspiration. At this time I will attempt euvolemic participate in the care for Ms. Perez. My evaluation findings and recommendations are noted above. Please let me know if further assistance is required. Coding Level of Care Code 35423 Diagnoses Acute on chronic respiratory failure with hypoxemia J96.21 Aspiration pneumonia of left lower lobe due to regurgitated food J69.0 Aspiration pneumonia type: due to regurgitated food Laterality: left Lung location: lower lobe of lung Atelectasis of both lungs J98.11 Bilateral pleural effusion J90 Chronic bronchitis, unspecified chronic bronchitis type J42 COPD type: chronic bronchitis Chronic bronchitis type: unspecified Tobacco dependence with current use F17.200 Underweight R63.6
--- NOTE | 2024-06-16 18:40 | PC.NURSE ---
Shift summary: Pt has rested in be for most of the shift. SHe sat up in chair this am for about an hour. She had a steady gait and can bear her weight well. CT today for PEs, none seen. She remains on 6lpm/NC. She is coughing up very thick tenacious pink tinged solis sputum. After tube feeding at noon, she stated she felt the water going up her throat. Flushes post feeding have been reduced to 100ml as ordered. Pt had been requesting 300ml. She has had her PRN Morphine every time it could be given, 3x this shift. She has been up to [facility] 3 times, only 325ml urine putput. No Bm noted this shift.
[2024-06-16 20:27] LABS: Vancomycin Trough 12.4 ug/mL (10-15)
--- NOTE | 2024-06-16 20:32 | PHA.VACGOAL ---
Vancomycin Goal - Therapy Day of therpy:: Day []of [] . 2 Actual body weight (kg): 113 lb 4.8 oz - Data Labs: WBC 13.18 10^3/uL (3.29-11.43) H 06/16/24 04:19 RBC 2.95 10^6/uL (3.85-5.65) L 06/16/24 04:19 Hgb 9.90 g/dL (11.27-16.99) L 06/16/24 04:19 Hct 31.2 % (36-47) L 06/16/24 04:19 MCV 105.8 fl (85-98) H 06/16/24 04:19 MCH 33.6 pg (27-33) H 06/16/24 04:19 MCHC 31.7 g/dL (30-55) 06/16/24 04:19 RDW 12.9 % (12.1-15.1) 06/16/24 04:19 Sodium 135 mmol/L (136-145) L 06/16/24 04:19 Potassium 4.9 mmol/L (3.5-5.1) 06/16/24 04:19 Chloride 97 mmol/L (98-107) L 06/16/24 04:19 Carbon Dioxide 25 mmol/L (22-29) 06/16/24 04:19 Anion Gap 17.9 (5-19) 06/16/24 04:19 BUN 19 mg/dL (8-23) 06/16/24 04:19 Creatinine 0.4 mg/dL (0.5-0.9) L 06/16/24 04:19 GFR Calculation Not Reportable 06/16/24 04:19 Treatment plan:: continue (Trough 12.4; Continue current therapy.)
[2024-06-16] MEDS: sennosides 8.6 mg Tablet 17.2 MG PO (22:09)
[2024-06-16] MEDS: trazodone 100 mg Tablet PEG-TUBE (22:10)
[2024-06-17] VITALS (30 sets, daily range): BP systolic 104–158; BP diastolic 55–89; PULSE 63–89; RESP 13–26; TEMP 36.5–36.9; O2SAT 89–100
[2024-06-17] MEDS: dilTIAZem 30 mg Tablet PEG-TUBE ×4 (01:19→17:48)
[2024-06-17] MEDS: morphine 4 mg/mL SDV 1 mL 2 MG IVP ×5 (04:50→22:50)
[2024-06-17 05:14] LABS: Basophils % 0.3 %; Lymphocytes # 0.2 10^3/uL (0.8-4.8); Mean Corpuscular HGB Conc 32.1 g/dL (30-55); Mean Corpuscular Hemoglobin 32.7 pg (27-33); Mean Corpuscular Volume 101.9 fl (85-98); Mean Platelet Volume 10.4 fL (7.4-10.4); Monocytes # 0.4 10^3/uL (0.2-0.9); Monocytes % 3.9 %; Neutrophils # 10.08 10^3/uL (1.8-7.7); Neutrophils % 90.5 %; Nucleated Red Blood Cells % 0 %; Platelet Count 249 10^3/cmm (157-399); Red Blood Count 3.24 10^6/uL (3.85-5.65); Red Cell Distribution Width 12.8 % (12.1-15.1); White Blood Count 11.14 10^3/uL (3.29-11.43)
--- NOTE | 2024-06-17 07:00 | XR_ITS ---
WS: [id number] Examination: XR chest 1V portable [id number] Reason for Exam: sob Date: June 17, 2024 Comparison: June 15, 2024 Findings: The heart is not grossly enlarged. The mediastinum is not widened on this slightly rotated film. Agai n the left Port-A-Cath is noted. The central interstitial markings are increased. Increasing bilateral basilar infiltrates and effusions are noted. This is worse on the left. XR/XR chest 1V portable [id number] Impression: Interval progression of the infiltrative changes and suspected effusions partic ularly on the left.
[2024-06-17 07:16] LABS: Lactate (Lactic Acid level) 1.8 mmol/L (0.5-2.2)
[2024-06-17 07:17] LABS: C Reactive Protein 76.4 mg/L (0.0-4.9)
[2024-06-17 07:23] LABS: NT Pro B Type Natriuretic Pept 8077 pg/mL (0-125); Procalcitonin 1.37 ng/mL (0-0.5)
[2024-06-17 07:34] LABS: Anion Gap 14.5 (5-19); Blood Urea Nitrogen 24 mg/dL (8-23); Calcium 8.9 mg/dL (8.5-10.5); Carbon Dioxide 27 mmol/L (22-29); Chloride 96 mmol/L (98-107); Creatinine Clr Calc Pharmacy 57.3634; Glucose 112 mg/dL (65-115); Osmolality Calculated 281 mOsm/kg (285-295); Potassium 4.5 mmol/L (3.5-5.1); Sodium 133 mmol/L (136-145)
[2024-06-17] MEDS: levalbuterol 1.25 mg/3 mL Neb INHALATION ×2 (09:04→21:02)
[2024-06-17] MEDS: budesonide 0.5 mg/2 mL Neb INHALATION ×2 (09:05→21:03)
[2024-06-17] MEDS: sodium chloride 3.5% neb 4 mL Neb INHALATION ×2 (09:05→21:03)
[2024-06-17] MEDS: cefepime 2,000 MG in sodium chloride 0.9% (plus) 50 ML 100 MG IV ×2 (09:12→20:29)
[2024-06-17] MEDS: FUROsemide 10 mg/mL SDV 2mL 20 MG IVP (09:12)
[2024-06-17] MEDS: escitalopram 10 mg Tablet PEG-TUBE (09:19)
[2024-06-17] MEDS: levothyroxine 88 mcg Tablet PEG-TUBE (09:19)
[2024-06-17] MEDS: cyclobenzaprine 10 mg Tablet 5 MG PEG-TUBE ×2 (09:20→17:48)
[2024-06-17] MEDS: potassium chloride oral liq 20 mEq/15 mL UDC PO (09:34)
[2024-06-17] MEDS: apixaban 5 mg Tablet PEG-TUBE ×2 (09:34→21:58)
[2024-06-17] MEDS: vancomycin 750 MG in sodium chloride 0.9% 250 ML 250 MG IV ×2 (09:40→21:41)
[2024-06-17] MEDS: azithromycin 500 MG in sodium chloride 0.9% 250 ML 250 MG IV (09:50)
--- NOTE | 2024-06-17 11:23 | P.PN_ITS ---
Subjective 2 Subjective: Patient was up to commode this morning, does report shortness of breath, does have a cough, no fevers overnight, is on 6 L, we discussed her concerns, discussed concerns for aspiration, we have decreased her tube feedings to 2 bottles twice a day, and decrease free water flushes 100 cc, advised against oral liquid due to risk of aspiration, will continue to monitor her closely, likely move her out of the ICU, today, 1 dose IV Lasix, continue IV antibiotics Vitals/I&O/Wt Last Vital Signs Temp 98.4 F 06/17/24 08:00 Pulse 76 06/17/24 11:00 Resp 24 H 06/17/24 11:00 BP 129/88 06/17/24 11:00 Pulse Ox 90 06/17/24 11:00 O2 Del Method High Flow Nasal Cannula 06/17/24 11:00 O2 Flow Rate 6 06/17/24 11:00 06/16/24 06/17/24 06/17/24 22:59 06:59 14:59 Intake Total 980 / 2495 40 / 2535 590 / 590 Output Total 575 / 800 700 / 1500 300 / 300 Balance 405 / 1695 -660 / 1035 290 / 290 Weight last 48 hrs Weight 51.891 kg Weight 51.891 kg Weight 51.392 kg Weight 51.392 kg Physical Exam 2 Const: COMMON NORMALS: no acute distress and patient oriented x3 Resp: COMMON NORMALS: normal respiratory effort, No retractions and No use of accessory muscles AUSCULTATION: wheezes Cardio: COMMON NORMALS: regular rate, regular rhythm, S1 normal heart sound present and S2 normal heart sound present RATE: regular rate RHYTHM: r egular rhythm HEART SOUNDS: S1 normal heart sound present and S2 normal heart sound present GI: COMMON NORMALS: Normal to inspection, nondistended, normoactive bowel sounds present and non-tender Extremity: COMMON NORMALS: no pedal edema Neuro: COMMON NORMALS: patient oriented x3 Psych: COMMON NORMALS: mental status grossly normal Data 06/17/24 04:34 06/17/24 06:37 Micro: Microbiology 06/14/24 23:46 Gram Stain - Final Sputum - Expectorated Sputum Sputum Culture - Preliminary Strep pyogenes (grp a) Gram Negative Rods A&P Assessment and plan (1) Sepsis: Source: Community-acquired acquired pneumonia SIRS: Tachycardia, leukocytosis Obtain blood cultures, sputum cultures Status post vancomycin and Zosyn outside hospital Obtain MRSA screening Status post IV fluids at outside hospital Recheck lactate Continue broad-spectrum antibiotics with cefepime, vancomycin, azithromycin (2) Community acquired pneumonia: Obtain bacterial antigens Sputum culture His blood cultures (3) Atrial fibrillation, new onset: Newly diagnosed atrial fibrillation with rapid ventricular rate Patient is converted to normal sinus rhythm She remains high risk to reconversion to atrial fibrillation as it is likely being driven by respiratory disease Mexiletine is listed as home medication, unclear indication Continue Cardizem [id number] score is 3, given age, female, hypertension, start Eliquis for stroke prevention Continuous telemetry monitoring Magnesium normal at outside hospital echocardiogram CONCLUSIONS Normal left ventricular size, systolic function and wall thickness, with no regional wall motion abnormalities. Estimated ejection fraction is 60%.Grade II/IV diastolic dysfunction, moderately elevated filling pressures. Moderately increased left atrial size. Structurally normal mitral valve without significant stenosis or prolapse. There is moderate mitral regurgitation. There is no pericardial effusion. Right atrial pressure is around 10 mm of mercury. Troponin series ordered (4) Feeding by G-tube: Patient reports she takes her medications and feedings via Jose Maria tube due to history of throat cancer Will plan on continued use of this tube 2 bottles, twice daily, free water flushes 100 cc every 12 hours (5) Hypothyroidism: Continue home Synthroid Qualifiers: Hypothyroidism type: acquired Qualified Code(s): E03.9 - Hypothyroidism, unspecified (6) COPD (chronic obstructive pulmonary disease): COPD with chronic hypoxic respiratory failure is on 6 L oxygen baseline Patient currently requiring 5 L nasal cannula Patient received dexamethasone 10 mg IV at outside hospital Pulmicort nebs Levo albuterol as needed due to A-fib Solu-Medrol 40 mg IV every 12 hours Qualifiers: COPD type: chronic bronchitis Chronic bronchitis type: unspecified Qualified Code(s): J42 - Unspecified chronic bronchitis (7) Depression with anxiety: Continue home medications (8) GERD (gastroesophageal reflux disease): Continue famotidine Qualifiers: Esophagitis presence: without esophagitis Qualified Code(s): K21.9 - Gastro-esophageal reflux disease without esophagitis (9) Cigarette smoker: Patient reports continued smoking She would benefit from cessation (10) Acute exacerbation of chronic obstructive pulmonary disease: (11) Acute hypoxic respiratory failure: - Acute hypoxic respiratory failure -Multifactorial -Pneumonia, CRP 172, Pro-Oliver 2.83 -Fluid overload -COPD -Plan -Currently on 6 L, resting comfortably -BNP is over 2000, will give 1 dose of Lasix today -Continue vancomycin -Continue cefepime -Will add on azithromycin for atypical coverage -Continue DuoNeb -Continue Solu-Medrol -Monitor respiratory status closely Plan DVT prophylaxis: Eliquis CODE STATUS: Full code-discussed with patient Attestations 2 Medical Necessity Statement*: Patient was up to commode this morning, does report shortness of breath, does have a cough, no fevers overnight, is on 6 L, we discussed her concerns, discussed concerns for aspiration, we have decreased her tube feedings to 2 bottles twice a day, and decrease free water flushes 100 cc, advised against oral liquid due to risk of aspiration, will continue to monitor her closely, likely move her out of the ICU, today, 1 dose IV Lasix, continue IV antibiotics Diagnoses Sepsis A41.9 Community acquired pneumonia J18.9 Atrial fibrillation, new onset I48.91 Feeding by G-tube Z93.1 Acquired hypothyroidism E03.9 Hypothyroidism type: acquired Chronic bronchitis, unspecified chronic bronchitis type J42 COPD type: chronic bronchitis Chronic bronchitis type: unspecified Depression with anxiety F41.8 Gastroesophageal reflux disease without esophagitis K21.9 Esophagitis presence: without esophagitis Cigarette smoker F17.210 Acute exacerbation of chronic obstructive pulmonary disease J44.1 Acute hypoxic respiratory failure J96.01
--- NOTE | 2024-06-17 12:14 | PC.SOCIAL ---
IMM UPATED IMM dated and initialed and placed in chart and copy given to patient
[2024-06-17] MEDS: methylPREDNISolone sod succ 40 mg/mL INJ IVP ×2 (12:37→22:50)
[2024-06-17] MEDS: sucralfate 1 gm/10 mL Oral Liq UDC PEG-TUBE (12:37)
[2024-06-17] MEDS: pantoprazole 40 mg SDV IVP (12:37)
[2024-06-17] MEDS: CLONazepam 0.5 mg Tablet PEG-TUBE (15:54)
--- NOTE | 2024-06-17 17:45 | PC.NURSE ---
Called [facility] to give report. Demario Casanova to call back.
--- NOTE | 2024-06-17 18:35 | PC.NURSE ---
Shift summary: Pt doing much better today. She has smiled often. She has sat up in a chair for most of the shift. O2 sats have stayed above 91% even upon exertion. She has asked for her PRN morphine at the PRN intervals of 4 hours, she has had 3 doses this shift for her chronic neck pain. She received IV Lasix and Liquid POtassium per PEG today. Her Uine output was 1200ml this shift. She is tolerating the samller tube feeds and flushes well. No comments about reflux today.
--- NOTE | 2024-06-17 19:26 | PC.NURSE ---
[facility]
[2024-06-17] MEDS: sennosides 8.6 mg Tablet 17.2 MG PO (21:58)
[2024-06-17] MEDS: trazodone 100 mg Tablet PEG-TUBE (21:58)
[2024-06-18] VITALS (21 sets, daily range): BP systolic 109–160; BP diastolic 52–76; PULSE 64–84; RESP 14–17; TEMP 36.4–36.9; O2SAT 92–96
[2024-06-18] MEDS: pantoprazole 40 mg SDV IVP ×2 (00:19→12:29)
[2024-06-18] MEDS: sucralfate 1 gm/10 mL Oral Liq UDC PEG-TUBE ×2 (00:19→12:29)
[2024-06-18] MEDS: dilTIAZem 30 mg Tablet PEG-TUBE ×4 (00:19→17:56)
[2024-06-18 03:14] LABS: Basophils % 0.1 %; Hematocrit 32.4 % (36-47); Lymphocytes # 0.2 10^3/uL (0.8-4.8); Lymphocytes % 2.7 %; Mean Corpuscular Hemoglobin 32.3 pg (27-33); Mean Corpuscular Volume 97.9 fl (85-98); Monocytes # 0.4 10^3/uL (0.2-0.9); Monocytes % 4.7 %; Neutrophils # 6.46 10^3/uL (1.8-7.7); Neutrophils % 86.4 %; Nucleated Red Blood Cells % 0 %; Platelet Count 267 10^3/cmm (157-399); Red Blood Count 3.31 10^6/uL (3.85-5.65); Red Cell Distribution Width 12.6 % (12.1-15.1); White Blood Count 7.48 10^3/uL (3.29-11.43)
[2024-06-18 03:31] LABS: Lactate (Lactic Acid level) 2.4 mmol/L (0.5-2.2)
[2024-06-18 03:32] LABS: C Reactive Protein 41.5 mg/L (0.0-4.9); Vancomycin Trough 16.6 ug/mL (10-15)
[2024-06-18 03:42] LABS: NT Pro B Type Natriuretic Pept 6624 pg/mL (0-125); Procalcitonin 0.91 ng/mL (0-0.5)
[2024-06-18] MEDS: morphine 4 mg/mL SDV 1 mL 2 MG IVP ×5 (03:45→20:25)
[2024-06-18 03:53] LABS: Anion Gap 16.5 (5-19); Blood Urea Nitrogen 29 mg/dL (8-23); Calcium 8.5 mg/dL (8.5-10.5); Carbon Dioxide 29 mmol/L (22-29); Chloride 95 mmol/L (98-107); Creatinine Clr Calc Pharmacy 57.3634; Glucose 119 mg/dL (65-115); Osmolality Calculated 289 mOsm/kg (285-295); Potassium 4.5 mmol/L (3.5-5.1); Sodium 136 mmol/L (136-145)
[2024-06-18] MEDS: budesonide 0.5 mg/2 mL Neb INHALATION ×2 (07:52→20:41)
[2024-06-18] MEDS: sodium chloride 3.5% neb 4 mL Neb INHALATION ×2 (07:59→20:41)
[2024-06-18] MEDS: levothyroxine 88 mcg Tablet PEG-TUBE (08:28)
[2024-06-18] MEDS: predniSONE 20 mg Tablet 40 MG PO (08:28)
[2024-06-18] MEDS: escitalopram 10 mg Tablet PEG-TUBE (08:29)
[2024-06-18] MEDS: cyclobenzaprine 10 mg Tablet 5 MG PEG-TUBE ×2 (08:29→17:56)
[2024-06-18] MEDS: FUROsemide 10 mg/mL SDV 2mL 20 MG IVP (08:30)
[2024-06-18] MEDS: azithromycin 500 MG in sodium chloride 0.9% 250 ML 250 MG IV (08:35)
[2024-06-18] MEDS: cefepime 2,000 MG in sodium chloride 0.9% (plus) 50 ML 100 MG IV ×2 (08:47→20:24)
[2024-06-18] MEDS: apixaban 5 mg Tablet PEG-TUBE ×2 (08:48→20:25)
--- NOTE | 2024-06-18 10:12 | P.PN_ITS ---
Subjective 2 Subjective: Patient was seen this morning, she denies any fevers, no chills does report shortness of breath, she was seen ambulating to the bathroom and back, does report a bit shortness of breath, no lightheadedness, dizziness, no nausea, vomiting Vitals/I&O/Wt Last Vital Signs Temp 97.7 F 06/18/24 07:55 Pulse 75 06/18/24 08:01 Resp 16 06/18/24 08:22 BP 144/74 06/18/24 07:55 Pulse Ox 96 06/18/24 07:55 O2 Del Method Nasal Cannula 06/18/24 07:55 O2 Flow Rate 4.5 06/18/24 07:53 06/17/24 06/18/24 06/18/24 22:59 06:59 14:59 Intake Total 900 / 2120 300 / 300 Balance 900 / 920 300 / 300 Weight last 48 hrs Weight 56.88 kg Weight 56.812 kg Weight 51.891 kg Weight 51.891 kg Physical Exam 2 Const: COMMON NORMALS: no acute distress and patient oriented x3 Resp: COMMON NORMALS: normal respiratory effort, No retractions and No use of accessory muscles AUSCULTATION: crackles and wheezes Cardio: COMMON NORMALS: regular rate, regular rhythm, S1 normal heart sound present and S2 normal heart sound present RATE: regular rate RHYTHM: r egular rhythm HEART SOUNDS: S1 normal heart sound present and S2 normal heart sound present GI: COMMON NORMALS: Normal to inspection, nondistended, normoactive bowel sounds present, Soft to palpation and non-tender PALPATION: Yes Soft to palpation Extremity: COMMON NORMALS: no pedal edema Neuro: COMMON NORMALS: patient oriented x3 Psych: COMMON NORMALS: mental status grossly normal Data 06/18/24 02:46 06/18/24 02:46 Micro: Microbiology 06/14/24 23:46 Gram Stain - Final Sputum - Expectorated Sputum Sputum Culture - Preliminary Strep pyogenes (grp a) Gram Negative Rods A&P Assessment and plan (1) Sepsis: Source: Community-acquired acquired pneumonia SIRS: Tachycardia, leukocytosis Obtain blood cultures, sputum cultures Status post vancomycin and Zosyn outside hospital Obtain MRSA screening Status post IV fluids at outside hospital Recheck lactate Continue broad-spectrum antibiotics with cefepime, azithromycin (2) Community acquired pneumonia: Obtain bacterial antigens Sputum culture His blood cultures (3) Atrial fibrillation, new onset: Newly diagnosed atrial fibrillation with rapid ventricular rate Patient is converted to normal sinus rhythm She remains high risk to reconversion to atrial fibrillation as it is likely being driven by respiratory disease Mexiletine is listed as home medication, unclear indication Continue Cardizem [id number] score is 3, given age, female, hypertension, start Eliquis for stroke prevention Continuous telemetry monitoring Magnesium normal at outside hospital echocardiogram CONCLUSIONS Normal left ventricular size, systolic function and wall thickness, with no regional wall motion abnormalities. Estimated ejection fraction is 60%.Grade II/IV diastolic dysfunction, moderately elevated filling pressures. Moderately increased left atrial size. Structurally normal mitral valve without significant stenosis or prolapse. There is moderate mitral regurgitation. There is no pericardial effusion. Right atrial pressure is around 10 mm of mercury. Troponin series ordered (4) Feeding by G-tube: Patient reports she takes her medications and feedings via Jose Maria tube due to history of throat cancer Will plan on continued use of this tube 2 bottles, twice daily, free water flushes 100 cc every 12 hours (5) Hypothyroidism: Continue home Synthroid Qualifiers: Hypothyroidism type: acquired Qualified Code(s): E03.9 - Hypothyroidism, unspecified (6) COPD (chronic obstructive pulmonary disease): COPD with chronic hypoxic respiratory failure is on 6 L oxygen baseline Patient currently requiring 5 L nasal cannula Patient received dexamethasone 10 mg IV at outside hospital Pulmicort nebs Levo albuterol as needed due to A-fib Prednisone 40 mg daily Qualifiers: COPD type: chronic bronchitis Chronic bronchitis type: unspecified Qualified Code(s): J42 - Unspecified chronic bronchitis (7) Depression with anxiety: Continue home medications (8) GERD (gastroesophageal reflux disease): Continue famotidine Qualifiers: Esophagitis presence: without esophagitis Qualified Code(s): K21.9 - Gastro-esophageal reflux disease without esophagitis (9) Cigarette smoker: Patient reports continued smoking She would benefit from cessation (10) Acute exacerbation of chronic obstructive pulmonary disease: (11) Acute hypoxic respiratory failure: - Acute hypoxic respiratory failure -Multifactorial -Pneumonia, CRP 172, Pro-Oliver 2.83 -Fluid overload -COPD -Plan -Currently on 6 L, resting comfortably -BNP is over 2000, will give 1 dose of Lasix today -Stopped e vancomycin -Continue cefepime -azithromycin for atypical coverage -Continue DuoNeb -Continue Solu-Medrol -Monitor respiratory status closely Plan Plan for today continue cefepime, continue azithromycin, stop vancomycin 1 dose IV Lasix, continue up and ambulation, monitor respiratory status closely monitor cultures DVT prophylaxis: Eliquis CODE STATUS: Full code-discussed with patient Attestations 2 Medical Necessity Statement*: Patient requires hospitalization for acute hypoxic respiratory failure secondary to pneumonia, COPD, CHF Diagnoses Sepsis A41.9 Community acquired pneumonia J18.9 Atrial fibrillation, new onset I48.91 Feeding by G-tube Z93.1 Acquired hypothyroidism E03.9 Hypothyroidism type: acquired Chronic bronchitis, unspecified chronic bronchitis type J42 COPD type: chronic bronchitis Chronic bronchitis type: unspecified Depression with anxiety F41.8 Gastroesophageal reflux disease without esophagitis K21.9 Esophagitis presence: without esophagitis Cigarette smoker F17.210 Acute exacerbation of chronic obstructive pulmonary disease J44.1 Acute hypoxic respiratory failure J96.01
[2024-06-18] MEDS: CLONazepam 0.5 mg Tablet PEG-TUBE (16:18)
[2024-06-18] MEDS: sennosides 8.6 mg Tablet 17.2 MG PO (20:25)
[2024-06-18] MEDS: trazodone 100 mg Tablet PEG-TUBE (20:25)
[2024-06-18] MEDS: levalbuterol 1.25 mg/3 mL Neb INHALATION (20:41)
[2024-06-19] VITALS (17 sets, daily range): BP systolic 93–132; BP diastolic 48–68; PULSE 58–86; RESP 14–18; TEMP 36.4–36.9; O2SAT 90–99
[2024-06-19] MEDS: pantoprazole 40 mg SDV IVP ×2 (00:28→12:20)
[2024-06-19] MEDS: dilTIAZem 30 mg Tablet PEG-TUBE ×4 (00:28→18:08)
[2024-06-19] MEDS: morphine 4 mg/mL SDV 1 mL 2 MG IVP ×5 (00:28→19:35)
[2024-06-19] MEDS: sucralfate 1 gm/10 mL Oral Liq UDC PEG-TUBE ×2 (00:28→12:20)
[2024-06-19 04:03] LABS: Basophils % 0.5 %; Eosinophils % 0.1 %; Hematocrit 34.6 % (36-47); Lymphocytes # 0.5 10^3/uL (0.8-4.8); Lymphocytes % 6.6 %; Mean Corpuscular HGB Conc 33.2 g/dL (30-55); Mean Corpuscular Hemoglobin 32.9 pg (27-33); Mean Corpuscular Volume 98.9 fl (85-98); Mean Platelet Volume 9.9 fL (7.4-10.4); Monocytes # 0.8 10^3/uL (0.2-0.9); Monocytes % 10.6 %; Neutrophils # 5.84 10^3/uL (1.8-7.7); Neutrophils % 76.2 %; Nucleated Red Blood Cells % 0 %; Platelet Count 307 10^3/cmm (157-399); Red Cell Distribution Width 12.6 % (12.1-15.1); White Blood Count 7.67 10^3/uL (3.29-11.43)
[2024-06-19 04:35] LABS: Alanine Aminotransferase 14 U/L (0-33); Alkaline Phosphatase 66 U/L (35-105); Anion Gap 11.6 (5-19); Aspartate Amino Transferase 12 U/L (0-32); Blood Urea Nitrogen 32 mg/dL (8-23); C Reactive Protein 23.1 mg/L (0.0-4.9); Calcium 8.9 mg/dL (8.5-10.5); Carbon Dioxide 35 mmol/L (22-29); Chloride 93 mmol/L (98-107); Creatinine Clr Calc Pharmacy 58.1091; Globulin 2.5 g/dL (1.3-4.6); Glucose 90 mg/dL (65-115); NT Pro B Type Natriuretic Pept 3831 pg/mL (0-125); Osmolality Calculated 288 mOsm/kg (285-295); Potassium 3.6 mmol/L (3.5-5.1); Sodium 136 mmol/L (136-145); Total Bilirubin 0.2 mg/dL (0.15-1.2); Total Protein 5.5 g/dL (6.6-8.7)
[2024-06-19] MEDS: budesonide 0.5 mg/2 mL Neb INHALATION ×2 (09:02→20:55)
[2024-06-19] MEDS: sodium chloride 3.5% neb 4 mL Neb INHALATION ×2 (09:03→20:55)
[2024-06-19] MEDS: levalbuterol 1.25 mg/3 mL Neb INHALATION ×2 (09:03→14:55)
[2024-06-19] MEDS: cyclobenzaprine 10 mg Tablet 5 MG PEG-TUBE ×2 (09:52→18:08)
[2024-06-19] MEDS: escitalopram 10 mg Tablet PEG-TUBE (09:52)
[2024-06-19] MEDS: predniSONE 20 mg Tablet 40 MG PO (09:52)
[2024-06-19] MEDS: levothyroxine 88 mcg Tablet PEG-TUBE (09:53)
[2024-06-19] MEDS: azithromycin 500 MG in sodium chloride 0.9% 250 ML 250 MG IV (09:54)
[2024-06-19] MEDS: cefepime 2,000 MG in sodium chloride 0.9% (plus) 50 ML 100 MG IV (10:01)
[2024-06-19] MEDS: apixaban 5 mg Tablet PEG-TUBE ×2 (10:03→21:44)
--- NOTE | 2024-06-19 10:24 | P.PN_ITS ---
Subjective 2 Subjective: Patient was seen this morning, she does report persistent shortness of breath with exertion, no fevers, no chills overnight Vitals/I&O/Wt Last Vital Signs Temp 97.5 F L 06/19/24 08:00 Pulse 65 06/19/24 08:00 Resp 17 06/19/24 09:53 BP 132/66 06/19/24 08:00 Pulse Ox 93 06/19/24 08:00 O2 Del Method Nasal Cannula 06/19/24 08:00 O2 Flow Rate 3 06/19/24 08:00 06/18/24 06/19/24 06/19/24 22:59 06:59 14:59 Intake Total 300 / 600 200 / 800 Balance 300 / 600 200 / 800 Weight last 48 hrs Weight 53.722 kg Weight 56.88 kg Weight 56.812 kg Physical Exam 2 Const: COMMON NORMALS: no acute distress and patient oriented x3 Resp: COMMON NORMALS: normal respiratory effort, No retractions and No use of accessory muscles AUSCULTATION: wheezes Cardio: COMMON NORMALS: regular rate, regular rhythm, S1 normal heart sound present and S2 normal heart sound present RATE: regular rate RHYTHM: r egular rhythm HEART SOUNDS: S1 normal heart sound present and S2 normal heart sound present GI: COMMON NORMALS: Normal to inspection, nondistended, normoactive bowel sounds present and non-tender Extremity: COMMON NORMALS: no pedal edema Neuro: COMMON NORMALS: patient oriented x3 Psych: COMMON NORMALS: mental status grossly normal Data 06/19/24 03:18 06/19/24 03:18 Micro: Microbiology 06/14/24 23:46 Gram Stain - Final Sputum - Expectorated Sputum Sputum Culture - Preliminary Strep pyogenes (grp a) Gram Negative Rods A&P Assessment and plan (1) Sepsis: Source: Community-acquired acquired pneumonia SIRS: Tachycardia, leukocytosis Obtain blood cultures, sputum cultures Status post vancomycin and Zosyn outside hospital Obtain MRSA screening Status post IV fluids at outside hospital Recheck lactate Continue broad-spectrum antibiotics with cefepime, azithromycin Sputum cultures growing group A strep, with gram-negative's, history of Pseudomonas positive sputum cultures (2) Community acquired pneumonia: Obtain bacterial antigens Sputum culture His blood cultures (3) Atrial fibrillation, new onset: Newly diagnosed atrial fibrillation with rapid ventricular rate Patient is converted to normal sinus rhythm She remains high risk to reconversion to atrial fibrillation as it is likely being driven by respiratory disease Mexiletine is listed as home medication, unclear indication Continue Cardizem [id number] score is 3, given age, female, hypertension, start Eliquis for stroke prevention Continuous telemetry monitoring Magnesium normal at outside hospital echocardiogram CONCLUSIONS Normal left ventricular size, systolic function and wall thickness, with no regional wall motion abnormalities. Estimated ejection fraction is 60%.Grade II/IV diastolic dysfunction, moderately elevated filling pressures. Moderately increased left atrial size. Structurally normal mitral valve without significant stenosis or prolapse. There is moderate mitral regurgitation. There is no pericardial effusion. Right atrial pressure is around 10 mm of mercury. (4) Feeding by G-tube: Patient reports she takes her medications and feedings via Jose Maria tube due to history of throat cancer Will plan on continued use of this tube 2 bottles, twice daily, free water flushes 100 cc every 12 hours (5) Hypothyroidism: Continue home Synthroid Qualifiers: Hypothyroidism type: acquired Qualified Code(s): E03.9 - Hypothyroidism, unspecified (6) COPD (chronic obstructive pulmonary disease): COPD with chronic hypoxic respiratory failure is on 6 L oxygen baseline Patient currently requiring 5 L nasal cannula Patient received dexamethasone 10 mg IV at outside hospital Pulmicort nebs Levo albuterol as needed due to A-fib Prednisone 40 mg daily Qualifiers: COPD type: chronic bronchitis Chronic bronchitis type: unspecified Qualified Code(s): J42 - Unspecified chronic bronchitis (7) Depression with anxiety: Continue home medications (8) GERD (gastroesophageal reflux disease): Continue famotidine Qualifiers: Esophagitis presence: without esophagitis Qualified Code(s): K21.9 - Gastro-esophageal reflux disease without esophagitis (9) Cigarette smoker: Patient reports continued smoking She would benefit from cessation (10) Acute exacerbation of chronic obstructive pulmonary disease: (11) Acute hypoxic respiratory failure: - Acute hypoxic respiratory failure -Multifactorial -Pneumonia, CRP 172, Pro-Oliver 2.83 -Fluid overload -COPD -Plan -Currently on 6 L, resting comfortably -BNP is over 2000, will give 1 dose of Lasix today -Stopped e vancomycin -Continue cefepime -azithromycin for atypical coverage -Continue DuoNeb -Monitor respiratory status closely Plan Plan for today continue cefepime, continue azithromycin,, continue up and ambulation, monitor respiratory status closely monitor cultures DVT prophylaxis: Eliquis CODE STATUS: Full code-discussed with patient Attestations 2 Medical Necessity Statement*: Patient requires hospitalization for pneumonia, respiratory failure Diagnoses Sepsis A41.9 Community acquired pneumonia J18.9 Atrial fibrillation, new onset I48.91 Feeding by G-tube Z93.1 Acquired hypothyroidism E03.9 Hypothyroidism type: acquired Chronic bronchitis, unspecified chronic bronchitis type J42 COPD type: chronic bronchitis Chronic bronchitis type: unspecified Depression with anxiety F41.8 Gastroesophageal reflux disease without esophagitis K21.9 Esophagitis presence: without esophagitis Cigarette smoker F17.210 Acute exacerbation of chronic obstructive pulmonary disease J44.1 Acute hypoxic respiratory failure J96.01
[2024-06-19] MEDS: CLONazepam 0.5 mg Tablet PEG-TUBE (16:15)
--- NOTE | 2024-06-19 18:26 | PC.NURSE ---
Late charting: On 06/18/24 @ 1200 and 1800 474 ml of Ensure plus were given
[2024-06-19] MEDS: sennosides 8.6 mg Tablet 17.2 MG PO (21:44)
[2024-06-19] MEDS: trazodone 100 mg Tablet PEG-TUBE (21:44)
[2024-06-20] VITALS (12 sets, daily range): BP systolic 96–125; BP diastolic 64–85; PULSE 63–91; RESP 16–18; TEMP 36.5–36.9; O2SAT 93–98
[2024-06-20] MEDS: sucralfate 1 gm/10 mL Oral Liq UDC PEG-TUBE ×2 (01:01→12:15)
[2024-06-20] MEDS: pantoprazole 40 mg SDV IVP ×2 (01:01→12:15)
[2024-06-20] MEDS: oxyCODONE 5 mg IR Tab/Cap PO ×3 (01:06→12:21)
[2024-06-20 04:30] LABS: Basophils # 0.1 10^3/uL (0.0-0.1); Basophils % 0.7 %; Eosinophils % 0.3 %; Hematocrit 38.2 % (36-47); Lymphocytes # 0.5 10^3/uL (0.8-4.8); Mean Corpuscular HGB Conc 32.7 g/dL (30-55); Mean Corpuscular Hemoglobin 32.5 pg (27-33); Mean Corpuscular Volume 99.2 fl (85-98); Monocytes # 0.7 10^3/uL (0.2-0.9); Monocytes % 8.9 %; Neutrophils # 5.96 10^3/uL (1.8-7.7); Neutrophils % 79.1 %; Nucleated Red Blood Cells % 0 %; Platelet Count 326 10^3/cmm (157-399); Red Blood Count 3.85 10^6/uL (3.85-5.65); Red Cell Distribution Width 12.8 % (12.1-15.1); White Blood Count 7.53 10^3/uL (3.29-11.43)
[2024-06-20 04:58] LABS: Alanine Aminotransferase 14 U/L (0-33); Albumin Level 3.3 g/dL (3.5-5.2); Alkaline Phosphatase 72 U/L (35-105); Anion Gap 13.1 (5-19); Aspartate Amino Transferase 12 U/L (0-32); Blood Urea Nitrogen 27 mg/dL (8-23); Calcium 8.7 mg/dL (8.5-10.5); Carbon Dioxide 34 mmol/L (22-29); Chloride 95 mmol/L (98-107); Creatinine Clr Calc Pharmacy 58.0399; Glucose 84 mg/dL (65-115); Osmolality Calculated 290 mOsm/kg (285-295); Potassium 4.1 mmol/L (3.5-5.1); Sodium 138 mmol/L (136-145); Total Bilirubin 0.2 mg/dL (0.15-1.2); Total Protein 5.3 g/dL (6.6-8.7)
[2024-06-20 05:02] LABS: NT Pro B Type Natriuretic Pept 1968 pg/mL (0-125)
[2024-06-20] MEDS: dilTIAZem 30 mg Tablet PEG-TUBE ×2 (06:37→12:15)
[2024-06-20] MEDS: levoFLOXacin 750 mg Tablet PO (06:37)
[2024-06-20] MEDS: budesonide 0.5 mg/2 mL Neb INHALATION (08:54)
[2024-06-20] MEDS: sodium chloride 3.5% neb 4 mL Neb INHALATION (08:54)
[2024-06-20] MEDS: levothyroxine 88 mcg Tablet PEG-TUBE (09:14)
[2024-06-20] MEDS: predniSONE 20 mg Tablet 40 MG PO (09:14)
[2024-06-20] MEDS: cyclobenzaprine 10 mg Tablet 5 MG PEG-TUBE (09:14)
[2024-06-20] MEDS: escitalopram 10 mg Tablet PEG-TUBE (09:14)
[2024-06-20] MEDS: apixaban 5 mg Tablet PEG-TUBE (09:14)
[2024-06-20] MEDS: morphine 4 mg/mL SDV 1 mL 2 MG IVP ×2 (09:32→13:33)
--- NOTE | 2024-06-20 09:50 | USR_ITS ---
PROCEDURE INFORMATION: Exam: US Abdomen, Limited; Right Upper Quadrant Exam date and time: 06/20/2024 10:54 AM Age: 69 years old Clinical indication: Abdominal pain; Localized; Right upper quadrant (ruq); Additional info: Ruq pain TECHNIQUE: Imaging protocol: Real time ultrasound of the abdomen with image documentation. Limited exam focused on the right upper quadrant. COMPARISON: CT abdomen pelvis w con* [id number] 12/05/2023 12:11 PM FINDINGS: Liver: Normal. No masses. Gallbladder: Poorly visualized with a questionable stone near the gallbladder neck. [employer] does not report on a positive or negative sonographic Costa's sign. Biliary ducts: No distinct dilation. Pancreas: Visualized pancreas is unremarkable. Right kidney: Normal. No mass. No hydronephrosis. US/US gall bladder [id number] IMPRESSION: Gallbladder is poorly visualized with a questionable stone near the gallbladder neck. [employer] does not report on a positive or negative sonographic Costa's sign.
--- NOTE | 2024-06-20 11:33 | P.DS_ITS ---
Discharge Providers Date of Admission: 06/14/24 23:11 Date of Discharge: June 20, 2024 Attending Provider at Admission: Scooter Foss MD Attending Provider at Discharge: Thomas Wilson MD Primary Care Provider: JIMMIE Chavez Diagnoses at Discharge Discharge Diagnosis (1) Sepsis: Status: Acute (2) Community acquired pneumonia: Status: Acute (3) Atrial fibrillation, new onset: Status: Acute (4) Feeding by G-tube: Status: Acute (5) Hypothyroidism: Status: Acute Qualifiers: Hypothyroidism type: acquired Qualified Code(s): E03.9 - Hypothyroidism, unspecified (6) COPD (chronic obstructive pulmonary disease): Status: Chronic Qualifiers: COPD type: chronic bronchitis Chronic bronchitis type: unspecified Qualified Code(s): J42 - Unspecified chronic bronchitis (7) Depression with anxiety: Status: Acute (8) GERD (gastroesophageal reflux disease): Status: Acute Qualifiers: Esophagitis presence: without esophagitis Qualified Code(s): K21.9 - Gastro-esophageal reflux disease without esophagitis (9) Cigarette smoker: Status: Acute (10) Acute exacerbation of chronic obstructive pulmonary disease: Status: Acute (11) Acute hypoxic respiratory failure: Status: Acute Reason for Visit Reason for Visit: Afib, RVR, Sepsis Pneumonia Hospital Course Hospital Course raine Perez is a 69 year old female with a past medical history significant for hyperlipidemia, hypothyroidism, throat cancer, COPD, and supraventricular tachycardia who transferred from [facility] after presenting with severe weakness. Patient states she was in her usual state of health until about 3 days ago when she developed severe weakness. She states today she had trouble even standing due to lack of strength in her legs. She endorses associated shortness of breath and acute on chronic cough. She describes her cough is productive and last few days has been more productive with copious sputum production. She notes that she wears oxygen at baseline, 4 L. She has a history of throat cancer for which she completed treatment approximately 4 years ago. She does not take anything by mouth and is dependent on Jose Maria tube for intake. She endorses associated chills. Denies fevers, nausea, emesis or chest pain. Exertion worsens symptoms. Denies other alleviating or aggravating factors. Denies recent exposure to sick contacts. Upon presentation to the outside hospital, she was found to be hypotensive. She was found to have newly diagnosed atrial fibrillation with rapid ventricular rate. Patient denies prior known history of atrial fibrillation. Labs revealed: CBC 16.8>12.8/37.5<261 133/4.8/92/27/21/0.98<121 Magnesium 2.2 AST 18 ALT 15 alkaline phosphatase 87 total bili 0.4 albumin 3.6 protein 7.4 Lactic acid 4.7 (ULN 2.0) ESR 57 proBNP 4385 (ULN 125) Initial troponin 22 with 2-hour repeat 17 producing a delta of -5 Urinalysis with negative blood, negative ketones, negative nitrites, negative leukocyte Estrace, 0-2 WBCs, negative bacteria CT chest revealed patchy multifocal L space disease concerning for an infectious inflammatory process, mildly enlarged mediastinal and hilar lymph nodes, moderate pulmonary emphysema, and small bilateral pleural effusions. She was treated with IV fluid bolus, Zosyn, vancomycin dexamethasone, and Levophed. Shock reportedly resolved and she was transition to a Cardizem drip. Upon presentation to [facility] ICU, she is found to be on low-dose Cardizem drip at 2.5. She is converted to normal sinus rhythm. Patient was admitted to [facility] for sepsis secondary to pneumonia, highly suspicious for aspiration pneumonia, COPD exacerbation, CHF exacerbation. For her pneumonia, pulmonary was consulted, she received IV antibiotics, overall clinically improved. On discharge she was advised to abstain from any p.o. feeds, continue her PEG tube feedings as prescribed, discharged on antibiotic therapy, follow-up with pulmonary as outpatient For her COPD exacerbation she received steroid therapy, inhaler therapy overall clinically improved, discharge on a prednisone burst For her CHF exacerbation received IV diuresis, overall clinically improved Patient was found to have new onset A-fib with RVR, she converted to normal sinus rhythm, discharged on Cardizem, Eliquis therapy, with follow-up with cardiology as outpatient For her PEG tube feedings, protein calorie malnutrition, deconditioning, dietary was consulted -diet: boost plus 2.5 cans twice daily, free water flush 100ml every 8 hours Patient had complaints of intermittent right upper quadrant pain -No right upper quadrant pain to palpation to palpation -That she tells me that she is supposed to have a cholecystectomy, but it has been delayed due to her respiratory status and she would like a different surgeon to do her surgery -Ultrasound findings as below US/US gall bladder [id number] IMPRESSION: Gallbladder is poorly visualized with a questionable stone near the gallbladder neck. Self Propelled Dredge Operator does not report on a positive or negative sonographic Costa's sign. -During my examination no significant nausea, vomiting, or right upper quadrant pain to palpation -Nonetheless we will discharge her on ciprofloxacin, Flagyl for 10 days -Monitor for recurrent right upper quadrant pain, nausea, vomiting, fevers if so go to the emergency room as this could be an indicator of severe infection -Referral sent to general surgery in [place] as per patient's request Physical Exam Const: COMMON NORMALS: no acute distress and patient oriented x3 Resp: COMMON NORMALS: normal respiratory effort, No retractions, No use of accessory muscles and clear to auscultation bilaterally AUSCULTATION: clear to auscultation bilaterally Cardio: COMMON NORMALS: regular rate, regular rhythm, S1 normal heart sound present and S2 normal heart sound present RATE: regular rate RHYTHM: regular rhythm HEART SOUNDS: S1 normal heart sound present and S2 normal heart sound present GI: COMMON NORMALS: Normal to inspection, nondistended, normoactive bowel sounds present Extremity: COMMON NORMALS: no pedal edema Neuro: COMMON NORMALS: patient oriented x3 Psych: COMMON NORMALS: mental status grossly normal Discharge Data Studies Completed and Pending Completed Studies During Hospitalization Category Date Time Status CT angio chest PE protcl [id number] Routine Cat Scan 06/16/24 08:55 Completed XR chest 1V portable [id number] Routine Exams 06/14/24 23:26 Completed XR chest 1V portable [id number] Routine Exams 06/17/24 07:00 Completed CV. echo complete* [id number] Routine Ultrasound 06/15/24 23:59 Completed Pending at discharge Category Date Time Status Complete Blood Count w/Auto AM LABS Lab 06/21/24 04:00 Ordered Comprehensive Metabolic Panel AM LABS Lab 06/21/24 04:00 Ordered NT Pro B Type Natriuretic Pept QAM Lab 06/21/24 06:00 Ordered Occult Blood Stool [Immunochemical Fecal OCB] Routine Lab 06/15/24 11:48 Uncollected US gall bladder [id number] Stat Ultrasound 06/20/24 09:50 Taken Radiology Impressions Chest CTA 06/16/24 08:55 IMPRESSION: 1. Proximal main pulmonary arteries are normal. No evidence of pulmonary embolus. 2. Normal caliber thoracic aorta. 3. Small bilateral pleural effusions with compressive atelectasis. Subtotal consolidation LEFT lower lobe. Recommend correlation for pneumonia. Chest X-Ray 06/17/24 07:00 Impression: Interval progression of the infiltrative changes and suspected effusions particularly on the left. Laboratory Results WBC 7.53 10^3/uL (3.29-11.43) 06/20/24 03:42 RBC 3.85 10^6/uL (3.85-5.65) 06/20/24 03:42 Hgb 12.50 g/dL (11.27-16.99) 06/20/24 03:42 Hct 38.2 % (36-47) 06/20/24 03:42 MCV 99.2 fl (85-98) H 06/20/24 03:42 MCH 32.5 pg (27-33) 06/20/24 03:42 MCHC 32.7 g/dL (30-55) 06/20/24 03:42 RDW 12.8 % (12.1-15.1) 06/20/24 03:42 Plt Count 326 10^3/cmm (157-399) 06/20/24 03:42 MPV 10.0 fL (7.4-10.4) 06/20/24 03:42 Neut % (Auto) 79.1 % 06/20/24 03:42 Lymph % (Auto) 6.0 % 06/20/24 03:42 [place] % (Auto) 8.9 % 06/20/24 03:42 Eos % (Auto) 0.3 % 06/20/24 03:42 Baso % (Auto) 0.7 % 06/20/24 03:42 Neut # (Auto) 5.96 10^3/uL (1.8-7.7) 06/20/24 03:42 Lymph # (Auto) 0.5 10^3/uL (0.8-4.8) L 06/20/24 03:42 [place] # (Auto) 0.7 10^3/uL (0.2-0.9) 06/20/24 03:42 Eos # (Auto) 0.0 10^3/uL (0.0-0.8) 06/20/24 03:42 Baso # (Auto) 0.1 10^3/uL (0.0-0.1) 06/20/24 03:42 Nucleated RBC % (auto) 0 % 06/20/24 03:42 Total Counted 100 (0-100) 06/14/24 23:44 Atypical Lymphs % Not Reportable 06/14/24 23:44 Absolute Neutrophils 14.6 10^3/cmm (1.4-6.5) H 06/14/24 23:44 Segmented Neutrophils 73 % 06/14/24 23:44 Abs Segm Neuts (Man) 11.0 10/cmm (1.6-7.1) H 06/14/24 23:44 Band Neutrophils 24.0 % 06/14/24 23:44 Abs Band Neuts (Man) 3.6 10^3/cmm (0.0-1.2) H 06/14/24 23:44 Lymphocytes (Manual) 0 % 06/14/24 23:44 Monocytes (Manual) 3.0 % 06/14/24 23:44 Absolute Monocytes 0.5 10^3/cmm (0.1-0.6) 06/14/24 23:44 Eosinophils (Manual) 0 % 06/14/24 23:44 Absolute Eosinophils 0.0 10^3/cmm (0.0-0.7) 06/14/24 23:44 Basophils (Manual) 0.0 % 06/14/24 23:44 Absolute Basophils 0.0 10^3/cmm (0.0-0.2) 06/14/24 23:44 Nucleated RBCs # 0.0 /100WBC 06/20/24 03:42 Platelet Estimate Normal (Normal) 06/14/24 23:44 Sodium 138 mmol/L (136-145) 06/20/24 03:42 Potassium 4.1 mmol/L (3.5-5.1) 06/20/24 03:42 Chloride 95 mmol/L (98-107) L 06/20/24 03:42 Carbon Dioxide 34 mmol/L (22-29) H 06/20/24 03:42 Anion Gap 13.1 (5-19) 06/20/24 03:42 BUN 27 mg/dL (8-23) H 06/20/24 03:42 Creatinine 0.5 mg/dL (0.5-0.9) 06/20/24 03:42 GFR Calculation Not Reportable 06/20/24 03:42 Glucose 84 mg/dL (65-115) 06/20/24 03:42 Calculated Osmolality 290 mOsm/kg (285-295) 06/20/24 03:42 Lactic Acid 2.1 mmol/L (0.5-2.2) 06/16/24 08:39 Lactic Acid (Sepsis) 1.8 mmol/L (0.5-2.2) 06/16/24 11:56 Lactate 2.4 mmol/L (0.5-2.2) H 06/18/24 02:46 Calcium 8.7 mg/dL (8.5-10.5) 06/20/24 03:42 Phosphorus 3.3 mg/dL (2.5-4.5) 06/14/24 23:44 Magnesium 2.0 mg/dL (1.7-2.3) 06/14/24 23:44 Iron 16 ug/dL (37-145) L 06/15/24 05:35 TIBC 177 mcg/dl 06/15/24 05:35 % Saturation 9.0 % (20-50) L 06/15/24 05:35 Unsat Iron Binding 161 ug/dL (112-347) 06/15/24 05:35 Ferritin 256 ng/mL (15-150) H 06/15/24 05:35 Total Bilirubin 0.2 mg/dL (0.15-1.2) 06/20/24 03:42 AST 12 U/L (0-32) 06/20/24 03:42 ALT 14 U/L (0-33) 06/20/24 03:42 Alkaline Phosphatase 72 U/L (35-105) 06/20/24 03:42 Troponin T Baseline 15 ng/L (0-10) H 06/15/24 11:22 Troponin T 120 Minute 14.94 ng/L (0-10) H 06/15/24 13:30 Delta Troponin T -0.06 ABS# (0-10) L 06/15/24 13:30 Troponin T Hi Sens 6Hr 15.67 ng/L (0-10) H 06/15/24 17:24 Troponin T Hi Sens 6Hr Delta 0.67 ng/L (0-12) 06/15/24 17:24 C-Reactive Protein 23.1 mg/L (0.0-4.9) H 06/19/24 03:18 NT-Pro-B Natriuret Pep 1968 pg/mL (0-125) H 06/20/24 03:42 Total Protein 5.3 g/dL (6.6-8.7) L 06/20/24 03:42 Albumin 3.3 g/dL (3.5-5.2) L 06/20/24 03:42 Globulin 2.0 g/dL (1.3-4.6) 06/20/24 03:42 Vitamin B12 1483 pg/mL (232-1245) H 06/15/24 05:35 Folate 12.5 ng/mL (4.8-37.3) 06/15/24 05:35 Procalcitonin 0.91 ng/mL (0-0.5) H 06/18/24 02:46 TSH 0.93 uIU/mL (0.27-4.20) 06/14/24 23:44 Urine Color Yellow (Yellow) 06/15/24 00:03 Urine Appearance Clear (CLEAR) 06/15/24 00:03 Urine pH 6.5 (5-7) 06/15/24 00:03 Ur Specific [place] 1.049 (1.005-1.030) H 06/15/24 00:03 Urine Protein Trace (Negative) A 06/15/24 00:03 Urine Glucose (UA) Trace (Normal) H 06/15/24 00:03 Urine Ketones Negative (Negative) 06/15/24 00:03 Urine Blood Negative (Negative) 06/15/24 00:03 Urine Nitrate Negative (Negative) 06/15/24 00:03 Urine Bilirubin Negative (Negative) 06/15/24 00:03 Urine Urobilinogen 1.0 mg/dL (Negative) 06/15/24 00:03 Ur Leukocyte Esterase Negative (Negative) 06/15/24 00:03 Urine RBC 0-2 /hpf (0-2) 06/15/24 00:03 Urine WBC 0-5 /hpf (0-5) 06/15/24 00:03 Ur Squamous Epith Cells 0-5 /hpf (0-5) 06/15/24 00:03 Amorphous Sediment Not Reportable 06/15/24 00:03 Urine Bacteria None seen /hpf (NONE) 06/15/24 00:03 Hyaline Casts 0.40 /lpf 06/15/24 00:03 Vancomycin Trough 16.6 ug/mL (10-15) H 06/18/24 02:46 Adenovirus (PCR) Not detected (NOT DETECT) 06/15/24 08:05 C. pneumoniae DNA (PCR) Not detected (NOT DETECT) 06/15/24 08:05 Coronavirus 229E (PCR) Not detected (NOT DETECT) 06/15/24 08:05 Human Metapneumovir PCR Not detected (NOT DETECT) 06/15/24 08:05 Influenza A (H1) PCR Not detected (NOT DETECT) 06/15/24 08:05 Influ A (H1/09) PCR Not detected (NOT DETECT) 06/15/24 08:05 Influenza A (H3) PCR Not detected (NOT DETECT) 06/15/24 08:05 Influenza Type A (PCR) Not detected (NOT DETECT) 06/15/24 08:05 Influenza Type B (PCR) Not detected (NOT DETECT) 06/15/24 08:05 M. pneumoniae (PCR) Not detected (NOT DETECT) 06/15/24 08:05 Parainfluenza 1 (PCR) Not detected (NOT DETECT) 06/15/24 08:05 Parainfluenza 2 (PCR) Not detected (NOT DETECT) 06/15/24 08:05 Parainfluenza 3 (PCR) Not detected (NOT DETECT) 06/15/24 08:05 Parainfluenza 4 (PCR) Not detected (NOT DETECT) 06/15/24 08:05 RSV Type A (PCR) Not detected (NOT DETECT) 06/15/24 08:05 RSV Type B (PCR) Not detected (NOT DETECT) 06/15/24 08:05 Entero/Rhino (PCR) Not detected (NOT DETECT) 06/15/24 08:05 SARS-CoV-2 (PCR) Not detected (NOT DETECT) 06/15/24 08:05 MRSA (PCR) Not detected (NOT DETECTED) 06/14/24 23:46 Vitals Last Vital Signs Temp 98.2 F 06/20/24 07:29 Pulse 67 06/20/24 08:54 Resp 16 06/20/24 09:32 BP 125/81 06/20/24 07:29 Pulse Ox 93 06/20/24 08:54 O2 Del Method Nasal Cannula 06/20/24 08:54 O2 Flow Rate 4 06/20/24 08:54 Discharge Plan Discharge Patient Disposition: Home Condition: Stable Prescriptions: New Eliquis 5 mg Tablet 5 mg peg-tube BID@0900,2100 30 Days Qty: 60 0RF prednisone 20 mg Tablet 40 mg feeding tube DAILY 5 Days Qty: 10 0RF diltiazem HCl [Cardizem CD] 120 mg capsule,extended release 24hr 120 mg PO DAILY 30 Days Qty: 30 0RF ciprofloxacin HCl 500 mg tablet 500 mg PO BID 10 Days Qty: 20 0RF Rx Instructions: start 06/21/2024 metronidazole 500 mg tablet 500 mg PO Q8H 10 Days Qty: 30 0RF Continued (DME) bolus feed extension set with cath tip Secur[employer]au straight connector and clamp See Rx Instructions .Route .MEDSUPPLY Qty: 12 3RF Rx Instructions: As directed (DME) 6mL leur slip syringe See Rx Instructions .Route .MEDSUPPLY Qty: 12 3RF Rx Instructions: As directed (DME) Ensure See Rx Instructions .Route .MEDSUPPLY Qty: 12 11RF Rx Instructions: 1 pack=24 which last 6 days. Will need 4 pkg per month. oxycodone 5 mg/5 mL solution 5 mg PO QID PRN (Reason: Pain) PopJam 160-9-4.8 mcg/actuation HFA aerosol inhaler 2 inh inhalation BID Qty: 10.7 0RF lisinopril 10 mg tablet 10 mg PO DAILY PRN (Reason: hypertensive emergency) Qty: 30 0RF Rx Instructions: as needed as blood pressure increases albuterol sulfate 2.5 mg /3 mL (0.083 %) solution for nebulization 2.5 mg INHALATION Q8H Qty: 90 0RF Hold Instructions: Resume on 12/15/23. hold while taking duoneb and budesonide Rx Instructions: COPD, respiratory failure albuterol sulfate 90 mcg/actuation HFA aerosol inhaler 1 inh inhalation QID PRN (Reason: Shortness Of Breath) naloxone 4 mg/actuation spray,non-aerosol 1 spray INTRANASAL Q3M PRN (Reason: Opioid Overdose) Reglan 10 mg Tablet 10 mg feeding tube BID Rx Instructions: before feeding- 2 a day clonazepam 0.5 mg tablet 0.5 mg feeding tube DAILY levothyroxine 88 mcg tablet 88 mcg feeding tube DAILY Rx Instructions: TAKE 1 TABLET BY MOUTH ONCE DAILY FOR 60 DAYS. (STOP 75MCG) INCREASING DOSE. trazodone 100 mg tablet 100 mg feeding tube BEDTIME Rx Instructions: TAKE ONE TABLET BY MOUTH daily. famotidine 40 mg/5 mL (8 mg/mL) suspension for reconstitution 5 ml feeding tube BEDTIME Rx Instructions: TAKE 5 ML BY MOUTH TWICE DAILY FOR STOMACH ACID BUILD UP escitalopram oxalate 20 mg tablet 10 mg feeding tube DAILY Rx Instructions: take 1 tablet by mouth once daily cyclobenzaprine 5 mg tablet 5 mg feeding tube BID Rx Instructions: TAKE ONE TABLET BY MOUTH TWICE DAILY as needed for pain Discontinued ibuprofen 100 mg/5 mL Suspension 200 mg PO Q6H PRN (Reason: Pain) mexiletine 250 mg capsule 250 mg feeding tube DAILY Rx Instructions: before 2nd feeding Discharge Orders: Discharge Order (Routine); Ordered 06/20/24 Ordered By: Thomas Wilson Other Ambulatory Orders: DME: Ru (Order) Location: None Selected Ordered By: Thomas Wilson Referrals: Zoie Jean-Baptiste MD [Physician] - 06/27/24 2:30 pm () Yo Fong MD [Referring] - 1 month (cholecystectomy We have notified your physician's clinic of the need for a follow-up appointment to be scheduled. If you have not heard from them within the next 2 business days, please call them directly. SENT REFERRAL) Lionel Williamson M.D [Physician] - 1 week (We have notified your physician's clinic of the need for a follow-up appointment to be scheduled. If you have not heard from them within the next 2 business days, please call them directly. ) Prosper Cox FNP [Primary Care Provider] - 06/23/24 10:20 am Discharge Diet: As Directed Discharge Activity: Resume usual activity Patient Instructions: Opioid Safety Activity Restrictions/Additional Instructions: -if you have recurrent fever or shortness of breath go to emergency room -please see primary care this week -fo your gallbladder if you have nausea, vomiting, or right upper quadrant pain go to emergency room -diet: boost plus 2.5 cans twice daily, free water flush 100ml every 8 hours Discharge Attestations Time Spent in Discharge Care*: greater than 30 min Quality Metrics Clinical Quality Measures [ No reported AMI, CVA or VTE this stay] Coding Level of Care Code 87802 Total time (in minutes) for Discharge: 45 Diagnoses Sepsis A41.9 Community acquired pneumonia J18.9 Atrial fibrillation, new onset I48.91 Feeding by G-tube Z93.1 Acquired hypothyroidism E03.9 Hypothyroidism type: acquired Chronic bronchitis, unspecified chronic bronchitis type J42 COPD type: chronic bronchitis Chronic bronchitis type: unspecified Depression with anxiety F41.8 Gastroesophageal reflux disease without esophagitis K21.9 Esophagitis presence: without esophagitis Cigarette smoker F17.210 Acute exacerbation of chronic obstructive pulmonary disease J44.1 Acute hypoxic respiratory failure J96.01
--- NOTE | 2024-06-20 12:36 | PC.SOCIAL ---
IMM Update pg 2 of IMM updated and reviewed w/ patient. Copy provided and copy dated, initialed and placed in chart.
== END 2024-06-20 14:15 | disposition home or self-care (01) | DRG 871 ==
LOC: ICU 06-15 07:27 → MEDSURG 06-17 19:54
PROVIDERS: Admitting Provider Internal Medicine; PCP Registered Nurse; Visit Provider Family Medicine
DX: A41.9 Sepsis, unspecified organism (principal); I50.33 Acute on chronic diastolic (congestive) heart failure; J69.0 Pneumonitis due to inhalation of food and vomit; J96.21 Acute and chronic respiratory failure with hypoxia; J44.1 Chronic obstructive pulmonary disease with (acute) exacerbation; E46 Unspecified protein-calorie malnutrition; Z68.1 Body mass index [BMI] 19.9 or less, adult; I48.91 Unspecified atrial fibrillation; E03.9 Hypothyroidism, unspecified; F17.210 Nicotine dependence, cigarettes, uncomplicated; F41.8 Other specified anxiety disorders; K21.9 Gastro-esophageal reflux disease without esophagitis; I11.0 Hypertensive heart disease with heart failure; R10.11 Right upper quadrant pain; Z93.1 Gastrostomy status; Z99.81 Dependence on supplemental oxygen; Z85.818 Personal history of malignant neoplasm of other sites of lip, oral cavity, and pharynx; Z92.3 Personal history of irradiation; Z92.21 Personal history of antineoplastic chemotherapy; Z79.891 Long term (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 analgesic
CPT/HCPCS: 36415; 71045; 71275; 76705; 80048; 80053; 80202; 81001; 82607; 82728; 82746; 83540; 83550; 83605; 83735; 83880; 84100; 84145; 84443; 84484; 85007; 85025; 86140; 86403; 87040; 87070; 87077; 87186; 87205; 87486; 87581; 87633; 87641; 93005; 93306; 94640; 94668; 97110; 97116; 97162; 97165; 97530; 97535; J0456; J0692; J1940; J2270; J2405; J2470; J2919; J3370; J7040; J7050; J7512; J7614; J7626; Q9967

== ENCOUNTER → 2024-06-27 14:27 | Outpatient (BNVA) | payer MEDICARE, MEDICAID, SELFPAY | PROVIDERS: PCP Registered Nurse; Visit Provider Internal Medicine Critical Care Medicine | DX: I48.91 Unspecified atrial fibrillation (principal); J96.21 Acute and chronic respiratory failure with hypoxia; J96.22 Acute and chronic respiratory failure with hypercapnia; J69.0 Pneumonitis due to inhalation of food and vomit; J44.9 Chronic obstructive pulmonary disease, unspecified; K21.9 Gastro-esophageal reflux disease without esophagitis; E46 Unspecified protein-calorie malnutrition; Z68.1 Body mass index [BMI] 19.9 or less, adult; F17.210 Nicotine dependence, cigarettes, uncomplicated; Z71.89 Other specified counseling; Z71.6 Tobacco abuse counseling; Z71.82 Exercise counseling | CPT/HCPCS: 99214 ==

== ENCOUNTER 2024-10-26 03:12 | Inpatient (IN) | payer MEDICARE, MEDICAID, SELFPAY ==
[2024-10-26] VITALS (29 sets, daily range): BP systolic 95–111; BP diastolic 52–65; PULSE 66–86; RESP 15–35; TEMP 36.6–37; O2SAT 5–95; BMI 17.3
--- OUTSIDE RECORDS SUMMARY | 2024-10-26 03:16 | XMS_ITS ---
Author Name Unknown Organization [facility] Address [address] [place], [place] [id number] Care Team Providers Care Workers' Compensation Claims Supervisor Name Role Phone Prosper Harris Primary Care Provider Unav yanet Gordon MD, Maurice Unavailable [phone] Allergies No Known Allergies REASON FOR VISIT Patient states she is here today for neck pain. Medications Medication SIG (Take, Route, Frequency, Duration) Notes Start Date End Date Status escitalopram 10 mg 1 tab(s) orally once a day for 30 day(s) Active famotidine 40 mg 1 tab(s) orally once a day (at bedtime) Active cyclobenzaprine 10 mg 1 tab(s) orally 3 times a day Active dilTIAZem 120 mg/12 hours 1 cap(s) orally every 12 hours for 30 day(s) Active Eliquis 5 mg as directed orally 2 times a day for 30 day(s) Active oxyCODONE 5 mg/5 mL 5 milliliters orally Q4H prn pain (max 25 milliliters per day; hold within 4H of planned sleep) for 28 days Do not fill prior to 09/22/24. ICD-10: G89.29 08/25/2024 Active oxyCODONE 5 mg/5 mL 5 milliliters orally Q4H prn pain (max 25 milliliters per day; hold within 4H of planned sleep) for 28 days ICD-10: G89.29 08/25/2024 Active clonazePAM 0.5 mg 1 tab(s) orally once a day Active Anoro Ellipta 62.5 mcg-25 mcg/inh 1 puff(s) inhaled once a day for 30 day(s) Active cetirizine 1 mg/mL 2.5 mL orally once a day Active predniSONE 5 mg/5 mL 5 mL orally once a day for 30 day(s) Active traZODone 100 mg 1 tab(s) orally once a day Active lisinopril 10 mg 1 tab(s) orally once a day for 30 day(s) Active metoclopramide 10 mg 1 tab(s) orally 4 times a day (before meals and at bedtime) for 30 day(s) Active Narcan 4 mg/0.1 mL as directed intranasally once 10/16/2022 Active levothyroxine 75 mcg (0.075 mg) 1 tab(s) orally once a day for 30 day(s) Active Social History Tobacco Use: Social History Observation Description Date Details (start date - stop date) Current Smoker NA - NA alcohol Question Answer Notes Did you have [...] min When did you start smoking? 1972 Vital Signs Temperature 95.0 degrees Fahrenheit 08/25/20 Blood pressure systolic 183 mm Hg 08/25/20 Blood pressure diastolic 91 mm Hg 024 Height 65 in 08/25/2024 Weight 104.4 lbs 08/25/2024 Oximetry 89 % 08/25/2024 BMI 17.37 kg/m2 08/25/2024 Encounters Encounter Location Date Provider Diagnosis [facility] [address] [place], [place] [id number] 08/25/2024 Maurice Gordon Cervicalgia M54.2 ; Other chronic pain G89.29 and Other sleep disorders G47.8 Assessments Encounter Date Diagnosis (ICD Code) Assessment Notes Treatment Notes Treatment Clinical Notes Section Notes 08/25/2024 Cervicalgia (ICD-10 - M54.2) Chronic axial cervical spine pain. 08/25/2024 Other chronic pain (ICD-10 - G89.29) Patient reports that taking her pain medication allows her to complete light housekeeping chores. Plan to continue oral opioid medication management. 08/25/2024 Other sleep disorders (ICD-10 - G47.8) Plan to continue to restrict opioid use in relation to sleep for safety concerns. 08/25/2024 Other The service was provided by JIMMIE Decker, as part of the ongoing care plan established by Maurice Gordon MD, who was present in the office for direct supervision during the encounter. Plan Of Treatment Medication Medication Name Sig Start Date Stop Date Notes oxyCODONE 5 mg/5 mL 5 milliliters orally Q4H prn pain (max 25 milliliters per day; hold within 4H of planned sleep) for 28 days 08/25/2024 Do not fill prior to 09/22/24. ICD-10: G89.29 oxyCODONE 5 mg/5 mL 5 milliliters orally Q4H prn pain (max 25 milliliters per day; hold within 4H of planned sleep) for 28 days 08/25/2024 ICD-10: G89.29 Treatment Notes Assessment Notes Cervicalgia Chronic axial cervic al spine pain. Other chronic pain Patient reports that taking her pain medication allows her to complete light housekeeping chores. Plan to continue oral opioid medication management. Other sleep disorders Plan to continue t o restrict opioid use in relation to sleep for safety concerns. Other The service was prov ided by JIMMIE Decker, as part of the ongoing care plan established by Maurice Gordon MD, who was present in the office for direct supervision during the encounter. Next Appt Details Follow Up: 2 month Rx visit. , Reason: Provider Name:Maurice Anderson son, 12/15/2024 11:40:00 AM, [address], [place], [place], [id number], Progress Notes * Claudia CARTER LDOB:[birth year] (69 yo F)Acc No.[id number]:08/25/2024 Patient:?Claudia CARTER Provider:?Maurice Gordon :1955???Age:69 Y???Sex:Female D ate:08/25/2024 Address:[address] [place] [address] Pcp:JIMMIE Chavez Subjective: * Chief Complaints: * ???Patient states she is her e today for neck pain. * HPI: ???Cervical Spine:?69 year old female presents with c/o pain?for?chronic duration?in the left posterior neck. This pain is described as intermittent aching with tightness. This pain extends into right shoulder and RUE. The neck pain is aggravated by wearing heavy clothing, with head rotation, and all lifting. This pain is somewhat alleviated with OTC topical gels, a heating pad, and with rest.?c/o numbness and tingling?in the entire right hand including all fingers.?Denies : pain radiating.?Denies : weakness.?Denies : headache(s):.?Denies : injury:.?Denies : previous surgery:.?Previous Therapy:?Previous therapy:?heat therapy with some benefit; home exercises / stretching therapy with some benefit; topical agent therapy?with some benefit; physical therapy with history of no benefit (2020); prior medication management / opioid therapy?by Dr. Ojeda via [facility] pain clinic with history of benefit; injection therapy via this facility = remote [facility] with history of good benefit.?Medication history:?Boncarbo 7.5/325; Flexeril 10 mg; Flexeril 5 mg; diazepam 2 mg.?Medications:?oxycodone/acetaminophen?5 mg/5 mL, 5 ml, orally, Q4H prn pain (max 25 ml per day; hold within 4H of planned sleep), 28 days, 700 Milliliter, Refills 0.Notes: Prescriptions given (2) on 06/30/24. Patient reports good benefit, as evidenced by improved ability to help care for grandchild, fold clothes and get around in the house, with quantity 50 ml and 0 prescription(s) remaining.Last fill date 07/28/24.? * ROS:?14 point review of systems negative. * Medical History:? * Surgical History:?Tonsillect rosa, 1965Repair of shoulder fracture, right, 2006Placement of port and feeding tube, performed at [facility] by Dr. Paez, 2019Cataract surgeries, bilateral, performed at [facility] by Dr. España, 07/2022, 08/2022 * Hospitalization/Major Diagno stic Procedure:?Gall bladder infection Collapsed lung, 2019Flu, 2020Neck pain, treated at [facility] in [place], [place], 1RSV - low oxygen, treated at [facility], 11/2023Sepsis, pneumonia and A-fib, treated at [facility], 06/2024 * Family History:?Father: dece ased 52 yrs, cirrhosis.?Mother: 45 yrs, myocardial infarction.? * Social History:?Tobacco use?:?current smoker ?Are you interested in quitting??Not ready to quit ?How many cigarettes a day do you smoke??6-10 ?How often do you smoke cigarettes??every day ?How soon after you wake up do you smoke your first cigarette??within 5 min ?When did you start smoking??1972 ???Marijuana: no. ???Meth: no. ???Other illicit drug use: no. ???Alcohol: yes?Did you have a drink containing alcohol in the past year??No ?Points?0 ?Interpretation?Negative ???: no. ???Children: 3. ???Education: highest grade completed = 12th. ???Occupation: no, reportedly disabled. ???Exercise: no. ???History of welding/metal work: no. ???Travel: no. * Medications:?TakingAnoro Ell ipta(umeclidinium-vilanterol) 62.5 mcg-25 mcg/inh powder 1 puff(s) inhaled once a day cetirizine 1 mg/mL syrup 2.5 mL orally once a day clonazePAM 0.5 mg tablet, disintegrating 1 tab(s) orally once a day cyclobenzaprine 10 mg tablet 1 tab(s) orally 3 times a day dilTIAZem 120 mg/12 hours capsule, extended release 1 cap(s) orally every 12 hours Eliquis(apixaban) 5 mg tablet as directed orally 2 times a day escitalopram 10 mg tablet 1 tab(s) orally once a day famotidine 40 mg tablet 1 tab(s) orally once a day (at bedtime) levothyroxine 75 mcg (0.075 mg) tablet 1 tab(s) orally once a day lisinopril 10 mg tablet 1 tab(s) orally once a day metoclopramide 10 mg tablet 1 tab(s) orally 4 times a day (before meals and at bedtime) Narcan(naloxone) 4 mg/0.1 mL spray as directed intranasally once oxyCODONE 5 mg/5 mL solution 5 ml orally Q4H prn pain (max 25 ml per day; hold within 4H of planned sleep) predniSONE 5 mg/5 mL solution 5 mL orally once a day traZODone 100 mg tablet 1 tab(s) orally once a day Medication List reviewed and reconciled with the patientTaking Anoro Ellipta(umeclidinium-vilanterol) 62.5 mcg-25 mcg/inh powder 1 puff(s) inhaled once a day Taking cetirizine 1 mg/mL syrup 2.5 mL orally once a day Taking clonazePAM 0.5 mg tablet, disintegrating 1 tab(s) orally once a day Taking cyclobenzaprine 10 mg tablet 1 tab(s) orally 3 times a day Taking dilTIAZem 120 mg/12 hours capsule, extended release 1 cap(s) orally every 12 hours Taking Eliquis(apixaban) 5 mg tablet as directed orally 2 times a day Taking escitalopram 10 mg tablet 1 tab(s) orally once a day Taking famotidine 40 mg tablet 1 tab(s) orally once a day (at bedtime) Taking levothyroxine 75 mcg (0.075 mg) tablet 1 tab(s) orally once a day Taking lisinopril 10 mg tablet 1 tab(s) orally once a day Taking metoclopramide 10 mg tablet 1 tab(s) orally 4 times a day (before meals and at bedtime) Taking Narcan(naloxone) 4 mg/0.1 mL spray as directed intranasally once Taking oxyCODONE 5 mg/5 mL solution 5 ml orally Q4H prn pain (max 25 ml per day; hold within 4H of planned sleep) Taking predniSONE 5 mg/5 mL solution 5 mL orally once a day Taking traZODone 100 mg tablet 1 tab(s) orally once a day Medication List reviewed and reconciled with the patient * Allergies:?N.K.D.A.no[Allerg ies Verified] Objective: * Vitals:?Pain Scale: 6 (0-10) , Pain average: 5-6, Pain Range: 2-9, Ht:65in, Wt:104.4lbs, BMI:17.37index, BP:183/91mm Hg, HR:77, RR:20, Temp:95.0, SaO2: 89, Repeat BP 1: 180/84. * Physical Examination:?General:?General appearence:?well groomed, well nourished.?Build:?underweigt.?Head:?normocephalic.?Eyes:?Conjunctiva:?without injection.?ENT:?Hearing:?grossly intact.?Oral cavity:?mask in place.?Chest:?Shape and expansion:?normal expansion, equal bilaterally, respirations even and unlabored; oxygen at?4 liters per minute via nasal canula.?Neurological:?Psychiatric:?alert and conversant.?Musculoskeletal:?Gait:?stooped.?Outcome Assessment:?Findings:?Negative, care plan not required ???Dermatology:?Skin inspection:?pink, warm, dry, and intact.? Therapeutic Interventions: Assessment: * Assessment: 1.?Cervicalgia - M54.2 (Prim yomaira)???2.?Other chronic pain - G89.29???3.?Other sleep disorders - G47.8??? Plan: * Treatment: 2.?Other chronic pain? Notes: Patient reports that taking her pain medication allows her to complete light housekeeping chores. Plan to continue oral opioid medication management.?? 3.?Other sleep disorders? Notes: Plan to continue to restrict opioid use in relation to sleep for safety concerns.?? 4.?Others? Continue oxyCODONE solution, 5 mg/5 mL, 5 milliliters, orally, Q4H prn pain (max 25 milliliters per day; hold within 4H of planned sleep), 28 days, 700 Milliliter, Refills 0, Notes to Pharmacist: ICD-10: G89.29;?Continue oxyCODONE solution, 5 mg/5 mL, 5 milliliters, orally, Q4H prn pain (max 25 milliliters per day; hold within 4H of planned sleep), 28 days, 700 Milliliter, Refills 0, Notes to Pharmacist: Do not fill prior to 09/22/24. ICD-10: G89.29.?? Notes: The service was provided by JIMMIE Decker, as part of the ongoing care plan established by Maurice Gordon MD, who was present in the office for direct supervision during the encounter.?? Prescription Drug Monitoring Program (PDMP) PDMP report request complete d on 08/25/2024 01:46:37 PM - Maurice Gordon * Procedure Codes:? * Preventive Medicine:? ??Counseling:?Pain Management:?Follow-up Plan documented:?Yes ?Pain Screening:?6 ?BP Management?LIFESTYLE RECOMMENDATION:?Lifestyle education regarding hypertension - patient education sheet given on 08/25/2024 ?Communication to patient:?Counseled the Patient on smoking cessation, education provided?08/25/2024 ??Screening / Special Tests:?Fall Risk?Screening:?No falls in the past year as of: 08/25/2024 * Follow Up:?2 month Rx visit. * Images: * Sign off status: Completed true * Provider:?Maurice Gordon Date:?08/25/20 24 Generated for Susy gallego/Ketty/eTransmitting on:?10/26/2024 03:16 AM [employer] History and Physical Notes * HPI (History of Present Illness) Category Sub-Category Detail Notes Category Not es Cervical Spine injury: numbness and tingling in the entire righ t hand including all fingers pain radiating pain in the left posterio r neck. This pain is described as intermittent aching with tightness. This pain extends into right shoulder and RUE. The neck pain is aggravated by wearing heavy clothing, with head rotation, and all lifting. This pain is somewhat alleviated with OTC topical gels, a heating pad, and with rest weakness previous surgery: headache(s): Medications oxycodone/acetaminophen 5 mg/5 m L, 5 ml, orally, Q4H prn pain (max 25 ml per day; hold within 4H of planned sleep), 28 days, 700 Milliliter, Refills 0. Notes: Prescriptions given (2) on 06/30/24. Patient reports good benefit, as evidenced by improved ability to help care for grandchild, fold clothes and get around in the house, with quantity 50 ml and 0 prescription(s) remaining. Last fill date 07/28/24 Previous Therapy Previous therapy: heat therapy with some benefit; home exercises / stretching therapy with some benefit; topical agent therapy with some benefit; physical therapy with history of no benefit (2020); prior medication management / opioid therapy by Dr. Ojeda via [facility] pain clinic with history of benefit; injection therapy via this facility = remote [facility] with history of good benefit Medication history: Boncarbo 7.5/325; Flexe ril 10 mg; Flexeril 5 mg; diazepam 2 mg Physical Examination Category Sub-Category Detail Notes Section Note s ENT Oral cavity: mask in place Hearing: grossly intact Chest Shape and expansion: normal expa nsion, equal bilaterally, respirations even and unlabored; oxygen at 4 liters per minute via nasal canula Neurological Psychiatric: alert and conversant Musculoskeletal Gait: stooped Outcome Assessment: Findings:: Negative, care pl an not required Dermatology Skin inspection: pink, warm, dry, and int act General General appearence: well groomed, well no urished Build: underweigt Head: normocephalic Eyes Conjunctiva: without injection
--- OUTSIDE RECORDS SUMMARY | 2024-10-26 03:16 | XMS_ITS ---
Author Name Unknown Organization [facility] Address [address] [place], [place] [id number] Care Team Providers Care Climatology Professor Name Role Phone Prosper Harris Primary Care Provider Unav yanet Gordon MD, Maurice Unavailable [phone] Allergies No Known Allergies REASON FOR VISIT Patient states she is here today for neck pain. Medications Medication SIG (Take, Route, Frequency, Duration) Notes Start Date End Date Status Anoro Ellipta 62.5 mcg-25 mcg/inh 1 puff(s) inhaled once a day for 30 day(s) Active Narcan 4 mg/0.1 mL as directed intranasally once 10/16/2022 Active predniSONE 5 mg/5 mL 5 mL orally once a day for 30 day(s) Active oxyCODONE 5 mg/5 mL 5 milliliters orally Q4H prn pain (max 25 milliliters per day; hold within 4H of planned sleep) for 28 days Do not fill prior to 11/17/24. ICD-10: G89.29 10/20/2024 Active traZODone 100 mg 1 tab(s) orally once a day Active metoclopramide 10 mg 1 tab(s) orally 4 times a day (before meals and at bedtime) for 30 day(s) Active lisinopril 10 mg 1 tab(s) orally once a day for 30 day(s) Active oxyCODONE 5 mg/5 mL 5 milliliters orally Q4H prn pain (max 25 milliliters per day; hold within 4H of planned sleep) for 28 days ICD-10: G89.29 10/20/2024 Active levothyroxine 75 mcg (0.075 mg) 1 tab(s) orally once a day for 30 day(s) Active famotidine 40 mg 1 tab(s) orally once a day (at bedtime) Active cyclobenzaprine 10 mg 1 tab(s) orally 3 times a day Active clonazePAM 0.5 mg 1 tab(s) orally once a day Active dilTIAZem 120 mg/12 hours 1 cap(s) orally every 12 hours for 30 day(s) Active escitalopram 10 mg 1 tab(s) orally once a day for 30 day(s) Active Eliquis 5 mg as directed orally 2 times a day for 30 day(s) Active cetirizine 1 mg/mL 2.5 mL orally once a day Active Social History Tobacco Use: Social History [...] you start smoking? 1972 Vital Signs Temperature 97.5 degrees Fahrenheit 10/20/20 24 Height 65 in 10/20/2024 Oximetry 87 % 10/20/2024 Encounters Encounter Location Date Provider Diagnosis [facility], [address] [id number] 10/20/2024 Maurice Gordon Cervicalgia M54.2 ; Other chronic pain G89.29 and Other sleep disorders G47.8 Assessments Encounter Date Diagnosis (ICD Code) Assessment Notes Treatment Notes Treatment Clinical Notes Section Notes 10/20/2024 Cervicalgia (ICD-10 - M54.2) Chronic axial cervical spine pain. 10/20/2024 Other chronic pain (ICD-10 - G89.29) Patient reports that taking her pain medication allows her to spend time with family. She states she has talked to her pharmacist about the availability of liquid hydrocodone. She would like to transition back to that if her pharmacy can keep it in stock. Will consider at next office visit pending the pharmacy's ability to keep it in stock. Plan to continue oral opioid medication management. 10/20/2024 Other sleep disorders (ICD-10 - G47.8) Plan to continue to restrict opioid use in relation to sleep for safety concerns. 10/20/2024 Other The service was provided by JIMMIE [...] 4H of planned sleep) for 28 days 10/20/2024 Do not fill prior to 11/17/24. ICD-10: G89.29 oxyCODONE 5 mg/5 mL 5 milliliters orally Q4H prn pain (max 25 milliliters per day; hold within 4H of planned sleep) for 28 days 10/20/2024 ICD-10: G89.29 Treatment Notes Assessment Notes Cervicalgia Chronic axial cervic al spine pain. Other chronic pain Patient reports that taking her pain medication allows her to spend time with family. She states she has talked to her pharmacist about the availability of liquid hydrocodone. She would like to transition back to that if her pharmacy can keep it in stock. Will consider at next office visit pending the pharmacy's ability to keep it in stock. Plan to continue oral opioid medication management. [...] Name:Maurice Anderson son, 12/15/2024 11:40:00 AM, [address] [facility], [place], [place], [id number], Progress Notes * Claudia CARTER LDOB:[birth year] (69 yo F)Acc No.[id number]:10/20/2024 Patient:?Claudia CARTER Provider:?Maurice Gordon :1955???Age:69 Y???Sex:Female D ate:10/20/2024 Address:[address] [place] [address] , [facility] Pcp:JIMMIE Chavez Subjective: * Chief Complaints: * ???Patient states she is her e today for neck pain. * HPI: ???Cervical Spine:?69 year old female presents with c/o pain?for?chronic duration?in the left posterior neck. This pain is described as intermittent aching with tightness.This pain extends into right shoulder and RUE.The neck pain is aggravated by wearing heavy clothing, with head rotation, and all lifting.This pain is somewhat alleviated with OTC topical gels, a heating pad, and with rest. Patient states her symptoms remain fairly consistent from day to day.?c/o numbness and tingling?in the entire right hand including all fingers.?Denies : pain radiating.?Denies : weakness.?Denies : headache(s):.?Denies : injury:.?Denies : previous surgery:.?Previous Therapy:?Previous therapy:?heat therapy with some benefit; home exercises / stretching therapy with some benefit; topical agent therapy?with some benefit; physical therapy with history of no benefit (2020); prior medication management / opioid therapy?by Dr. Ojeda via [facility] pain clinic with history of benefit; injection therapy via this facility = remote [facility] with history of good benefit.?Medication history:?Townley 7.5/325; Flexeril 10 mg; Flexeril 5 mg; diazepam 2 mg.?Medications:?oxycodone/acetaminophen?solution, 5 mg/5 mL, 5 milliliters, orally, Q4H prn pain (max 25 milliliters per day; hold within 4H of planned sleep), 28 days, 700 Milliliter, Refills 0.Notes: Prescriptions given (2) on 08/25/24. Patient reports moderate benefit, as evidenced by improved ability to fold clothes and pickup around the house, with quantity 48 ml and 0 prescription(s) remaining.Last fill date: 09/22/24.? * ROS:?14 point review of systems negative. * Medical History:? * Surgical History:?Tonsillect rosa, 1965Repair of shoulder fracture, right, 2006Placement of port and feeding tube, performed at [facility] by Dr. Paez, 2019Cataract surgeries, bilateral, performed at [facility] by Dr. España, 07/2022, 08/2022 * Hospitalization/Major Diagno stic Procedure:?Gall bladder infection Collapsed lung, 2019Flu, 2020Neck pain, treated at [facility] in [place], [place], 1RSV - low oxygen, treated at [facility], 11/2023Sepsis, pneumonia and A-fib, treated at [facility], 06/2024 * Family History:?Father: dece ased 52 [...] once oxyCODONE 5 mg/5 mL solution 5 milliliters orally Q4H prn pain (max 25 milliliters per day; hold within 4H of planned sleep) predniSONE 5 mg/5 mL solution 5 mL orally once a day traZODone 100 mg tablet 1 tab(s) orally once a day Medication List reviewed and reconciled with the patientTaking Anoro Ellipta(umeclidinium- vilanterol) 62.5 mcg-25 mcg/inh powder 1 puff(s) inhaled [...] Taking oxyCODONE 5 mg/5 mL solution 5 milliliters orally Q4H prn pain (max 25 milliliters per day; hold within 4H of planned sleep) Taking predniSONE 5 mg/5 mL solution 5 mL orally once a day Taking traZODone 100 mg tablet 1 tab(s) orally once a day Medication List reviewed and reconciled with the patient * Allergies:?N.K.D.A.no[Allerg ies Verified] Objective: * Vitals:?Pain Scale: 6 (0-10) , Pain average: 6, Pain Range: 2-10, Ht:65in, Wt: Not Taken - Curbside visit, HR:86, RR:20, Temp:97.5, SaO2: 87. * Physical Examination:?General:?General appearence:?well groomed, well nourished.?Build:?underweigt.?Head:?normocephalic.?Eyes:?Conjunctiva:?without injection.?ENT:?Hearing:?grossly intact.?Oral cavity:?mask in place.?Chest:?Shape and expansion:?normal expansion, equal bilaterally, respirations even and unlabored; oxygen at?4 liters per minute via nasal canula.?Neurological:?Psychiatric:?alert and conversant.?Musculoskeletal:?Gait:?presents in private vehicle.?Outcome Assessment:?Findings:?Negative, care plan not required ???Dermatology:?Skin inspection:?pink, warm, dry, and intact.? Therapeutic Interventions: Assessment: * Assessment: 1.?Cervicalgia - M54.2 (Prim yomaira)???2.?Other chronic pain - G89.29???3.?Other sleep disorders - G47.8??? Plan: * Treatment: 2.?Other chronic pain? Notes: Patient reports that taking her pain medication allows her to spend time with family. She states she has talked to her pharmacist about the availability of liquid hydrocodone. She would like to transition back to that if her pharmacy can keep it in stock. Will consider at next office visit pending the pharmacy's ability to keep it in stock. Plan to continue oral opioid medication management.?? [...] to Pharmacist: Do not fill prior to 11/17/24. ICD-10: G89.29.?? Notes: The service was provided by JIMMIE Decker, as part of the ongoing care plan established by Maurice Gordon MD, who was present in the office for direct supervision during the encounter.?? Prescription Drug Monitoring Program (PDMP) PDMP report request complete d on 10/19/2024 12:07:48 AM - aMurice Gordon * Procedure Codes:? * Preventive Medicine:? ??Counseling:?Pain Management:?Follow-up Plan documented:?Yes ?Pain Screening:?6 ?Communication to patient:?Counseled the Patient on smoking cessation, education provided?10/20/2024 ??Screening / Special Tests:?Fall Risk?Screening:?No falls in the past year as of: 10/20/2024 * Follow Up:?2 month Rx visit. * Images: * TANK OPERATOR Sign off status: Completed true * Provider:Dewayne Gordon Date:?10/20/20 24 Generated for Susy gallego/Ketty/Valerie on:?10/26/2024 03:16 AM MUD TANK OPERATOR History and Physical Notes * HPI (History [...] topical gels, a heating pad, and with rest. Patient states her symptoms remain fairly consistent from day to day weakness previous surgery: headache(s): Medications oxycodone/acetaminophen solution , 5 mg/5 mL, 5 milliliters, orally, Q4H prn pain (max 25 milliliters per day; hold within 4H of planned sleep), 28 days, 700 Milliliter, Refills 0. Notes: Prescriptions given (2) on 08/25/24. Patient reports moderate benefit, as evidenced by improved ability to fold clothes and pickup around the house, with quantity 48 ml and 0 prescription(s) remaining. Last fill date: 09/22/24 Previous Therapy Previous therapy: heat therapy with some benefit; home exercises / stretching therapy with some benefit; topical agent therapy with some benefit; physical therapy with history of no benefit (2020); prior medication management / opioid therapy by Dr. Ojeda via [facility] pain clinic with history of benefit; injection therapy via this facility = remote [facility] with history of good benefit Medication history: Townley 7.5/325; Flexe ril 10 mg; Flexeril 5 mg; diazepam 2 mg Physical Examination Category Sub-Category Detail Notes Section Note s ENT Oral cavity: mask in place Hearing: grossly intact Chest Shape and expansion: normal expa nsion, equal bilaterally, respirations even and unlabored; oxygen at 4 liters per minute via nasal canula Neurological Psychiatric: alert and conversant Musculoskeletal Gait: presents in private vehic le Outcome Assessment: Findings:: Negative, care pl an not required Dermatology Skin inspection: pink, warm, dry, and int act General General appearence: well groomed, well no urished Build: underweigt Head: normocephalic Eyes Conjunctiva: without injection
--- OUTSIDE RECORDS SUMMARY | 2024-10-26 03:17 | XMS_ITS | Patient Health Record ---
Author Name Unknown Organization [facility] Address [address] [place], [place] [id number] Care Team Providers Care Food And Beverage Order Clerk Name Role Phone Prosper Harris Primary Care Provider Gavino Gordon MD, Maurice Unavailable [phone] India Walker Unavailable [phone] Allergies No Known Allergies Results Component Value Reference Range Notes Urine tox screen / MS if ind icated Reviewed date:11/19/2023 12:02:41 PM Interpretation:Consistent Performing Lab: Notes/Report: Consistent Reason For Referral No Information Medications Medication SIG (Take, Route, Frequency, Duration) Notes Start Date End Date Status dilTIAZem 120 mg/12 hours 1 cap(s) orally every 12 hours for 30 day(s) Active traZODone 100 mg 1 tab(s) orally once a day Active levothyroxine 75 mcg (0.075 mg) 1 [...] 1 tab(s) orally once a day Active predniSONE 5 mg/5 mL 5 mL orally once a day for 30 day(s) Active oxyCODONE 5 mg/5 mL 5 milliliters orally Q4H prn pain (max 25 milliliters per day; hold within 4H of planned sleep) for 28 days Do not fill prior to 11/17/24. ICD-10: G89.29 10/20/2024 Active oxyCODONE 5 mg/5 mL 5 milliliters orally Q4H prn pain (max 25 milliliters per day; hold within 4H of planned sleep) for 28 days ICD-10: G89.29 10/20/2024 Active Social History Tobacco Use: Social History [...] min When did you start smoking? 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 confirmed Problem Sleep disorder (59593033) Other sleep disorders (G47.8) Active confirmed Problem Chronic pain (95067434) Other chronic pain (G89.29) Active confirmed Problem Acquired spondylolisthesis (016449459) Spondylolisthe sis, cervical region (M43.12) Active confirmed Problem Cervical radiculopathy (05793797) Cervical disc disorder with radiculopathy, unspecified cervical region (M50.10) Active confirmed Problem Cervicalgia (68912091) Cervicalgia (M54.2) Active confirmed Problem Pain in throat (960991484) Pain in throat (R07.0) Active confirmed Problem Long-term current use of drug therapy (115534536) Other fci (current) drug therapy (Z79.899) Active confirmed Vital Signs Temperature 97.5 degrees Fahrenheit 10/20/2024 Blood pressure diastolic 91 mm Hg 08/25/2024 Oximetry 87 % 10/20/2024 Height 65 in 10/20/2024 Blood pressure systolic 183 mm Hg 08/25/2024 Weight 104.4 lbs 08/25/2024 BMI 17.37 kg/m2 08/25/2024 Encounters Encounter Location Date Provider Diagnosis [facility] [address] [place], [place] [id number] 11/05/2023 India Mora Cervicalgia M54.2 ; Other chronic pain G89.29 and Other sleep disorders G47.8 [facility] [address] [place], [place] [id number] 11/19/2023 India Mora Cervicalgia M54.2 ; Other chronic pain G89.29 ; Other sleep disorders G47.8 and alf (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 analgesic Z79.891 [facility] [address] [place], [place] [id number] 01/14/2024 India Mora Cervicalgia M54.2 ; Other chronic pain G89.29 and Other sleep disorders G47.8 [facility] [address] [place], [place] [id number] 03/10/2024 India Mora Cervicalgia M54.2 ; Other chronic pain G89.29 and Other sleep disorders G47.8 [facility] [address] [place], [place] [id number] 05/04/2024 India Mora Cervicalgia M54.2 ; Other chronic pain G89.29 and Other sleep disorders G47.8 [facility] [address] [place], [place] [id number] 06/30/2024 India Mora Cervicalgia M54.2 ; Other chronic pain G89.29 and Other sleep disorders G47.8 [facility] [address] [place], [place] [id number] 08/25/2024 Maurice Gordon Cervicalgia M54.2 ; Other chronic pain G89.29 and Other sleep disorders G47.8 [facility] [address] [place], [place] [id number] 10/20/2024 Maurice Gordon Cervicalgia M54.2 ; Other chronic pain G89.29 and Other sleep disorders G47.8 [facility] [address] [place], [place] [id number] 05/12/2024 Maurice Gordon Assessments Encounter Date Diagnosis (ICD Code) Assessment Notes Treatment Notes Treatment Clinical Notes Section Notes 11/05/2023 Cervicalgia (ICD-10 - M54.2) Chronic axial cervical spine pain. 11/19/2023 Cervicalgia (ICD-10 - M54.2) Chronic axial cervical spine pain. 01/14/2024 Cervicalgia (ICD-10 - M54.2) Chronic axial cervical spine pain. 03/10/2024 Cervicalgia (ICD-10 - M54.2) Chronic axial cervical spine pain. 05/04/2024 Cervicalgia (ICD-10 - M54.2) Chronic axial cervical spine pain. 06/30/2024 Cervicalgia (ICD-10 - M54.2) Chronic axial cervical spine pain. 08/25/2024 Other chronic pain (ICD-10 - G89.29) Patient reports that taking her pain medication allows her to complete light housekeeping chores. Plan to continue oral opioid medication management. 08/25/2024 Cervicalgia (ICD-10 - M54.2) Chronic axial cervical spine pain. 10/20/2024 Cervicalgia (ICD-10 - M54.2) Chronic axial [...] in relation to sleep for safety concerns. 06/30/2024 Other sleep disorders (ICD-10 - G47.8) Plan to continue to restrict opioid use in relation to sleep for safety concerns. 06/30/2024 Other chronic pain (ICD-10 - G89.29) Patient reports that taking her pain medication allows her to spend time with family. Plan to continue oral opioid medication management. [...] to continue oral opioid medication management. 11/19/2023 oil heaterman (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 analgesic (ICD-10 - Z79.891) 2022 opioid (OUD) risk tool score = 2. This places the patient in the low risk category. Plan urine toxicology screen today to monitor for presence of any unprescribed or illicit controlled substance(s), as well as prescribed oxycodone. 10/20/2024 Other sleep disorders (ICD-10 - G47.8) Plan to continue to restrict opioid use in relation to sleep for safety concerns. 11/05/2023 Other 11/19/2023 Other 01/14/2024 Other Patient reports she is scheduled for upper endoscopy and colonoscopy on 02/03/24. 03/10/2024 Other 05/04/2024 Other 06/30/2024 Other 08/25/2024 Other The service was provided by JIMMIE Decker, as part of the ongoing care plan established by Maurice Gordon MD, who was present in the office for direct supervision during the encounter. 10/20/2024 Other The service was provided by JIMMIE Decker, as part of the ongoing care plan established by Maurice Gordon MD, who was present in the office for direct supervision during the encounter. Plan Of Treatment Next Appt Details Provider Name:Maurice Anderson son, 12/15/2024 11:40:00 AM, [address] [place], [place], [id number], Insurance Providers Payer Name Payer Address Payer Phone Subscriber Number Group Number Insured Name Patient Relationship to Insured Coverage Start Date Coverage End Date [employer] Medicare Part B Claims Department [address] [address] [place] [address] [id number] Claudia Perez Self - patient is the insured [place] [address] [place] [address] [phone] [id number] Claudia Perez Self - patient is the insured Medical (General) History Medical History History ICD Code Chronic pain [...] 19 (09/2023 AND 01/2024) Sleep disorder, snoring (pat ient declined prior offer for a sleep study and possible treatment) Surgical History Surgery Date(Month/Year) Tonsillectomy, 1965 Repair of shoulder fracture, right, 2006 Placement of port and feeding tube, perf ormed at [facility] by Dr. Paez, 2018 Cataract surgeries, bilateral, performed at [facility] by Dr. España, 07/2022, 08/2022 Hospitalization History Reason Date(Month/Year) Sepsis, pneumonia and A-fib, treated at [facility], 06/2024 RSV - low oxygen, treated at [facility], Neck pain, treated at [facility] in [facility], [place], 2020 Flu, 2019 Collapsed lung, 2019 Gall bladder infection
--- OUTSIDE RECORDS SUMMARY | 2024-10-26 03:17 | XMS_ITS ---
Author Name Unknown Organization [facility]ish Skate Address [address] [place], [place] [id number] Care Team Providers Care [facility] Director Name Role Phone Prosper Harris Primary Care Provider Unav srikanthable Heidi NOVAK, Maurice Unavailable [phone] India Walker Unavailable [phone] Allergies No Known Allergies REASON FOR VISIT Patient states she is here today for refills {neck pain} Medications Medication SIG (Take, Route, Frequency, Duration) Notes Start Date End Date Status predniSONE 5 mg/5 mL 5 mL orally once a day for 30 day(s) Active Eliquis 5 mg as directed orally 2 times a day for 30 day(s) Active dilTIAZem 120 mg/12 hours 1 cap(s) orally every 12 hours for 30 day(s) Active traZODone 100 mg 1 tab(s) orally once a day Active oxyCODONE 5 mg/5 mL 5 ml orally Q4H prn pain (max 25 ml per day; hold within 4H of planned sleep) for 28 days Do not fill prior to 07/28/24. ICD-10: G89.29 06/30/2024 Active metoclopramide 10 mg 1 tab(s) orally 4 times a day (before meals and at bedtime) for 30 day(s) Active Narcan 4 mg/0.1 mL as directed intranasally once 10/16/2022 Active lisinopril 10 mg 1 tab(s) orally once a day for 30 day(s) Active levothyroxine 75 mcg (0.075 mg) 1 tab(s) orally once a day for 30 day(s) Active oxyCODONE 5 mg/5 mL 5 ml orally Q4H prn pain (max 25 ml per day; hold within 4H of planned sleep) for 28 days ICD-10: G89.29 06/30/2024 Active cetirizine 1 mg/mL 2.5 mL orally once a day Active clonazePAM 0.5 mg 1 tab(s) orally once a day Active famotidine 40 mg 1 tab(s) orally once a day (at bedtime) Active cyclobenzaprine 10 mg 1 tab(s) orally 3 times a day Active escitalopram 10 mg 1 tab(s) orally once a day for 30 day(s) Active Anoro Ellipta 62.5 mcg-25 mcg/inh 1 [...] you start smoking? 1972 Vital Signs Temperature 97.6 degrees Fahrenheit 06/30/20 24 Height 65 in 06/30/2024 Oximetry 87 % 06/30/2024 Encounters Encounter Location Date Provider Diagnosis [facility], [address] [id number] 06/30/2024 India Mora Cervicalgia M54.2 ; Other chronic pain G89.29 and Other sleep disorders G47.8 Assessments Encounter Date Diagnosis (ICD Code) Assessment Notes Treatment Notes Treatment Clinical Notes Section Notes 06/30/2024 Cervicalgia (ICD-10 - M54.2) Chronic axial cervical spine pain. 06/30/2024 Other chronic pain (ICD-10 - G89.29) Patient reports that taking her pain medication allows her to spend time with family. Plan to continue oral opioid medication management. 06/30/2024 Other sleep disorders (ICD-10 - G47.8) Plan to continue to restrict opioid use in relation to sleep for safety concerns. 06/30/2024 Other Plan Of Treatment Medication Medication Name Sig Start Date Stop Date Notes oxyCODONE 5 mg/5 mL 5 ml orally Q4H prn pain (max 25 ml per day; hold within 4H of planned sleep) for 28 days 06/30/2024 Do not fill prior to 07/28/24. ICD-10: G89.29 oxyCODONE 5 mg/5 mL 5 ml orally Q4H prn pain (max 25 ml per day; hold within 4H of planned sleep) for 28 days 06/30/2024 ICD-10: G89.29 Treatment Notes Assessment Notes Cervicalgia [...] Name:Maurice Anderson son, 12/15/2024 11:40:00 AM, [address] [place], [place], [phone], Progress Notes * Claudia CARTER LDOB:[birth year] (69 yo F)Acc No.[id number]:06/30/2024 Patient:?ChrisClaudia medina L Provider:?JIMMIE Decker :1955???Age:69 Y???Sex:Female D ate:06/30/2024 Address:[address] [place] [address] Pcp:JIMMIE Chavez Subjective: * Chief Complaints: * ???Patient states she is her e today for refills {neck pain} * HPI: ???Cervical Spine:?69 year old female presents with c/o pain?for?chronic duration?in the left posterior neck. This pain is described as intermittent throbbing with tightness. The neck pain is aggravated by riding in a car and with head movement. This pain is somewhat alleviated with rest and by positioning with pillows.?c/o numbness and tingling?in the entire right hand including all fingers.?Denies : pain radiating.?Denies : weakness.?Denies : headache(s):.?Denies : injury:.?Denies : previous surgery:.?Previous Imaging/Studies:?CT?of the neck on 08/10/19.?X-rays?of the C-spine on 11/21/21.?MRI?of the C-spine on 10/21/21 and 07/03/09; of the neck, face and orbit on 09/15/19.?Interventional:?Interlaminar cervical epidural steroid injection:?on 10/03/09 with good benefit.?Previous Therapy:?Previous therapy:?heat therapy with some benefit; home exercises / stretching therapy with some benefit; topical agent therapy?with some benefit; physical therapy with history of no benefit (2020); prior medication management / opioid therapy?by Dr. Ojeda via [facility] pain clinic with history of benefit.?Medication history:?[place] 7.5/325; Flexeril 10 mg; Flexeril 5 mg; diazepam 2 mg.?Medications:?oxycodone/acetaminophen?solution, 5 mg/5 mL, 5 ml, orally, Q4H prn pain (max 25 ml per day; hold within 4H of planned sleep), 28 days, 700 Milliliter, Refills 0. Notes: Prescriptions given (2) on 05/04/24. Patient reports?good benefit, as evidenced by improved ability to get around and attend doctor's appointments, with quantity?125 ml?and?0 prescription(s) remaining.Last fill date 05/28/24.? * ROS:?14 point review of systems negative. * Medical History:? * Surgical History:?Tonsillect rosa, 1965Repair of shoulder fracture, right, 2006Placement of port and feeding tube, performed at [facility] by Dr. Paez, 2019Cataract surgeries, bilateral, performed at [facility] by Dr. España, 07/2022, 08/2022 * Hospitalization/Major Diagno stic Procedure:?Gall bladder infection Collapsed lung, 2019Flu, 2020Neck pain, treated at [facility] in [place], [place], [address]RSV - low oxygen, treated at [facility], 11/2023Sepsis, pneumonia and A-fib, treated at [facility], 06/2024 * Family History:?Father: dece ased 52 [...] mcg/inh powder 1 puff(s) inhaled once a daycetirizine 1 mg/mL syrup 2.5 mL orally once a dayclonazePAM 0.5 mg tablet, disintegrating 1 tab(s) orally once a daycyclobenzaprine 10 mg tablet 1 tab(s) orally 3 times a daydilTIAZem 120 mg/12 hours capsule, extended release 1 cap(s) orally every 12 hoursEliquis(apixaban) 5 mg tablet as directed orally 2 times a dayescitalopram 10 mg tablet 1 tab(s) orally once a dayfamotidine 40 mg tablet 1 tab(s) orally once a day (at bedtime)levothyroxine 75 mcg (0.075 mg) tablet 1 tab(s) orally once a daylisinopril 10 mg tablet 1 tab(s) orally once a daymetoclopramide 10 mg tablet 1 tab(s) orally 4 times a day (before meals and at bedtime)Narcan(naloxone) 4 mg/0.1 mL spray as directed intranasally onceoxyCODONE 5 mg/5 mL solution 5 ml orally Q4H prn pain (max 25 ml per day; hold within 4H of planned sleep)predniSONE 5 mg/5 mL solution 5 mL orally once a daytraZODone 100 mg tablet 1 tab(s) orally once a dayMedication List reviewed and reconciled with the patientTaking Anoro Ellipta(umeclidinium-vilanterol) 62.5 mcg-25 mcg/inh powder 1 puff(s) inhaled once a dayTaking cetirizine 1 mg/mL syrup 2.5 mL orally once a dayTaking clonazePAM 0.5 mg tablet, disintegrating 1 tab(s) orally once a dayTaking cyclobenzaprine 10 mg tablet 1 tab(s) orally 3 times a dayTaking dilTIAZem 120 mg/12 hours capsule, extended release 1 cap(s) orally every 12 hoursTaking Eliquis(apixaban) 5 mg tablet as directed orally 2 times a dayTaking escitalopram 10 mg tablet 1 tab(s) orally once a dayTaking famotidine 40 mg tablet 1 tab(s) orally once a day (at bedtime)Taking levothyroxine 75 mcg (0.075 mg) tablet 1 tab(s) orally once a dayTaking lisinopril 10 mg tablet 1 tab(s) orally once a dayTaking metoclopramide 10 mg tablet 1 tab(s) orally 4 times a day (before meals and at bedtime)Taking Narcan(naloxone) 4 mg/0.1 mL spray as directed intranasally onceTaking oxyCODONE 5 mg/5 mL solution 5 ml orally Q4H prn pain (max 25 ml per day; hold within 4H of planned sleep)Taking predniSONE 5 mg/5 mL solution 5 mL orally once a dayTaking traZODone 100 mg tablet 1 tab(s) orally once a dayMedication List reviewed and reconciled with the patient * Allergies:?N.K.D.A.no[Allerg ies Verified] Objective: * Vitals:?Pain Scale:7 (0-10), Pain average:5, Pain Range:3-8, Ht: 65 in, Wt: Not Taken - Curbside visit, HR:87, RR:20, Temp:97.6, SaO2:87. * Physical Examination:?General:?General appearence:?well groomed, well nourished.?Head:?normocephalic.?Eyes:?Conjunctiva:?without injection.?ENT:?Hearing:?grossly intact.?Oral cavity:?mask in place.?Chest:?Shape and expansion:?normal expansion, equal bilaterally, respirations even and unlabored; oxygen at?4 liters per minute via nasal canula.?Neurological:?Psychiatric:?alert and conversant.?Musculoskeletal:?Gait:?presents in private vehicle.?Outcome Assessment:?Findings:?Negative, care plan not required ???Dermatology:?Skin inspection:?pink, warm, dry, and intact.? Therapeutic Interventions: * Therapeutic Interventions: ???1.?PDMP ? [facility] : 06/28/2024 11:27 AM - database accessed and reviewed prior to today's visit in anticipation of possible opioid prescribing ? Assessment: * Assessment: 1.?Other chronic pain - G89. 29 (Primary)?2.?Cervicalgia - M54.2?3.?Other sleep disorders - G47.8? Plan: * Treatment: 2.?Cervicalgia? Notes: Chronic axial cervical spine pain.?? 3.?Other sleep disorders? Notes: Plan to continue to restrict opioid use in relation to sleep for safety concerns.?? 4.?Others? Continue oxyCODONE solution, 5 mg/5 mL, 5 ml, orally, Q4H prn pain (max 25 ml per day; hold within 4H of planned sleep), 28 days, 700 Milliliter, Refills 0, Notes: ICD-10: G89.29;?Continue oxyCODONE solution, 5 mg/5 mL, 5 ml, orally, Q4H prn pain (max 25 ml per day; hold within 4H of planned sleep), 28 days, 700 Milliliter, Refills 0, Notes: Do not fill prior to 07/28/24. ICD-10: G89.29.?? * Procedure Codes:?G8427 DOC M EDS VERIFIED W/PT OR RE * Preventive Medicine:? ??Counseling:?Pain Management:?Follow-up Plan documented:?Yes ?Pain Screening:?7 ?Communication to patient:?Counseled the Patient on smoking cessation, education provided?06/30/2024 ??ASA Status Classification:?score:?P3.? ??Screening / Special Tests:?Fall Risk?Screening:?No falls in the past year as of: 06/30/2024 * Follow Up:?2 month Rx visit. * Images: * Sign off status: Completed true * Provider:?JIMMIE Decker Date:? 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 This pain is described as intermittent throbbing with tightness. The neck pain is aggravated by riding in a car and with head movement. This pain is somewhat alleviated with rest and by positioning with pillows weakness previous surgery: headache(s): Medications oxycodone/acetaminophen solution , 5 mg/5 mL, 5 ml, orally, Q4H prn pain (max 25 ml per day; hold within 4H of planned sleep), 28 days, 700 Milliliter, Refills 0. Notes: Prescriptions given (2) on 05/04/24. Patient reports good benefit, as evidenced by improved ability to get around and attend doctor's appointments, with quantity 125 ml and 0 prescription(s) remaining. Last fill date 05/28/24 Interventional Interlaminar cervica l epidural steroid injection: on 10/03/09 with good benefit Previous Therapy Previous therapy: heat therapy with some benefit; home exercises / stretching therapy with some benefit; topical agent therapy with some benefit; physical therapy with history of no benefit (2020); prior medication management / opioid therapy by Dr. Ojeda via [facility] pain clinic with history of benefit Medication history: [place] 7.5/325; Flexe ril 10 mg; Flexeril 5 mg; diazepam 2 mg Previous Imaging/Studies MRI of the C-spine on 10/21/21 and 07/03/09; of the neck, face and orbit on 09/15/19 CT of the neck on 08/10 X-rays of the C-spine on Physical Examination Category Sub-Category Detail Notes Section [...] General appearence: well groomed, well no urished Head: normocephalic Eyes Conjunctiva: without injection
--- NOTE | 2024-10-26 03:30 | P.HP_ITS ---
Providers/Chief Complaint Admitting Physician: Adali Weinstein MD Primary Care Provider: JIMMIE Chavez Chief Complaint: copd exac History of Present Illness Claudia Perez is a 69 yo woman w/ chronic hypoxic respiratory failure on continuous 4l, active Tobacco use d/o, hx of carcinoma of the hypopharynx s/p XRT/chemo s/p in approx 2019 here in [place], which led to Oropharyngeal dysphagia s/p PEG tube, & Paroxysmal Afib, who was transferred from [facility] ED to [facility] on 10/26/2025 for Acute on chronic hypoxic respiratory failure requiring a higher level of care. According to chart review and from speaking to the physician at the outside hospital (OSH), the patient was seen in the ED, of the OS, on 10/22 w/ complains of SOB and her CXR showing small b/l pleural effusions. She was given duonebs, steroids and doxycycline. She re-presented to the OS's ED on 10/24 after she went outside to smoke w/o her O2 tank and returned inside with her O2 sat in the 40s. Her O2 sat was in the 70s despite her having her O2 back on, so where she was deemed to have CHF presentation w/ CXR showing small b/l pleural effusions and interstitial edema and ProBNP of 11,422, whereas 6 days earlier, her ProBNP was 622. She was given Lasix and was offered admission, but she chose to be discharged. She presented for the third time on 10/25 with the complaints that she needed more O2. The patient tells me that she was at when she was discharged on 10/24, she was advised to monitor her O2 sats throughout the day. During the day on 10/25, she noticed that her O2 sat was persistently in the 80s throughout the day despite her wearing her 4L of O2, so she decided to present to the ED. She endorses feeling some SOB, but not completely. She endorses dizziness or light headedness anytime she got up during the day, but she did not lose consciousness. She endorses blurry vision. She denies fever, chills. She currently smokes 0.5ppd. She has not smoked since 10/24/2024 and she normally smokes 1/2 ppd at this time. At the OSH, her labs were significant for wbc of 7.3, Hgb 10.7, Bicarb of 36, BUN/Cr of 26/0.72, ProBNP of 9355, Trop T of 59 -->48 , VBG of 7.48/55/43 Her CXR on 10/26 showed small b/l pleural effusions, but no flaquita pulmonary edema. It also showed bibasilar L>R opacities concerning for atelectasis or infection. Her COVID-19 Ag swab was presumptively negative. She was given duonebs, [place], Eliquis. Review of Systems Const: Denies: fever(s) or change in appetite (she has a feeding tube. ) Eyes: Reports: change in vision and blurry vision ENMT: Reports: odynophagia and nasal congestion; Denies: ear or mastoid pain, ear discharge or nasal discharge Card: Denies: chest pain, palpitations, lightheadedness or syncope Resp: Reports: dyspnea, productive cough (greenish-yellow) and wheezing GI: Denies: abdominal pain, nausea, vomiting or hematochezia : Reports: urinary frequency (attributed to diuretic) and urinary urgency (attributed to diuretic) Musc: Reports: extremity pain (bilateral lower extremity pain) Skin/Breast: Denies: rash or new lesions Neuro: Reports: other; Denies: headache(s) Psych: Denies: anxiety, depression, suicidal ideation or homicidal ideation Endo: Reports: heat intolerance; Denies: cold intolerance Apolinar/Lymph: Reports: easy bruising (on Apixaban) and easy bleeding (on Apixaban) All/Imm: Denies: food intolerance Medications/Allergies Home Medications Medication Instructions Recorded Confirmed Last Taken Type 6mL leur slip syringe #12 ea 02/07/21 10/11/24 01/07/22 Rx albuterol sulfate 90 mcg/actuation 1 inh inhalation QID PRN Shortness 12/27/21 10/11/24 06/14/24 22:00 History aerosol inhaler Of Breath Ensure #12 ea 10/15/23 10/11/24 Unknown Rx oxycodone 5 mg/5 mL oral solution 5 mg PO QID PRN Pain 11/24/23 10/11/24 06/14/24 10:30 History naloxone 4 mg/actuation nasal spray 1 spray intranasal Q3M PRN Opioid 12/05/23 10/11/24 Unknown History Overdose famotidine 40 mg/5 mL (8 mg/mL) 5 ml feeding tube BEDTIME 06/15/24 10/11/24 06/14/24 10:30 History oral suspension bolus feed extension set with #12 ea 06/24/24 10/11/24 Unknown Rx cath tip Secur-Clau straight connector and clamp lisinopril 10 mg tablet See Rx Instructions PO DAILY PRN 06/27/24 10/11/24 Unknown History hypertensive emergency prednisone 5 mg/5 mL oral solution 5 mg (5 mL) PO DAILY COPD #150 mL 07/19/24 10/11/24 Unknown Rx cyclobenzaprine 5 mg tablet See Rx Instructions .Route 10/05/24 10/11/24 Unknown Rx .COMPLEX #60 tabs trazodone 100 mg tablet See Rx Instructions .Route 10/05/24 10/11/24 Unknown Rx .COMPLEX #30 tabs clonazepam 0.5 mg tablet 0.5 mg PO DAILY 30 days #30 tabs 10/11/24 10/11/24 Unknown Rx escitalopram oxalate 20 mg tablet See Rx Instructions .Route 10/11/24 10/11/24 Unknown Rx .COMPLEX 90 days #90 tabs levothyroxine 88 mcg tablet See Rx Instructions .Route 10/12/24 Unknown Rx .COMPLEX #60 tabs metoclopramide HCl 10 mg tablet See Rx Instructions .Route 10/14/24 Unknown Rx .COMPLEX #60 tabs apixaban 5 mg tablet (Eliquis) See Rx Instructions .Route 10/17/24 Unknown Rx .COMPLEX #60 tabs albuterol sulfate 2.5 mg/3 mL 2.5 mg (3 mL) inhalation Q8H #90 mL 10/21/24 Unknown Rx (0.083 %) solution for nebulization budesonide 160 mcg-glycopyr 9 2 inh inhalation BID #10.7 grams 10/21/24 Unknown Rx mcg-formot 4.8 mcg/actuation HFA inhaler (Breztri Aerosphere) diltiazem HCl 120 mg See Rx Instructions .Route 10/24/24 Unknown Rx capsule,extended release 24 hr .COMPLEX #90 caps Allergies Allergy/AdvReac Type Severity Reaction Status Date / Time No Known Allergies Allergy Verified 10/11/24 11:14 PFSH Acute PFSH: Medical History Sleep disorder Malignant tumor of hypopharynx Chronic pain Cervical radiculopathy Acquired spondylolisthesis Cigarette smoker SVT (supraventricular tachycardia) Encounter for long-term opiate analgesic use Opioid contract exists Hypothyroidism COPD (chronic obstructive pulmonary disease) Carcinoma of hypopharynx Hyperthyroidism Hyperlipidemia Port-A-Cath in place (~05/2019) Surgical History (Updated 10/26/24 @ 05:24 by Adali Weinstein MD) Status post open reduction and internal fixation (ORIF) of fracture left humerus S/P percutaneous endoscopic gastrostomy (PEG) tube placement History of tonsillectomy and adenoidectomy excised at age 10. Family History Mother CAD (coronary artery disease) Sister CAD (coronary artery disease) Stroke Denies family history of Anesthesia complication Bleeding disorder Social History Smoking and tobacco/nicotine status: current every day tobacco/nicotine user (0.5 ppd) cigarettes Packs smoked per day: 1 Years cigarettes smoked: 50 [ Other cigarette details: 2 [id number] follow by 1PP for 20 yeas and currently 1 PPD ] Quit status (tobacco/nicotine): considering quitting Alcohol intake: never Substance/Drug Use: never Adopted: No Caregiver/support person: Yes Lives independently: No (disabled ) Household members: family Housing: House Marital status: Single Number of children: 3 Number of grandchildren: 7 Highest education level completed: High School Graduate service: No Current occupational status: disabled Current occupational exposures/hazards: No Pets and animals: Yes Sexually active: No Do you think of yourself as: Straight/Heterosexual Current gender identity: Female Micaela/Sikhism: Caodaism Special micaela needs: No Agree to transfusion: No Vitals/I&O/Wt Weight last 48 hrs Weight 48.67 kg Physical Exam Const: GENERAL APPEARANCE: cooperative, comfortable and frail appearing NUTRITIONAL APPEARANCE: underweight ORIENTATION/CONSCIOUSNESS: Yes awake, Yes oriented to person, Yes oriented to place and Yes oriented to time HENMT: HEAD & SCALP: normocephalic and atraumatic EXTERNAL EAR: Yes external ears normal MOUTH: Normal oral and palatal mucosa present THROAT: posterior oropharynx normal Eye: CONJUNCTIVA: Yes conjunctivae normal PUPIL: Yes Equal, round and reactive pupils present EOM: No EOM abnormal Neck/C-Spine: CAROTIDS: No bruit CERVICAL SPINE: Yes cervical ROM normal OTHER: difficult to appreciate normal thyroid given the thickened skin under the chin and neck Lymph: OTHER: no cervical or supraclavicular LAD Resp: OTHER: barely perceptible, if any, crackles in the b/l lower lung bases Cardio: RATE: regular rate RHYTHM: regular rhythm PERIPHERAL PULSES: radial pulses present and dorsalis pedis present GI: AUSCULTATION: Yes normoactive bowel sounds PALPATION: Yes Soft to palpation, No Tenderness to palpation present (GI), No Guarding due to palpation present (GI) and Yes No hepatosplenomegaly present Extremity: GENERAL: No clubbing, No cyanosis and No edema Neuro: CRANIAL NERVES: Yes CN normal except as noted SPEECH: speech normal SENSORY EXAM: No sensory level loss detected MOTOR EXAM: 5/5 motor strength present throughout and Normal motor muscle tone present throughout Psych: APPEARANCE: Yes grossly normal ATTITUDE: Yes calm and Yes engaged ACTIVITY/MOTOR BEHAVIOR: Yes appropriate eye contact SPEECH: Yes normal speech MOOD & AFFECT: Yes euthymic mood THOUGHT PROCESS: Normal thought process present THOUGHT CONTENT: Yes Normal thought content present ATTENTION/CONCENTRATION: Yes attention grossly intact MEMORY/COGNITION: Yes memory grossly intact A&P Assessment and plan (1) Acute on chronic hypoxic respiratory failure: (2) Depression with anxiety: (3) Hypothyroidism: Qualifiers: Hypothyroidism type: acquired Qualified Code(s): E03.9 - Hypothyroidism, unspecified (4) GERD (gastroesophageal reflux disease): Qualifiers: Esophagitis presence: without esophagitis Qualified Code(s): K21.9 - Gastro-esophageal reflux disease without esophagitis (5) Feeding by G-tube: (6) Acute exacerbation of chronic obstructive pulmonary disease: Gui Perez is a 69 yo woman w/ chronic hypoxic respiratory failure on continuous 4l, active Tobacco use d/o, hx of carcinoma of the hypopharynx s/p XRT/chemo s/p in approx 2020 here in [place], which led to Oropharyngeal dysphagia s/p PEG tube, & Paroxysmal Afib, who was transferred from [facility] to [facility] on 10/26/2025 for Acute on chronic hypoxic respiratory failure requiring a higher level of care. At the OSH, her labs were significant for wbc of 7.3, Hgb 10.7, Bicarb of 36, BUN/Cr of 26/0.72, ProBNP of 9355, Trop T of 59 -->48 , VBG of 7.48/55/43 Her CXR on 10/26 showed small b/l pleural effusions, but no flaquita pulmonary edema. It also showed bibasilar L>R opacities concerning for atelectasis or infection. Her COVID-19 Ag swab was presumptively negative. She was given duonebs, [place], Eliquis. #Acute on chronic hypoxic respiratory failure: - Multifactorial: Possible COPD exacerbation vs pneumonia vs Concern for vol overload at the Outside hospital - On 4.5L. Wean as tolerated #Respiratory acidosis w/ uncompensated metabolic alkalosis - Monitor #Possible COPD exacerbation #Possible pneumonia - F/u Influenza A/B, RSV, COVID-19 panel. F/u BCx, Sputum Cx. - Started Zosyn for possible pneumonia, Azithromycin, Duonebs and steroids. #Possible new onset CHF: - Trop T minimally elevated. ProBNP elevated at the OSH. F/u ProBNP in house - F/u ECHO. Patient did not appear vol overloaded on exam. F/u CT chest and ECHO. #Active tobacco use d/o: Nicotine patch ordered. #Paroxysmal Afib: Resume home meds when confirmed by nursing staff.. Her daughter is bringing her meds. In the meantime, will give Cardizem XR 120mg daily. Full dose Lovenox. #HTN: No acute issues at this time. Resume home meds when confirmed by nursing staff & as appropriate. #Depression/Anxiety d/o #Insomnia - Resume home meds when confirmed by nursing staff. #PEG tube: Consult communicable disease specialist for tube feeds #GERD: PPI #Hypothyroidism: Resume home meds when confirmed by nursing staff. DVT ppx: full dose Lovenox ordered GI ppx: PPI ordered Attestations Medical Necessity Statement*: Patient is expected to remain for > 2 midnights to evaluate and determine the etiology of her acute on chronic hypoxic respiratory failure. Time Spent in Patient Care: >75mins was spent on chart review, patient interview/exam, ordering labs, images, coordinating plan of care. Coding Level of Care Code 93981 Diagnoses Acute on chronic hypoxic respiratory failure J96.21 Depression with anxiety F41.8 Acquired hypothyroidism E03.9 Hypothyroidism type: acquired Gastroesophageal reflux disease without esophagitis K21.9 Esophagitis presence: without esophagitis Feeding by G-tube Z93.1 Acute exacerbation of chronic obstructive pulmonary disease J44.1
--- NOTE | 2024-10-26 03:43 | XRR_ITS ---
PROCEDURE INFORMATION: Exam: XR Chest Exam date and time: 10/26/2024 3:46 AM Age: 69 years old Clinical indication: Shortness of breath TECHNIQUE: Imaging protocol: Radiologic exam of the chest. Views: 1 view. COMPARISON: CR XR chest 1V portable [id number] 06/17/2024 7:12 AM FINDINGS: Tubes, catheters and devices: Left chest wall medical port with unchanged catheter positioning. Lungs: COPD changes without acute infiltrate. Lgfjh-mladuju-oott-left basilar infiltrates. Pleural spaces: Blunting of the right costophrenic angle. Heart/Mediastinum: Unremarkable. No cardiomegaly. Bones/joints: Diffuse degenerative change of the visualized osseous structures. XR/XR chest 1V portable [id number] IMPRESSION: 1. Right pleural effusion. 2. Basilar infiltrates are likely atelectasis/scarring, however difficult to exclude superimposed infection.
[2024-10-26 04:30] LABS: ABG PCO2 54.9 mmHg (35-45); ABG PH Result 7.42 (7.35-7.45); Alveolar-Arterial Oxygen Gradi 19.2 mmHg (5-10); Arterial Blood Gas Hematocrit 45.9 % (37-47); Base Excess ABG 9.3 mmol/L (-2.0-2.0); Blood Gas Operator Identificat SAM; Blood Gas Sample Site Brachial, right; Blood Gas Sample Type Arterial; Carboxyhemoglobin 1.1 %THgb (0.4-20.1); HCO3 ABG 35.9 mmol/L (22-26); Ionized Calcium Level - ABG 1.2 mmol/L (1.1-1.4); Oxygen Device OXY MASK; PO2 FiO2 Ratio Arterial Blood 180; Potassium Level - ABG 3.9 mmol/L (3.5-5.0)
--- NOTE | 2024-10-26 04:51 | USCV_ITS ---
Claudia Perez Age: 69 Gender: F : 1955 Exam Date: 10/26/2024 05:04 Ordering Phys: Adali Weinstein MD Technologist: MONSE Exam Location: [facility] Indication: chronic hypoxia, resp failure, long-term smoker continues smoking, hx afib BP: 106 / 60 HR: 72 Rhythm: Sinus Technical Quality: Adequate MEASUREMENTS (Male / Female) Normal Values 2D ECHO LV Diastolic Diameter PLAX 4.2 cm 4.2 - 5.9 / 3.9 - 5.3 cm IVS Diastolic Thickness 1.7 cm 0.6 - 1.0 / 0.6 - 0.9 cm IVS Systolic Thickness 1.9 cm LVPW Diastolic Thickness 1.7 cm 0.6 - 1.0 / 0.6 - 0.9 cm LVPW Systolic Thickness 2.4 cm LVOT Diameter 1.8 cm LV Ejection Fraction 2D Teich 64.5 % LV Ejection Fraction MOD 4C 51.2 % LV Ejection Fraction MOD 2C 63.7 % LV Ejection Fraction 2C AL 63.5 % LA Diameter 4.6 cm LA Sys Volume AL 66.8 cm cubed LA Sys Volume Index AL 44.8 cm cubed/m squared Aorta at Sinotubular Diameter 2.7 cm IVC Diameter 1.8 cm M-MODE LA Ao Ratio MM 1.4 AV Cusp Separation MM 2.1 cm DOPPLER AV Peak Velocity 140.0 cm/s LVOT Peak Velocity 127.0 cm/s AV Area Cont Eq vti 2.6 cm squared AV Area Cont Eq pk 2.3 cm squared MV Peak Velocity 91.0 cm/s MV Area PHT 4.1 cm squared Mitral E to A Ratio 1.4 TR Peak Velocity 254.0 cm/s TR Peak Gradient 25.8 mmHg TV Peak E Velocity 42.0 cm/s PV Peak Velocity 126.0 cm/s FINDINGS Left Ventricle Normal left ventricular size and systolic function, EF 58%. Mild left ventricular hypertrophy. Abnormal septal motion consistent with pacemaker. Right Ventricle The right ventricle is normal in size and function. Right Atrium The right atrium is normal in size. Left Atrium Mildly increased left atrial size. Mitral Valve Trace mitral valve regurgitation. Aortic Valve No gross abnormalities noted Tricuspid Valve Trace to mild tricuspid valve regurgitation. Estimated pulmonary artery peak systolic pressure 29 mmHg Pulmonic Valve Structurally normal pulmonic valve without significant stenosis. There is no pulmonic regurgitation. Pericardium Normal pericardium without effusion. Aorta Normal ascending aorta dimension. IVC The inferior vena cava appears normal. CONCLUSIONS Normal left ventricular size and systolic function, EF 58%. Mild left ventricular hypertrophy. Abnormal septal motion consistent with pacemaker. Mildly increased left atrial size. Trace to mild tricuspid valve regurgitation. Estimated pulmonary artery peak systolic pressure 29 mmHg. There is no pericardial effusion. There are no intracardiac masses. Dr Vishnu Sanford MD FACC (Electronically Signed) Final Date: 27 October 2024 15:09 S
[2024-10-26 05:15] LABS: Basophils % 0.2 %; Eosinophils % 0.2 %; Hematocrit 30.3 % (36-47); Lymphocytes # 0.4 10^3/uL (0.8-4.8); Lymphocytes % 5.7 %; Mean Corpuscular Hemoglobin 33.3 pg (27-33); Monocytes # 0.7 10^3/uL (0.2-0.9); Neutrophils # 5.47 10^3/uL (1.8-7.7); Neutrophils % 82.1 %; Nucleated Red Blood Cells % 0 %; Platelet Count 209 10^3/cmm (157-399); Red Cell Distribution Width 13.2 % (12.1-15.1); White Blood Count 6.65 10^3/uL (3.29-11.43)
[2024-10-26 05:27] LABS: INR 1.43 (0.8-1.2)
[2024-10-26 05:28] LABS: Partial Thromboplastin Time 42.8 SECONDS (23.9-36.7)
[2024-10-26 05:29] LABS: Alanine Aminotransferase 14 U/L (0-33); Alkaline Phosphatase 62 U/L (35-105); Blood Urea Nitrogen 19 mg/dL (8-23); Calcium 8.5 mg/dL (8.5-10.5); Carbon Dioxide 31 mmol/L (22-29); Chloride 94 mmol/L (98-107); Creatinine Clr Calc Pharmacy 49.5572; Glucose 101 mg/dL (65-115); Magnesium 1.9 mg/dL (1.7-2.3); Osmolality Calculated 280 mOsm/kg (285-295); Phosphorus 3.8 mg/dL (2.5-4.5); Sodium 134 mmol/L (136-145); Total Bilirubin 0.2 mg/dL (0.15-1.2)
[2024-10-26 05:33] LABS: Lactate (Lactic Acid level) 0.8 mmol/L (0.5-2.2); Troponin(5th) Baseline 44 ng/L (0-10)
[2024-10-26 05:37] LABS: Anion Gap 13.3 (5-19); Aspartate Amino Transferase 20 U/L (0-32); Potassium 4.3 mmol/L (3.5-5.1)
[2024-10-26 05:43] LABS: D Dimer 0.51 ug/mLFEU (0-0.59)
[2024-10-26 06:12] LABS: Troponin 5 2HR 41.96 ng/L (0-10)
[2024-10-26 06:13] LABS: Troponin 5 2HR Delta -2.04 ABS# (0-10)
[2024-10-26] MEDS: enoxaparin 30 mg/0.3 mL Syringe SUBCUT (06:48)
--- NOTE | 2024-10-26 07:02 | CTR_ITS ---
PROCEDURE INFORMATION: Exam: CT Chest With Contrast; Diagnostic Exam date and time: 10/26/2024 1:22 PM Age: 69 years old Clinical indication: Cough and dyspnea and shortness of breath; Additional info: Dyspnea, productive cough, pneumonia vs atelectasis on cxr TECHNIQUE: Imaging protocol: Diagnostic computed tomography of the chest with contrast. Radiation optimization: All CT scans at this facility use at least one of these dose optimization techniques: automated exposure control; mA and/or kV adjustment per patient size (includes targeted exams where dose is matched to clinical indication); or iterative reconstruction. Contrast material: OMNI 350; Contrast volume: 80 ml; Contrast route: INTRAVENOUS (IV); COMPARISON: CT angio chest PE protcl [id number] 06/16/2024 10:35 AM RADIATION DOSE METRICS: Total DLP (mGy-cm): 253.46 FINDINGS: Lungs: Centrilobular emphysematous changes of the lungs. Moderate consolidative atelectasis of the bxhh-eagschl-mtsz-right lung bases. Overlying infiltrate is not excluded. Pleural spaces: Trace left pleural effusion. No pneumothorax. Heart: Heart is normal in size. No pericardial effusion. Lymph nodes: No distinct pathologically enlarged lymphadenopathy. Vasculature: Mild scattered calcific atheromatous disease of the thoracic aorta. Bones/joints: Mildly exaggerated thoracic kyphosis. No acute osseous findings. Soft tissues: Visualized superficial soft tissues are within normal limits. CT/CT chest w con* [id number] IMPRESSION: 1. Moderate consolidative atelectasis of the dtev-vjizepw-tlvj-right lung bases. Overlying infiltrate is not excluded. 2. Centrilobular emphysematous changes of the lungs. COMMENTS: The presence of pulmonary emphysema on CT is an independent risk factor for lung cancer. In the absence of a history or active diagnosis of lung cancer, it is recommended that this patient with emphysema be evaluated for enrollment in a low dose CT lung cancer screening program.
[2024-10-26] MEDS: HYDROmorphone 1 mg/mL INJ 1 mL IVP ×2 (07:22→15:11)
[2024-10-26] MEDS: piperacillin-tazobactam 4.5 GM in sodium chloride 0.9% (plus) 50 ML IV ×3 (07:27→23:26)
[2024-10-26 07:46] LABS: Free T4 Free Thyroxine 0.97 ng/dL (0.82-1.77); Thyroid Stimulating Hormone 10.46 uIU/mL (0.27-4.20)
[2024-10-26 08:24] LABS: NT Pro B Type Natriuretic Pept 6857 pg/mL (0-125)
--- NOTE | 2024-10-26 09:17 | ECG_ITS ---
[facility] 2024-10[facility]26 Pat Name: Claudia Perez Department: Room: [facility] Gender: Female Supervisor Estimator And Drafter: : 1955 Requested By: Adali Weinstein Order Number: [id number] Reading MD: Vishnu Sanford M.D. Measurements Intervals [place] Rate: 75 P: 53 RI: 148 QRS: 11 QRSD: 92 T: 33 QT: 386 QTc: 432 Interpretive Statements SINUS RHYTHM WITH OCCASIONAL SUPRAVENTRICULAR PREMATURE COMPLEXES Compared to ECG 06/15/2024 15:51:20 No significant changes Electronically Signed On 10-26-2024 17:43:33 SOLAR PROJECT ENGINEER by Vishnu Sanford M.D. [email or web address]
[2024-10-26 09:37] LABS: Troponin 5 6HR 45.47 ng/L (0-10); Troponin 5 6HR Delta 1.47 ng/L (0-12)
[2024-10-26] MEDS: pantoprazole 40 mg SDV IVP (09:39)
[2024-10-26] MEDS: methylPREDNISolone sod succ 40 mg/mL INJ IVP (09:40)
[2024-10-26] MEDS: AZITHROMYCIN ADD-Vantage 500 MG in 0.9% NaCl ADD-Vantage 250 ML 250 MG IV (09:40)
[2024-10-26] MEDS: dilTIAZem ER (24HR) 120 mg Capsule PO (09:40)
[2024-10-26] MEDS: ipratropium-albuterol 3 mL Neb INHALATION ×3 (09:49→20:35)
--- NOTE | 2024-10-26 09:56 | PC.NUTR ---
Discussed home PEG tube feeds with Pt. She typically does 4 cartons Boost total, administered 2x/day. She would prefer to stay with that schedule and that formula. She brought 8 cartons with her and can have more brought to the hospital. Boost x 4 cartons/day would provide 1440 kcals or 99% Pt's estimated needs and 56 grams protein or 95% Pt's estimated protein needs. Currently she only flushes after feeds - recommend 60 mls flush before and after feeds.
[2024-10-26] MEDS: ondansetron 2 mg/ML SDV 2 mL 4 MG IVP (10:39)
[2024-10-26 12:59] LABS: Covid PCR NEGATIVE (Negative); Influenza A NEGATIVE (Negative); Influenza B NEGATIVE (Negative); Respiratory Syncytial Virus Ce NEGATIVE (Negative)
[2024-10-26] MEDS: iohexol 350 mg/mL 500 mL Btl (per mL) IV (13:26)
--- NOTE | 2024-10-26 15:07 | P.MISC_ITS ---
Miscellaneous Note Purpose of Documentation: Overnight labs and H&P reviwed. CT chest with pneumonia. Continue iv abx, c ontinue steroids for COPD exacerbation. Add scheduled duoneb and budesondie nebulization. stable for transfer out of ICU to med/surg
[2024-10-26] MEDS: enoxaparin 60 mg/0.6 mL Syringe 50 MG SUBCUT (17:34)
[2024-10-26] MEDS: CLONazepam 0.5 mg Tablet PEG-TUBE (20:03)
[2024-10-26] MEDS: budesonide 0.5 mg/2 mL Neb INHALATION (20:35)
[2024-10-26] MEDS: trazodone 100 mg Tablet PEG-TUBE (21:16)
[2024-10-26] MEDS: oxyCODONE-APAP 5-325 mg Tablet 1 TAB PO (21:17)
[2024-10-27] VITALS (16 sets, daily range): BP systolic 95–121; BP diastolic 53–68; PULSE 70–91; RESP 14–18; TEMP 36.2–37; O2SAT 89–98
[2024-10-27] MEDS: ipratropium-albuterol 3 mL Neb INHALATION ×4 (02:08→20:14)
--- NOTE | 2024-10-27 03:38 | ECG_ITS ---
[facility] Date: 2024-10-27 Pat Name: Claudia Perez Department: Room: 252 Gender: Female Prime Broker: : 1955 Requested By: Adali Weinstein Order Number: [id number] Sofia MD: Lionel Williamson M.D. Measurements Intervals [place] Rate: 68 P: 55 AR: 139 QRS: 11 QRSD: 92 T: 46 QT: 387 QTc: 414 Interpretive Statements SINUS RHYTHM WITH OCCASIONAL SUPRAVENTRICULAR PREMATURE COMPLEXES Compared to ECG 10/26/2024 09:17:19 No significant changes Electronically Signed On 10-28-2024 18:35:12 DIRECTOR REGULATORY COMPLIANCE by Lionel Williamson M.D. [email or web address]
[2024-10-27 04:34] LABS: Basophils % 0.1 %; Hematocrit 30.8 % (36-47); Lymphocytes # 0.2 10^3/uL (0.8-4.8); Lymphocytes % 2.7 %; Mean Corpuscular HGB Conc 33.1 g/dL (30-55); Mean Corpuscular Hemoglobin 33.9 pg (27-33); Mean Corpuscular Volume 102.3 fl (85-98); Mean Platelet Volume 9.7 fL (7.4-10.4); Monocytes # 0.5 10^3/uL (0.2-0.9); Monocytes % 6.8 %; Neutrophils # 6.84 10^3/uL (1.8-7.7); Neutrophils % 89.2 %; Nucleated Red Blood Cells % 0 %; Platelet Count 221 10^3/cmm (157-399); Red Blood Count 3.01 10^6/uL (3.85-5.65); Red Cell Distribution Width 12.7 % (12.1-15.1); White Blood Count 7.67 10^3/uL (3.29-11.43)
[2024-10-27 05:04] LABS: Alanine Aminotransferase 12 U/L (0-33); Albumin Level 2.8 g/dL (3.5-5.2); Alkaline Phosphatase 63 U/L (35-105); Anion Gap 10.5 (5-19); Aspartate Amino Transferase 10 U/L (0-32); Blood Urea Nitrogen 15 mg/dL (8-23); Calcium 8.8 mg/dL (8.5-10.5); Carbon Dioxide 34 mmol/L (22-29); Chloride 97 mmol/L (98-107); Creatinine Clr Calc Pharmacy 49.4187; Globulin 2.7 g/dL (1.3-4.6); Glucose 118 mg/dL (65-115); Osmolality Calculated 286 mOsm/kg (285-295); Potassium 4.5 mmol/L (3.5-5.1); Sodium 137 mmol/L (136-145); Total Bilirubin 0.2 mg/dL (0.15-1.2); Total Protein 5.5 g/dL (6.6-8.7)
[2024-10-27 05:05] LABS: Magnesium 2.2 mg/dL (1.7-2.3); Phosphorus 3.5 mg/dL (2.5-4.5)
[2024-10-27] MEDS: pantoprazole 40 mg SDV IVP (05:29)
[2024-10-27] MEDS: enoxaparin 60 mg/0.6 mL Syringe 50 MG SUBCUT (05:30)
[2024-10-27] MEDS: piperacillin-tazobactam 4.5 GM in sodium chloride 0.9% (plus) 50 ML IV (06:48)
[2024-10-27] MEDS: budesonide 0.5 mg/2 mL Neb INHALATION ×2 (07:47→20:14)
[2024-10-27] MEDS: methylPREDNISolone sod succ 40 mg/mL INJ IVP ×2 (08:52→16:42)
[2024-10-27] MEDS: CLONazepam 0.5 mg Tablet PEG-TUBE (08:53)
[2024-10-27] MEDS: dilTIAZem ER (24HR) 120 mg Capsule PO (08:53)
[2024-10-27] MEDS: HYDROmorphone 1 mg/mL INJ 1 mL IVP (08:57)
[2024-10-27] MEDS: AZITHROMYCIN ADD-Vantage 500 MG in 0.9% NaCl ADD-Vantage 250 ML 250 MG IV (09:30)
--- NOTE | 2024-10-27 14:03 | PC.PT ---
Multiple attempts made that evaluation today but unable to arouse patient for meaningful participation with PT evaluation, discussed with patient nurse who stated patient had received Dilaudid earlier, so will reattempt evaluation tomorrow.
--- NOTE | 2024-10-27 15:12 | ECG_ITS ---
[facility]: 2024-10-27 Pat Name: Claudia Perez Department: Room: 252 Gender: Female Is Support Analyst: : 1955 Requested By: Roula Scott Order Number: [id number] Sofia MD: Lionel Williamson M.D. Measurements Intervals [place] Rate: 81 P: 40 OK: 139 QRS: 19 QRSD: 90 T: 51 QT: 366 QTc: 425 Interpretive Statements SINUS RHYTHM Compared to ECG 10/27/2024 03:38:50 No significant changes Electronically Signed On 10-28-2024 18:32:02 EXCELSIOR MACHINE TENDER by Lionel Williamson M.D. [email or web address]
--- NOTE | 2024-10-27 15:29 | PC.NURSE ---
On telemetry, pt hr appears to be in 140s and possible a-fib. 12 lead ekg completed, where pt converts back into nsr with a hr of 80s. tele strip and ekg reading posted in the chart.
--- NOTE | 2024-10-27 15:55 | PM.PN ---
Subjective Subjective: Overnight patient had a 22nd pause on telemetry. She was asymptomatic it appears. She will woken up from sleep by the staff. She denies any chest pain dyspnea shortness of breath. Continues to be on 5 L/min supplemental O2. States she does not feel significantly better compared to admission. Medications: Reviewed: Yes Vitals/I&O/Wt Last Vital Signs Temp 98.0 F 10/27/24 15:31 Pulse 90 10/27/24 15:31 Resp 15 10/27/24 15:31 BP 117/66 10/27/24 15:31 Pulse Ox 98 10/27/24 15:31 O2 Del Method Nasal Cannula 10/27/24 15:31 O2 Flow Rate 5 10/27/24 13:37 10/27/24 10/27/24 10/27/24 06:59 14:59 22:59 Intake Total 170 / 520 250 / 250 Output Total 300 / 1200 Balance -130 / -680 250 / 250 Weight last 48 hrs Weight 48.807 kg Weight 48.943 kg Weight 48.534 kg Weight 48.67 kg Physical Exam Narrative: General: No acute distress, AO x3, chronically ill appearing HEENT: PERRLA, pupils bilaterally equal and reactive, pallors not present Chest: scattered wheezing to auscultation B/L CVS: S1-S2 regular, no murmurs, no tachycardia, no gallops, no rubs Abdomen: Soft, nontender, no organomegaly, bowel sounds present Neuro: No focal deficits, no facial deformity, AO x3, power 5/5 in all limbs Data 10/27/24 04:21 10/27/24 04:21 Micro: Microbiology 10/26/24 09:29 Gram Stain - Final Sputum - Expectorated Sputum Sputum Culture - Preliminary Gram Negative Rods 10/26/24 08:51 Blood Culture - Preliminary Blood NEGATIVE TO DATE 10/26/24 08:48 Blood Culture - Preliminary Blood NEGATIVE TO DATE A&P Assessment and plan (1) Acute on chronic hypoxic respiratory failure: (2) Depression with anxiety: (3) Hypothyroidism: Qualifiers: Hypothyroidism type: acquired Qualified Code(s): E03.9 - Hypothyroidism, unspecified (4) GERD (gastroesophageal reflux disease): Qualifiers: Esophagitis presence: without esophagitis Qualified Code(s): K21.9 - Gastro-esophageal reflux disease without esophagitis (5) Feeding by G-tube: (6) Acute exacerbation of chronic obstructive pulmonary disease: Gui Perez is a 69 yo woman w/ chronic hypoxic respiratory failure on continuous 4l, active Tobacco use d/o, 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 At the OSH, her labs were significant for wbc of 7.3, Hgb 10.7, Bicarb of 36, BUN/Cr of 26/0.72, ProBNP of 9355, Trop T of 59 -->48 , VBG of 7.48/55/43 Her CXR on 10/26 showed small b/l pleural effusions, but no flaquita pulmonary edema. It also showed bibasilar L>R opacities concerning for atelectasis or infection. Her COVID-19 Ag swab was presumptively negative. She was given duonebs, [place], Eliquis. #Acute on chronic hypoxic respiratory failure: - Multifactorial: Possible COPD exacerbation vs pneumonia vs Concern for vol overload at the Outside hospital - On 4.5L. Wean as tolerated #Respiratory acidosis w/ uncompensated metabolic alkalosis - Monitor #Possible COPD exacerbation #Possible pneumonia - F/u Influenza A/B, RSV, COVID-19 panel. F/u BCx, Sputum Cx. - Started Zosyn for possible pneumonia, Azithromycin, Duonebs and steroids. #Possible new onset CHF: - Trop T minimally elevated. ProBNP elevated at the OSH. F/u ProBNP in house - F/u ECHO. Patient did not appear vol overloaded on exam. F/u CT chest and ECHO. #Active tobacco use d/o: Nicotine patch ordered. #Paroxysmal Afib: Resume home meds when confirmed by nursing staff.. Her daughter is bringing her meds. In the meantime, will give Cardizem XR 120mg daily. Full dose Lovenox. #HTN: No acute issues at this time. Resume home meds when confirmed by nursing staff & as appropriate. #Depression/Anxiety d/o #Insomnia - Resume home meds when confirmed by nursing staff. #PEG tube: Consult chief credit officer for tube feeds #GERD: PPI #Hypothyroidism: Resume home meds when confirmed by nursing staff. DVT ppx: full dose Lovenox ordered GI ppx: PPI ordered 10/26/24: Overnight labs and H&P reviwed. CT chest with pneumonia. Continue iv abx, continue steroids for COPD exacerbation. Add scheduled duoneb and budesondie nebulization. stable for transfer out of ICU to med/surg 10/27/24: Patient had an overnight pause of 20 seconds on telemetry. Patient was asymptomatic during this episode. She was asleep, needed to be woken up. Once awake, she did not recall anything abnormal. Denied any chest pain dyspnea palpitations. Holding Cardizem going forward. Review of chart shows patient was diagnosed with A-fib in June 2024 when she was started on cardizem and eliquis. Outpatient records show a h/o SVT s/p ablation several years ago. Suspect that patient may have an underlying sleep apnea which may have led to the pause related to apnea or hypoxia. Additionally possible that patient may have tachy ernesto syndrome. holding cardizem going forward and continued monitoring on tele. Will likely require an event monitor at discharge. if recurrent long pauses, may need pacemaker this admission. Overnight oximetry study in lieu of sleep study which cannot be performed as an inpatient. Continues to have wheezing, increase steroids to methylpred 40mg q12h. Change lovenox to Eliquis 5mg BID as she takes at home. lower opiates. D/c iv dilaudid. continue po oxycodone/APAP q6h prn. Attestations Medical Necessity Statement*: continues close telemetry monitoring. increase iv steroids. d/c cardizem and monitor Coding Level of Care Code Acute Code for Chg Fwd High MDM includes number and complexity of problems actively addressed during encounter, amount and/or complexity of data reviewed/ordered and described risk of complication, morbidity or mortality of management as documented Diagnoses Acute on chronic hypoxic respiratory failure J96.21 Depression with anxiety F41.8 Acquired hypothyroidism E03.9 Hypothyroidism type: acquired Gastroesophageal reflux disease without esophagitis K21.9 Esophagitis presence: without esophagitis Feeding by G-tube Z93.1 Acute exacerbation of chronic obstructive pulmonary disease J44.1
[2024-10-27] MEDS: piperacillin-tazobactam 3.375 GM in sodium chloride 0.9% (plus) 50 ML IV (16:42)
[2024-10-27] MEDS: famotidine 20 mg Tablet PEG-TUBE (16:42)
[2024-10-27] MEDS: apixaban 5 mg Tablet PO (16:43)
[2024-10-27 20:30] LABS: Glucose Point of Care 230 mg/dL (70-110)
[2024-10-27] MEDS: trazodone 100 mg Tablet PEG-TUBE (22:03)
[2024-10-28] VITALS (8 sets, daily range): BP systolic 92–130; BP diastolic 52–73; PULSE 72–90; RESP 16–19; TEMP 36.7–37.1; O2SAT 91–96
[2024-10-28] MEDS: piperacillin-tazobactam 3.375 GM in sodium chloride 0.9% (plus) 50 ML IV ×2 (01:16→10:51)
[2024-10-28] MEDS: ipratropium-albuterol 3 mL Neb INHALATION ×2 (02:29→07:50)
[2024-10-28] MEDS: methylPREDNISolone sod succ 40 mg/mL INJ IVP (04:20)
[2024-10-28 05:29] LABS: Basophils % 0.2 %; Hematocrit 31.4 % (36-47); Lymphocytes # 0.2 10^3/uL (0.8-4.8); Lymphocytes % 2.3 %; Mean Corpuscular HGB Conc 31.8 g/dL (30-55); Mean Corpuscular Volume 103.6 fl (85-98); Mean Platelet Volume 9.9 fL (7.4-10.4); Monocytes # 0.3 10^3/uL (0.2-0.9); Monocytes % 3.6 %; Neutrophils # 8.09 10^3/uL (1.8-7.7); Nucleated Red Blood Cells % 0 %; Platelet Count 247 10^3/cmm (157-399); Red Blood Count 3.03 10^6/uL (3.85-5.65); Red Cell Distribution Width 12.7 % (12.1-15.1)
[2024-10-28 05:51] LABS: Magnesium 2.2 mg/dL (1.7-2.3); Phosphorus 3.5 mg/dL (2.5-4.5)
[2024-10-28 05:58] LABS: Alanine Aminotransferase 13 U/L (0-33); Alkaline Phosphatase 63 U/L (35-105); Anion Gap 12.6 (5-19); Aspartate Amino Transferase 12 U/L (0-32); Blood Urea Nitrogen 21 mg/dL (8-23); Calcium 8.9 mg/dL (8.5-10.5); Carbon Dioxide 32 mmol/L (22-29); Chloride 97 mmol/L (98-107); Creatinine Clr Calc Pharmacy 49.8352; Globulin 2.1 g/dL (1.3-4.6); Glucose 119 mg/dL (65-115); Osmolality Calculated 288 mOsm/kg (285-295); Potassium 4.6 mmol/L (3.5-5.1); Sodium 137 mmol/L (136-145); Total Bilirubin 0.2 mg/dL (0.15-1.2); Total Protein 5.1 g/dL (6.6-8.7)
[2024-10-28] MEDS: budesonide 0.5 mg/2 mL Neb INHALATION (07:50)
[2024-10-28] MEDS: AZITHROMYCIN ADD-Vantage 500 MG in 0.9% NaCl ADD-Vantage 250 ML 250 MG IV (08:48)
[2024-10-28] MEDS: levothyroxine 88 mcg Tablet PO (08:52)
[2024-10-28] MEDS: CLONazepam 0.5 mg Tablet PEG-TUBE (08:52)
[2024-10-28] MEDS: famotidine 20 mg Tablet PEG-TUBE (08:52)
[2024-10-28] MEDS: apixaban 5 mg Tablet PO (08:52)
--- NOTE | 2024-10-28 09:10 | PC.SOCIAL ---
IMM Update Pg. 2 of IMM updated and reviewed with patient, who verbalized understanding. Copy provided.
--- NOTE | 2024-10-28 13:44 | P.DS_ITS ---
Discharge Providers Date of Admission: 10/26/24 03:12 Date of Discharge: October 28, 2024 Attending Provider at Admission: Adali Weinstein MD Attending Provider at Discharge: Roula Scott MD Primary Care Provider: JIMMIE Chavez Diagnoses at Discharge Discharge Diagnosis (1) Acute on chronic hypoxic respiratory failure: Status: Acute (2) Depression with anxiety: Status: Acute (3) Hypothyroidism: Status: Acute Qualifiers: Hypothyroidism type: acquired Qualified Code(s): E03.9 - Hypothyroidism, unspecified (4) GERD (gastroesophageal reflux disease): Status: Acute Qualifiers: Esophagitis presence: without esophagitis Qualified Code(s): K21.9 - Gastro-esophageal reflux disease without esophagitis (5) Feeding by G-tube: Status: Acute (6) Acute exacerbation of chronic obstructive pulmonary disease: Status: Resolved Reason for Visit Reason for Visit: copd exac Hospital Course Hospital Course Patient is a 69-year-old lady with chronic hypoxic respiratory failure on contin uous 4 L/min supplemental O2 at home, active smoker, hypopharyngeal cancer status post chemoradiation resulting in chronic PEG tube. She had initially presented to [facility] emergency room and multiple days with worsening shortness of breath. She was transferred here after her O2 sat was noted to be in the 70s on her usual 4 L/min. She was transferred here for further management. Her acute on chronic hypoxic respiratory failure was thought to be most likely related to COPD exacerbation. CT of the chest with contrast did not show any evidence of PE. There were moderate consolidative atelectasis of the left greater than right lung bases. Patient reported history of aspiration in the past. She was treated with IV antibiotics piperacillin/tazobactam, azithromycin, IV steroids for her COPD exacerbation. There was concern initially also for CHF exacerbation, however patient is currently appearing to be euvolemic on home dose of Lasix 20 mg daily. Overnight on 10/26/2024 she was noted to have a 20 seconds pause on telemetry. Patient had been diagnosed with A-fib in June 2024 for which she had started Cardizem and Eliquis. Patient's Cardizem was placed on hold after this event. Transiently she had an episode of A-fib with RVR in 140s lasting a few seconds yesterday afternoon, which has not since recurred. She has mostly been in sinus rhythm with heart rate ranging 80-90. No pauses noted overnight on telemetry since putting the Cardizem on hold. Since the pause happened during sleep time, there was suspicion for sleep apnea , Overnight oximetry study remained unrevealing. She is being referred as outpatient for a sleep study. She remained on 4 L/min supplemental O2 through the night. At the time of discharge and event monitor has been ordered. Patient may have underlying tachybradycardia syndrome for which she may require a pacemaker however will need more data from an event monitor off of rate control agents before making this determination. She is instructed to follow-up with cardiology as outpatient. She was previously established with Dr. Luna. Physical Exam Narrative: General: No acute distress, AO x3, chronically ill appearing, malnourished HEENT: PERRLA, pupils bilaterally equal and reactive, pallors not present Chest: coarse vesicular breath sounds CVS: S1-S2 regular, no murmurs, no tachycardia, no gallops, no rubs Abdomen: Soft, nontender, no organomegaly, bowel sounds present Neuro: No focal deficits, no facial deformity, AO x3, power 5/5 in all limbs Discharge Data Studies Completed and Pending Completed Studies During Hospitalization Category Date Time Status CT chest w con* [id number] Routine Cat Scan 10/26/24 07:02 Completed CXRP [XR chest 1V portable [id number]] Routine Exams 10/26/24 03:43 Completed CV. echo complete* [id number] Routine Ultrasound 10/26/24 04:51 Completed Pending at discharge Category Date Time Status Blood Culture Stat Lab 10/26/24 08:51 Results Sputum Culture and Gram Stain Routine Lab 10/26/24 09:29 Results Radiology Impressions Chest X-Ray 10/26/24 03:43 IMPRESSION: 1. Right pleural effusion. 2. Basilar infiltrates are likely atelectasis/scarring, however difficult to exclude superimposed infection. Chest CT 10/26/24 07:02 IMPRESSION: 1. Moderate consolidative atelectasis of the cswf-udbbtha-jdau-right lung bases. Overlying infiltrate is not excluded. 2. Centrilobular emphysematous changes of the lungs. COMMENTS: The presence of pulmonary emphysema on CT is an independent risk factor for lung cancer. In the absence of a history or active diagnosis of lung cancer, it is recommended that this patient with emphysema be evaluated for enrollment in a low dose CT lung cancer screening program. Laboratory Results WBC 8.70 10^3/uL (3.29-11.43) 10/28/24 04:12 RBC 3.03 10^6/uL (3.85-5.65) L 10/28/24 04:12 Hgb 10.00 g/dL (11.27-16.99) L 10/28/24 04:12 Hct 31.4 % (36-47) L 10/28/24 04:12 MCV 103.6 fl (85-98) H 10/28/24 04:12 MCH 33.0 pg (27-33) 10/28/24 04:12 MCHC 31.8 g/dL (30-55) 10/28/24 04:12 RDW 12.7 % (12.1-15.1) 10/28/24 04:12 Plt Count 247 10^3/cmm (157-399) 10/28/24 04:12 MPV 9.9 fL (7.4-10.4) 10/28/24 04:12 Neut % (Auto) 93.0 % 10/28/24 04:12 Lymph % (Auto) 2.3 % 10/28/24 04:12 [place] % (Auto) 3.6 % 10/28/24 04:12 Eos % (Auto) 0.0 % 10/28/24 04:12 Baso % (Auto) 0.2 % 10/28/24 04:12 Neut # (Auto) 8.09 10^3/uL (1.8-7.7) H 10/28/24 04:12 Lymph # (Auto) 0.2 10^3/uL (0.8-4.8) L 10/28/24 04:12 [place] # (Auto) 0.3 10^3/uL (0.2-0.9) 10/28/24 04:12 Eos # (Auto) 0.0 10^3/uL (0.0-0.8) 10/28/24 04:12 Baso # (Auto) 0.0 10^3/uL (0.0-0.1) 10/28/24 04:12 Nucleated RBC % (auto) 0 % 10/28/24 04:12 Nucleated RBCs # 0.0 /100WBC 10/28/24 04:12 PT 17.90 SECONDS (12.1-14.9) H 10/26/24 03:50 INR 1.43 (0.8-1.2) H 10/26/24 03:50 APTT 42.8 SECONDS (23.9-36.7) H 10/26/24 03:50 D-Dimer 0.51 ug/mLFEU (0-0.59) 10/26/24 03:50 Specimen Type Arterial 10/26/24 04:18 Sample Site Brachial, right 10/26/24 04:18 ABG pH 7.42 (7.35-7.45) 10/26/24 04:18 ABG pCO2 54.9 mmHg (35-45) H 10/26/24 04:18 ABG pO2 72.0 mmHg (80.0-100.0) L 10/26/24 04:18 ABG PO2/FiO2 Ratio 180 10/26/24 04:18 ABG HCO3 35.9 mmol/L (22-26) H 10/26/24 04:18 ABG O2 Saturation 95.0 10/26/24 04:18 ABG Base Excess 9.3 mmol/L (-2.0-2.0) H 10/26/24 04:18 Davy Test N/a 10/26/24 04:18 A-a O2 Gradient 19.2 mmHg (5-10) H 10/26/24 04:18 Hematocrit 45.9 % (37-47) 10/26/24 04:18 Hgb O2 Saturation 94.0 % (95-100) L 10/26/24 04:18 Carboxyhemoglobin 1.1 %THgb (0.4-20.1) 10/26/24 04:18 Methemoglobin 0.0 % (0.4-1.5) L 10/26/24 04:18 Total Hemoglobin 15.0 g/dL (12-16) 10/26/24 04:18 Sodium 133.0 mmol/L (131-143) 10/26/24 04:18 Potassium 3.9 mmol/L (3.5-5.0) 10/26/24 04:18 Glucose 101.0 mg/dL (70-115) 10/26/24 04:18 Ionized Calcium 1.2 mmol/L (1.1-1.4) 10/26/24 04:18 O2 Delivery Device Oxy mask 10/26/24 04:18 O2 Liters/Min 6.0 % 10/26/24 04:18 FiO2 40.0 % 10/26/24 04:18 Obedience Trainer ID Alejo 10/26/24 04:18 Sodium 137 mmol/L (136-145) 10/28/24 04:12 Potassium 4.6 mmol/L (3.5-5.1) 10/28/24 04:12 Chloride 97 mmol/L (98-107) L 10/28/24 04:12 Carbon Dioxide 32 mmol/L (22-29) H 10/28/24 04:12 Anion Gap 12.6 (5-19) 10/28/24 04:12 BUN 21 mg/dL (8-23) 10/28/24 04:12 Creatinine 0.5 mg/dL (0.5-0.9) 10/28/24 04:12 GFR Calculation Not Reportable 10/28/24 04:12 Glucose 119 mg/dL (65-115) H 10/28/24 04:12 POC Glucose 230 mg/dL (70-110) H 10/27/24 20:22 Calculated Osmolality 288 mOsm/kg (285-295) 10/28/24 04:12 Lactate 0.8 mmol/L (0.5-2.2) 10/26/24 03:50 Calcium 8.9 mg/dL (8.5-10.5) 10/28/24 04:12 Phosphorus 3.5 mg/dL (2.5-4.5) 10/28/24 04:12 Magnesium 2.2 mg/dL (1.7-2.3) 10/28/24 04:12 Total Bilirubin 0.2 mg/dL (0.15-1.2) 10/28/24 04:12 Direct Bilirubin 0.20 mg/dL (0.00-0.30) 10/26/24 03:50 AST 12 U/L (0-32) 10/28/24 04:12 ALT 13 U/L (0-33) 10/28/24 04:12 Alkaline Phosphatase 63 U/L (35-105) 10/28/24 04:12 Troponin T Baseline 44 ng/L (0-10) H 10/26/24 03:50 Troponin T 120 Minute 41.96 ng/L (0-10) H 10/26/24 05:46 Delta Troponin T -2.04 ABS# (0-10) L 10/26/24 05:46 Troponin T Hi Sens 6Hr 45.47 ng/L (0-10) H 10/26/24 08:48 Troponin T Hi Sens 6Hr Delta 1.47 ng/L (0-12) 10/26/24 08:48 NT-Pro-B Natriuret Pep 6857 pg/mL (0-125) H 10/26/24 05:46 Total Protein 5.1 g/dL (6.6-8.7) L 10/28/24 04:12 Albumin 3.0 g/dL (3.5-5.2) L 10/28/24 04:12 Globulin 2.1 g/dL (1.3-4.6) 10/28/24 04:12 TSH 10.46 uIU/mL (0.27-4.20) H 10/26/24 05:46 Free T4 0.97 ng/dL (0.82-1.77) 10/26/24 05:46 Coronavirus (PCR) Negative (Negative) 10/26/24 12:05 Influenza A (PCR) Negative (Negative) 10/26/24 12:05 Influenza Type B (PCR) Negative (Negative) 10/26/24 12:05 RSV (PCR) Negative (Negative) 10/26/24 12:05 Vitals Last Vital Signs Temp 98.0 F 10/28/24 11:02 Pulse 90 10/28/24 11:02 Resp 16 10/28/24 11:02 BP 109/68 10/28/24 11:02 Pulse Ox 92 10/28/24 11:02 O2 Del Method Nasal Cannula 10/28/24 11:02 O2 Flow Rate 4 10/28/24 11:02 Discharge Plan Discharge Patient Disposition: Home Condition: Stable Prescriptions: New famotidine 20 mg Tablet 20 mg peg-tube BID 30 Days Qty: 60 0RF amoxicillin-pot clavulanate 875-125 mg tablet 1 tab feeding tube BID 5 Days Qty: 10 0RF prednisone 20 mg tablet 40 mg feeding tube DAILY 5 Days Qty: 10 0RF Rx Instructions: days 11-21 of therapy Continued (DME) 6mL leur slip syringe See Rx Instructions .Route .MEDSUPPLY Qty: 12 3RF Rx Instructions: As directed (DME) bolus feed extension set with cath tip Secur-Clau straight connector and clamp See Rx Instructions .Route .MEDSUPPLY Qty: 12 3RF Rx Instructions: 5x daily (DME) Ensure See Rx Instructions .Route .MEDSUPPLY Qty: 12 11RF Rx Instructions: 1 pack=24 which last 6 days. Will need 4 pkg per month. oxycodone 5 mg/5 mL solution 5 mg PO QID PRN (Reason: Pain) Breztri Aerosphere 160-9-4.8 mcg/actuation HFA aerosol inhaler 2 inh inhalation BID Qty: 10.7 0RF albuterol sulfate 2.5 mg /3 mL (0.083 %) solution for nebulization 2.5 mg INHALATION Q8H Qty: 90 0RF Hold Instructions: Resume on 12/15/23. hold while taking duoneb and budesonide Rx Instructions: COPD, respiratory failure j42 bronchitis albuterol sulfate 90 mcg/actuation HFA aerosol inhaler 1 inh inhalation QID PRN (Reason: Shortness Of Breath) naloxone 4 mg/actuation spray,non-aerosol 1 spray INTRANASAL Q3M PRN (Reason: Opioid Overdose) furosemide 20 mg tablet 20 mg feeding tube DAILY clonazepam 0.5 mg tablet 0.5 mg feeding tube DAILY Rx Instructions: Takes in the afternoon levothyroxine 88 mcg tablet 88 mcg feeding tube DAILY trazodone 100 mg tablet 100 mg feeding tube DAILY Rx Instructions: AT NIGHT metoclopramide HCl 10 mg tablet 10 mg feeding tube BID Rx Instructions: Give before morning and evening feeds. escitalopram oxalate 20 mg tablet 20 mg feeding tube DAILY cyclobenzaprine 5 mg tablet 5 mg feeding tube TID PRN (Reason: Muscle Spasm) Eliquis 5 mg tablet 5 mg feeding tube BID Rx Instructions: 1 TABLET PER TUBE TWICE DAILY 0900, 2100 FOR 30 DAYS Held prednisone 5 mg/5 mL solution 5 mg feeding tube DAILY Hold Instructions: Resume on 10/28/24. hold while on steroid taper Rx Instructions: PER PEG IN THE AFTERNOON Discontinued lisinopril 10 mg tablet See Rx Instructions PO DAILY PRN (Reason: hypertensive emergency) Rx Instructions: orally daily PRN; as needed as blood pressure increases doxycycline hyclate 100 mg tablet 100 mg feeding tube BID diltiazem HCl 120 mg capsule,extended release 24hr 120 mg PO DAILY Rx Instructions: PER PEG Discharge Orders: Discharge Order (Routine); Ordered 10/28/24 Ordered By: Roula Scott Other Ambulatory Orders: MCT/Event Monitor 21 Days (Routine) Timeframe: 20241028 Facility: [facility] - Location: Radiology Ordered By: Roula Scott Sleep Study W Sleep Stage (Routine) Timeframe: 1 Month Facility: [facility] - Location: [facility] Ordered By: Roula Scott Discharge Diet: Usual diet Discharge Activity: Resume usual activity Patient Instructions: Opioid Safety Activity Restrictions/Additional Instructions: sent message to [facility] for a 21 [address] event monitor per Dr Scott Discharge Attestations Time Spent in Discharge Care*: greater than 30 min Quality Metrics Clinical Quality Measures [ No reported AMI, CVA or VTE this stay] Coding Level of Care Code Acute Code for Chg Fwd Diagnoses Acute on chronic hypoxic respiratory failure J96.21 Depression with anxiety F41.8 Acquired hypothyroidism E03.9 Hypothyroidism type: acquired Gastroesophageal reflux disease without esophagitis K21.9 Esophagitis presence: without esophagitis Feeding by G-tube Z93.1 Acute exacerbation of chronic obstructive pulmonary disease J44.1
== END 2024-10-28 14:55 | disposition home or self-care (01) | DRG 189 ==
LOC: ICU 10:59 → MEDSURG 13:55 → ICU 13:56 → MEDSURG 13:56
PROVIDERS: Admitting Provider Internal Medicine; PCP Registered Nurse; Visit Provider Student in an Organized Health Care Education/Training Program
DX: J96.21 Acute and chronic respiratory failure with hypoxia (principal); J44.1 Chronic obstructive pulmonary disease with (acute) exacerbation; E87.4 Mixed disorder of acid-base balance; F41.8 Other specified anxiety disorders; E03.9 Hypothyroidism, unspecified; K21.9 Gastro-esophageal reflux disease without esophagitis; F17.210 Nicotine dependence, cigarettes, uncomplicated; I48.0 Paroxysmal atrial fibrillation; G47.00 Insomnia, unspecified; G89.29 Other chronic pain; Z99.81 Dependence on supplemental oxygen; Z85.818 Personal history of malignant neoplasm of other sites of lip, oral cavity, and pharynx; Z92.21 Personal history of antineoplastic chemotherapy; Z79.01 Long term (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 of anticoagulants; Z79.891 Long term (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 analgesic
CPT/HCPCS: 0241U; 36415; 36416; 36600; 71045; 71260; 80048; 80051; 80053; 80076; 82330; 82805; 82962; 83605; 83735; 83880; 84100; 84439; 84443; 84484; 85025; 85378; 85610; 85730; 87040; 87070; 87077; 87186; 87205; 93005; 93306; 94640; 94664; 96372; 97161; 97166; J0456; J1171; J1650; J2405; J2470; J2543; J2919; J7050; J7626

== ENCOUNTER → 2025-03-02 11:15 | Outpatient (BNVA) | payer MEDICARE, MEDICAID, SELFPAY | PROVIDERS: PCP Registered Nurse; Visit Provider Student in an Organized Health Care Education/Training Program | DX: Z93.1 Gastrostomy status (principal) | CPT/HCPCS: 99204; 99214 ==

== ENCOUNTER → 2025-03-20 11:34 | Outpatient (BNVA) | payer MEDICARE, MEDICAID, SELFPAY | PROVIDERS: PCP Registered Nurse; Visit Provider Student in an Organized Health Care Education/Training Program | DX: Z93.1 Gastrostomy status (principal) | CPT/HCPCS: 43762; 99214 ==